=== PATIENT | female | born 1930 | race Caucasian/White ===

== ENCOUNTER 2017-01-02 17:29 | Emergency (ER) | payer OTHER ==
[~2017-01-02] VITALS: Ht 152.4 cm; Wt 47.7 kg
[2017-01-02 17:32] VITALS: BP 125/70; PULSE 162; RESP 22; TEMP 97.8; O2SAT 96
--- NOTE | 2017-01-02 17:36 | PD ---
HPI Chief Complaint: fall Time Seen by Provider: 17:36 Travel History International Travel<30 days: No Contact w/Intl Traveler<30days: No History of Present Illness HPI 86 YO F presents to the ED for evaluation after trip and fall onto a terrazzo floor. The patient denies loss of consciousness. She takes Xarelto. On presentation she complains of pain in the back of her head but she denies dizziness, vision changes, nausea, vomiting, numbness, tingling, weakness, limitations to range of motion of the extremities. She has been ambulatory since the accident. [facility]LY [facility] Social History Tobacco Use: No Allergies-Medications (Allergen,Severity, Reaction): Coded Allergies: No Known Allergies (Unverified , 01/02/17) Reported Meds & Prescriptions Reported Meds & Active Scripts Active Reported Womens One Daily (Multiple Vitamins W/ Minerals) 27 Mg-0.4 Mg Tab 1 Cap PO DAILY Amlodipine (Amlodipine Besylate) 2.5 Mg Tab 2.5 Mg PO DAILY Lisinopril 40 Mg Tab 40 Mg PO DAILY Lovastatin 40 Mg Tab 80 Mg PO DAILY Alendronate (Alendronate Sodium) 70 Mg Tab 70 Mg PO Q7D Eliquis (Apixaban) 2.5 Mg Tab 2.5 Mg PO BID Review of Systems Except as stated in HPI: all other systems reviewed are Neg Physical Exam Narrative GENERAL: Well-nourished, well-developed pleasant white female in NAD. SKIN: Focused skin assessment warm/dry. One centimeter laceration on the right aspect of the occiput. Bleeding profusely. HEAD: Normocephalic. EYES: No scleral icterus. No injection or drainage. NECK: Supple, trachea midline. No JVD or lymphadenopathy. No midline TTP. NO limitation to ROM. CARDIOVASCULAR: Regular rate and rhythm without murmurs, gallops, or rubs. RESPIRATORY: Breath sounds clear and equal bilaterally. No accessory muscle use. GASTROINTESTINAL: Abdomen soft, non-tender, nondistended. MUSCULOSKELETAL: No cyanosis, or edema. Patient moves the extremities spontaneously. NEUROLOGICAL: Awake and alert. Cranial nerves II through XII intact. Motor and sensory grossly within normal limits. Five out of 5 muscle strength in all muscle groups. Normal speech. BACK: Nontender without obvious deformity. No CVA tenderness. Data Data Last Documented VS Vital Signs Date Time Temp Pulse Resp B/P (MAP) Pulse Ox O2 Delivery O2 Flow Rate FiO2 01/02/17 20:37 01/02/17 19:32 89 16 97 01/02/17 17:32 97.8 01/02/17 17:30 Room Air Orders Orders Ct Brain W/O Iv Contrast(Rout) (01/02/17 17:44) Ct Cerv Spine W/O Contrast (01/02/17 17:44) Lidocaine 1% Inj (50 Ml) (Xylocaine 1% I (01/02/17 18:00) Complete Blood Count With Diff (01/02/17 18:38) Acetaminophen (Tylenol) (01/02/17 19:30) Electrocardiogram (01/02/17 18:46) Labs Laboratory Tests Test 01/02/17 19:10 White Blood Count 8.3 TH/MM3 Red Blood Count 3.37 MIL/MM3 Hemoglobin 9.2 GM/DL Hematocrit 29.3 % Mean Corpuscular Volume 86.9 FL Mean Corpuscular Hemoglobin 27.4 PG Mean Corpuscular Hemoglobin Concent 31.5 % Red Cell Distribution Width 17.2 % Platelet Count 358 TH/MM3 Mean Platelet Volume 7.9 FL Neutrophils (%) (Auto) 61.8 % Lymphocytes (%) (Auto) 22.9 % Monocytes (%) (Auto) 9.0 % Eosinophils (%) (Auto) 5.6 % Basophils (%) (Auto) 0.7 % Neutrophils # (Auto) 5.1 TH/MM3 Lymphocytes # (Auto) 1.9 TH/MM3 Monocytes # (Auto) 0.7 TH/MM3 Eosinophils # (Auto) 0.5 TH/MM3 Basophils # (Auto) 0.1 TH/MM3 CBC Comment DIFF FINAL Differential Comment [facility] Medical Decision Making Medical Screen Exam Complete: Yes Emergency Medical Condition: Yes Differential Diagnosis Scalp laceration versus closed head injury versus ICH versus musculoskeletal pain versus cervical spinal injury versus other Narrative Course 86 YO F presents to the ED for evaluation after trip and fall onto a terrazzo floor. The patient denies LOC. She takes Xarelto. On presentation she complains of pain in the back of her head but she denies dizziness, vision changes, nausea, vomiting, numbness, tingling, weakness, limitations to range of motion of the extremities. She has been ambulatory since the accident. Vitals reviewed. Physical exam reveals a 1 cm laceration on the right occiput, bleeding profusely but is otherwise unremarkable. Laceration repair was performed. Please see my procedure note for details. CTs of the brain and cervical spine are negative for acute process. Given the profuse bleeding CBC was ordered. Hemoglobin is 9.2. The patient has never been to [place] and we don't have a baseline to compare to. I will let her go home with precautions for anemia. I discussed wound care and follow-up for suture removal, reasons to return to the ED. The patient and her indicated understanding of the instructions and are agreeable to the care plan. She stable and discharged home. Procedures Procedure Narrative LACERATION LOCATION: right occiput LENGTH: 1cm NUMBER OF STITCHES/STEPHANI: 2 REPAIR: The area of the laceration was prepped with Betadine and sterilely draped. The laceration was infiltrated with 1% Lidocaine. The wound was copiously irrigated and explored without evidence of foreign body, tendon injury or neurovascular injury. The wound was closed using 3-0 Nylon. This was a single layer repair. The patient was advised to keep the wound clean and dry. Patient tolerated the procedure well. Diagnosis Primary Impression: Fall from standing Qualified Codes: W19.XXXA - Unspecified fall, initial encounter Additional Impressions: Occipital scalp laceration Qualified Codes: S01.01XA - Laceration without foreign body of scalp, initial encounter Closed head injury Qualified Codes: S09.90XA - Unspecified injury of head, initial encounter Referrals: Primary Care Physician Patient Instructions: Chronic Post Traumatic Headache (ED), General Instructions, Laceration (ED) Additional Instructions: Rest, hydrate. Do not submerge the wound for 24 hours. After that you may shower normally, no special treatment needed for the laceration. Wash gently. Suture removal in 10-14 days. Return to ED for worsening symptoms or any urgent or emergent medical condition. Disposition: 01 DISCHARGE HOME Condition: Stable Kat Sandoval Jan 02, 2017 17:36
[2017-01-02] MEDS ORDERED: LIDOCAINE HCL 1% 50 ML VIAL INFIL ONE (18:00)
--- NOTE | 2017-01-02 18:05 | RADRPT ---
EXAM DATE/TIME: 01/02/2017 17:47 [facility] COMPARISON: No previous studies available for comparison. INDICATIONS : Trauma, fell and hit back of head. RADIATION DOSE: 56.77 CTDIvol (mGy) MEDICAL HISTORY : Unobtainable. SURGICAL HISTORY : Unobtainable. ENCOUNTER: Initial ACUITY: 1 day PAIN SCALE: 10/10 LOCATION: cranial TECHNIQUE: Multiple contiguous axial images were obtained of the head. Using automated exposure control and adj ustment of the mA and/or kV according to patient size, radiation dose was kept as low as reasonably a chievable to obtain optimal diagnostic quality images. DICOM format image data is available electro nically for review and comparison. FINDINGS: CEREBRUM: The ventricles are normal for age. No evidence of midline shift, mass lesion, hemorrhage or acute in farction. No extra-axial fluid collections are seen. POSTERIOR FOSSA: The cerebellum and brainstem are intact. The 4th ventricle is midline. The cerebellopontine angle i s unremarkable. EXTRACRANIAL: The visualized portion of the orbits is intact. Note is made of hematoma within the posterior soft ti ssues along the occipital region. SKULL: The calvaria is intact. No evidence of skull fracture. CONCLUSION: 1. No acute intracranial abnormality. 2. Hematoma within the scalp posteriorly. Chaitanya Roman MD on January 02, 2017 at 18:03 Board Certified Radiologist. This report was verified electronically.
--- NOTE | 2017-01-02 18:15 | RADRPT ---
EXAM DATE/TIME: 01/02/2017 17:49 [facility] COMPARISON: No previous studies available for comparison. INDICATIONS : Trauma, fell and hit back of head. RADIATION DOSE: 34.59 CTDIvol (mGy) MEDICAL HISTORY : Unobtainable. SURGICAL HISTORY : Unobtainable. ENCOUNTER: Initial ACUITY: 1 day PAIN SCALE: 3/10 LOCATION: neck TECHNIQUE: Volumetric scanning of the cervical spine was performed. Multiplanar reconstructions in the sagittal, coronal and oblique axial planes were performed. Using automated exposure control and adjustment o f the mA and/or kV according to patient size, radiation dose was kept as low as reasonably achievable to obtain optimal diagnostic quality images. DICOM format image data is available electronically f or review and comparison. FINDINGS: No fracture seen of the cervical spine. There is approximately 4 mm of degenerative appearing anterol isthesis at C2/C3. No acute subluxation visualized. No prevertebral soft tissue swelling. Severe disc space narrowing with broad/diffuse disc osteophyte complexes and bilateral uncovertebral and facet osteoarthritis seen at C3/C4-C6/C7. There is moderate facet osteoarthritis at C2/C3. CONCLUSION: No fracture or acute appearing malalignment of the cervical spine. Multilevel degenerative changes as above and with several millimeters of degenerative appearing anterolisthesis at C2/C3. Faisal Mckeon MD on January 02, 2017 at 18:10 Board Certified Radiologist. This report was verified electronically.
[2017-01-02] MEDS ORDERED: APIX2.5T PO (19:25)
[2017-01-02] MEDS ORDERED: ALEN1TAB48 PO (19:28)
[2017-01-02] MEDS ORDERED: AMLO2.5T PO (19:29)
[2017-01-02] MEDS ORDERED: LISI40TA PO (19:29)
[2017-01-02] MEDS ORDERED: LOVA40TA PO (19:29)
[2017-01-02] MEDS ORDERED: WOMETAB5 PO (19:30)
[2017-01-02] MEDS ORDERED: ACETAMINOPHEN 325 MG TAB PO ONE (19:30)
[2017-01-02 19:32] VITALS: BP 128/80; PULSE 89; RESP 16; O2SAT 97
[2017-01-02 19:59] LABS: AUTOMATED NEUTROPHIL # 5.1 TH/MM3 (1.8-7.7); BASOPHIL # 0.1 TH/MM3 (0-0.2); BASOPHIL % 0.7 % (0.0-2.0); EOSINOPHIL # 0.5 TH/MM3 (0-0.4); EOSINOPHIL % 5.6 % (0.0-4.0); HEMATOCRIT 29.3 % (35.0-46.0); HEMO FLAGS DIFF FINAL; LYMPH % 22.9 % (9.0-44.0); LYMPHOCYTE # 1.9 TH/MM3 (1.0-4.8); MEAN CELL VOLUME 86.9 FL (80.0-100.0); MEAN CORPUSCULAR HEMOGLOBIN 27.4 PG (27.0-34.0); MEAN CORPUSCULAR HGB CONC 31.5 % (32.0-36.0); NEUT % 61.8 % (16.0-70.0); PLATELET COUNT 358 TH/MM3 (150-450); RED BLOOD COUNT 3.37 MIL/MM3 (4.00-5.30); RED CELL DISTRIBUTION WIDTH 17.2 % (11.6-17.2); WHITE BLOOD COUNT 8.3 TH/MM3 (4.0-11.0)
--- NOTE | 2017-01-02 20:51 | EKG ---
Date Performed: 01/02/2017 Time Performed: 18:46:00 PTAGE: 86 years EKG: Sinus rhythm RIGHT BUNDLE BRANCH BLOCK ABNORMAL ECG NO PREVIOUS TRACING DOCTOR: Get Ramos Interpretating Date/Time 01/02/2017 20:49:11
== END 2017-01-02 20:48 | disposition home or self-care (01) ==
LOC: NEPE 17:29
DX: S01.01XA Laceration without foreign body of scalp, initial encounter (principal); S09.90XA Unspecified injury of head, initial encounter; R94.31 Abnormal electrocardiogram [ECG] [EKG]; W01.198A Fall on same level from slipping, tripping and stumbling with subsequent striking against other object, initial encounter; Y93.01 Activity, walking, marching and hiking; Y92.009 Unspecified place in unspecified non-institutional (private) residence as the place of occurrence of the external cause; Z79.01 Long term (current) use of anticoagulants
CPT/HCPCS: 12001; 70450; 72125; 85025; 93005

== ENCOUNTER 2017-01-14 14:30 | Inpatient (IN) | payer OTHER, MEDICARE ==
[2017-01-14] VITALS (12 sets, daily range): BP systolic 109–162; BP diastolic 60–92; PULSE 99–121; RESP 14–24; TEMP 97.6–98.4; O2SAT 92–100
[~2017-01-14] VITALS: Ht 160 cm; Wt 48.7 kg
[~2017-01-14 14:30] MED LIST: ALEN1TAB48 PO; AMLO2.5T PO; APIX2.5T PO; LISI40TA PO; LOVA40TA PO; WOMETAB5 PO
--- NOTE | 2017-01-14 14:41 | PD ---
Physical Exam Time Seen by Provider: 14:39 Narrative 86 y/o female here with sob for 1.5 weeks. Hgb 6.7, her pcp sent her here. On eliquis. Denies melena, hematemesis, hematochezia. Vital signs reviewed. Seen at triage desk. Awaiting bed placement. Data Data Last Documented VS Vital Signs Date Time Temp Pulse Resp B/P (MAP) Pulse Ox O2 Delivery O2 Flow Rate FiO2 01/14/17 14:34 98.4 22 109/82 (91) Room Air [facility] Medical Record Reviewed: Yes Supervised Visit with DAMON: No Vamshi Gregorio Jan 14, 2017 14:41
--- NOTE | 2017-01-14 15:24 | RADRPT ---
EXAM DATE/TIME: 01/14/2017 15:07 [facility] COMPARISON: No previous studies available for comparison. INDICATIONS : Short of breath. MEDICAL HISTORY : Cardiovascular disease. SURGICAL HISTORY : CABG. ENCOUNTER: Initial ACUITY: 1 day PAIN SCORE: 0/10 LOCATION: Bilateral chest FINDINGS: The heart is enlarged. The patient is post median sternotomy. There are bilateral effusions and diffu se interstitial prominence suggesting congestive failure. There are changes consistent with COPD. The visualized bony structures are grossly intact. CONCLUSION: 1. Bilateral pleural effusion and diffuse interstitial prominence suggesting congestive failure. 2. COPD. Chaitanya Roman MD on January 14, 2017 at 15:21 Board Certified Radiologist. This report was verified electronically.
[2017-01-14 16:04] LABS: AUTOMATED NEUTROPHIL # 5.5 TH/MM3 (1.8-7.7); BASOPHIL # 0.1 TH/MM3 (0-0.2); BASOPHIL % 0.8 % (0.0-2.0); EOSINOPHIL # 0.4 TH/MM3 (0-0.4); EOSINOPHIL % 4.5 % (0.0-4.0); HEMO FLAGS DIFF FINAL; LYMPH % 18.4 % (9.0-44.0); LYMPHOCYTE # 1.6 TH/MM3 (1.0-4.8); MEAN CORPUSCULAR HEMOGLOBIN 25.9 PG (27.0-34.0); MEAN CORPUSCULAR HGB CONC 30.5 % (32.0-36.0); MONO % 11.2 % (0.0-8.0); NEUT % 65.1 % (16.0-70.0); PLATELET COUNT 444 TH/MM3 (150-450); RED CELL DISTRIBUTION WIDTH 17.9 % (11.6-17.2); WHITE BLOOD COUNT 8.4 TH/MM3 (4.0-11.0)
[2017-01-14 16:13] LABS: APTT (PATIENT) 28.5 SEC (24.3-30.1); INTERNATIONAL NORMALIZED RATIO 1.2 RATIO; PROTHROMBIN TIME - PATIENT 13.5 SEC (9.8-11.6)
[2017-01-14 16:25] LABS: ALT (GPT) 11 U/L (10-53); ANION GAP 9 MEQ/L (5-15); AST (GOT) 17 U/L (15-37); BICARBONATE 23.9 MEQ/L (21.0-32.0); BLOOD UREA NITROGEN 10 MG/DL (7-18); CHLORIDE 110 MEQ/L (98-107); GLOMERULAR FILTRATION RATE 63 ML/MIN (>89); MAGNESIUM 2.1 MG/DL (1.5-2.5); POTASSIUM 3.4 MEQ/L (3.5-5.1); SODIUM (NA) 143 MEQ/L (136-145)
[2017-01-14 16:29] LABS: ALKALINE PHOSPHATASE 109 U/L (45-117); TOTAL BILIRUBIN ADULT 0.6 MG/DL (0.2-1.0)
--- NOTE | 2017-01-14 16:30 | PD ---
HPI Chief Complaint: Abnormal Results Time Seen by Provider: 16:06 Travel History International Travel<30 days: No Contact w/Intl Traveler<30days: No Traveled to known affect area: No History of Present Illness HPI 86-year-old white female here with her presents to the emergency department for low hemoglobin. She was sent by her primary care physician for a hemoglobin of 6.7 and says that her primary concern is shortness of breath. Apparently she was here 2 weeks ago for a fall and was due to have her sutures from her scalp removed she has not had that done yet. She says she has some increased shortness of breath for about a week but denies chest pain, dizziness , headache, nausea, vomiting, diarrhea, hematochezia, or melena here and she is on Eliquis for "open heart surgery 25 years ago" and took a dose 2.5 mg this morning. PFSH Past Medical History Hx Anticoagulant Therapy: Yes (elloquis) Heart Rhythm Problems: Yes Cardiovascular Problems: Yes Coronary Artery Disease: Yes Diminished Hearing: Yes Hypertension: Yes Tetanus Vaccination: < 5 Years Influenza Vaccination: No Past Surgical History Cardiac Surgery: Yes (CABG X 2) Section: Yes (X 4) Cholecystectomy: Yes Hysterectomy: Yes Social History Alcohol Use: Yes (OCCASIONALLY) Tobacco Use: No Substance Use: No Allergies-Medications (Allergen,Severity, Reaction): Coded Allergies: Penicillins (Verified Allergy, Unknown, 01/14/17) Sulfa (Sulfonamide Antibiotics) (Verified Allergy, Unknown, 01/14/17) Reported Meds & Prescriptions Reported Meds & Active Scripts Active Reported Womens One Daily (Multiple Vitamins W/ Minerals) 27 Mg-0.4 Mg Tab 1 Cap PO DAILY Amlodipine (Amlodipine Besylate) 2.5 Mg Tab 2.5 Mg PO DAILY Lisinopril 40 Mg Tab 40 Mg PO DAILY Lovastatin 40 Mg Tab 80 Mg PO DAILY Alendronate (Alendronate Sodium) 70 Mg Tab 70 Mg PO Q7D Eliquis (Apixaban) 2.5 Mg Tab 2.5 Mg PO BID Review of Systems Except as stated in HPI: all other systems reviewed are Neg Physical Exam Narrative 86-year-old frail appearing female lying in bed comfortably with no obvious shortness of breath. SKIN: Focused skin assessment warm/dry. HEAD: Normocephalic. Area of scabbing with sutures in place posterior aspect. EYES: Pupils equal and round. No scleral icterus. No injection or drainage. ENT: No nasal bleeding or discharge. Mucous membranes pink and moist. NECK: Trachea midline. No JVD. CARDIOVASCULAR: Regular rate and rhythm. No murmur appreciated. RESPIRATORY: No accessory muscle use. Clear to auscultation. Breath sounds equal bilaterally. GASTROINTESTINAL: Abdomen soft, nondistended. Hepatic and splenic margins not palpable. Mild tenderness in epigastric region with deep palpation MUSCULOSKELETAL: No obvious deformities. No clubbing. No cyanosis. Mild +1 pitting edema, normal for the patient. NEUROLOGICAL: Awake and alert. No obvious cranial nerve deficits. Motor grossly within normal limits. Normal speech. PSYCHIATRIC: Appropriate mood and affect; insight and judgment normal. Data Data Last Documented VS Vital Signs Date Time Temp Pulse Resp B/P (MAP) Pulse Ox O2 Delivery O2 Flow Rate FiO2 01/14/17 15:30 100 16 162/65 (97) 95 Nasal Cannula 2.00 01/14/17 14:34 98.4 Orders Orders Complete Blood Count With Diff (01/14/17 14:42) Comprehensive Metabolic Panel (01/14/17 14:42) B-Type Natriuretic Peptide (01/14/17 14:42) Act Partial Throm Time (Ptt) (01/14/17 14:42) Prothrombin Time / Inr (Pt) (01/14/17 14:42) Magnesium (Mg) (01/14/17 14:42) Ckmb (Isoenzyme) Profile (01/14/17 14:42) Troponin I (01/14/17 14:42) Electrocardiogram (01/14/17 14:42) Type And Screen (01/14/17 14:42) Chest, Pa & Lat (01/14/17 14:42) Red Blood Cells (Rbc) (01/14/17 17:08) Blood Product Administration (01/14/17 17:08) Sodium Chlor 0.9% 250 Ml Inj (Ns 250 Ml (01/14/17 17:15) Comprehensive Metabolic Panel (01/15/17 06:00) Free Thyroxine (T4) (01/15/17 06:00) Hemoglobin (Hgb) A1c (01/15/17 06:00) Magnesium (Mg) (01/15/17 06:00) Phosphorus (Po4) (01/15/17 06:00) Thyroid Stimulating Hormone (01/15/17 06:00) Complete Blood Count With Diff (01/15/17 06:00) Admit To Inpatient (01/14/17 ) Code Status (01/14/17 17:52) Vital Signs (Adult) Q4H (01/14/17 17:52) Activity Oob Ad Aixa (01/14/17 17:52) Cartography/Mapping Technician / Telemetry ARJUN.Q8H (01/14/17 17:52) Intake + Output ARJUN.QSHIFT (01/14/17 17:52) Diet Liquid (01/14/17 Dinner) Sodium Chloride 0.9% Flush (Ns Flush) (01/14/17 18:00) Sodium Chloride 0.9% Flush (Ns Flush) (01/14/17 21:00) Pantoprazole Inj (Protonix Inj) (01/14/17 21:00) Hgb & Hct (01/14/17 17:52) Hgb & Hct (01/14/17 23:52) Hgb & Hct (01/15/17 05:52) Hgb & Hct (01/15/17 11:52) Resp Oxygen Jake C Titrat 1-4 L (01/14/17 ) Consult Gastroenterology (01/14/17 ) Vital Signs (Adult) Q4H (01/14/17 17:52) Activity Bed Rest With Brp (01/14/17 17:52) Cartography/Mapping Technician / Telemetry .CONTINUOUS (01/14/17 17:52) Intake + Output ARJUN.QSHIFT (01/14/17 17:52) Sodium Chloride 0.9% Flush (Ns Flush) (01/14/17 18:00) Sodium Chloride 0.9% Flush (Ns Flush) (01/14/17 21:00) Acetaminophen (Tylenol) (01/14/17 18:00) Ondansetron Inj (Zofran Inj) (01/14/17 18:00) Prochlorperazine Supp (Compazine Supp) (01/14/17 18:00) Urinalysis - C+S If Indicated (01/14/17 17:52) Electrocardiogram (01/14/17 17:52) Resp Oxygen Jake C Titrat 1-4 L (01/14/17 ) Pt Request For Service (01/14/17 17:52) Ot Request For Service (01/14/17 17:52) Case Management Consult (01/14/17 17:52) Scd Bilateral/Knee High ARJUN.BID (01/14/17 17:52) Brooks Bilateral/Knee High ARJUN.QSHIFT (01/14/17 18:00) Acetaminophen (Tylenol) (01/14/17 18:00) Oxycodone-Acetamin 5-325 Mg (Percocet (01/14/17 18:00) Oxycodone-Acetamin 10-325 Mg (Percocet 1 (01/14/17 18:00) Morphine Inj (Morphine Inj) (01/14/17 18:00) Morphine Inj (Morphine Inj) (01/14/17 18:00) Naloxone Inj (Narcan Inj) (01/14/17 18:00) Docusate Sodium-Senna (Katarzyna-Colace) (01/14/17 21:00) Magnesium Hydroxide Liq (Milk Of Magnesi (01/14/17 18:00) Sennosides (Senokot) (01/14/17 18:00) Bisacodyl Supp (Dulcolax Supp) (01/14/17 18:00) Lactulose Liq (Lactulose Liq) (01/14/17 18:00) Inpatient Certification (01/14/17 ) Amlodipine (Norvasc) (01/15/17 09:00) Lisinopril (Prinivil) (01/15/17 09:00) Multivitamins-Minerals Therap (Theragran (01/15/17 09:00) Blood Product Administration .UPON TRANSFUSION (01/14/17 17:57) Sodium Chlor 0.9% 250 Ml Inj (Ns 250 Ml (01/14/17 18:00) Acetaminophen (Tylenol) (01/14/17 18:00) Diphenhydramine (Benadryl) (01/14/17 18:00) Furosemide Inj (Lasix Inj) (01/14/17 18:30) Admit Order (Ed Use Only) (01/14/17 18:05) Pravastatin (Pravachol) (01/15/17 09:00) Labs Laboratory Tests Test 01/14/17 15:15 White Blood Count 8.4 TH/MM3 Red Blood Count 2.70 MIL/MM3 Hemoglobin 7.0 GM/DL Hematocrit 23.0 % Mean Corpuscular Volume 85.0 FL Mean Corpuscular Hemoglobin 25.9 PG Mean Corpuscular Hemoglobin Concent 30.5 % Red Cell Distribution Width 17.9 % Platelet Count 444 TH/MM3 Mean Platelet Volume 7.6 FL Neutrophils (%) (Auto) 65.1 % Lymphocytes (%) (Auto) 18.4 % Monocytes (%) (Auto) 11.2 % Eosinophils (%) (Auto) 4.5 % Basophils (%) (Auto) 0.8 % Neutrophils # (Auto) 5.5 TH/MM3 Lymphocytes # (Auto) 1.6 TH/MM3 Monocytes # (Auto) 0.9 TH/MM3 Eosinophils # (Auto) 0.4 TH/MM3 Basophils # (Auto) 0.1 TH/MM3 CBC Comment DIFF FINAL Differential Comment Prothrombin Time 13.5 SEC Prothromb Time International Ratio 1.2 RATIO Activated Partial Thromboplast Time 28.5 SEC Blood Urea Nitrogen 10 MG/DL Creatinine 0.86 MG/DL Random Glucose 108 MG/DL Total Protein 7.2 GM/DL Albumin 3.4 GM/DL Calcium Level 9.1 MG/DL Magnesium Level 2.1 MG/DL Alkaline Phosphatase 109 U/L Aspartate Amino Transf (AST/SGOT) 17 U/L Alanine Aminotransferase (ALT/SGPT) 11 U/L Total Bilirubin 0.6 MG/DL Sodium Level 143 MEQ/L Potassium Level 3.4 MEQ/L Chloride Level 110 MEQ/L Carbon Dioxide Level 23.9 MEQ/L Anion Gap 9 MEQ/L Estimat Glomerular Filtration Rate 63 ML/MIN Total Creatine Kinase 44 U/L Troponin I LESS THAN 0.02 NG/ML B-Type Natriuretic Peptide 427 PG/ML MDM Medical Decision Making Medical Screen Exam Complete: Yes Emergency Medical Condition: Yes Differential Diagnosis Anemia of chronic disease versus acute anemia Narrative Course 86-year-old white female here with her presents to the emergency department for low hemoglobin. She was sent by her primary care physician for a hemoglobin of 6.7 and says that her primary concern is shortness of breath. Apparently she was here 2 weeks ago for a fall and was due to have her sutures from her scalp removed she has not had that done yet. According to her last visit in the ER, her work up was negative for acute process but concerned about developing anemia. She says she has some increased shortness of breath for about a week but denies chest pain, dizziness, headache, nausea, vomiting, diarrhea, hematochezia, or melena. She is on Eliquis for "open heart surgery 25 years ago" and took a dose 2.5 mg this morning. Labs demonstrate Hgb 7.0, Cr 0.68 Rectal exam and history of brown stool and negative Hemoccult Type and screen ordered for this patient. Imaging shows plural effusions and possible congestion. I discussed this with her and her and they agree with admission. Admit to Observation. HemaPrompt Point of Care Internal Pos. & Neg. Controls: Passed Fecal Specimen Occult Blood: Negative Comment brown stool Diagnosis Primary Impression: Anemia Qualified Codes: D64.9 - Anemia, unspecified Condition: Stable Lesley Smith Jan 14, 2017 16:30
[2017-01-14 16:33] LABS: CREATINE KINASE 44 U/L (26-192)
--- NOTE | 2017-01-14 17:07 | PD ---
Physical Exam Date Seen by Provider: Jan 14, 2017 Narrative Patient was sent here by her doctor for treatment of anemia. Patient states that she suffered a fall several weeks ago a scalp laceration which bled a lot. Otherwise, she knows of no recent blood loss. Data Data Last Documented VS Vital Signs Date Time Temp Pulse Resp B/P (MAP) Pulse Ox O2 Delivery O2 Flow Rate FiO2 01/14/17 15:30 100 16 162/65 (97) 95 Nasal Cannula 2.00 01/14/17 14:34 98.4 Orders Orders Complete Blood Count With Diff (01/14/17 14:42) Comprehensive Metabolic Panel (01/14/17 14:42) B-Type Natriuretic Peptide (01/14/17 14:42) Act Partial Throm Time (Ptt) (01/14/17 14:42) Prothrombin Time / Inr (Pt) (01/14/17 14:42) Magnesium (Mg) (01/14/17 14:42) Ckmb (Isoenzyme) Profile (01/14/17 14:42) Troponin I (01/14/17 14:42) Electrocardiogram (01/14/17 14:42) Type And Screen (01/14/17 14:42) Chest, Pa & Lat (01/14/17 14:42) Labs Laboratory Tests Test 01/14/17 15:15 White Blood Count 8.4 TH/MM3 Red Blood Count 2.70 MIL/MM3 Hemoglobin 7.0 GM/DL Hematocrit 23.0 % Mean Corpuscular Volume 85.0 FL Mean Corpuscular Hemoglobin 25.9 PG Mean Corpuscular Hemoglobin Concent 30.5 % Red Cell Distribution Width 17.9 % Platelet Count 444 TH/MM3 Mean Platelet Volume 7.6 FL Neutrophils (%) (Auto) 65.1 % Lymphocytes (%) (Auto) 18.4 % Monocytes (%) (Auto) 11.2 % Eosinophils (%) (Auto) 4.5 % Basophils (%) (Auto) 0.8 % Neutrophils # (Auto) 5.5 TH/MM3 Lymphocytes # (Auto) 1.6 TH/MM3 Monocytes # (Auto) 0.9 TH/MM3 Eosinophils # (Auto) 0.4 TH/MM3 Basophils # (Auto) 0.1 TH/MM3 CBC Comment DIFF FINAL Differential Comment Prothrombin Time 13.5 SEC Prothromb Time International Ratio 1.2 RATIO Activated Partial Thromboplast Time 28.5 SEC Blood Urea Nitrogen 10 MG/DL Creatinine 0.86 MG/DL Random Glucose 108 MG/DL Total Protein 7.2 GM/DL Albumin 3.4 GM/DL Calcium Level 9.1 MG/DL Magnesium Level 2.1 MG/DL Alkaline Phosphatase 109 U/L Aspartate Amino Transf (AST/SGOT) 17 U/L Alanine Aminotransferase (ALT/SGPT) 11 U/L Total Bilirubin 0.6 MG/DL Sodium Level 143 MEQ/L Potassium Level 3.4 MEQ/L Chloride Level 110 MEQ/L Carbon Dioxide Level 23.9 MEQ/L Anion Gap 9 MEQ/L Estimat Glomerular Filtration Rate 63 ML/MIN Total Creatine Kinase 44 U/L Troponin I LESS THAN 0.02 NG/ML B-Type Natriuretic Peptide 427 PG/ML MDM Supervised Visit with DAMON: Yes Narrative Course I, Dr. Welch, have reviewed the advance practice practitioner's documentation and am in agreement, met with the patient face to face, made the diagnosis, and the medical decision making was done by me. *My assessment and Findings: This patient is awake and alert. CBC Diagram 01/14/17 15:15 We will go ahead and type and cross her for 2 units. Diagnosis Primary Impression: Anemia Qualified Codes: D64.9 - Anemia, unspecified Sharon Welch MD Jan 14, 2017 17:07
[2017-01-14] MEDS ORDERED: SODIUM CHLOR 0.9% 250 ML INJ 250 ML IV ONE ×2 (17:15→18:00)
[2017-01-14] MEDS ORDERED: SODIUM CHLORIDE 0.9% FLUSH 10 ML FLUSH IV FLUSH PRN ×2 (18:00)
[2017-01-14] MEDS ORDERED: PROCHLORPERAZINE 25 MG SUPP RECTAL PRN (18:00)
[2017-01-14] MEDS ORDERED: NALOXONE HCL 0.4 MG/ML AMP IV PUSH PRN (18:00)
[2017-01-14] MEDS ORDERED: LACTULOSE SYRUP 20 GM/30 ML CUP PO PRN (18:00)
[2017-01-14] MEDS ORDERED: oxyCODONE/ACETAMINOPHEN 5 MG/325 MG TAB PO PRN (18:00)
[2017-01-14] MEDS ORDERED: MORPHINE SULFATE 4 MG/ML INJ IV PUSH PRN ×2 (18:00)
[2017-01-14] MEDS ORDERED: ACETAMINOPHEN 325 MG TAB PO PRN ×3 (18:00)
[2017-01-14] MEDS ORDERED: oxyCODONE/ACETAMINOPHEN 10 MG/325 MG TAB PO PRN (18:00)
[2017-01-14] MEDS ORDERED: SENNOSIDES 8.6 MG TAB PO PRN (18:00)
[2017-01-14] MEDS ORDERED: ONDANSETRON HCL 4 MG/2 ML VIAL IVP PRN (18:00)
[2017-01-14] MEDS ORDERED: diphenhydrAMINE HCL 25 MG CAP PO PRN (18:00)
[2017-01-14] MEDS ORDERED: MAGNESIUM HYDROXIDE SUSP 30 ML CUP PO PRN (18:00)
[2017-01-14] MEDS ORDERED: BISACODYL 10 MG SUPP RECTAL PRN (18:00)
[2017-01-14] MEDS ORDERED: PILL SPLITTER OTHER PRN (18:30)
[2017-01-14] MEDS ORDERED: FUROSEMIDE 20 MG/2 ML VIAL IV PUSH ONE ×2 (18:30→22:15)
[2017-01-14] MEDS: DOCUSATE SODIUM 50 MG/SENNA 8.6 MG TAB PO SCH ×2 (21:00→22:28)
[2017-01-14] MEDS ORDERED: SODIUM CHLORIDE 0.9% FLUSH 10 ML FLUSH IV FLUSH SCH (21:00)
--- NOTE | 2017-01-14 22:04 | HHI.HP ---
HPI Service [facility] Primary Care Physician Stan Almazan MD Admission Diagnosis Anemia requiring transfusion Diagnoses: Chief Complaint: sob, low hemoglobin Travel History International Travel<30 Days: No Contact w/Intl Traveler <30 Da: No Traveled to Known Affected Are: No History of Present Illness Written by JEANETTE Baird acting as scribe for [Ray] on 01/14/17 at 21: 55. 86 y/o female with a history of HTN, CAD s/p cabg 25 years ago, and HLD was told to come to the ED after a low hemoglobin was found on lab work at PCP office. Patient denies any black or red colored stools, or hematuria . She does complain of dyspnea and leg swelling worse over the last 2 weeks, with associated chest tightness. She states she has not been worked up for CHF. She denies having a colonoscopy or EGD. Art Class Model: Dr. Spann PCP: Dr. Almazan Review of Systems Except as stated in HPI: all other systems reviewed are Neg Past Family Social History Past Medical History HTN HLD CAD Irregular heart beat Past Surgical History CABG 25 years ago C section x 4 Hysterectomy Appendectomy Cholecystectomy Reported Medications Reported Meds & Active Scripts Active Reported Womens One Daily (Multiple Vitamins W/ Minerals) 27 Mg-0.4 Mg Tab 1 Cap PO DAILY Amlodipine (Amlodipine Besylate) 2.5 Mg Tab 2.5 Mg PO DAILY Lisinopril 40 Mg Tab 40 Mg PO DAILY Lovastatin 40 Mg Tab 80 Mg PO DAILY Alendronate (Alendronate Sodium) 70 Mg Tab 70 Mg PO Q7D Eliquis (Apixaban) 2.5 Mg Tab 2.5 Mg PO BID Allergies: Coded Allergies: Penicillins (Verified Allergy, Unknown, 01/14/17) Sulfa (Sulfonamide Antibiotics) (Verified Allergy, Unknown, 01/14/17) Active Ordered Medications Current Medications Medications (Trade) Dose Ordered Sig/Erasmo Route Start Time Stop Time Status Last Admin (Protonix Inj) 40 mg BID IV PUSH 01/14/17 21:00 (NS Flush) 2 ml UNSCH PRN IV FLUSH 01/14/17 18:00 (NS Flush) 2 ml BID IV FLUSH 01/14/17 21:00 (Zofran Inj) 4 mg Q6H PRN IVP 01/14/17 18:00 (Narcan Inj) 0.4 mg UNSCH PRN IV PUSH 01/14/17 18:00 (Katarzyna-Colace) 1 tab BID PO 01/14/17 21:00 (Norvasc) 2.5 mg DAILY PO 01/15/17 09:00 (Pravachol) 80 mg DAILY PO 01/15/17 09:00 (Prinivil) 40 mg DAILY PO 01/15/17 09:00 Sodium Chloride 250 ml @ 15 mls/hr ONCE ONCE IV 01/14/17 18:00 01/15/17 10:39 01/14/17 18:00 (Tylenol) 650 mg Q4H PRN PO 01/14/17 18:00 01/15/17 17:59 (Benadryl) 25 mg Q4H PRN PO 01/14/17 18:00 01/15/17 17:59 (Pill Splitter) 1 ea UNSCH PRN OTHER 01/14/17 18:30 Family History Patient is unsure of her family history, she is the only child Social History Tobacco use: Denies, quit 30 years ago Alcohol use: Denies Illicit drug use: Denies She does not drive, and lives Physical Exam Vital Signs Vital Signs Date Time Temp Pulse Resp B/P (MAP) Pulse Ox O2 Delivery O2 Flow Rate FiO2 01/14/17 20:39 97.6 113 14 127/80 97 01/14/17 20:12 98 Nasal Cannula 2.00 01/14/17 20:07 97.7 114 14 119/60 99 01/14/17 19:43 97.6 116 18 128/92 92 01/14/17 19:15 01/14/17 18:45 96 2.00 01/14/17 18:40 101 24 129/75 (93) 98 Nasal Cannula 2.00 01/14/17 15:30 100 16 162/65 (97) 95 Nasal Cannula 2.00 01/14/17 14:38 110 95 01/14/17 14:34 98.4 22 109/82 (91) Room Air Physical Exam GENERAL: This is a well-nourished, well-developed patient, who is slightly short of breath. SKIN: No rashes, ecchymoses or lesions. Cool and dry. Occipital stitches in place HEAD: Atraumatic. Normocephalic. EYES: Pupils equal round and reactive. ENT: Nose without bleeding, purulent drainage or septal hematoma. Airway patent. NECK: Trachea midline. No JVD. CARDIOVASCULAR: Regular rate and rhythm without murmurs, gallops, or rubs. RESPIRATORY: Diminished Breath sounds equal bilaterally. No wheezes, rales, or rhonchi. GASTROINTESTINAL: Abdomen soft, non-tender, nondistended. MUSCULOSKELETAL: Bilateral lower extremity edema, L > R. No calf tenderness. NEUROLOGICAL: Awake and alert. Motor and sensory grossly within normal limits. Normal speech. Laboratory Laboratory Tests Test 01/14/17 15:15 White Blood Count 8.4 Red Blood Count 2.70 Hemoglobin 7.0 Hematocrit 23.0 Mean Corpuscular Volume 85.0 Mean Corpuscular Hemoglobin 25.9 Mean Corpuscular Hemoglobin Concent 30.5 Red Cell Distribution Width 17.9 Platelet Count 444 Mean Platelet Volume 7.6 Neutrophils (%) (Auto) 65.1 Lymphocytes (%) (Auto) 18.4 Monocytes (%) (Auto) 11.2 Eosinophils (%) (Auto) 4.5 Basophils (%) (Auto) 0.8 Neutrophils # (Auto) 5.5 Lymphocytes # (Auto) 1.6 Monocytes # (Auto) 0.9 Eosinophils # (Auto) 0.4 Basophils # (Auto) 0.1 CBC Comment DIFF FINAL Differential Comment Prothrombin Time 13.5 Prothromb Time International Ratio 1.2 Activated Partial Thromboplast Time 28.5 Blood Urea Nitrogen 10 Creatinine 0.86 Random Glucose 108 Total Protein 7.2 Albumin 3.4 Calcium Level 9.1 Magnesium Level 2.1 Alkaline Phosphatase 109 Aspartate Amino Transf (AST/SGOT) 17 Alanine Aminotransferase (ALT/SGPT) 11 Total Bilirubin 0.6 Sodium Level 143 Potassium Level 3.4 Chloride Level 110 Carbon Dioxide Level 23.9 Anion Gap 9 Estimat Glomerular Filtration Rate 63 Total Creatine Kinase 44 Troponin I LESS THAN 0.02 B-Type Natriuretic Peptide 427 Result Diagram: 01/14/17 1515 01/14/17 1515 Imaging Last Impressions Chest X-Ray 01/14/17 1442 Signed Impressions: Service Date/Time: Saturday, January 14, 2017 15:07 - CONCLUSION: 1. Bilateral pleural effusion and diffuse interstitial prominence suggesting congestive failure. 2. COPD. MD Varsha Curtis VTE Risk Assessment Varsha VTE Risk Assessment: Mod/High Risk (score >= 2) Caprini Risk Assessment Model Point Value = 1 Point Value = 2 Point Value = 3 Point Value = 5 Age 41-60 Minor surgery BMI > 25 kg/m2 Swollen legs Varicose veins or History of unexplained or recurrent spontaneous Oral contraceptives or hormone replacement Sepsis (< 1 month) Serious lung disease, including pneumonia (< 1 month) Abnormal pulmonary function Acute myocardial infarction Congestive heart failure (< 1 month) History of inflammatory bowel disease Medical patient at bed rest Age 61-74 Arthroscopic surgery Major open surgery (> 45 min) Laparoscopic surgery (> 45 min) Malignancy Confined to bed (> 72 hours) Immobilizing plaster cast Central venous access Age >= 75 History of VTE Family history of VTE Factor V Leiden Prothrombin [id number] Lupus anticoagulant Anticardiolipin antibodies Elevated serum homocysteine Heparin-induced thrombocytopenia Other congenital or acquired thrombophilia Stroke (< 1 month) Elective arthroplasty Hip, pelvis, or leg fracture Acute spinal cord injury (< 1 month) Prophylaxis Regimen Total Risk Factor Score Risk Level Prophylaxis Regimen 0-1 Low Early ambulation 2 Moderate Order ONE of the following: *Sequential Compression Device (SCD) *Heparin 5000 units SQ BID 3-4 Higher Order ONE of the following medications: *Heparin 5000 units SQ TID *Enoxaparin/Lovenox 40 mg SQ daily (WT < 150 kg, CrCl > 30 mL/min) *Enoxaparin/Lovenox 30 mg SQ daily (WT < 150 kg, CrCl > 10-29 mL/min) *Enoxaparin/Lovenox 30 mg SQ BID (WT < 150 kg, CrCl > 30 mL/min) AND/OR *Sequential Compression Device (SCD) 5 or more Highest Order ONE of the following medications: *Heparin 5000 units SQ TID (Preferred with Epidurals) *Enoxaparin/Lovenox 40 mg SQ daily (WT < 150 kg, CrCl > 30 mL/min) *Enoxaparin/Lovenox 30 mg SQ daily (WT < 150 kg, CrCl > 10-29 mL/min) *Enoxaparin/Lovenox 30 mg SQ BID (WT < 150 kg, CrCl > 30 mL/min) AND *Sequential Compression Device (SCD) Assessment and Plan Problem List: (1) Anemia ICD Code: D64.9 - Anemia, unspecified Status: Acute (2) HTN (hypertension) ICD Code: I10 - Essential (primary) hypertension (3) CHF (congestive heart failure) ICD Code: I50.9 - Heart failure, unspecified Status: Acute (4) Hypokalemia ICD Code: E87.6 - Hypokalemia Status: Acute Assessment and Plan 86 y/o female with a history of HTN, CAD, and HLD was told to come to the ED after a low hemoglobin was found on lab work at PCP office. Symptomatic anemia, acute, hgb 6.9 -1 units PRBC's transfused, hold second unit due to shortness of breath, Lasix x 1 given -Iron panel ordered -Serial H&H ordered -Protonix drip New onset CHF, BNP 427, patient with dyspnea and lower extremity edema Chest x ray reviewed and shows bilateral pleural effusion with defuse interstitial prominence. -Lasix x 1 given -Consult Cardiology, Dr. Spann -2D echo ordered -Bilateral Doppler US ordered r/o DVT Hypokalemia, potassium 3.4 -Supplementation ordered, trend labs, and replace as needed HTN, chronic, controlled: Resume home medications and monitor vitals. DVT prophylaxis: SCDs, hold chemical due to bleeding This note was transcribed by jose r [Anjelica Vogel]. I, Dr. Oriana Bell personally performed the history, physical exam, and medical decision making; and confirmed the accuracy of the information in the transcribed note. Authenticated by Dr. Oriana Bell on 01/14/17 at 21:55. Discussed Condition With Patient and patient's Problem Qualifiers (1) Anemia: Qualified Codes: D64.9 - Anemia, unspecified (2) HTN (hypertension): Qualified Codes: I10 - Essential (primary) hypertension Anjelica Vogel Jan 14, 2017 22:04 Oriana Bell MD Jan 16, 2017 04:26
[2017-01-14] MEDS ORDERED: POTASSIUM CHLORIDE 20 MEQ CONTROLLED RELEASE TAB PO ONE (22:15)
[2017-01-14] MEDS: PANTOPRAZOLE SODIUM 40 MG VIAL IV PUSH SCH (22:27)
[2017-01-14] MEDS: SODIUM CHLORIDE 0.9% FLUSH 10 ML FLUSH IV FLUSH SCH (22:28)
[2017-01-14 22:29] LABS: TRANSFERRIN IRON PROFILE 255 MG/DL (200-360)
[2017-01-14 22:32] LABS: FERRITIN 16 NG/ML (8-252)
--- NOTE | 2017-01-14 23:37 | RADRPT ---
EXAM DATE/TIME: 01/14/2017 22:49 [facility] COMPARISON: No previous studies available for comparison. INDICATIONS : Bilateral leg swelling. MEDICAL HISTORY : Hypertension. Hearing loss. Coronary artery disease. Anticoagulant therapy. Irregular heartbeat. SURGICAL HISTORY : Hysterectomy.Cholecystectomy. section.CABG x 2. ENCOUNTER: Initial ACUITY: 1 week PAIN SCORE: 6/10 LOCATION: Bilateral legs. TECHNIQUE: Venous ultrasound of the left and right leg was performed from the inguinal ligament to the proximal calf. Real-time, color Doppler and spectral tracing, compression and augmentation techniques were us ed. FINDINGS: RIGHT LEG: There is normal compressibility of the deep venous system from the inguinal region to the proximal ca lf. No echogenic clot is seen in the lumen of the common femoral, femoral, popliteal, and posterior tibial veins. There is a normal response of the venous system to proximal and distal augmentation an d respiration. LEFT LEG: There is normal compressibility of the deep venous system from the inguinal region to the proximal ca lf. No echogenic clot is seen in the lumen of the common femoral, femoral, popliteal, and posterior tibial veins. There is a normal response of the venous system to proximal and distal augmentation an d respiration. CONCLUSION: Negative for deep venous thrombosis. Subcutaneous edema present. Rogers Wilkerson MD on January 14, 2017 at 23:33 Board Certified Radiologist. This report was verified electronically.
[2017-01-15] VITALS (8 sets, daily range): BP systolic 101–149; BP diastolic 57–87; PULSE 86–108; RESP 16–18; TEMP 96–98; O2SAT 92–100
[2017-01-15 00:56] LABS: HEMATOCRIT 27.9 % (35.0-46.0); REVIEW FLAG FINAL
[2017-01-15 07:43] LABS: AUTOMATED NEUTROPHIL # 7.9 TH/MM3 (1.8-7.7); BASOPHIL # 0.1 TH/MM3 (0-0.2); BASOPHIL % 0.8 % (0.0-2.0); EOSINOPHIL # 0.2 TH/MM3 (0-0.4); EOSINOPHIL % 1.7 % (0.0-4.0); HEMO FLAGS DIFF FINAL; LYMPH % 10.6 % (9.0-44.0); LYMPHOCYTE # 1.1 TH/MM3 (1.0-4.8); MEAN CELL VOLUME 84.7 FL (80.0-100.0); MEAN CORPUSCULAR HEMOGLOBIN 27.4 PG (27.0-34.0); MEAN CORPUSCULAR HGB CONC 32.3 % (32.0-36.0); MONO % 7.4 % (0.0-8.0); NEUT % 79.5 % (16.0-70.0); PLATELET COUNT 381 TH/MM3 (150-450); RED BLOOD COUNT 3.18 MIL/MM3 (4.00-5.30); RED CELL DISTRIBUTION WIDTH 17.4 % (11.6-17.2)
[2017-01-15 07:48] LABS: ANION GAP 8 MEQ/L (5-15); AST (GOT) 17 U/L (15-37); BICARBONATE 26.1 MEQ/L (21.0-32.0); BLOOD UREA NITROGEN 10 MG/DL (7-18); CHLORIDE 108 MEQ/L (98-107); GLOMERULAR FILTRATION RATE 66 ML/MIN (>89); POTASSIUM 3.7 MEQ/L (3.5-5.1); SODIUM (NA) 142 MEQ/L (136-145)
[2017-01-15 07:56] LABS: ALKALINE PHOSPHATASE 102 U/L (45-117); ALT (GPT) 8 U/L (10-53); FREE T4 1.25 NG/DL (0.76-1.46); TOTAL BILIRUBIN ADULT 1.3 MG/DL (0.2-1.0)
--- NOTE | 2017-01-15 07:57 | EKG ---
Date Performed: 01/14/2017 Time Performed: 14:53:10 PTAGE: 86 years EKG: ATRIAL FIBRILLATION WITH RAPID VENTRICULAR RESPONSE LOW QRS VOLTAGE IN EXTREMITY LEADS SEPT AL MYOCARDIAL INFARCTION ABNORMAL ECG Since PREVIOUS TRACING , RBBB resolved PREVIOUS TRACIN01/02/2017 18.46 DOCTOR: Karina Spann Interpretating Date/Time 01/15/2017 07:55:56
[2017-01-15] MEDS: DOCUSATE SODIUM 50 MG/SENNA 8.6 MG TAB PO SCH ×2 (09:00→20:52)
[2017-01-15] MEDS: PRAVASTATIN SOD 80 MG TAB PO SCH (09:00)
[2017-01-15] MEDS ORDERED: MULTIVITAMINS/MINERALS THERAPEUTIC TAB PO SCH (09:00)
[2017-01-15] MEDS ORDERED: amLODIPine BESYLATE 5 MG TAB PO SCH (09:00)
[2017-01-15] MEDS ORDERED: LISINOPRIL 20 MG TAB PO SCH (09:00)
[2017-01-15] MEDS: SODIUM CHLORIDE 0.9% FLUSH 10 ML FLUSH IV FLUSH SCH ×2 (09:26→20:52)
[2017-01-15] MEDS: PANTOPRAZOLE SODIUM 40 MG VIAL IV PUSH SCH ×2 (09:26→20:52)
[2017-01-15] MEDS ORDERED: FUROSEMIDE 20 MG/2 ML VIAL IV PUSH SCH ×2 (11:45→21:00)
[2017-01-15] MEDS: METOPROLOL TARTRATE 25 MG TAB PO SCH ×2 (12:21→22:04)
--- NOTE | 2017-01-15 12:30 | MB ---
cc: CHANDA GRUBER MD DATE OF CONSULTATION 01/15/2017 REASON FOR CONSULTATION CHF HISTORY OF PRESENT ILLNESS Ms. Kay is an 86-year-old patient who does have a history two-vessel CABG in 1983, atrial fibrillation, hypertension and hyperlipidemia. She initially had presented to her PCP and was told to go to the emergency room for anemia. Indeed in the ER, she has been found to be anemic and given a unit of blood. Cardiology was subsequently consulted for further evaluation of CHF. The patient has had some shortness of breath and weakness. She otherwise denies any chest pain. PAST MEDICAL HISTORY Significant for: 1. Atrial fibrillation with a CHADS-VASc score of 4 (female, hypertension, over 65). 2. Coronary artery disease. 3. Dependent edema 4. Dyspnea on exertion 5. Hyperlipidemia 6. Hypertension 7. Mild mitral regurgitation 8. Moderate tricuspid regurgitation ALLERGIES PENICILLIN AND SULFA MEDICATIONS Outpatient medications include: 1. Amlodipine 2.5 mg a day 2. Eliquis 2.5 mg b.i.d. 3. Lisinopril 40 mg a day 4. Lovastatin 80 mg q.h.s. 5. [place] 6. Alendronate FAMILY HISTORY Noncontributory SOCIAL HISTORY The patient is a former smoker. REVIEW OF SYSTEMS Except as mentioned in the HPI, all 12 systems are negative. PHYSICAL EXAM VITAL SIGNS: 97.4, 97, 16, 122/64. GENERAL: She is a thin elderly female who is in no apparent distress. NECK: Her neck is free from JVD. LUNGS: The lungs are clear to auscultation. CARDIOVASCULAR: She has an irregularly irregular rhythm. No rubs or gallops are appreciated. ABDOMEN: The abdomen is soft. EXTREMITIES: The extremities have 1+ edema. IMAGING Chest x-ray from 01/14/2017 shows bilateral pleural effusion and COPD. PLAN Lab values significant for initial hemoglobin of 7.0. It is up to 8.7 today. Her creatinine is 0.82 and BNP is 427 with a troponin of less than 0.03. IMPRESSION CHF - The patient does not carry this diagnosis. Her BNP is a marginally elevated and as well, the chest x-ray is also consistent with CHF. I suspect that this would most likely be a high output failure from her anemia. An echocardiogram to verify her EF is currently pending. She is not a revascularization candidate with this profound anemia at this time. Anemia - The patient had profound symptomatic anemia. We are going to discontinue her Eliquis. I do agree with GI workup at some point. Hypertension - I am going to discontinue her amlodipine for beta blockade given her CHF. Helene Cruz/DJL /11:55 AM /12:16 PM
--- NOTE | 2017-01-15 14:13 | PD.CONS ---
HPI History of Present Illness This is a 86 year old female with HTN, CAD, s/p CABG who was sent by her PCP for low hemoglobin. She'd not been feeling well for the last 2 weeks, felt SOB , tired. The last couple months she has increased activity tolerance. Denies any bleeding. No dark tarry stool or blood in stool. NO hx GIB, ulcers. never had EGD or colonscopy. She takes eliquis, has been on blood thinner since CABG. Denies n/v, change in bowel habits, diarrhea, constipation. Admits loss of 17lbs in the last 3-4 months. She has decreased appetite in the last 3-4 months. (Bing Calderon) PFSH Past Medical History HTN HLD CAD Irregular heart beat Past Surgical History CABG 25 years ago C section x 4 Hysterectomy Appendectomy Cholecystectomy (Bing Calderon) Coded Allergies: Penicillins (Verified Allergy, Unknown, 01/14/17) Sulfa (Sulfonamide Antibiotics) (Verified Allergy, Unknown, 01/14/17) Family History Patient is unsure of her family history, she is the only child Social History Tobacco use: Denies, quit 30 years ago Alcohol use: Denies Illicit drug use: Denies She does not drive, and lives (Bing Calderon) Review of Systems Constitutional: COMPLAINS OF: Fatigue, Weight loss, DENIES: Fever Eyes: DENIES: Blurred vision Ears, nose, mouth, throat: DENIES: Hearing loss Respiratory: COMPLAINS OF: Shortness of breath Cardiovascular: DENIES: Chest pain Gastrointestinal: COMPLAINS OF: Anorexia, DENIES: Abdominal pain, Black stools , Bloody stools, Constipation, Diarrhea, Nausea, Vomiting, Hematemesis Genitourinary: DENIES: Hematuria Musculoskeletal: DENIES: Joint Swelling Integumentary: DENIES: Jaundice Neurologic: DENIES: Abnormal gait Psychiatric: DENIES: Confusion (Bing Calderon) GI Exam Vitals I&O Vital Signs Date Time Temp Pulse Resp B/P (MAP) Pulse Ox O2 Delivery O2 Flow Rate FiO2 01/15/17 08:34 97.4 97 16 122/64 (83) 98 01/15/17 08:04 100 Nasal Cannula 3.00 01/15/17 04:07 107 01/15/17 03:56 98.0 104 17 101/57 (72) 100 01/15/17 00:50 96 01/14/17 23:47 99 01/14/17 23:29 98.2 121 18 126/65 (85) 100 01/14/17 22:17 97.6 109 14 125/91 97 01/14/17 20:39 97.6 113 14 127/80 97 01/14/17 20:12 98 Nasal Cannula 2.00 01/14/17 20:07 97.7 114 14 119/60 99 01/14/17 19:43 97.6 116 18 128/92 92 01/14/17 19:15 01/14/17 18:45 96 2.00 01/14/17 18:40 101 24 129/75 (93) 98 Nasal Cannula 2.00 01/14/17 15:30 100 16 162/65 (97) 95 Nasal Cannula 2.00 01/14/17 14:38 110 95 01/14/17 14:34 98.4 22 109/82 (91) Room Air I/O 01/14/17 01/14/17 01/14/17 01/15/17 01/15/17 01/15/17 07:00 15:00 23:00 07:00 15:00 23:00 Intake Total 406 ml Balance 406 ml Intake Packed Cells 400 ml Blood Product IV Normal Saline Flush 6 ml Imaging Last Impressions Chest X-Ray 01/14/17 1442 Signed Impressions: Service Date/Time: Saturday, January 14, 2017 15:07 - CONCLUSION: 1. Bilateral pleural effusion and diffuse interstitial prominence suggesting congestive failure. 2. COPD. Chaitanya Roman MD Lower Extremity Ultrasound 01/14/17 0000 Signed Impressions: Service Date/Time: Saturday, January 14, 2017 22:49 - CONCLUSION: Negative for deep venous thrombosis. Subcutaneous edema present. Rogers Wilkerson MD Laboratory Test 01/14/17 15:15 01/15/17 00:30 01/15/17 06:15 White Blood Count 8.4 TH/MM3 10.0 TH/MM3 Red Blood Count 2.70 MIL/MM3 3.18 MIL/MM3 Hemoglobin 7.0 GM/DL 8.8 GM/DL 8.7 GM/DL Hematocrit 23.0 % 27.9 % 27.0 % Mean Corpuscular Volume 85.0 FL 84.7 FL Mean Corpuscular Hemoglobin 25.9 PG 27.4 PG Mean Corpuscular Hemoglobin Concent 30.5 % 32.3 % Red Cell Distribution Width 17.9 % 17.4 % Platelet Count 444 TH/MM3 381 TH/MM3 Mean Platelet Volume 7.6 FL 7.7 FL Neutrophils (%) (Auto) 65.1 % 79.5 % Lymphocytes (%) (Auto) 18.4 % 10.6 % Monocytes (%) (Auto) 11.2 % 7.4 % Eosinophils (%) (Auto) 4.5 % 1.7 % Basophils (%) (Auto) 0.8 % 0.8 % Neutrophils # (Auto) 5.5 TH/MM3 7.9 TH/MM3 Lymphocytes # (Auto) 1.6 TH/MM3 1.1 TH/MM3 Monocytes # (Auto) 0.9 TH/MM3 0.7 TH/MM3 Eosinophils # (Auto) 0.4 TH/MM3 0.2 TH/MM3 Basophils # (Auto) 0.1 TH/MM3 0.1 TH/MM3 CBC Comment DIFF FINAL DIFF FINAL Differential Comment Prothrombin Time 13.5 SEC Prothromb Time International Ratio 1.2 RATIO Activated Partial Thromboplast Time 28.5 SEC Blood Urea Nitrogen 10 MG/DL 10 MG/DL Creatinine 0.86 MG/DL 0.82 MG/DL Random Glucose 108 MG/DL 89 MG/DL Total Protein 7.2 GM/DL 7.1 GM/DL Albumin 3.4 GM/DL 3.4 GM/DL Calcium Level 9.1 MG/DL 8.9 MG/DL Magnesium Level 2.1 MG/DL 2.0 MG/DL Alkaline Phosphatase 109 U/L 102 U/L Aspartate Amino Transf (AST/SGOT) 17 U/L 17 U/L Alanine Aminotransferase (ALT/SGPT) 11 U/L 8 U/L Total Bilirubin 0.6 MG/DL 1.3 MG/DL Sodium Level 143 MEQ/L 142 MEQ/L Potassium Level 3.4 MEQ/L 3.7 MEQ/L Chloride Level 110 MEQ/L 108 MEQ/L Carbon Dioxide Level 23.9 MEQ/L 26.1 MEQ/L Anion Gap 9 MEQ/L 8 MEQ/L Estimat Glomerular Filtration Rate 63 ML/MIN 66 ML/MIN Iron Level 14 MCG/DL Total Iron Binding Capacity 357 MCG/DL Percent Iron Saturation 3.9 % Ferritin 16 NG/ML Total Creatine Kinase 44 U/L Troponin I LESS THAN 0.02 NG/ML B-Type Natriuretic Peptide 427 PG/ML Phosphorus Level 3.0 MG/DL Free Thyroxine 1.25 NG/DL Thyroid Stimulating Hormone 3rd Gen 2.490 uIU/ML Physical Examination HEENT: PERRL; normocephalic; atraumatic; no jaundice. CHEST: CTA CARDIAC: RRR ABDOMEN: Soft, nondistended, nontender; no hepatosplenomegaly; bowel sounds are present in all four quadrants. EXTREMITIES: No clubbing, cyanosis, + mild BLE edema. SKIN: Normal; no rash; no jaundice. PRODUCER ASSISTANT: No focal deficits; alert and oriented times three. (Bing Calderon) Assessment and Plan Plan ASSESSMENT - anemia - hgb 7.0 on admission. s/p 1 x PRBC. no obvious bleed, hemoccult neg. Never had EGD or colonoscopy had eliquis yesterday. pt ok for GI w/u per cardiology PLAN - EGD/colonoscopy - obtain consent - clears - NPO after midnight - Mg citrate prep - monitor HH - transfuse as needed - supportive care - further recs to follow This pt seen by myself and Dr Crowe and this note is written on his behalf (Bing Calderon) Physician Comments Patient seen and examined Agree with above Continue with current supportive care Monitor labs Transfuse if needed Plan for an EGD and a colonoscopy tomorrow (Ethan Crowe MD) Bing Calderon Jan 15, 2017 14:13 Ethan Crowe MD Jan 15, 2017 15:38
[2017-01-15 15:53] LABS: HEMOGLOBIN A1a 1.2 %; HEMOGLOBIN A1b 1.6 %; HEMOGLOBIN Ao 85.8 %; HEMOGLOBIN LA1C 1.9 %; HEMOGLOBIN P3 3.7 %
[2017-01-15] MEDS ORDERED: MAGNESIUM CITRATE SOLN 300 ML BTL PO ONE ×2 (16:00→18:00)
[2017-01-15 16:15] LABS: HEMATOCRIT 28.9 % (35.0-46.0); REVIEW FLAG FINAL
--- NOTE | 2017-01-15 16:44 | ECHRPT ---
Indication: Heart failure, unspecified CONCLUSIONS The left ventricular systolic function is moderately reduced with an estimated ejection fraction in the range of 40-45%. Normal left ventricular size. Wall thickness is normal. [id number] mitral valve regurgitation. There is moderate to severe tricuspid valve regurgitation. The estimated pulmonary arterial pressure is 47.7 mmHg. A small left sided pleural effusion is noted. BP: / HR: 125 Rhythm: Sinus MEASUREMENTS (Male / Female) Normal Values Technical Quality:Good 2D ECHO LV Diastolic Diameter PLAX 3.7 cm 4.2 - 5.9 / 3.9 - 5.3 cm LV Systolic Diameter PLAX 3.1 cm IVS Diastolic Thickness 0.7 cm 0.6 - 1.0 / 0.6 - 0.9 cm LVPW Diastolic Thickness 0.7 cm 0.6 - 1.0 / 0.6 - 0.9 cm LV Relative Wall Thickness 0.4 LVOT Diameter 1.6 cm M-MODE Aortic Root Diameter MM 2.5 cm LA Systolic Diameter MM 3.3 cm LA Ao Ratio MM 1.3 AV Cusp Separation MM 1.5 cm DOPPLER AV Peak Velocity 129.0 cm/s AV Peak Gradient 6.7 mmHg LVOT Peak Velocity 85.9 cm/s LVOT Peak Gradient 3.0 mmHg AV Area Cont Eq pk 1.3 cm MR Peak Velocity 455.5 cm/s MR Peak Gradient 83.0 mmHg TR Peak Velocity 307.0 cm/s TR Peak Gradient 37.7 mmHg Right Atrial Pressure 10.0 mmHg Pulmonary Artery Systolic Pressu 47.7 mmHg Right Ventricular Systolic Press 47.7 mmHg PV Peak Velocity 76.0 cm/s PV Peak Gradient 2.3 mmHg FINDINGS LEFT VENTRICLE The left ventricular systolic function is moderately reduced with an estimated ejection fraction in the range of 40-45%. Normal left ventricular size. Wall thickness is normal. RIGHT VENTRICLE Normal right ventricular size and systolic function. LEFT ATRIUM The left atrial size is normal. RIGHT ATRIUM The right atrial size is normal. ATRIAL SEPTUM Normal atrial septal thickness without atrial level shunting by limited color doppler interrogation. AORTA The aortic root and proximal ascending aorta are normal in size and mildly calcified on limited imag ing. MITRAL VALVE [id number] mitral valve regurgitation. AORTIC VALVE Trileaflet aortic valve. No aortic valve stenosis or regurgitation. TRICUSPID VALVE There is moderate to severe tricuspid valve regurgitation. The estimated pulmonary arterial pressure is 47.7 mmHg. PULMONARY VALVE No pulmonary valve regurgitation or stenosis. VESSELS The inferior vena cava is normal in size. PERICARDIUM A small left sided pleural effusion is noted. Curry Pike MD (Electronically Signed) Final Date:15 January 2017 16:44
--- NOTE | 2017-01-15 18:21 | HHI.PR ---
Subjective Remarks Patient is till slightly tachycardic denies dizziness, cp, sob Objective Vitals Vital Signs Date Time Temp Pulse Resp B/P (MAP) Pulse Ox O2 Delivery O2 Flow Rate FiO2 01/15/17 17:05 96.0 107 18 149/87 (107) 92 01/15/17 14:55 97.8 108 18 114/62 (79) 94 01/15/17 08:34 97.4 97 16 122/64 (83) 98 01/15/17 08:04 100 Nasal Cannula 3.00 01/15/17 04:07 107 01/15/17 03:56 98.0 104 17 101/57 (72) 100 01/15/17 00:50 96 01/14/17 23:47 99 01/14/17 23:29 98.2 121 18 126/65 (85) 100 01/14/17 22:17 97.6 109 14 125/91 97 01/14/17 20:39 97.6 113 14 127/80 97 01/14/17 20:12 98 Nasal Cannula 2.00 01/14/17 20:07 97.7 114 14 119/60 99 01/14/17 19:43 97.6 116 18 128/92 92 01/14/17 19:15 01/14/17 18:45 96 2.00 01/14/17 18:40 101 24 129/75 (93) 98 Nasal Cannula 2.00 I/O 01/14/17 01/14/17 01/14/17 01/15/17 01/15/17 01/15/17 07:00 15:00 23:00 07:00 15:00 23:00 Intake Total 406 ml Balance 406 ml Packed Cells 400 ml Blood Product IV Normal Saline Flush 6 ml Result Diagram: 01/15/17 1534 01/15/17 0615 Imaging Last Impressions Chest X-Ray 01/14/17 1442 Signed Impressions: Service Date/Time: Saturday, January 14, 2017 15:07 - CONCLUSION: 1. Bilateral pleural effusion and diffuse interstitial prominence suggesting congestive failure. 2. COPD. Chaitanya Roman MD Lower Extremity Ultrasound 01/14/17 0000 Signed Impressions: Service Date/Time: Saturday, January 14, 2017 22:49 - CONCLUSION: Negative for deep venous thrombosis. Subcutaneous edema present. Rogers Wilkerson MD Medications and IVs Current Medications Medications (Trade) Dose Ordered Sig/Erasmo Route Start Time Stop Time Status Last Admin (Protonix Inj) 40 mg BID IV PUSH 01/14/17 21:00 01/15/17 09:26 (NS Flush) 2 ml UNSCH PRN IV FLUSH 01/14/17 18:00 (NS Flush) 2 ml BID IV FLUSH 01/14/17 21:00 01/15/17 09:26 (Zofran Inj) 4 mg Q6H PRN IVP 01/14/17 18:00 (Narcan Inj) 0.4 mg UNSCH PRN IV PUSH 01/14/17 18:00 (Katarzyna-Colace) 1 tab BID PO 01/14/17 21:00 (Pravachol) 80 mg DAILY PO 01/15/17 09:00 (Pill Splitter) 1 ea UNSCH PRN OTHER 01/14/17 18:30 (Lasix Inj) 20 mg DAILY IV PUSH 01/15/17 11:45 01/15/17 12:21 (Prinivil) 20 mg DAILY PO 01/16/17 09:00 (Lopressor) 12.5 mg Q12HR PO 01/15/17 12:00 01/15/17 12:21 (Citroma Liq) 300 ml ONCE ONCE PO 01/15/17 18:00 01/15/17 18:01 01/15/17 17:49 A/P Problem List: (1) Symptomatic anemia ICD Code: D64.9 - Anemia, unspecified Plan: This is an 86-year-old female with history of two-vessel CABG, atrial fibrillation, hypertension and hyperlipidemia who presents referred from her PCP office for anemia and bilateral lower extremity edema. The patient also has complaint of shortness of breath. Patient found to have a hemoglobin of 6.9 and is status post transfusion of 1 unit of packed red blood cells with appropriate hemoglobin response. Continue to monitor CBC and transfuse as needed for hemoglobin less than 7 Iron studies consistent with iron deficiency anemia. GI consulted, patient for colonoscopy in a.m. (2) Acute systolic heart failure ICD Code: I50.21 - Acute systolic (congestive) heart failure Plan: Chest x-ray obtained on admission and reviewed by me shows bilateral pleural effusions and diffuse interstitial prominence suggestive of congestive heart failure. Also COPD. Echocardiogram ordered and showed a moderately reduced left ventricular systolic function with an EF in the range of 40-45%. Mild to moderate mitral valve regurgitation. Small left-sided pleural effusion. (3) HTN (hypertension) ICD Code: I10 - Essential (primary) hypertension Plan: Blood pressure seems to be stable. Continue lisinopril 40 mg by mouth daily, amlodipine 2.5 mg by mouth daily. (4) Hypokalemia ICD Code: E87.6 - Hypokalemia Status: Acute Plan: Mild, status post replacement. Levels now normal. (5) Bilateral lower extremity edema ICD Code: R60.0 - Localized edema Plan: Due to congestive heart failure. Venous Doppler of the lower extremities ruled out DVT. Continue IV Lasix which I will increase to twice a day. (6) Hyperlipidemia ICD Code: E78.5 - Hyperlipidemia, unspecified Plan: Continue statin. (7) CAD (coronary artery disease) ICD Code: I25.10 - Atherosclerotic heart disease of [place] coronary artery without angina pectoris Plan: Continue CAROL ANN inhibitor, beta audelia. Patient does not have chest pain. Troponin negative 1. Assessment and Plan DVT prophylaxis: Continue SCDs, Eliquis discontinued secondary to symptomatic anemia. Discharge Planning Continue to monitor in the medical floor. For EGD/colonoscopy in a.m. Problem Qualifiers (1) HTN (hypertension): Qualified Codes: I10 - Essential (primary) hypertension (2) Hyperlipidemia: Qualified Codes: E78.5 - Hyperlipidemia, unspecified (3) CAD (coronary artery disease): Qualified Codes: I25.10 - Atherosclerotic heart disease of [place] coronary artery without angina pectoris Cecilio Iverson MD Jan 15, 2017 18:20
[2017-01-16] VITALS (11 sets, daily range): BP systolic 88–111; BP diastolic 51–76; PULSE 61–92; RESP 16–18; TEMP 95.9–97.3; O2SAT 93–97
[2017-01-16] MEDS ORDERED: SODIUM CHLORID 0.9% 500 ML IV PRN (02:45)
[2017-01-16] MEDS ORDERED: POVIDONE IODINE 5% (ANTISEPSIS KIT) 4 APPLICATIONS EACH NARE PRN (02:45)
[2017-01-16] MEDS ORDERED: METOPROLOL TARTRATE 25 MG TAB PO PRN (02:45)
[2017-01-16] MEDS ORDERED: CHLORHEXIDINE GLUCONATE 2 % 1 PACK (2 CLOTHS) TOPICAL PRN (02:45)
[2017-01-16] MEDS ORDERED: LACTATED RINGER'S 1000 ML IV PRN (02:45)
[2017-01-16] MEDS ORDERED: INSULIN HUMAN REGULAR 1,000 UNITS/10 ML VIAL SQ PRN (02:45)
[2017-01-16 08:52] LABS: AUTOMATED NEUTROPHIL # 7.9 TH/MM3 (1.8-7.7); BASOPHIL # 0.1 TH/MM3 (0-0.2); BASOPHIL % 0.9 % (0.0-2.0); EOSINOPHIL # 0.3 TH/MM3 (0-0.4); EOSINOPHIL % 2.9 % (0.0-4.0); HEMATOCRIT 28.2 % (35.0-46.0); HEMO FLAGS DIFF FINAL; LYMPH % 10.4 % (9.0-44.0); MEAN CELL VOLUME 83.6 FL (80.0-100.0); MEAN CORPUSCULAR HEMOGLOBIN 27.6 PG (27.0-34.0); MEAN CORPUSCULAR HGB CONC 33.1 % (32.0-36.0); MONO % 7.6 % (0.0-8.0); NEUT % 78.2 % (16.0-70.0); PLATELET COUNT 438 TH/MM3 (150-450); RED BLOOD COUNT 3.37 MIL/MM3 (4.00-5.30); RED CELL DISTRIBUTION WIDTH 17.6 % (11.6-17.2); WHITE BLOOD COUNT 10.1 TH/MM3 (4.0-11.0)
--- NOTE | 2017-01-16 08:57 | PD.CARD.PN ---
Subjective Subjective Remarks PT without cv complaints Objective Medications Current Medications Medications (Trade) Dose Ordered Sig/Erasmo Route Start Time Stop Time Status Last Admin (Protonix Inj) 40 mg BID IV PUSH 01/14/17 21:00 01/15/17 20:52 (NS Flush) 2 ml UNSCH PRN IV FLUSH 01/14/17 18:00 (NS Flush) 2 ml BID IV FLUSH 01/14/17 21:00 01/15/17 20:52 (Zofran Inj) 4 mg Q6H PRN IVP 01/14/17 18:00 (Narcan Inj) 0.4 mg UNSCH PRN IV PUSH 01/14/17 18:00 (Katarzyna-Colace) 1 tab BID PO 01/14/17 21:00 (Pravachol) 80 mg DAILY PO 01/15/17 09:00 (Pill Splitter) 1 ea UNSCH PRN OTHER 01/14/17 18:30 (Prinivil) 20 mg DAILY PO 01/16/17 09:00 (Lopressor) 12.5 mg Q12HR PO 01/15/17 12:00 01/15/17 22:04 (Lasix Inj) 20 mg BID IV PUSH 01/15/17 21:00 01/15/17 20:52 Lactated Ringer's 1,000 ml @ 30 mls/hr Q24H PRN IV 01/16/17 02:45 01/19/17 02:44 Sodium Chloride 500 ml @ 30 mls/hr [id number] PRN IV 01/16/17 02:45 01/19/17 02:44 (Lopressor) 25 mg MACHINE MOLDER SQUEEZE PRN PO 01/16/17 02:45 01/19/17 02:44 (Betadine 5% Antisepsis Kit) 1 applic MACHINE MOLDER SQUEEZE PRN EACH NARE 01/16/17 02:45 01/19/17 02:44 (Chlorhexidine 2% Cloth) 3 pack MACHINE MOLDER SQUEEZE PRN TOPICAL 01/16/17 02:45 01/19/17 02:44 (NovoLIN R INJ) See Protocol Table ... MACHINE MOLDER SQUEEZE PRN SQ 01/16/17 02:45 01/19/17 02:44 Vital Signs / I&O Vital Signs Date Time Temp Pulse Resp B/P (MAP) Pulse Ox O2 Delivery O2 Flow Rate FiO2 01/16/17 07:51 95.9 92 16 99/59 (72) 93 01/16/17 04:00 97.1 61 16 88/51 (63) 96 01/16/17 03:37 85 01/16/17 00:00 97.1 86 16 102/60 (74) 95 01/15/17 20:00 96.2 86 16 111/60 (77) 95 01/15/17 17:05 96.0 107 18 149/87 (107) 92 01/15/17 14:55 97.8 108 18 114/62 (79) 94 I/O 01/15/17 01/15/17 01/15/17 01/16/17 01/16/17 01/16/17 07:00 15:00 23:00 07:00 15:00 23:00 Intake Total 600 ml 0 ml Balance 600 ml 0 ml Intake Oral 600 ml 0 ml # Voids 4 4 # Bowel Movements 3 3 Physical Exam GENERAL: Well developed, well nourished. No acute distress. HEENT: Jugular venous pressure is normal. CHEST: Lungs clear to auscultation bilaterally. Unlabored respiratory effort. CARDIAC: irregular rate and rhythm without S3, S4, or murmur. ABDOMEN: Soft, nontender, no hepatosplenomegaly. Bowel sounds present. EXTREMITIES: No clubbing, cyanosis, or edema. Laboratory Laboratory Tests Test 01/15/17 15:34 01/16/17 08:31 Hemoglobin 9.2 GM/DL 9.3 GM/DL Hematocrit 28.9 % 28.2 % White Blood Count 10.1 TH/MM3 Red Blood Count 3.37 MIL/MM3 Mean Corpuscular Volume 83.6 FL Mean Corpuscular Hemoglobin 27.6 PG Mean Corpuscular Hemoglobin Concent 33.1 % Red Cell Distribution Width 17.6 % Platelet Count 438 TH/MM3 Mean Platelet Volume 7.4 FL Neutrophils (%) (Auto) 78.2 % Lymphocytes (%) (Auto) 10.4 % Monocytes (%) (Auto) 7.6 % Eosinophils (%) (Auto) 2.9 % Basophils (%) (Auto) 0.9 % Neutrophils # (Auto) 7.9 TH/MM3 Lymphocytes # (Auto) 1.0 TH/MM3 Monocytes # (Auto) 0.8 TH/MM3 Eosinophils # (Auto) 0.3 TH/MM3 Basophils # (Auto) 0.1 TH/MM3 CBC Comment DIFF FINAL Differential Comment Imaging Last 72 hours Impressions Chest X-Ray 01/14/17 1442 Signed Impressions: Service Date/Time: Saturday, January 14, 2017 15:07 - CONCLUSION: 1. Bilateral pleural effusion and diffuse interstitial prominence suggesting congestive failure. 2. COPD. Chaitanya Roman MD Lower Extremity Ultrasound 01/14/17 0000 Signed Impressions: Service Date/Time: Saturday, January 14, 2017 22:49 - CONCLUSION: Negative for deep venous thrombosis. Subcutaneous edema present. Rogers Wilkerson MD Assessment and Plan Assessment and Plan CHF- EF 45%, likely acute systolic and diastolic combined - on BB, CAROL ANN -change to PO lasix HTN- BP low agree with decrease in lisinopril Anemia- anticipated EGD and colonoscopy today -not revascularization candidate -reasonably stable for procedures AF - rate controlled -no anticoagulation with anemia Karina Spann MD Jan 16, 2017 08:57
[2017-01-16] MEDS ORDERED: LISINOPRIL 20 MG TAB PO SCH (09:00)
[2017-01-16 09:13] LABS: ANION GAP 12 MEQ/L (5-15); AST (GOT) 21 U/L (15-37); BICARBONATE 26.9 MEQ/L (21.0-32.0); BLOOD UREA NITROGEN 12 MG/DL (7-18); CHLORIDE 104 MEQ/L (98-107); GLOMERULAR FILTRATION RATE 59 ML/MIN (>89); MAGNESIUM 2.2 MG/DL (1.5-2.5); SODIUM (NA) 143 MEQ/L (136-145)
[2017-01-16 09:14] LABS: ALT (GPT) 12 U/L (10-53)
[2017-01-16 09:16] LABS: ALKALINE PHOSPHATASE 111 U/L (45-117); TOTAL BILIRUBIN ADULT 1.3 MG/DL (0.2-1.0)
[2017-01-16] MEDS: DOCUSATE SODIUM 50 MG/SENNA 8.6 MG TAB PO SCH ×2 (09:33→21:36)
[2017-01-16] MEDS: SODIUM CHLORIDE 0.9% FLUSH 10 ML FLUSH IV FLUSH SCH ×2 (09:33→21:36)
[2017-01-16] MEDS: PRAVASTATIN SOD 80 MG TAB PO SCH (09:34)
[2017-01-16] MEDS: PANTOPRAZOLE SODIUM 40 MG VIAL IV PUSH SCH ×2 (09:34→21:36)
[2017-01-16] MEDS: METOPROLOL TARTRATE 25 MG TAB PO SCH (09:34)
[2017-01-16] MEDS: FUROSEMIDE 20 MG TAB PO SCH ×2 (10:13→18:45)
[2017-01-16] MEDS: POTASSIUM CHLORIDE 10 MEQ CONTROLLED RELEASE TAB PO SCH ×2 (10:16→21:36)
[2017-01-16] MEDS ORDERED: PROPOFOL 200 MG/20 ML AMP IV ONE (12:00)
--- NOTE | 2017-01-16 15:07 | PD.PROCEDR ---
GI Procedure PROCEDURE PERFORMED Upper endoscopy with biopsy Colonoscopy with snare polypectomy INDICATION FOR PROCEDURE Anemia, possible GI bleed PROCEDURE: The procedure, risks and benefits were discussed with Ms. Kay and informed consent was obtained. Anesthesia sedated her with Diprivan. She was placed in the left lateral decubitus position. EGD: The Pentax videoscope was introduced through the oropharynx and advanced to the second portion of the duodenum under direct visualization. Retroflexion was performed in the stomach biopsy from gastric pyloric channel ulcer. FINDINGS: Ulcer in the pyloric channel tending to the antrum biopsy was done Normal EGD otherwise Colonoscopy: The Pentax videoscope was introduced through the rectum and advanced to terminal ileum. Retroflexion was performed in the rectum. Colonic prep was snare polypectomy from a polyp in the ascending colon FINDINGS: Normal terminal ileum 1 polyp removed from the ascending colon Severe diverticular disease throughout the colon Internal hemorrhoids ESTIMATED BLOOD LOSS: Negative SPECIMENS REMOVED: Pyloric channel from an ulcer Colon polyp COMPLICATIONS: None IMPRESSION: Colon polyp Severe diverticulosis Ulcer in the pyloric channel and into the antrum PLAN: No NSAIDs Continue PPI Monitor H&H with packed RBC as needed Cardiac diet as tolerated Colonoscopy in 3 years No NSAIDs Brittney Cruz MD Jan 16, 2017 15:07
--- NOTE | 2017-01-16 15:09 | HHI.GIFU ---
Subjective Remarks Patient lying in bed comfortable, no active bleed, tolerated prep Objective Vitals I&O Vital Signs Date Time Temp Pulse Resp B/P (MAP) Pulse Ox O2 Delivery O2 Flow Rate FiO2 01/16/17 11:38 95.9 87 16 94/58 (70) 94 01/16/17 11:15 93 Nasal Cannula 3.00 01/16/17 07:51 95.9 92 16 99/59 (72) 93 01/16/17 04:00 97.1 61 16 88/51 (63) 96 01/16/17 03:37 85 01/16/17 00:00 97.1 86 16 102/60 (74) 95 01/15/17 20:00 96.2 86 16 111/60 (77) 95 01/15/17 17:05 96.0 107 18 149/87 (107) 92 I/O 01/15/17 01/15/17 01/15/17 01/16/17 01/16/17 01/16/17 07:00 15:00 23:00 07:00 15:00 23:00 Intake Total 600 ml 0 ml Balance 600 ml 0 ml Intake Oral 600 ml 0 ml # Voids 4 4 # Bowel Movements 3 3 Laboratory Laboratory Tests Test 01/15/17 15:34 01/16/17 08:31 Hemoglobin 9.2 9.3 Hematocrit 28.9 28.2 White Blood Count 10.1 Red Blood Count 3.37 Mean Corpuscular Volume 83.6 Mean Corpuscular Hemoglobin 27.6 Mean Corpuscular Hemoglobin Concent 33.1 Red Cell Distribution Width 17.6 Platelet Count 438 Mean Platelet Volume 7.4 Neutrophils (%) (Auto) 78.2 Lymphocytes (%) (Auto) 10.4 Monocytes (%) (Auto) 7.6 Eosinophils (%) (Auto) 2.9 Basophils (%) (Auto) 0.9 Neutrophils # (Auto) 7.9 Lymphocytes # (Auto) 1.0 Monocytes # (Auto) 0.8 Eosinophils # (Auto) 0.3 Basophils # (Auto) 0.1 CBC Comment DIFF FINAL Differential Comment Blood Urea Nitrogen 12 Creatinine 0.91 Random Glucose 61 Total Protein 7.0 Albumin 3.3 Calcium Level 8.9 Phosphorus Level 2.8 Magnesium Level 2.2 Alkaline Phosphatase 111 Aspartate Amino Transf (AST/SGOT) 21 Alanine Aminotransferase (ALT/SGPT) 12 Total Bilirubin 1.3 Sodium Level 143 Potassium Level 3.0 Chloride Level 104 Carbon Dioxide Level 26.9 Anion Gap 12 Estimat Glomerular Filtration Rate 59 Physical Exam HEENT: Pupils round and reactive to light; normocephalic; atraumatic; no jaundice. Throat is clear. NECK: Neck is supple, no JVD, no lymphadenopathy. CHEST: Chest is clear to auscultation and percussion. CARDIAC: Regular rate and rhythm with no murmur gallop or rubs. ABDOMEN: Soft, nondistended, nontender; no hepatosplenomegaly; bowel sounds are present in all four quadrants. EXTREMITIES: No clubbing, cyanosis, or edema. SKIN: Normal; no rash; no jaundice. [employer]: No focal deficits; alert and oriented times three. Assessment and Plan Plan ASSESSMENT - anemia - hgb 7.0 on admission. s/p 1 x PRBC. no obvious bleed, hemoccult neg. Never had EGD or colonoscopy had eliquis yesterday. pt ok for GI w/u per cardiology 01/16/2017 patient doing well today, no active bleeding, no abdominal pain, hemoglobin stable IMPRESSION: Colon polyp Severe diverticulosis Ulcer in the pyloric channel and into the antrum PLAN: No NSAIDs Continue PPI Monitor H&H with packed RBC as needed Cardiac diet as tolerated Colonoscopy in 3 years No NSAIDs Brittney Cruz MD Jan 16, 2017 15:08
--- NOTE | 2017-01-16 19:56 | HHI.PR ---
Subjective Remarks Patient denies chest pain or shortness of breath Denies abdominal pain, nausea or vomiting. Blood pressure noted to be low Objective Vitals Vital Signs Date Time Temp Pulse Resp B/P (MAP) Pulse Ox O2 Delivery O2 Flow Rate FiO2 01/16/17 19:30 97.3 86 18 88/56 (67) 97 01/16/17 16:00 96.2 80 16 111/76 (88) 93 01/16/17 15:08 97.0 96 18 91/79 (83) 95 01/16/17 11:38 95.9 87 16 94/58 (70) 94 01/16/17 11:15 93 Nasal Cannula 3.00 01/16/17 08:00 87 01/16/17 07:51 95.9 92 16 99/59 (72) 93 01/16/17 04:00 97.1 61 16 88/51 (63) 96 01/16/17 03:37 85 01/16/17 00:00 97.1 86 16 102/60 (74) 95 01/15/17 20:00 96.2 86 16 111/60 (77) 95 I/O 01/15/17 01/15/17 01/15/17 01/16/17 01/16/17 01/16/17 07:00 15:00 23:00 07:00 15:00 23:00 Intake Total 600 ml 0 ml 300 ml Balance 600 ml 0 ml 300 ml Intake Oral 600 ml 0 ml 0 ml Other 300 ml # Voids 4 4 3 # Bowel Movements 3 3 3 Result Diagram: 01/16/17 0831 01/16/17 0831 Imaging Last Impressions Chest X-Ray 01/14/17 1442 Signed Impressions: Service Date/Time: Saturday, January 14, 2017 15:07 - CONCLUSION: 1. Bilateral pleural effusion and diffuse interstitial prominence suggesting congestive failure. 2. COPD. Chaitanya Roman MD Lower Extremity Ultrasound 01/14/17 0000 Signed Impressions: Service Date/Time: Saturday, January 14, 2017 22:49 - CONCLUSION: Negative for deep venous thrombosis. Subcutaneous edema present. Rogers Wilkerson MD Objective Remarks AAOx3, thin, nad Clear lungs BL abdomen soft, non tender, non distended no edema in lower extremities. Medications and IVs Current Medications Medications (Trade) Dose Ordered Sig/Erasmo Route Start Time Stop Time Status Last Admin (Protonix Inj) 40 mg BID IV PUSH 01/14/17 21:00 01/16/17 09:34 (NS Flush) 2 ml UNSCH PRN IV FLUSH 01/14/17 18:00 (NS Flush) 2 ml BID IV FLUSH 01/14/17 21:00 01/16/17 09:33 (Zofran Inj) 4 mg Q6H PRN IVP 01/14/17 18:00 (Narcan Inj) 0.4 mg UNSCH PRN IV PUSH 01/14/17 18:00 (Katarzyna-Colace) 1 tab BID PO 01/14/17 21:00 (Pravachol) 80 mg DAILY PO 01/15/17 09:00 01/16/17 09:34 (Pill Splitter) 1 ea UNSCH PRN OTHER 01/14/17 18:30 (Lopressor) 12.5 mg Q12HR PO 01/15/17 12:00 01/15/17 22:04 Lactated Ringer's 1,000 ml @ 30 mls/hr Q24H PRN IV 01/16/17 02:45 01/19/17 02:44 Sodium Chloride 500 ml @ 30 mls/hr [id number] PRN IV 01/16/17 02:45 01/19/17 02:44 (Lopressor) 25 mg CLAY DRY PRESS OPERATOR PRN PO 01/16/17 02:45 01/19/17 02:44 (Betadine 5% Antisepsis Kit) 1 applic CLAY DRY PRESS OPERATOR PRN EACH NARE 01/16/17 02:45 01/19/17 02:44 (Chlorhexidine 2% Cloth) 3 pack CLAY DRY PRESS OPERATOR PRN TOPICAL 01/16/17 02:45 01/19/17 02:44 (NovoLIN R INJ) See Protocol Table ... CLAY DRY PRESS OPERATOR PRN SQ 01/16/17 02:45 01/19/17 02:44 (Lasix) 20 mg BID@09,18 PO 01/16/17 09:00 01/16/17 18:45 (KCl) 10 meq Q12HR PO 01/16/17 10:00 01/16/17 10:16 (Prinivil) 10 mg DAILY PO 01/17/17 09:00 A/P Problem List: (1) Symptomatic anemia ICD Code: D64.9 - Anemia, unspecified Plan: This is an 86-year-old female with history of two-vessel CABG, atrial fibrillation, hypertension and hyperlipidemia who presents referred from her PCP office for anemia and bilateral lower extremity edema. The patient also has complaint of shortness of breath. Patient found to have a hemoglobin of 6.9 and is status post transfusion of 1 unit of packed red blood cells with appropriate hemoglobin response. Continue to monitor CBC and transfuse as needed for hemoglobin less than 7 Iron studies consistent with iron deficiency anemia. 01/16 GI consulted, the patient is status post EGD/colonoscopy with polypectomy and biopsy. There is report of pyloric channel ulcer, diverticulosis and colon polyp. Follow-up GI recommendations. Hemoglobin stable. (2) Acute systolic heart failure ICD Code: I50.21 - Acute systolic (congestive) heart failure Plan: Chest x-ray obtained on admission and reviewed by me shows bilateral pleural effusions and diffuse interstitial prominence suggestive of congestive heart failure. Also COPD. Echocardiogram ordered and showed a moderately reduced left ventricular systolic function with an EF in the range of 40-45%. Mild to moderate mitral valve regurgitation. Small left-sided pleural effusion. (3) HTN (hypertension) ICD Code: I10 - Essential (primary) hypertension Plan: Blood pressure seems to be stable. Continue lisinopril 40 mg by mouth daily, amlodipine 2.5 mg by mouth daily. 01/16 patient today's hypotensive with systolic blood pressure in the high 80s. I will hold antihypertensive medications and give 250 mL of sodium chloride bolus IV. (4) Hypokalemia ICD Code: E87.6 - Hypokalemia Status: Acute Plan: Potassium level III.0. Replace orally and continue to monitor BMP. (5) Bilateral lower extremity edema ICD Code: R60.0 - Localized edema Plan: Due to congestive heart failure. Venous Doppler of the lower extremities ruled out DVT. Patient placed on Lasix. Edema has resolved and patient is hypotensive. I will hold diuretics for now. (6) Hyperlipidemia ICD Code: E78.5 - Hyperlipidemia, unspecified Plan: Continue statin. (7) CAD (coronary artery disease) ICD Code: I25.10 - Atherosclerotic heart disease of [place] coronary artery without angina pectoris Plan: Continue CAROL ANN inhibitor, beta audelia. Patient does not have chest pain. Troponin negative 1. Assessment and Plan DVT prophylaxis: Continue SCDs, Eliquis discontinued secondary to symptomatic anemia. Discharge Planning Continue to monitor in the medical floor. For EGD/colonoscopy in a.m. Problem Qualifiers (1) HTN (hypertension): Qualified Codes: I10 - Essential (primary) hypertension (2) Hyperlipidemia: Qualified Codes: E78.5 - Hyperlipidemia, unspecified (3) CAD (coronary artery disease): Qualified Codes: I25.10 - Atherosclerotic heart disease of [place] coronary artery without angina pectoris Cecilio Iverson MD Jan 16, 2017 19:56
[2017-01-16] MEDS ORDERED: SODIUM CHLOR 0.9% 250 ML INJ 250 ML IV ONE (21:00)
[2017-01-17] VITALS (9 sets, daily range): BP systolic 89–100; BP diastolic 52–69; PULSE 79–116; RESP 16–18; TEMP 96.9–98.1; O2SAT 95–96
[2017-01-17 00:08] LABS: BACTERIA, URINE RARE /hpf; BLOOD, URINE NEG (NEG); COMMENT (UR) CULTURE INDICATED; CULTURE IF INDICATED CULTURE INDICATED; GLUCOSE,URINE NEG (NEG); GRANULAR CAST, URINE 1 /lpf; HYALINE CAST, URINE 3 /lpf (RARE); KETONE, URINE NEG (NEG); NITRITE,URINE NEG (NEG); PH, URINE 5.5 (5.0-8.5); URINE COLOR LIGHT-YELLOW (YELLW/STRAW)
[2017-01-17] MEDS: PRAVASTATIN SOD 80 MG TAB PO SCH (08:06)
[2017-01-17] MEDS: FUROSEMIDE 20 MG TAB PO SCH (08:07)
[2017-01-17] MEDS: POTASSIUM CHLORIDE 10 MEQ CONTROLLED RELEASE TAB PO SCH ×2 (08:07→20:23)
[2017-01-17] MEDS: DOCUSATE SODIUM 50 MG/SENNA 8.6 MG TAB PO SCH ×2 (08:07→20:23)
[2017-01-17] MEDS: PANTOPRAZOLE SODIUM 40 MG VIAL IV PUSH SCH ×2 (09:00→20:23)
[2017-01-17] MEDS ORDERED: LISINOPRIL 20 MG TAB PO SCH (09:00)
[2017-01-17] MEDS: SODIUM CHLORIDE 0.9% FLUSH 10 ML FLUSH IV FLUSH SCH ×2 (09:00→20:25)
--- NOTE | 2017-01-17 12:00 | PD.CARD.PN ---
Subjective Subjective Remarks Pt w/o sx, wants to go home. Objective Medications Administered Medications Medications (Trade) Dose Ordered Sig/Erasmo Route PRN Reason Start Time Stop Time Status Last Admin Dose Admin Pantoprazole Sodium (Protonix Inj) 40 mg BID IV PUSH 01/14/17 21:00 01/16/17 21:36 Sodium Chloride (NS Flush) 2 ml BID IV FLUSH 01/14/17 21:00 01/16/17 21:36 Senna/Docusate Sodium (Katarzyna-Colace) 1 tab BID PO 01/14/17 21:00 01/17/17 08:07 Pravastatin Sodium (Pravachol) 80 mg DAILY PO 01/15/17 09:00 01/17/17 08:06 Metoprolol Tartrate (Lopressor) 12.5 mg Q12HR PO 01/15/17 12:00 Future Hold 01/15/17 22:04 Furosemide (Lasix) 20 mg BID@09,18 PO 01/16/17 09:00 01/17/17 08:07 Potassium Chloride (KCl) 10 meq Q12HR PO 01/16/17 10:00 01/17/17 08:07 Vital Signs / I&O Vital Signs Date Time Temp Pulse Resp B/P (MAP) Pulse Ox O2 Delivery O2 Flow Rate FiO2 01/17/17 11:27 Nasal Cannula 3.00 01/17/17 07:55 97.5 91 17 95/52 (66) 96 01/17/17 07:30 91 01/17/17 04:00 97.7 79 17 92/56 (68) 95 01/17/17 01:10 Room Air 01/17/17 00:00 98.1 99 16 100/69 (79) 96 01/16/17 21:52 97 Nasal Cannula 3.00 01/16/17 20:00 92 01/16/17 19:30 97.3 86 18 88/56 (67) 97 01/16/17 16:00 96.2 80 16 111/76 (88) 93 01/16/17 15:08 97.0 96 18 91/79 (83) 95 I/O 01/16/17 01/16/17 01/16/17 01/17/17 01/17/17 01/17/17 07:00 15:00 23:00 07:00 15:00 23:00 Intake Total 0 ml 300 ml 900 ml 480 ml Balance 0 ml 300 ml 900 ml 480 ml Intake Oral 0 ml 0 ml 650 ml 480 ml IV Total 250 ml Other 300 ml # Voids 4 3 4 4 # Bowel Movements 3 3 1 Physical Exam GENERAL: This is a well-nourished, well-developed patient, in no apparent distress. CARDIOVASCULAR: Regular rate and rhythm without murmurs, gallops, or rubs. RESPIRATORY: Clear to auscultation. Breath sounds equal bilaterally. No wheezes , rales, or rhonchi. GASTROINTESTINAL: Abdomen soft, non-tender, nondistended. Normal active bowel sounds MUSCULOSKELETAL: Extremities without clubbing, cyanosis, or edema. NEURO: Alert & Oriented x4 to person, place, time, situation. Moves all ext x4 Laboratory Laboratory Tests Test 01/16/17 22:35 Urine Color LIGHT-YELLOW Urine Turbidity CLEAR Urine pH 5.5 Urine Specific [place] 1.008 Urine Protein NEG mg/dL Urine Glucose (UA) NEG mg/dL Urine Ketones NEG mg/dL Urine Occult Blood NEG Urine Nitrite NEG Urine Bilirubin NEG Urine Urobilinogen LESS THAN 2.0 MG/DL Urine Leukocyte Esterase LARGE Urine RBC 1 /hpf Urine WBC 38 /hpf Urine Bacteria RARE /hpf Urine Hyaline Casts 3 /lpf Urine Granular Casts 1 /lpf Microscopic Urinalysis Comment CULTURE INDICATED Imaging Last Impressions Chest X-Ray 01/14/17 1442 Signed Impressions: Service Date/Time: Saturday, January 14, 2017 15:07 - CONCLUSION: 1. Bilateral pleural effusion and diffuse interstitial prominence suggesting congestive failure. 2. COPD. Chaitanya Roman MD Lower Extremity Ultrasound 01/14/17 0000 Signed Impressions: Service Date/Time: Saturday, January 14, 2017 22:49 - CONCLUSION: Negative for deep venous thrombosis. Subcutaneous edema present. Rogers Wilkerson MD Assessment and Plan Problem List: (1) Atrial fibrillation ICD Codes: I48.91 - Unspecified atrial fibrillation Plan: Reasonable rates, very mild/brief tachycardia, med adjustment limited by BPs, if persistently became a problem could consider digoxin; anticoagulation held due to anemia. (2) Symptomatic anemia ICD Codes: D64.9 - Anemia, unspecified Assessment and Plan CHF- EF 45%, likely acute systolic and diastolic combined - on BB, CAROL ANN on PO lasix HTN- BP low agree with decrease in lisinopril Anemia- anticipated EGD and colonoscopy today -not revascularization candidate -reasonably stable for procedures AF - rate controlled -no anticoagulation with anemia If asymptomatic and heart rate, bp stable, would be ok to d/c home from a cardiac standpoint. Chad Colorado MD Jan 17, 2017 12:00
[2017-01-17] MEDS ORDERED: SODIUM CHLORID 0.9% 500 ML INJ 500 ML IV ONE (13:45)
[2017-01-17] MEDS ORDERED: SODIUM CHLOR 0.9% 250 ML INJ 250 ML IV ONE (13:45)
--- NOTE | 2017-01-17 13:52 | HHI.PR ---
Subjective Remarks Patient denies cp/sob denies dizziness bp noted to be low with an sbp in the high 80's Objective Vitals Vital Signs Date Time Temp Pulse Resp B/P (MAP) Pulse Ox O2 Delivery O2 Flow Rate FiO2 01/17/17 12:00 96.9 83 17 89/66 (74) 95 01/17/17 11:27 Nasal Cannula 3.00 01/17/17 07:55 97.5 91 17 95/52 (66) 96 01/17/17 07:30 91 01/17/17 04:00 97.7 79 17 92/56 (68) 95 01/17/17 01:10 Room Air 01/17/17 00:00 98.1 99 16 100/69 (79) 96 01/16/17 21:52 97 Nasal Cannula 3.00 01/16/17 20:00 92 01/16/17 19:30 97.3 86 18 88/56 (67) 97 01/16/17 16:00 96.2 80 16 111/76 (88) 93 01/16/17 15:08 97.0 96 18 91/79 (83) 95 I/O 01/16/17 01/16/17 01/16/17 01/17/17 01/17/17 01/17/17 07:00 15:00 23:00 07:00 15:00 23:00 Intake Total 0 ml 300 ml 900 ml 480 ml Balance 0 ml 300 ml 900 ml 480 ml Intake Oral 0 ml 0 ml 650 ml 480 ml IV Total 250 ml Other 300 ml # Voids 4 3 4 4 # Bowel Movements 3 3 1 Result Diagram: 01/16/17 0831 01/16/17 0831 Imaging Last Impressions Chest X-Ray 01/14/17 1442 Signed Impressions: Service Date/Time: Saturday, January 14, 2017 15:07 - CONCLUSION: 1. Bilateral pleural effusion and diffuse interstitial prominence suggesting congestive failure. 2. COPD. Chaitanya Roman MD Lower Extremity Ultrasound 01/14/17 0000 Signed Impressions: Service Date/Time: Saturday, January 14, 2017 22:49 - CONCLUSION: Negative for deep venous thrombosis. Subcutaneous edema present. Rogers Wilkerson MD Objective Remarks AAOx3, thin, nad Clear lungs BL abdomen soft, non tender, non distended no edema in lower extremities. Procedures None Medications and IVs Current Medications Medications (Trade) Dose Ordered Sig/Erasmo Route Start Time Stop Time Status Last Admin (Protonix Inj) 40 mg BID IV PUSH 01/14/17 21:00 01/16/17 21:36 (NS Flush) 2 ml UNSCH PRN IV FLUSH 01/14/17 18:00 (NS Flush) 2 ml BID IV FLUSH 01/14/17 21:00 01/16/17 21:36 (Zofran Inj) 4 mg Q6H PRN IVP 01/14/17 18:00 (Narcan Inj) 0.4 mg UNSCH PRN IV PUSH 01/14/17 18:00 (Katarzyna-Colace) 1 tab BID PO 01/14/17 21:00 01/17/17 08:07 (Pravachol) 80 mg DAILY PO 01/15/17 09:00 01/17/17 08:06 (Pill Splitter) 1 ea UNSCH PRN OTHER 01/14/17 18:30 (Lopressor) 12.5 mg Q12HR PO 01/15/17 12:00 Future Hold 01/15/17 22:04 Lactated Ringer's 1,000 ml @ 30 mls/hr Q24H PRN IV 01/16/17 02:45 01/19/17 02:44 Sodium Chloride 500 ml @ 30 mls/hr [id number] PRN IV 01/16/17 02:45 01/19/17 02:44 (Lopressor) 25 mg [place] PRN PO 01/16/17 02:45 01/19/17 02:44 (Betadine 5% Antisepsis Kit) 1 applic [place] PRN EACH NARE 01/16/17 02:45 01/19/17 02:44 (Chlorhexidine 2% Cloth) 3 pack [place] PRN TOPICAL 01/16/17 02:45 01/19/17 02:44 (NovoLIN R INJ) See Protocol Table ... [place] PRN SQ 01/16/17 02:45 01/19/17 02:44 (Lasix) 20 mg BID@09,18 PO 01/16/17 09:00 Future Hold 01/17/17 08:07 (KCl) 10 meq Q12HR PO 01/16/17 10:00 01/17/17 08:07 Ciprofloxacin/ Dextrose 200 ml @ 200 mls/hr Q12H IV 01/17/17 14:00 Sodium Chloride 500 ml @ 500 mls/hr BOLUS ONCE IV 01/17/17 13:45 01/17/17 14:44 Urinary Catheter: No Vascular Central Line Catheter: No A/P Problem List: (1) Symptomatic anemia ICD Code: D64.9 - Anemia, unspecified (2) Acute systolic heart failure ICD Code: I50.21 - Acute systolic (congestive) heart failure (3) HTN (hypertension) ICD Code: I10 - Essential (primary) hypertension (4) Hypokalemia ICD Code: E87.6 - Hypokalemia Status: Acute (5) Bilateral lower extremity edema ICD Code: R60.0 - Localized edema (6) Hyperlipidemia ICD Code: E78.5 - Hyperlipidemia, unspecified (7) CAD (coronary artery disease) ICD Code: I25.10 - Atherosclerotic heart disease of [place] coronary artery without angina pectoris Assessment and Plan (1) Symptomatic anemia This is an 86-year-old female with history of two-vessel CABG, atrial fibrillation, hypertension and hyperlipidemia who presents referred from her PCP office for anemia and bilateral lower extremity edema. The patient also has complaint of shortness of breath. Patient found to have a hemoglobin of 6.9 and is status post transfusion of 1 unit of packed red blood cells with appropriate hemoglobin response. Continue to monitor CBC and transfuse as needed for hemoglobin less than 7 Iron studies consistent with iron deficiency anemia. GI consulted, the patient is status post EGD/colonoscopy with polypectomy and biopsy. Findings include a colon polyp, severe diverticulosis, ulcer in the pyloric channel and into the antrum. 01/17 gastroenterology recommends no NSAIDs, continue PPI, cardiac diet as tolerated and a follow-up colonoscopy in 3 years. (2) Acute systolic heart failure Chest x-ray obtained on admission and reviewed by me shows bilateral pleural effusions and diffuse interstitial prominence suggestive of congestive heart failure. Also COPD. Echocardiogram ordered and showed a moderately reduced left ventricular systolic function with an EF in the range of 40-45%. Mild to moderate mitral valve regurgitation. Small left-sided pleural effusion. 01/17 hold Lasix today due to hypotension. (3) HTN (hypertension) Blood pressure initially stable. The patient was continued on her home lisinopril 40 mg by mouth daily and amlodipine 2.5 mg by mouth daily. However since 01/16 the patient became hypotensive with a systolic blood pressure in the 80s. Antihypertensive medications held and a small bolus of 250 mL's of IV normal saline were given. 01/17 BP still seems to be low. I will give a second bolus of 250 ML's of IV normal saline. (4) Hypokalemia Plan: Potassium low at 3.0 on 01/16. Replaced orally. Today's labs pending. (5) Bilateral lower extremity edema Plan: Due to congestive heart failure. Venous Doppler of the lower extremities ruled out DVT. Patient placed on Lasix. Edema has resolved and patient is hypotensive. Continue to hold diuretics (6) Hyperlipidemia Plan: Continue statin. (7) CAD (coronary artery disease) Plan: Continue CAROL ANN inhibitor, beta audelia. Patient does not have chest pain. Troponin negative 1. CAROL ANN inhibitor and beta audelia on hold secondary to hypotension. Continue to monitor vital signs. Assessment and Plan DVT prophylaxis: Continue SCDs, Eliquis discontinued secondary to symptomatic anemia. Discharge Planning Continue to monitor in the medical floor. Possible discharge later today if BP become stable and the patient is able to tolerate CAROL ANN inhibitor and beta audelia. Problem Qualifiers (1) HTN (hypertension): Qualified Codes: I10 - Essential (primary) hypertension (2) Hyperlipidemia: Qualified Codes: E78.5 - Hyperlipidemia, unspecified (3) CAD (coronary artery disease): Qualified Codes: I25.10 - Atherosclerotic heart disease of [place] coronary artery without angina pectoris Cecilio Iverson MD Jan 17, 2017 13:52
--- NOTE | 2017-01-17 15:44 | HHI.GIFU ---
Subjective Remarks Lying in bed. No complaints. States she gets to go home today. (Olimpia Cooper) Objective Vitals I&O Vital Signs Date Time Temp Pulse Resp B/P (MAP) Pulse Ox O2 Delivery O2 Flow Rate FiO2 01/17/17 12:00 96.9 83 17 89/66 (74) 95 01/17/17 11:27 Nasal Cannula 3.00 01/17/17 07:55 97.5 91 17 95/52 (66) 96 01/17/17 07:30 91 01/17/17 04:00 97.7 79 17 92/56 (68) 95 01/17/17 01:10 Room Air 01/17/17 00:00 98.1 99 16 100/69 (79) 96 01/16/17 21:52 97 Nasal Cannula 3.00 01/16/17 20:00 92 01/16/17 19:30 97.3 86 18 88/56 (67) 97 01/16/17 16:00 96.2 80 16 111/76 (88) 93 I/O 01/16/17 01/16/17 01/16/17 01/17/17 01/17/17 01/17/17 07:00 15:00 23:00 07:00 15:00 23:00 Intake Total 0 ml 300 ml 900 ml 480 ml 600 ml Balance 0 ml 300 ml 900 ml 480 ml 600 ml Intake Oral 0 ml 0 ml 650 ml 480 ml 600 ml IV Total 250 ml Other 300 ml # Voids 4 3 4 4 3 # Bowel Movements 3 3 1 1 Laboratory Laboratory Tests Test 01/16/17 22:35 Urine Color LIGHT-YELLOW Urine Turbidity CLEAR Urine pH 5.5 Urine Specific [place] 1.008 Urine Protein NEG Urine Glucose (UA) NEG Urine Ketones NEG Urine Occult Blood NEG Urine Nitrite NEG Urine Bilirubin NEG Urine Urobilinogen LESS THAN 2.0 Urine Leukocyte Esterase LARGE Urine RBC 1 Urine WBC 38 Urine Bacteria RARE Urine Hyaline Casts 3 Urine Granular Casts 1 Microscopic Urinalysis Comment CULTURE INDICATED Date/Time Source Procedure Growth Status 01/16/17 22:35 Urine Clean Catch Urine Culture - Preliminary Gram Negative Marquis Resulted Imaging Last Impressions Chest X-Ray 01/14/17 1442 Signed Impressions: Service Date/Time: Saturday, January 14, 2017 15:07 - CONCLUSION: 1. Bilateral pleural effusion and diffuse interstitial prominence suggesting congestive failure. 2. COPD. Chaitanya Roman MD Lower Extremity Ultrasound 01/14/17 0000 Signed Impressions: Service Date/Time: Saturday, January 14, 2017 22:49 - CONCLUSION: Negative for deep venous thrombosis. Subcutaneous edema present. Rogers Wilkerson MD Physical Exam HEENT: Normocephalic; atraumatic; no jaundice. NECK: Neck is supple CHEST: CTA CARDIAC: RRR with no murmur gallop or rubs. ABDOMEN: Soft, nondistended, nontender; no hepatosplenomegaly; bowel sounds are present. EXTREMITIES: No clubbing, cyanosis, or edema. SKIN: Normal; no rash; no jaundice. ENGRAVER: No focal deficits; alert and oriented x 3 (Olimpia Cooper) Assessment and Plan Plan ASSESSMENT - Anemia, Hemoglobin 7.0 on admission. Patient is s/p 1 x PRBC (01/14). No obvious bleeding. Hemoccult neg. Never had EGD or colonoscopy Okay for GI workup per Cardiology. 01/16/2017 patient doing well today, no active bleeding, no abdominal pain, hemoglobin stable 01/17/17--No complaints. States she is going home today. EGD/Colonoscopy 01/16/17- -Colon polyp, Severe diverticulosis, Ulcer in the pyloric channel and into the antrum [place] abdominal pain. No nausea or vomiting. Tolerating diet. No active bleeding noted. HH stable. PLAN: -Okay to discharge from a GI standpoint. - No NSAIDs - Continue PPI - Repeat colonoscopy in 3 years Patient seen and examined by Dr. Cruz and myself and this note is written on his behalf. (Olimpia Cooper) Plan Agree with above note, hemoglobin stable, no active bleeding, await biopsy result, and follow-up as an outpatient, we will sign off (Brittney Cruz MD) Olimpia Cooper Jan 17, 2017 15:44 Brittney Cruz MD Jan 17, 2017 20:54
[2017-01-17 15:55] LABS: AUTOMATED NEUTROPHIL # 7.3 TH/MM3 (1.8-7.7); BASOPHIL # 0.1 TH/MM3 (0-0.2); BASOPHIL % 0.6 % (0.0-2.0); EOSINOPHIL # 0.3 TH/MM3 (0-0.4); EOSINOPHIL % 2.9 % (0.0-4.0); HEMATOCRIT 29.1 % (35.0-46.0); HEMO FLAGS DIFF FINAL; LYMPH % 13.5 % (9.0-44.0); LYMPHOCYTE # 1.4 TH/MM3 (1.0-4.8); MEAN CELL VOLUME 84.4 FL (80.0-100.0); MEAN CORPUSCULAR HEMOGLOBIN 27.1 PG (27.0-34.0); MEAN CORPUSCULAR HGB CONC 32.1 % (32.0-36.0); MONO % 9.9 % (0.0-8.0); NEUT % 73.1 % (16.0-70.0); PLATELET COUNT 423 TH/MM3 (150-450); RED BLOOD COUNT 3.45 MIL/MM3 (4.00-5.30); RED CELL DISTRIBUTION WIDTH 17.9 % (11.6-17.2); WHITE BLOOD COUNT 10.1 TH/MM3 (4.0-11.0)
[2017-01-17 16:27] LABS: ALKALINE PHOSPHATASE 104 U/L (45-117); ALT (GPT) 14 U/L (10-53); ANION GAP 7 MEQ/L (5-15); AST (GOT) 21 U/L (15-37); BICARBONATE 31.2 MEQ/L (21.0-32.0); BLOOD UREA NITROGEN 13 MG/DL (7-18); CHLORIDE 102 MEQ/L (98-107); GLOMERULAR FILTRATION RATE 53 ML/MIN (>89); SODIUM (NA) 140 MEQ/L (136-145)
[2017-01-17 16:33] LABS: POTASSIUM 2.6 MEQ/L (3.5-5.1)
[2017-01-17] MEDS: CIPROFLOXACIN 400 MG PREMIX 200 ML IV SCH (16:55)
[2017-01-17] MEDS ORDERED: POTASSIUM CHLORIDE 20 MEQ CONTROLLED RELEASE TAB PO ONE (20:15)
[2017-01-18] VITALS (7 sets, daily range): BP systolic 84–102; BP diastolic 49–68; PULSE 68–102; RESP 17–18; TEMP 96.4–97.9; O2SAT 95–99
[2017-01-18] MEDS: CIPROFLOXACIN 400 MG PREMIX 200 ML IV SCH ×2 (02:26→14:26)
[2017-01-18] MEDS: POTASSIUM CHLORIDE 10 MEQ CONTROLLED RELEASE TAB PO SCH ×2 (08:02→21:54)
[2017-01-18] MEDS: PRAVASTATIN SOD 80 MG TAB PO SCH (08:02)
[2017-01-18] MEDS: DOCUSATE SODIUM 50 MG/SENNA 8.6 MG TAB PO SCH ×2 (08:02→21:53)
[2017-01-18] MEDS: PANTOPRAZOLE SODIUM 40 MG VIAL IV PUSH SCH ×2 (08:03→21:54)
[2017-01-18] MEDS: SODIUM CHLORIDE 0.9% FLUSH 10 ML FLUSH IV FLUSH SCH ×2 (09:00→21:54)
[2017-01-18] MEDS ORDERED: SODIUM CHLOR 0.9% 250 ML INJ 250 ML IV ONE ×2 (09:45→15:00)
[2017-01-18 10:56] LABS: AUTOMATED NEUTROPHIL # 6.2 TH/MM3 (1.8-7.7); BASOPHIL # 0.2 TH/MM3 (0-0.2); BASOPHIL % 2.1 % (0.0-2.0); EOSINOPHIL # 0.3 TH/MM3 (0-0.4); EOSINOPHIL % 3.9 % (0.0-4.0); HEMATOCRIT 26.9 % (35.0-46.0); LYMPH % 9.8 % (9.0-44.0); LYMPHOCYTE # 0.8 TH/MM3 (1.0-4.8); MEAN CELL VOLUME 84.2 FL (80.0-100.0); MEAN CORPUSCULAR HGB CONC 33.3 % (32.0-36.0); MONO % 9.9 % (0.0-8.0); NEUT % 74.3 % (16.0-70.0); PLATELET COUNT 391 TH/MM3 (150-450); RED BLOOD COUNT 3.19 MIL/MM3 (4.00-5.30); RED CELL DISTRIBUTION WIDTH 17.9 % (11.6-17.2); WHITE BLOOD COUNT 8.4 TH/MM3 (4.0-11.0)
[2017-01-18 11:01] LABS: HEMO FLAGS AUTO DIFF
[2017-01-18 11:23] LABS: ALT (GPT) 14 U/L (10-53); ANION GAP 8 MEQ/L (5-15); AST (GOT) 21 U/L (15-37); BLOOD UREA NITROGEN 10 MG/DL (7-18); CHLORIDE 109 MEQ/L (98-107); POTASSIUM 4.2 MEQ/L (3.5-5.1); SODIUM (NA) 144 MEQ/L (136-145)
[2017-01-18 11:25] LABS: ALKALINE PHOSPHATASE 98 U/L (45-117); GLOMERULAR FILTRATION RATE 62 ML/MIN (>89); TOTAL BILIRUBIN ADULT 0.8 MG/DL (0.2-1.0)
[2017-01-18 11:52] LABS: SCAN/DIFF AUTO DIFF CONFIRMED
--- NOTE | 2017-01-18 13:51 | HHI.PR ---
Subjective Remarks bp still low but improving patient denies cp/sob denies fevers/chills Objective Vitals Vital Signs Date Time Temp Pulse Resp B/P (MAP) Pulse Ox O2 Delivery O2 Flow Rate FiO2 01/18/17 12:00 96.4 95 18 102/49 (66) 99 01/18/17 08:00 96.9 68 18 86/55 (65) 96 01/18/17 04:24 97.9 102 18 98/68 (78) 95 01/18/17 00:05 97.4 83 18 92/56 (68) 95 01/17/17 22:22 98 01/17/17 20:25 97.3 116 18 94/58 (70) 95 01/17/17 20:00 96 01/17/17 20:00 95 Room Air 01/17/17 16:00 97.4 86 17 92/54 (67) 95 I/O 01/17/17 01/17/17 01/17/17 01/18/17 01/18/17 01/18/17 07:00 15:00 23:00 07:00 15:00 23:00 Intake Total 480 ml 600 ml 240 ml 320 ml Balance 480 ml 600 ml 240 ml 320 ml Intake Oral 480 ml 600 ml 240 ml 120 ml IV Total 200 ml # Voids 4 3 1 1 # Bowel Movements 1 1 0 Result Diagram: 01/18/17 1033 01/18/17 1033 Imaging Last Impressions Chest X-Ray 01/14/17 1442 Signed Impressions: Service Date/Time: Saturday, January 14, 2017 15:07 - CONCLUSION: 1. Bilateral pleural effusion and diffuse interstitial prominence suggesting congestive failure. 2. COPD. Chaitanya Roman MD Lower Extremity Ultrasound 01/14/17 0000 Signed Impressions: Service Date/Time: Saturday, January 14, 2017 22:49 - CONCLUSION: Negative for deep venous thrombosis. Subcutaneous edema present. Rogers Wilkerson MD Objective Remarks AAOx3, thin, nad Clear lungs BL abdomen soft, non tender, non distended no edema in lower extremities. Procedures None Medications and IVs Current Medications Medications (Trade) Dose Ordered Sig/Erasmo Route Start Time Stop Time Status Last Admin (Protonix Inj) 40 mg BID IV PUSH 01/14/17 21:00 01/18/17 08:03 (NS Flush) 2 ml UNSCH PRN IV FLUSH 01/14/17 18:00 (NS Flush) 2 ml BID IV FLUSH 01/14/17 21:00 01/18/17 09:00 (Zofran Inj) 4 mg Q6H PRN IVP 01/14/17 18:00 (Narcan Inj) 0.4 mg UNSCH PRN IV PUSH 01/14/17 18:00 (Katarzyna-Colace) 1 tab BID PO 01/14/17 21:00 01/18/17 08:02 (Pravachol) 80 mg DAILY PO 01/15/17 09:00 01/18/17 08:02 (Pill Splitter) 1 ea UNSCH PRN OTHER 01/14/17 18:30 (Lopressor) 12.5 mg Q12HR PO 01/15/17 12:00 Future Hold 01/15/17 22:04 Lactated Ringer's 1,000 ml @ 30 mls/hr Q24H PRN IV 01/16/17 02:45 01/19/17 02:44 Sodium Chloride 500 ml @ 30 mls/hr [id number] PRN IV 01/16/17 02:45 01/19/17 02:44 (Lopressor) 25 mg [employer]ELOPER PRN PO 01/16/17 02:45 01/19/17 02:44 (Betadine 5% Antisepsis Kit) 1 applic LEAD [employer] DEVELOPER PRN EACH NARE 01/16/17 02:45 01/19/17 02:44 (Chlorhexidine 2% Cloth) 3 pack [employer]AD [employer] DEVELOPER PRN TOPICAL 01/16/17 02:45 01/19/17 02:44 (NovoLIN R INJ) See Protocol Table ... LEAD ATG DEVELOPER PRN SQ 01/16/17 02:45 01/19/17 02:44 (Lasix) 20 mg BID@09,18 PO 01/16/17 09:00 Future Hold 01/17/17 08:07 (KCl) 10 meq Q12HR PO 01/16/17 10:00 01/18/17 08:02 Ciprofloxacin/ Dextrose 200 ml @ 200 mls/hr Q12H IV 01/17/17 14:00 01/18/17 14:26 Sodium Chloride 250 ml @ 250 mls/hr BOLUS ONCE IV 01/18/17 15:00 01/18/17 15:59 UNV Urinary Catheter: No Vascular Central Line Catheter: No A/P Problem List: (1) Symptomatic anemia ICD Code: D64.9 - Anemia, unspecified (2) Acute systolic heart failure ICD Code: I50.21 - Acute systolic (congestive) heart failure (3) HTN (hypertension) ICD Code: I10 - Essential (primary) hypertension (4) Hypokalemia ICD Code: E87.6 - Hypokalemia Status: Acute (5) Bilateral lower extremity edema ICD Code: R60.0 - Localized edema (6) Hyperlipidemia ICD Code: E78.5 - Hyperlipidemia, unspecified (7) CAD (coronary artery disease) ICD Code: I25.10 - Atherosclerotic heart disease of [place] coronary artery without angina pectoris (8) Atrial fibrillation ICD Code: I48.91 - Unspecified atrial fibrillation Plan: rate controlled. Cardiology following. No anticoagulation with anemia. (9) Hypotension ICD Code: I95.9 - Hypotension, unspecified Plan: Antihypertensive medications including CAROL ANN and beta blockers needed to be held. Diuretic discontinued Blood pressure still low this morning. Ordered 250 ml's of normal saline - bp slightly improved. Will give a second bolus of normal saline (250 cc). (10) UTI (urinary tract infection) ICD Code: N39.0 - Urinary tract infection, site not specified Plan: Started on ciprofloxacin IV - continue Urine culture is growing pseudomonas and gram negative maricel. susceptibilities for gram negative maricel pending. Assessment and Plan (1) Symptomatic anemia This is an 86-year-old female with history of two-vessel CABG, atrial fibrillation, hypertension and hyperlipidemia who presents referred from her PCP office for anemia and bilateral lower extremity edema. The patient also has complaint of shortness of breath. Patient found to have a hemoglobin of 6.9 and is status post transfusion of 1 unit of packed red blood cells with appropriate hemoglobin response. Continue to monitor CBC and transfuse as needed for hemoglobin less than 7 Iron studies consistent with iron deficiency anemia. GI consulted, the patient is status post EGD/colonoscopy with polypectomy and biopsy. Findings include a colon polyp, severe diverticulosis, ulcer in the pyloric channel and into the antrum. 01/17 gastroenterology recommends no NSAIDs, continue PPI, cardiac diet as tolerated and a follow-up colonoscopy in 3 years. (2) Acute systolic heart failure Chest x-ray obtained on admission and reviewed by me shows bilateral pleural effusions and diffuse interstitial prominence suggestive of congestive heart failure. Also COPD. Echocardiogram ordered and showed a moderately reduced left ventricular systolic function with an EF in the range of 40-45%. Mild to moderate mitral valve regurgitation. Small left-sided pleural effusion. 01/17 hold Lasix today due to hypotension. (3) HTN (hypertension) Blood pressure initially stable. The patient was continued on her home lisinopril 40 mg by mouth daily and amlodipine 2.5 mg by mouth daily. However since 01/16 the patient became hypotensive with a systolic blood pressure in the 80s. Antihypertensive medications held and a small bolus of 250 mL's of IV normal saline were given. 01/17 BP still seems to be low. I will give a second bolus of 250 ML's of IV normal saline (4) Hypokalemia Plan: Potassium low at 3.0 on 01/16. Replaced orally. Today's labs pending. (5) Bilateral lower extremity edema Plan: Due to congestive heart failure. Venous Doppler of the lower extremities ruled out DVT. Patient placed on Lasix. Edema has resolved and patient is hypotensive. Continue to hold diuretics (6) Hyperlipidemia Plan: Continue statin. (7) CAD (coronary artery disease) Plan: Continue CAROL ANN inhibitor, beta audelia. Patient does not have chest pain. Troponin negative 1. CAROL ANN inhibitor and beta audelia on hold secondary to hypotension. Continue to monitor vital signs. Assessment and Plan DVT prophylaxis: Continue SCDs, Eliquis discontinued secondary to symptomatic anemia. Discharge Planning Continue to monitor in the medical floor. Possible discharge later today if BP become stable and the patient is able to tolerate CAROL ANN inhibitor and beta audelia. Problem Qualifiers (1) HTN (hypertension): Qualified Codes: I10 - Essential (primary) hypertension (2) Hyperlipidemia: Qualified Codes: E78.5 - Hyperlipidemia, unspecified (3) CAD (coronary artery disease): Qualified Codes: I25.10 - Atherosclerotic heart disease of [place] coronary artery without angina pectoris (4) Atrial fibrillation: Qualified Codes: I48.2 - Chronic atrial fibrillation (5) UTI (urinary tract infection): Qualified Codes: N30.00 - Acute cystitis without hematuria Cecilio Iverson MD Jan 18, 2017 13:51
[2017-01-19] VITALS (9 sets, daily range): BP systolic 87–119; BP diastolic 54–74; PULSE 83–112; RESP 17–18; TEMP 95.7–97.6; O2SAT 95–99
[2017-01-19] MEDS: CIPROFLOXACIN 400 MG PREMIX 200 ML IV SCH ×2 (02:05→14:00)
[2017-01-19] MEDS ORDERED: SODIUM CHLORID 0.9% 500 ML INJ 500 ML IV ONE (08:30)
[2017-01-19] MEDS: POTASSIUM CHLORIDE 10 MEQ CONTROLLED RELEASE TAB PO SCH ×2 (10:23→21:08)
[2017-01-19] MEDS: PRAVASTATIN SOD 80 MG TAB PO SCH (10:23)
[2017-01-19] MEDS: DOCUSATE SODIUM 50 MG/SENNA 8.6 MG TAB PO SCH ×2 (10:23→21:07)
[2017-01-19] MEDS: PANTOPRAZOLE SODIUM 40 MG VIAL IV PUSH SCH ×2 (10:24→21:08)
[2017-01-19] MEDS: SODIUM CHLORIDE 0.9% FLUSH 10 ML FLUSH IV FLUSH SCH ×2 (10:29→21:08)
--- NOTE | 2017-01-19 10:56 | HHI.PR ---
Subjective Remarks patient denies cp/sob denies fevers/chills no cough denies diarrhea Bp low overnight Objective Vitals Vital Signs Date Time Temp Pulse Resp B/P (MAP) Pulse Ox O2 Delivery O2 Flow Rate FiO2 01/19/17 09:31 98 101/65 (77) 95 01/19/17 08:40 95 Nasal Cannula 3.00 01/19/17 08:00 96.3 99 17 107/70 (82) 98 01/19/17 04:49 97.2 92 17 87/54 (65) 97 01/19/17 00:37 97.6 98 17 94/56 (69) 96 01/18/17 20:27 96.9 93 17 88/63 (71) 97 01/18/17 18:26 95 Nasal Cannula 3.00 01/18/17 16:00 96.6 93 18 84/60 (68) 95 01/18/17 12:00 96.4 95 18 102/49 (66) 99 I/O 01/18/17 01/18/17 01/18/17 01/19/17 01/19/17 01/19/17 07:00 15:00 23:00 07:00 15:00 23:00 Intake Total 320 ml 600 ml 690 ml 440 ml Balance 320 ml 600 ml 690 ml 440 ml Intake Oral 120 ml 600 ml 240 ml 240 ml IV Total 200 ml 450 ml 200 ml # Voids 1 3 2 1 # Bowel Movements 0 1 1 Result Diagram: 01/18/17 1033 01/18/17 1033 Imaging Last Impressions Chest X-Ray 01/14/17 1442 Signed Impressions: Service Date/Time: Saturday, January 14, 2017 15:07 - CONCLUSION: 1. Bilateral pleural effusion and diffuse interstitial prominence suggesting congestive failure. 2. COPD. Chaitanya Roman MD Lower Extremity Ultrasound 01/14/17 0000 Signed Impressions: Service Date/Time: Saturday, January 14, 2017 22:49 - CONCLUSION: Negative for deep venous thrombosis. Subcutaneous edema present. Rogers Wilkerson MD Objective Remarks AAOx3, thin, nad Clear lungs BL abdomen soft, non tender, non distended no edema in lower extremities. Procedures None Medications and IVs Current Medications Medications (Trade) Dose Ordered Sig/Erasmo Route Start Time Stop Time Status Last Admin (Protonix Inj) 40 mg BID IV PUSH 01/14/17 21:00 01/19/17 10:24 (NS Flush) 2 ml UNSCH PRN IV FLUSH 01/14/17 18:00 (NS Flush) 2 ml BID IV FLUSH 01/14/17 21:00 01/19/17 10:29 (Zofran Inj) 4 mg Q6H PRN IVP 01/14/17 18:00 (Narcan Inj) 0.4 mg UNSCH PRN IV PUSH 01/14/17 18:00 (Katarzyna-Colace) 1 tab BID PO 01/14/17 21:00 01/19/17 10:23 (Pravachol) 80 mg DAILY PO 01/15/17 09:00 01/19/17 10:23 (Pill Splitter) 1 ea UNSCH PRN OTHER 01/14/17 18:30 (Lopressor) 12.5 mg Q12HR PO 01/15/17 12:00 Future Hold 01/15/17 22:04 (Lasix) 20 mg BID@09,18 PO 01/16/17 09:00 Future Hold 01/17/17 08:07 (KCl) 10 meq Q12HR PO 01/16/17 10:00 01/19/17 10:23 Ciprofloxacin/ Dextrose 200 ml @ 200 mls/hr Q12H IV 01/17/17 14:00 01/19/17 02:05 Urinary Catheter: No Vascular Central Line Catheter: No A/P Problem List: (1) Symptomatic anemia ICD Code: D64.9 - Anemia, unspecified (2) Acute systolic heart failure ICD Code: I50.21 - Acute systolic (congestive) heart failure (3) HTN (hypertension) ICD Code: I10 - Essential (primary) hypertension (4) Hypokalemia ICD Code: E87.6 - Hypokalemia Status: Acute (5) Bilateral lower extremity edema ICD Code: R60.0 - Localized edema (6) Hyperlipidemia ICD Code: E78.5 - Hyperlipidemia, unspecified (7) CAD (coronary artery disease) ICD Code: I25.10 - Atherosclerotic heart disease of [place] coronary artery without angina pectoris (8) Atrial fibrillation ICD Code: I48.91 - Unspecified atrial fibrillation (9) Hypotension ICD Code: I95.9 - Hypotension, unspecified (10) UTI (urinary tract infection) ICD Code: N39.0 - Urinary tract infection, site not specified Assessment and Plan (1) Symptomatic anemia This is an 86-year-old female with history of two-vessel CABG, atrial fibrillation, hypertension and hyperlipidemia who presents referred from her PCP office for anemia and bilateral lower extremity edema. The patient also has complaint of shortness of breath. Patient found to have a hemoglobin of 6.9 and is status post transfusion of 1 unit of packed red blood cells with appropriate hemoglobin response. Continue to monitor CBC and transfuse as needed for hemoglobin less than 7 Iron studies consistent with iron deficiency anemia. GI consulted, the patient is status post EGD/colonoscopy with polypectomy and biopsy. Findings include a colon polyp, severe diverticulosis, ulcer in the pyloric channel and into the antrum. 01/17 gastroenterology recommends no NSAIDs, continue PPI, cardiac diet as tolerated and a follow-up colonoscopy in 3 years. (2) Acute systolic heart failure Chest x-ray obtained on admission and reviewed by me shows bilateral pleural effusions and diffuse interstitial prominence suggestive of congestive heart failure. Also COPD. Echocardiogram ordered and showed a moderately reduced left ventricular systolic function with an EF in the range of 40-45%. Mild to moderate mitral valve regurgitation. Small left-sided pleural effusion. 01/17 hold Lasix today due to hypotension. 01/19 Continue to hold lasix. (3) HTN (hypertension) Blood pressure initially stable. The patient was continued on her home lisinopril 40 mg by mouth daily and amlodipine 2.5 mg by mouth daily. However since 01/16 the patient became hypotensive with a systolic blood pressure in the 80s. Antihypertensive medications held and a small bolus of 250 mL's of IV normal saline were given. 01/17 BP still seems to be low. I will give a second bolus of 250 ML's of IV normal saline (4) Hypokalemia Plan: Potassium low at 3.0 on 01/16. Replaced orally. Today's labs pending. (5) Bilateral lower extremity edema Plan: Due to congestive heart failure. Venous Doppler of the lower extremities ruled out DVT. Patient placed on Lasix. Edema has resolved and patient is hypotensive. Continue to hold diuretics (6) Hyperlipidemia Plan: Continue statin. (7) CAD (coronary artery disease) Plan: Continue CAROL ANN inhibitor, beta audelia. Patient does not have chest pain. Troponin negative 1. CAROL ANN inhibitor and beta audelia on hold secondary to hypotension. Continue to monitor vital signs. (8) Atrial fibrillation Plan: rate controlled. Cardiology following. No anticoagulation with anemia. (9) Hypotension Plan: Antihypertensive medications including CAROL ANN and beta blockers needed to be held. Diuretic discontinued Blood pressure still low this morning. Ordered 250 ml's of normal saline - bp slightly improved. Will give a second bolus of normal saline (250 cc). 10/2 BP low overnight as low as 87/54 - Will repeat IV NS bolus of 500 ml. (10) UTI (urinary tract infection) Plan: Started on ciprofloxacin IV - continue Urine culture is growing pseudomonas and gram negative maricel. susceptibilities for gram negative maricel pending. Assessment and Plan DVT prophylaxis: Continue SCDs, Eliquis discontinued secondary to symptomatic anemia. Discharge Planning Continue to monitor in the medical floor. Dc pending BP improvement. Discussed with RN and patient. Problem Qualifiers (1) HTN (hypertension): Qualified Codes: I10 - Essential (primary) hypertension (2) Hyperlipidemia: Qualified Codes: E78.5 - Hyperlipidemia, unspecified (3) CAD (coronary artery disease): Qualified Codes: I25.10 - Atherosclerotic heart disease of [place] coronary artery without angina pectoris (4) Atrial fibrillation: Qualified Codes: I48.2 - Chronic atrial fibrillation (5) UTI (urinary tract infection): Qualified Codes: N30.00 - Acute cystitis without hematuria Cecilio Iverson MD Jan 19, 2017 10:56
[2017-01-19 13:54] LABS: HEMATOCRIT 28.4 % (35.0-46.0); MEAN CELL VOLUME 84.5 FL (80.0-100.0); MEAN CORPUSCULAR HGB CONC 31.9 % (32.0-36.0); PLATELET COUNT 387 TH/MM3 (150-450); RED BLOOD COUNT 3.35 MIL/MM3 (4.00-5.30); RED CELL DISTRIBUTION WIDTH 18.1 % (11.6-17.2); REVIEW FLAG FINAL
[2017-01-19 14:15] LABS: BICARBONATE 25.2 MEQ/L (21.0-32.0); MAGNESIUM 1.7 MG/DL (1.5-2.5); POTASSIUM 3.6 MEQ/L (3.5-5.1)
[2017-01-19] MEDS ORDERED: LISINOPRIL 5 MG TAB PO SCH (16:45)
[2017-01-20 00:20] VITALS: BP 98/48; PULSE 98; RESP 18; TEMP 97.4; O2SAT 95
[2017-01-20] MEDS: CIPROFLOXACIN 400 MG PREMIX 200 ML IV SCH (02:23)
[2017-01-20 04:30] VITALS: BP 92/52; PULSE 79; RESP 18; TEMP 96.9; O2SAT 96
[2017-01-20 08:00] VITALS: BP 117/66; PULSE 99; RESP 18; TEMP 97.3; O2SAT 97
[2017-01-20] MEDS ORDERED: CIPR250T2 PO (08:43)
--- NOTE | 2017-01-20 08:44 | HHI.DCPOC ---
Discharge Care Plan Diagnosis: (1) HTN (hypertension) (2) CHF (congestive heart failure) (3) Hypokalemia (4) CAD (coronary artery disease) (5) Hyperlipidemia (6) Acute systolic heart failure (7) Symptomatic anemia (8) Atrial fibrillation (9) UTI (urinary tract infection) (10) Hypotension Goals to Promote Your Health * To prevent worsening of your condition and complications * To maintain your health at the optimal level Directions to Meet Your Goals Take your medications as prescribed Follow your dietary instruction Follow activity as directed Keep your appointments as scheduled Take your immunizations and boosters as scheduled If your symptoms worsen call your PCP, if no PCP go to Urgent Care Center or Emergency Room Smoking is Dangerous to Your Health. Avoid second hand smoke Call the 24-hour hour crisis hotline for domestic abuse at Cecilio Iverson MD Jan 20, 2017 08:44
[2017-01-20] MEDS: POTASSIUM CHLORIDE 10 MEQ CONTROLLED RELEASE TAB PO SCH (09:22)
[2017-01-20] MEDS: PRAVASTATIN SOD 80 MG TAB PO SCH (09:22)
[2017-01-20] MEDS: DOCUSATE SODIUM 50 MG/SENNA 8.6 MG TAB PO SCH (09:22)
[2017-01-20] MEDS: PANTOPRAZOLE SODIUM 40 MG VIAL IV PUSH SCH (09:24)
[2017-01-20] MEDS: SODIUM CHLORIDE 0.9% FLUSH 10 ML FLUSH IV FLUSH SCH (09:25)
--- NOTE | 2017-01-20 10:10 | HHI.FF ---
Face to Face Verification Diagnosis: (1) Symptomatic anemia (2) Bilateral lower extremity edema (3) Acute systolic heart failure (4) Hypotension (5) Hyperlipidemia (6) CAD (coronary artery disease) (7) Atrial fibrillation (8) UTI (urinary tract infection) (9) Hypokalemia (10) CHF (congestive heart failure) (11) HTN (hypertension) Physical Therapy Order: Improve ambulation, Strength and gait training Home Health Nursing Order: CHF education Medication education-adverse effect Nursing assessment with vital signs I have seen patient Rona Kay on 01/20/17. My clinical findings support the need for the requested home health care services because: High risk of falls Infection w/ risk of complications I certify that my clinical findings support that this patient is homebound because: Unsteady gait/balance Unsafe to leave home unassisted Unable to use public transportation Cecilio Iverson MD Jan 20, 2017 10:10
[2017-01-20] MEDS ORDERED: LACTTAB8 PO (10:13)
[2017-01-20 10:14] LABS: BASOPHIL # 0.1 TH/MM3 (0-0.2); BASOPHIL % 0.8 % (0.0-2.0); EOSINOPHIL # 0.5 TH/MM3 (0-0.4); EOSINOPHIL % 7.2 % (0.0-4.0); HEMO FLAGS DIFF FINAL; LYMPH % 15.1 % (9.0-44.0); LYMPHOCYTE # 1.1 TH/MM3 (1.0-4.8); MEAN CELL VOLUME 85.6 FL (80.0-100.0); MEAN CORPUSCULAR HEMOGLOBIN 27.5 PG (27.0-34.0); MEAN CORPUSCULAR HGB CONC 32.1 % (32.0-36.0); MONO % 9.8 % (0.0-8.0); NEUT % 67.1 % (16.0-70.0); PLATELET COUNT 322 TH/MM3 (150-450); RED BLOOD COUNT 2.92 MIL/MM3 (4.00-5.30); RED CELL DISTRIBUTION WIDTH 18.3 % (11.6-17.2); WHITE BLOOD COUNT 7.5 TH/MM3 (4.0-11.0)
[2017-01-20 10:22] LABS: ALT (GPT) 12 U/L (10-53); ANION GAP 10 MEQ/L (5-15); AST (GOT) 21 U/L (15-37); BICARBONATE 22.4 MEQ/L (21.0-32.0); BLOOD UREA NITROGEN 9 MG/DL (7-18); CHLORIDE 111 MEQ/L (98-107); GLOMERULAR FILTRATION RATE 63 ML/MIN (>89); POTASSIUM 3.5 MEQ/L (3.5-5.1); SODIUM (NA) 143 MEQ/L (136-145)
[2017-01-20 10:25] LABS: ALKALINE PHOSPHATASE 96 U/L (45-117); TOTAL BILIRUBIN ADULT 0.5 MG/DL (0.2-1.0)
--- NOTE | 2017-01-20 11:25 | HHI.DS ---
Discharge Summary Admission Date Jan 15, 2017 at 17:52 Discharge Date: Jan 20, 2017 Admitting Diagnosis Anemia requiring transfusion (1) Symptomatic anemia ICD Code: D64.9 - Anemia, unspecified Diagnosis: Principal (2) Acute systolic heart failure ICD Code: I50.21 - Acute systolic (congestive) heart failure Diagnosis: Principal (3) HTN (hypertension) ICD Code: I10 - Essential (primary) hypertension Diagnosis: Secondary (4) Hypokalemia ICD Code: E87.6 - Hypokalemia Diagnosis: Principal Status: Acute (5) Bilateral lower extremity edema ICD Code: R60.0 - Localized edema Diagnosis: Principal (6) Hyperlipidemia ICD Code: E78.5 - Hyperlipidemia, unspecified Diagnosis: Principal (7) CAD (coronary artery disease) ICD Code: I25.10 - Atherosclerotic heart disease of [place] coronary artery without angina pectoris Diagnosis: Principal (8) Atrial fibrillation ICD Code: I48.91 - Unspecified atrial fibrillation Diagnosis: Principal (9) Hypotension ICD Code: I95.9 - Hypotension, unspecified (10) UTI (urinary tract infection) ICD Code: N39.0 - Urinary tract infection, site not specified Diagnosis: Principal Procedures None Brief History - From Admission Written by JEANETTE Baird acting as scribe for [Ray] on 01/14/17 at 21: 55. 86 y/o female with a history of HTN, CAD s/p cabg 25 years ago, and HLD was told to come to the ED after a low hemoglobin was found on lab work at PCP office. Patient denies any black or red colored stools, or hematuria . She does complain of dyspnea and leg swelling worse over the last 2 weeks, with associated chest tightness. She states she has not been worked up for CHF. She denies having a colonoscopy or EGD. Credit Officer: Dr. Spann PCP: Dr. Almazan CBC/BMP: 01/20/17 0913 01/20/17 0913 Significant Findings Laboratory Tests Test 01/17/17 15:30 01/18/17 10:33 01/19/17 13:35 01/20/17 09:13 Red Blood Count 3.45 MIL/MM3 (4.00-5.30) 3.19 MIL/MM3 (4.00-5.30) 3.35 MIL/MM3 (4.00-5.30) 2.92 MIL/MM3 (4.00-5.30) Hemoglobin 9.3 GM/DL (11.6-15.3) 9.0 GM/DL (11.6-15.3) 9.0 GM/DL (11.6-15.3) 8.0 GM/DL (11.6-15.3) Hematocrit 29.1 % (35.0-46.0) 26.9 % (35.0-46.0) 28.4 % (35.0-46.0) 25.0 % (35.0-46.0) Red Cell Distribution Width 17.9 % (11.6-17.2) 17.9 % (11.6-17.2) 18.1 % (11.6-17.2) 18.3 % (11.6-17.2) Neutrophils (%) (Auto) 73.1 % (16.0-70.0) 74.3 % (16.0-70.0) Monocytes (%) (Auto) 9.9 % (0.0-8.0) 9.9 % (0.0-8.0) 9.8 % (0.0-8.0) Monocytes # (Auto) 1.0 TH/MM3 (0-0.9) Albumin 3.0 GM/DL (3.4-5.0) 2.8 GM/DL (3.4-5.0) 2.7 GM/DL (3.4-5.0) Calcium Level 8.0 MG/DL (8.5-10.1) 7.9 MG/DL (8.5-10.1) 7.8 MG/DL (8.5-10.1) 7.8 MG/DL (8.5-10.1) Potassium Level 2.6 MEQ/L (3.5-5.1) Estimat Glomerular Filtration Rate 53 ML/MIN (>89) 62 ML/MIN (>89) 65 ML/MIN (>89) 63 ML/MIN (>89) Basophils (%) (Auto) 2.1 % (0.0-2.0) Lymphocytes # (Auto) 0.8 TH/MM3 (1.0-4.8) Chloride Level 109 MEQ/L (98-107) 110 MEQ/L (98-107) 111 MEQ/L (98-107) Mean Corpuscular Hemoglobin Concent 31.9 % (32.0-36.0) Random Glucose 110 MG/DL (74-106) Phosphorus Level 1.7 MG/DL (2.5-4.9) Eosinophils (%) (Auto) 7.2 % (0.0-4.0) Eosinophils # (Auto) 0.5 TH/MM3 (0-0.4) Total Protein 6.3 GM/DL (6.4-8.2) Imaging Last Impressions Chest X-Ray 01/14/17 1442 Signed Impressions: Service Date/Time: Saturday, January 14, 2017 15:07 - CONCLUSION: 1. Bilateral pleural effusion and diffuse interstitial prominence suggesting congestive failure. 2. COPD. Chaitanya Roman MD Lower Extremity Ultrasound 01/14/17 0000 Signed Impressions: Service Date/Time: Saturday, January 14, 2017 22:49 - CONCLUSION: Negative for deep venous thrombosis. Subcutaneous edema present. Rogers Wilkerson MD PE at Discharge AAOx3, thin, nad Clear lungs BL abdomen soft, non tender, non distended no edema in lower extremities. Pt Condition on Discharge: Stable Discharge Disposition: Disch w/ Home Health Serv Discharge Time: > 30 minutes Discharge Instructions DIET: Follow Instructions for: Heart Healthy Diet Activities you can perform: Regular-No Restrictions, See Additionl Instruction Other Activity Instructions: out of bed with assistance please follow Physical therapy instructions Follow up Referrals: PCP Follow-up - 2-3 Days If blood pressure allows please start CAROL ANN and Beta audelia [facility] with [facility] New Medications: Ciprofloxacin (Ciprofloxacin) 250 Mg Tab 250 MG PO BID for Infection, #10 TAB 0 Refills Lactobacillus Acidophilus (Lactobacillus Acidophilus) 1 Billion Cell Tab 1 TAB PO TIDAC for Nutritional Supplement, #30 TAB 0 Refills Continued Medications: Alendronate (Alendronate) 70 Mg Tab 70 MG PO Q7D for Osteporosis Treatment, #4 TAB 0 Refills Lovastatin (Lovastatin) 40 Mg Tab 80 MG PO DAILY for Cholesterol Management, #60 TAB 0 Refills Multiple Vitamins W/ Minerals (Womens One Daily) 27 Mg-0.4 Mg Tab 1 CAP PO DAILY Discontinued Medications: Amlodipine (Amlodipine) 2.5 Mg Tab 2.5 MG PO DAILY for Blood Pressure Management, #30 TAB 0 Refills Apixaban (Eliquis) 2.5 Mg Tab 2.5 MG PO BID for Blood Clot Prevention, TAB 0 Refills Lisinopril (Lisinopril) 40 Mg Tab 40 MG PO DAILY for Blood Pressure Management, #30 TAB 0 Refills Cecilio Iverson MD Jan 20, 2017 11:25
[2017-01-20 12:00] VITALS: BP 111/68; PULSE 98; RESP 18; TEMP 98.5; O2SAT 99
[2017-01-20 12:44] VITALS: O2SAT 97
== END 2017-01-20 13:14 | disposition home health service (06) | DRG 811 ==
LOC: NEPC 14:30 → NEDA 18:07 → NEPFCDU 19:07 → NEDA 19:07 → NEPFCDU 01-15 01:00 → N06B 01-15 16:58 → OBSVTOIN 01-15 17:52
PROVIDERS: ADMIT Hospitalist; ATTEND Hospitalist
PROC: 30253N1 (ICD-10-PCS; 2017-01-16)
PROC: 0DB68ZX Excision of Stomach, Via Natural or Artificial Opening Endoscopic, Diagnostic (ICD-10-PCS; principal; 2017-01-16 14:28)
PROC: 0DBK8ZZ Excision of Ascending Colon, Via Natural or Artificial Opening Endoscopic (ICD-10-PCS; 2017-01-16 14:28)
DX: D64.9 Anemia, unspecified (principal); I50.41 Acute combined systolic (congestive) and diastolic (congestive) heart failure; I95.9 Hypotension, unspecified; I11.0 Hypertensive heart disease with heart failure; I48.91 Unspecified atrial fibrillation; N39.0 Urinary tract infection, site not specified; K25.9 Gastric ulcer, unspecified as acute or chronic, without hemorrhage or perforation; J44.9 Chronic obstructive pulmonary disease, unspecified; E87.6 Hypokalemia; E78.5 Hyperlipidemia, unspecified; R60.0 Localized edema; I25.10 Atherosclerotic heart disease of native coronary artery without angina pectoris; Z95.1 Presence of aortocoronary bypass graft; I49.9 Cardiac arrhythmia, unspecified; Z90.710 Acquired absence of both cervix and uterus; D12.2 Benign neoplasm of ascending colon; K57.90 Diverticulosis of intestine, part unspecified, without perforation or abscess without bleeding; K64.8 Other hemorrhoids; I34.0 Nonrheumatic mitral (valve) insufficiency; Z79.899 Other long term (current) drug therapy; Z87.891 Personal history of nicotine dependence; Z79.01 Long term (current) use of anticoagulants; H91.90 Unspecified hearing loss, unspecified ear
CPT/HCPCS: 36430; 71020; 80048; 80053; 81001; 82550; 82728; 83036; 83540; 83550; 83735; 83880; 84100; 84132; 84439; 84443; 84484; 85014; 85018; 85025; 85027; 85610; 85730; 86850; 86900; 86901; 86920; 87077; 87086; 87186; 88305; 88312; 93005; 93306; 93970; 99285; C9113; G0378; G8987-GO; G8987-GP; G8988-GO; G8988-GP; J0744; J1940; J7040; J7050; P9016

== ENCOUNTER 2018-06-03 16:19 | Inpatient (IN) ==
[2018-06-03] MEDS ORDERED: Aztreonam Inj 2 GM in Sodium Chloride 0.9% Inj 100 ML IV.SIG STA (16:40)
--- NOTE | 2018-06-03 16:45 | ED ---
HPI General Chief complaint: Neuro Symptoms/Deficit Stated complaint: ams Time Seen by Provider: 06/03/18 16:33 Source: family () Limitations: altered mental status History of Present Illness HPI narrative: Left early in the morning approximately 0600 hrs. is acting normal, return from work approximately 1500 hrs. found on the floor with a change of mental status Onset (ago): hour(s) Related Data Home Medications Medication Instructions Recorded Confirmed albuterol sulfate [Ventolin HFA] 1 puff INHALATION Q4-6H PRN 06/03/18 06/03/18 alendronate 70 mg PO QWEEK 06/03/18 06/03/18 amlodipine 2.5 mg PO DAILY 06/03/18 06/03/18 apixaban [Eliquis] 2.5 mg PO BID 06/03/18 06/03/18 atorvastatin 40 mg PO DAILY 06/03/18 06/03/18 atorvastatin 40 mg PO DAILY 06/03/18 06/03/18 donepezil 10 mg PO HS 06/03/18 06/03/18 ferrous sulfate 325 mg PO DAILY 06/03/18 06/03/18 mirtazapine 15 mg PO HS 06/03/18 06/03/18 potassium chloride 10 meq PO DAILY 06/03/18 06/03/18 Allergies Allergy/AdvReac Type Severity Reaction Status Date / Time Penicillins Allergy Unknown Verified 01/14/17 15:37 Sulfa (Sulfonamide Allergy Unknown Verified 01/14/17 15:37 Antibiotics) Review of Systems ROS Unobtainable ROS Unobtainable: unobtainable due to mental status PMFSH Medical History Medical History Bypass graft stenosis (Acute) Cholecystectomy planned (Acute) Hypertension (Acute) Leg fracture, left (Acute) Skin cancer (Acute) Surgical History Surgical History Hx of appendectomy (Acute) Social History Social History Substance History: No History of Abuse Smoking Status: Former smoker Tobacco Type: Cigarettes How Often Do You Have a Drink Containing Alcohol: 2 to 4 times a month Exam Narrative Exam Narrative: Looks ill Left-sided gaze does not cross midline No step-off midline CTL Trachea midline Non-drooling NO JVD LABORED RESPIRATIONS shallow REGULAR RHYTHM SOFt , no pulsatile mass PELVIS STABLE FROM EXTREMITIES passive NO LOWER EXTREMITY EDEMA FACIAL SYMMETRY a[place]ake, nonverbal Cool to touch (per bedside normally cold) Procedures Central Line Placement Right SC: Time Out Performed: Yes Patient Placed on Monitor/Pulse Ox: Yes Prep: mask, gown and gloves Central Line Prep: Povidone-Iodine 1% Local anesthesia used: lidocaine 1% Ultrasound Used for Placement: No Central Line Lumen Inserted: triple Post Procedure: sutured in place Post Procedure X-Ray: tip of catheter in good position and other (small right ptx , reviewed bedside cxr) Patient Tolerated Procedure: well Complications: none Course Reevaluation(s) Reevaluation #1: No IV access peripherally central line, subclavian right Elective intubation poor inspiratory effort and shallow Discussed with bedside agrees, explained risks 1805 d/w radiologist, small pneumothorax right Updated diagnostic test bedside Only history patient has is hypertension 1850 d/w margarette umana md , to admit/assume care updated diagnostic tests Follow-up chest x-ray in a.m., Pending cardiology Time: 17:46 Initial Documented Vital Signs Temperature 95.5 F L 06/03/18 16:23 Respiratory Rate 30 H 06/03/18 16:23 Blood Pressure 91/67 L 06/03/18 16:23 Pulse Oximetry 80 L 06/03/18 16:23 Last Documented Vital Signs Temperature 95.5 F L 06/03/18 16:23 Pulse Rate 115 H 06/03/18 18:00 Respiratory Rate 18 06/03/18 18:00 Blood Pressure 120/73 06/03/18 18:00 Pulse Oximetry 100 06/03/18 18:32 Critical Care Time Critical Care Time: Yes Total Critical Care Time: 50 Attestation: Aggregate critical care time was 50 minutes. Time to perform other separately billable procedures was not included in the critical care time. My time did not include minutes spent treating any other patients simultaneously or on activities that did not directly contribute to the patient's treatment. The services I provided to this patient were to treat and/or prevent clinically significant deterioration that could result in: [Pain disability ] I provided critical care services requiring my management, as noted below: Chart data review, documentation time, medication orders and management, vital sign assessments/reviewing monitor data, ordering and reviewing lab tests, ordering and interpreting/reviewing x-rays and diagnostic studies, care of the patient and discussion of the patient with the admitting physicians. Medical Decision Making MDM Narrative Medical Screen Exam Complete: Yes Emergency Medical Condition: Yes Lab Data Result diagrams: 06/03/18 17:20 06/03/18 17:20 Lab Results 06/03/18 06/03/18 06/03/18 Range/Units 16:40 17:20 17:20 WBC 8.4 (4.0-11.0) th/mm3 RBC 4.15 (4.00-5.30) mil/mm3 Hgb 12.4 (11.6-15.3) gm/dL Hct 37.2 (35.0-46.0) % MCV 89.5 (80.0-100.0) fL MCH 29.8 (27.0-34.0) pg MCHC 33.3 (32.0-36.0) % RDW 16.1 (11.6-17.2) % Plt Count 414 (150-450) th/mm3 MPV 7.9 (7.0-11.0) fL Neut % (Auto) 86.4 H (16.0-70.0) % Lymph % (Auto) 7.5 L (9.0-44.0) % [place] % (Auto) 5.3 (0.0-8.0) % Eos % (Auto) 0.1 (0.0-4.0) % Baso % (Auto) 0.7 (0.0-2.0) % Neut # (Auto) 7.3 (1.8-7.7) th/mm3 Lymph # (Auto) 0.6 L (1.0-4.8) th/mm3 [place] # (Auto) 0.4 (0.0-0.9) th/mm3 Eos # (Auto) 0.0 (0.0-0.4) th/mm3 Baso # (Auto) 0.1 (0.0-0.2) th/mm3 WBC Differential . Differential Comment Auto diff final PT 14.1 H (9.8-11.6) sec INR 1.4 Ratio APTT 21.7 L (23.4-31.7) sec Sodium (136-145) meq/L Potassium (3.5-5.1) meq/L Chloride (98-107) meq/L Carbon Dioxide (21.0-32.0) meq/L Anion Gap (5-15) meq/L BUN (7-18) mg/dL Creatinine (0.50-1.00) mg/dL Estimated GFR (>89) mL/min POC Glucose 77 (68-110) mg/dl Random Glucose (74-106) mg/dL Lactic Acid (0.4-2.0) mmol/L Calcium (8.5-10.1) mg/dL Magnesium (1.5-2.5) mg/dL Total Bilirubin (0.2-1.0) mg/dL AST (15-37) U/L ALT (10-53) U/L Alkaline Phosphatase (45-117) U/L Troponin I (0.02-0.05) ng/mL Total Protein (6.4-8.2) g/dL Albumin (3.4-5.0) g/dL 06/03/18 06/03/18 Range/Units 17:20 17:20 WBC (4.0-11.0) th/mm3 RBC (4.00-5.30) mil/mm3 Hgb (11.6-15.3) gm/dL Hct (35.0-46.0) % MCV (80.0-100.0) fL MCH (27.0-34.0) pg MCHC (32.0-36.0) % RDW (11.6-17.2) % Plt Count (150-450) th/mm3 MPV (7.0-11.0) fL Neut % (Auto) (16.0-70.0) % Lymph % (Auto) (9.0-44.0) % [place] % (Auto) (0.0-8.0) % Eos % (Auto) (0.0-4.0) % Baso % (Auto) (0.0-2.0) % Neut # (Auto) (1.8-7.7) th/mm3 Lymph # (Auto) (1.0-4.8) th/mm3 [place] # (Auto) (0.0-0.9) th/mm3 Eos # (Auto) (0.0-0.4) th/mm3 Baso # (Auto) (0.0-0.2) th/mm3 WBC Differential Differential Comment PT (9.8-11.6) sec INR Ratio APTT (23.4-31.7) sec Sodium 138 (136-145) meq/L Potassium 2.6 L* (3.5-5.1) meq/L Chloride 97 L (98-107) meq/L Carbon Dioxide 30.5 (21.0-32.0) meq/L Anion Gap 11 (5-15) meq/L BUN 7 (7-18) mg/dL Creatinine 0.73 (0.50-1.00) mg/dL Estimated GFR 76 L (>89) mL/min POC Glucose (68-110) mg/dl Random Glucose 90 (74-106) mg/dL Lactic Acid 2.0 (0.4-2.0) mmol/L Calcium 8.2 L (8.5-10.1) mg/dL Magnesium 1.7 (1.5-2.5) mg/dL Total Bilirubin 1.9 H (0.2-1.0) mg/dL AST 25 (15-37) U/L ALT 8 L (10-53) U/L Alkaline Phosphatase 113 (45-117) U/L Troponin I 0.21 H (0.02-0.05) ng/mL Total Protein 6.7 (6.4-8.2) g/dL Albumin 2.4 L (3.4-5.0) g/dL Imaging Data Radiologist's impression: Chest X-Ray 06/03/18 16:34 CONCLUSION: 1. Right subclavian central line in the cavoatrial junction with new small 1.5 cm right apical pneumothorax. 2. ETT and NGT in good position. Findings were personally discussed with Dr. Baltazar at the time of this dictation. Head CT 06/03/18 16:34 CONCLUSION: 1. No acute intracranial abnormality. . Cervical Spine CT 06/03/18 16:41 CONCLUSION: 1. No acute fracture. 2. Stable 3 mm anterolisthesis of C2 on C3 and 2 mm anterolisthesis of C7 on T1 , as would be secondary to degenerative facet arthrosis. 3. Small right apical pneumothorax. Physician is aware from prior chest radiograph. 4. Multilevel degenerative spondylosis of the cervical spine. ECG Data Attestation: I personally reviewed and interpreted this ECG as follows: (Atrial fibrillation RVR, no STEMI) Discharge Plan Discharge Disposition Patient Disposition: ED Admit(ED Internal Use Only) Discharge Condition Condition: Serious Discharge Order Discharge Orders: ED Use Only Admit Order (Routine); Ordered 06/03/18 Ordered By: Rogers Baltazar Discharge Details Diagnosis: Change in mental status, Dehydration, Sepsis, Atrial fibrillation, new onset, Respiratory failure requiring intubation, Non-ST elevated myocardial infarction (non-STEMI) Physicians Team ED Provider: Rogers Baltazar Primary Care Provider: UNKNOWN, Rxs /Orders / Referrals /Forms Prescriptions: No Action atorvastatin 40 mg Tablet 40 mg PO DAILY RF: 0 atorvastatin 40 mg Tablet 40 mg PO DAILY RF: 0 potassium chloride 10 mEq Capsule, Extended Release 10 meq PO DAILY RF: 0 donepezil 10 mg Tablet 10 mg PO HS RF: 0 alendronate 70 mg Tablet 70 mg PO QWEEK RF: 0 amlodipine 2.5 mg Tablet 2.5 mg PO DAILY RF: 0 ferrous sulfate 325 mg (65 mg iron) Tablet 325 mg PO DAILY RF: 0 mirtazapine 15 mg Tablet 15 mg PO HS RF: 0 albuterol sulfate [Ventolin HFA] 90 mcg/actuation Hfa Aerosol Inhaler 1 puff INHALATION Q4-6H PRN (Reason: Wheezing) RF: 0 apixaban [Eliquis] 2.5 mg Tablet 2.5 mg PO BID RF: 0 Discharge Interventions Interventions: Vital Signs Last Done: 06/03/18 18:00 Status ED Status: Pending Admission
[2018-06-03] MEDS ORDERED: Propofol 1000 mg/100 ml Inj 1,000 MG/100 ML BOTTLE ONE (17:11)
[2018-06-03] MEDS ORDERED: Etomidate Inj 40 MG/20 ML Vial IV.PUSH ONE (17:11)
[2018-06-03] MEDS ORDERED: Succinylcholine Inj 200 MG/10 ML Vial ONE (17:11)
[2018-06-03 17:42] LABS: Baso # (Auto) 0.1 th/mm3 (0.0-0.2); Baso % (Auto) 0.7 % (0.0-2.0); Eos % (Auto) 0.1 % (0.0-4.0); Hematocrit 37.2 % (35.0-46.0); Hemoglobin 12.4 gm/dL (11.6-15.3); Lymph # (Auto) 0.6 th/mm3 (1.0-4.8); Lymph % (Auto) 7.5 % (9.0-44.0); Mean Corpuscular HGB Conc 33.3 % (32.0-36.0); Mean Corpuscular Hemoglobin 29.8 pg (27.0-34.0); Mean Corpuscular Volume 89.5 fL (80.0-100.0); Mean Platelet Volume 7.9 fL (7.0-11.0); Mono # (Auto) 0.4 th/mm3 (0.0-0.9); Mono % (Auto) 5.3 % (0.0-8.0); Neut # (Auto) 7.3 th/mm3 (1.8-7.7); Neut % (Auto) 86.4 % (16.0-70.0); Platelet Count 414 th/mm3 (150-450); Red Blood Count 4.15 mil/mm3 (4.00-5.30); Red Cell Distribution Width 16.1 % (11.6-17.2); White Blood Count 8.4 th/mm3 (4.0-11.0)
[2018-06-03 17:51] LABS: Activated Partial Thrombo Time 21.7 sec (23.4-31.7); INR 1.4 Ratio; Prothrombin Time 14.1 sec (9.8-11.6)
--- NOTE | 2018-06-03 18:08 | XR ---
EXAM DATE: 06/03/2018 5:58 PM EST AGE/SEX: 87 years / Female INDICATIONS: Evaluate central line placement, et tube placement, and orogastric tube placement. CLINICAL DATA: This is the patient's initial encounter. Patient reports that signs and symptoms have been present for 1 day and indicates a pain score of Nonresponsive. MEDICAL/SURGICAL HISTORY: . Hypertension. Hearing loss. Coronary artery disease. Anticoagulant therapy. . Hysterectomy.Cholecystectomy. section.CABG x 2. COMPARISON: [facility], XR CHEST PA AND LAT, 06/01/2018. . FINDINGS: ETT is 2 cm above the destiny. NGT in the stomach. Right subclavian central line with tip in the cavoa trial junction. There is a small right apical pneumothorax measuring approximately 1.5 cm. Cardiomedi astinal contours are stable. Remainder of the exam is unchanged. CONCLUSION: 1. Right subclavian central line in the cavoatrial junction with new small 1.5 cm right apical pneum othorax. 2. ETT and NGT in good position. Findings were personally discussed with Dr. Baltazar at the time of this dictation. Electronically signed by: Laurent Peters MD Board Certified Radiologist 06/03/2018 6:07 PM EST
[2018-06-03] MEDS ORDERED: Propofol 1000 mg/100 ml Inj 1,000 MG/100 ML BOTTLE IV.CONT PRN (18:23)
[2018-06-03] MEDS ORDERED: Succinylcholine Inj 100 MG/5 ML Syringe IV.PUSH ONE (18:23)
[2018-06-03] MEDS ORDERED: Etomidate Inj 20 MG/10 ML Ampul IV.PUSH ONE (18:23)
[2018-06-03 18:25] LABS: Alanine Aminotransferase 8 U/L (10-53); Albumin 2.4 g/dL (3.4-5.0); Alkaline Phosphatase 113 U/L (45-117); Anion Gap 11 meq/L (5-15); Aspartate Aminotransferase 25 U/L (15-37); Blood Urea Nitrogen 7 mg/dL (7-18); Calcium 8.2 mg/dL (8.5-10.1); Carbon Dioxide 30.5 meq/L (21.0-32.0); Chloride 97 meq/L (98-107); Glomerular Filtration Rate 76 mL/min (>89); Glucose,Random 90 mg/dL (74-106); Magnesium 1.7 mg/dL (1.5-2.5); Sodium 138 meq/L (136-145); Total Protein 6.7 g/dL (6.4-8.2); Troponin I 0.21 ng/mL (0.02-0.05)
--- NOTE | 2018-06-03 18:29 | CT ---
EXAM DATE: 06/03/2018 6:25 PM EST AGE/SEX: 87 years / Female INDICATIONS: Patient found on floor. Altered mental status. CLINICAL DATA: This is the patient's initial encounter. Patient reports that signs and symptoms have been present for 1 day and indicates a pain score of Nonresponsive. MEDICAL/SURGICAL HISTORY: Non-responsive. Non-responsive. RADIATION DOSE: 27.58 CTDI (mGy) COMPARISON: [facility] – [place], [place] BRAIN W/O CONTRAST, 01/02/2017. . TECHNIQUE: CT of the head without contrast. Using automated exposure control and adjustment of the mA and/or kV according to patient size, radiation dose was kept as low as reasonably achievable to ob tain optimal diagnostic quality images. DICOM format image data is available electronically for revi ew and comparison. FINDINGS: Cerebrum: Moderate diffuse cerebral atrophy. The ventricles are normal for degree of atrophy. Modera te periventricular white matter hypodensities. No evidence of midline shift, mass lesion, hemorrhage or acute infarction. No extraaxial fluid collections are seen. Posterior Fossa: The cerebellum and brainstem are intact. The 4th ventricle is midline. The cerebe llopontine angle is unremarkable. Extracranial: The visualized portion of the orbits is intact. Skull: The calvaria is intact. No evidence of skull fracture. CONCLUSION: 1. No acute intracranial abnormality. . Electronically signed by: Laurent Peters MD Board Certified Radiologist 06/03/2018 6:27 PM EST
[2018-06-03 18:37] LABS: Potassium 2.6 meq/L (3.5-5.1)
[2018-06-03] MEDS ORDERED: Heparin 10,000 UNITS/10 ML Vial (for IV use) IV.PUSH STA (18:44)
[2018-06-03] MEDS ORDERED: Aspirin 300 MG Supp RECTAL ONE (18:44)
[2018-06-03] MEDS ORDERED: Sod Chloride 0.9% Inj 1,000 ML IV.SIG SCH (18:45)
--- NOTE | 2018-06-03 18:49 | CT ---
EXAM DATE: 06/03/2018 6:35 PM EST AGE/SEX: 87 years / Female INDICATIONS: Patient found on floor. Altered mental status. CLINICAL DATA: This is the patient's initial encounter. Patient reports that signs and symptoms have been present for 1 day and indicates a pain score of Nonresponsive. MEDICAL/SURGICAL HISTORY: Non-responsive. Non-responsive. RADIATION DOSE: 7.41 CTDI (mGy) COMPARISON: [facility] – [place], [place] CERVICAL SPINE W/O CONTRAST, 01/02/2017. . TECHNIQUE: Contiguous axial images were obtained using helical multirow detector technique. The vol umetric data was post-processed with multiplanar reconstruction in oblique axial, sagittal, and coron al planes. Using automated exposure control and adjustment of the mA and/or kV according to patient s ize, radiation dose was kept as low as reasonably achievable to obtain optimal diagnostic quality javad ges. DICOM format image data is available electronically for review and comparison. FINDINGS: OSSEOUS STRUCTURES: Vertebral body heights are maintained. Osseous structures are intact without evid ence for acute bony fracture. Dens is intact. ALIGNMENT: Stable 3 mm anterolisthesis of C2 on C3. Stable 2 mm anterolisthesis of C7 on T1. There is a normal C1-2 relationship. Facets are normally aligned. SOFT TISSUES: There is no significant prevertebral soft tissue hematoma. No significant cervical jose nopathy or gross mass. The thyroid appears unremarkable. Small right apical pneumothorax. ADDITIONAL FINDINGS: Advanced multilevel degenerative spondylosis of the cervical spine most notably at C3-4 and C5-6 with severe disc space narrowing and posterior disc osteophytes. Bony central canal is patent. Bilateral bony neural foraminal narrowing at C3-4, C4-5 and C5-6. Multilevel degenerative facet arthrosis. CONCLUSION: 1. No acute fracture. 2. Stable 3 mm anterolisthesis of C2 on C3 and 2 mm anterolisthesis of C7 on T1, as would be seconda ry to degenerative facet arthrosis. 3. Small right apical pneumothorax. Physician is aware from prior chest radiograph. 4. Multilevel degenerative spondylosis of the cervical spine. Electronically signed by: Laurent Peters MD Board Certified Radiologist 06/03/2018 6:48 PM EST
[2018-06-03 19:01] LABS: Bilirubin,Urine Negative (Negative); Clarity,Urine Clear (Clear); Color,Urine Yellow (Yellw/Straw); Glucose,Urine (UA) Negative (Negative); Leukocyte Esterase,Urine Negative (Negative); Nitrite,Urine Negative (Negative); Specific Gravity,Urine 1.008 (1.002-1.035); Squamous Epithelial Cell,Urine <1 /hpf (0-5); Urobilinogen,Urine 4 or Greater mg/dL (Less than 2)
[2018-06-03] MEDS ORDERED: Norepinephrine Inj 4 MG/4 ML Ampul ONE (19:25)
[2018-06-03] MEDS: Norepinephrine Inj 4 MG in Sodium Chlor 0.9% Inj 246 ML IV.SIG PRN (19:30)
--- NOTE | 2018-06-03 20:11 | XR ---
EXAM DATE: 06/03/2018 8:05 PM EST AGE/SEX: 87 years / Female INDICATIONS: Post chest tube placement. CLINICAL DATA: This is the patient's subsequent encounter. Patient reports that signs and symptoms h ave been present for 1 day and indicates a pain score of Nonresponsive. MEDICAL/SURGICAL HISTORY: . Hypertension. Hearing loss. Coronary artery disease. CABG. Cholec ystectomy. Hysterectomy. COMPARISON: C, CHEST 1V SINGLE AP, 06/03/2018. . FINDINGS: Interval placement of right chest drainage catheter with the distal coil in the apex. The right apica l pneumothorax is decreased in size to 3 mm (previously measured 1.5 cm). The lungs are clear. Right subclavian catheter tip at the cavoatrial junction. ET tube tip well above the destiny. Gastric tip an d side-port project within the stomach. Both hemidiaphragms well delineated. CONCLUSION: Reduction of right apical pneumothorax status post placement of chest catheter. Small (3 mm) residual apical pneumothorax. Electronically signed by: Clifford Camacho MD Board Certified Radiologist 06/03/2018 8:09 PM EST
[2018-06-03 20:26] LABS: ABG Base Excess 0.8 mmol/L (-2-2); ABG PCO2 29 mmHg (38-42); ABG PO2 497 mmHg (61-120)
[2018-06-03] MEDS ORDERED: Mag Sulf 1 gm/100 ml Premix 100 ML IV.SIG ONE (20:32)
[2018-06-03] MEDS ORDERED: Acetaminophen 325 MG Tablet PO PRN (20:34)
[2018-06-03] MEDS ORDERED: Bisacodyl 10 MG Supp RECTAL PRN (20:34)
[2018-06-03] MEDS ORDERED: Magnesium Sulfate Inj 4 GM in Sodium Chlor 0.9% Inj 92 ML IV.SIG PRN (20:43)
[2018-06-03] MEDS ORDERED: Magnesium Sulfate Inj 2 GM in Sodium Chlor 0.9% Inj 96 ML IV.SIG PRN (20:43)
[2018-06-03] MEDS ORDERED: Potassium Phosphate Inj 30 MMOL in Sodium Chlor 0.9% Inj 250 ML IV.SIG PRN (20:43)
[2018-06-03] MEDS ORDERED: Potassium Chloride Liq 20 MEQ/15 ML UDC PO PRN ×2 (20:43)
[2018-06-03] MEDS ORDERED: Potassium Chlor 20 mEq Premix 20 MEQ/100 ML PIGGYBACK IV.SIG PRN (20:43)
[2018-06-03] MEDS ORDERED: Magnesium Oxide 400 MG Tablet PO PRN (20:43)
[2018-06-03] MEDS ORDERED: Potassium Chlor 40 mEq Premix 40 MEQ/100 ML PIGGYBACK IV.SIG PRN (20:43)
[2018-06-03] MEDS ORDERED: Sodium Phosphate Inj 30 MMOL in Sodium Chlor 0.9% Inj 250 ML IV.SIG PRN (20:43)
[2018-06-03] MEDS ORDERED: Potassium Phosphate 500 MG Soluble Tablet PO PRN (20:43)
[2018-06-03] MEDS ORDERED: fentaNYL 10 mcg/mL Premix Drip 2,500 MCG/250 ML BAG IV.SIG PRN (20:46)
--- NOTE | 2018-06-03 20:46 | P.HPCC ---
History of Present Illness Service: Critical care medicine Primary Care Physician: UNKNOWN Chief Complaint: Altered mental status History of Present Illness: 87-year-old right-handed female with past medical history of coronary artery disease, prior myocardial infarction, 2 vessel CABG, atrial fibrillation on chronic anticoagulation with Eliquis, prior tobacco abuse. Her states that he went to work around 0600 on 06/03 and when he returned at 15: 30 he found her on the floor supine in the bathroom with altered mental status. She was able to state her name but could not recall the name of her . Apparently when she arrived she was tachycardic with BP 91/67 and therefore R subclavian CVL was placed in the ED. She was then intubated, reportedly due to shallow respirations. She did have iatrogenic R pneumothorax, initially 1.5 cm apical. However she later became hypotensive with elevated peak pressures and I placed pigtail chest tube due to concern for development of tension physiology. She does have L gaze preference and will followup commands on the right. Withdraws on the right side but appears hemiparetic. CT brain negative. Not candidate for TPA due to unknown time of onset. He states she was in her usual state of health prior to this aside from the fact that she has had poor appetite and weight loss over the last couple of months. At her baseline she does have some difficulty with memory and she ambulates very slowly. She does not drive and has not been cooking for the last year. She does manage her finances. - Diagnosis (1) Change in mental status (2) Atrial fibrillation, new onset (3) Respiratory failure requiring intubation (4) Pneumothorax on right (5) Chest tube in place Inpatient Certification: I certify that the inpatient services were ordered in accordance with Medicare regulations governing the order. This includes certification that hospital inpatient services are reasonable and necessary and in the case of services not specified as inpatient-only under 42 CFR 419.22(n), that they are appropriately provided as inpatient services in accordance to with the 2-midnight benchmark under 43 CFR 412.3(e) Estimated Total Length of Stay (Days): 7 Plans for Post Hospital Care: Not yet determined Review of Systems All other systems reviewed negative except as stated in HPI [facility] - History History Provided By: Patient, Family Member - Medical History Medical History: Medical History (Last Updated 06/04/18 @ 11:39 by Jossy Barnes MD) Bypass graft stenosis CAD (coronary artery disease) Hypertension Leg fracture, left Myocardial infarction Skin cancer Tobacco abuse - Surgical History Surgical History: Surgical History (Last Updated 06/04/18 @ 11:40 by Jossy Barnes MD) Hx of CABG Hx of appendectomy Hx of cholecystectomy - Family History Family History: Family History (Last Updated 06/04/18 @ 11:40 by Jossy Barnes MD) Other No significant family history - Social History I have reviewed the patient's Social History: Yes - Tobacco History Smoking Status: Former smoker Tobacco Type: Cigarettes Smoking End Date: 30 years ago - Alcohol History How Often Do You Have a Drink Containing Alcohol: Never - Substance Use History Substance History: No History of Abuse - Immunization History Tetanus Immunization: <5 Years Medications and Allergies Active Medications: Active Medications Acetaminophen (Tylenol) 650 mg PO Q6H PRN PRN Reason: pain 1-3 or temp >100.4 Hydrocodone Bitart/Acetaminophen (Shafter 5/325) 1 tab PO Q4H PRN PRN Reason: pain 3-7 Al Hydroxide/Mg Hydroxide (Milk Of Lalito Rico) 30 ml PO Q12H PRN PRN Reason: Mild Constipation Albuterol (Albuterol Neb (Erasmo)) 2.5 mg NEB Q2HR NEB PRN PRN Reason: SHORTNESS OF BREATH/WHEEZING Bisacodyl (Dulcolax Supp) 10 mg RECTAL DAILY PRN PRN Reason: SEVERE CONSITIPATION Chlorhexidine Gluconate (Chlorhexidine 2% Cloth) 3 pack TOPICAL DAILY@0400 ERASMO Stop: 06/09/18 03:59 Chlorhexidine Gluconate (Chlorhexidine 2% Cloth) 3 pack TOPICAL DAILY@0400 PRN PRN Reason: Extra cloth needed Stop: 06/09/18 03:59 Chlorhexidine Gluconate (Peridex 0.12% Oral Kit) 15 ml OROPHARYNG BID@0800, 2000 ERASMO Famotidine (Pepcid Pf Inj) 20 mg IV.PUSH Q12HR ERASMO Propofol (Diprivan 1000 Mg/100 Ml Inj) 1,000 mg in 100 mls @ 1.293 mls/hr IV.CONT TITRATE PRN; Protocol PRN Reason: Per Protocol Last Admin: 06/03/18 18:00 Dose: 5 mcg/kg/min, 1.29 mls/hr Potassium Chloride (Kcl 20 Meq Premix Inj) 20 meq in 100 mls @ 50 mls/hr IV.SIG Q2H ERASMO Stop: 06/03/18 22:44 Magnesium Sulfate/Dextrose (Magnesium Sulfate 1 Gm/D5w 100 Ml Premix) 100 mls @ 100 mls/hr IV.SIG ONCE ONE Stop: 06/03/18 21:31 Sodium Chloride (Ns Inj) 1,000 mls @ 70 mls/hr IV.CONT .[id number] ERASMO Magnesium Sulfate 4 gm/ Sodium (Chloride) 100 mls @ 50 mls/hr IV.SIG UNSCH PRN PRN Reason: For Magnesium 0.9 - 1.1 mg/dL Magnesium Sulfate 2 gm/ Sodium (Chloride) 100 mls @ 50 mls/hr IV.SIG UNSCH PRN PRN Reason: For Magnesium 1.2 - 1.6 mg/dL Potassium Chloride (Kcl 40 Meq Premix Inj) 40 meq in 100 mls @ 25 mls/hr IV.SIG Q2H PRN PRN Reason: For Potassium 2.8 - 3.2 mEq/L Potassium Chloride (Kcl 20 Meq Premix Inj) 20 meq in 100 mls @ 50 mls/hr IV.SIG Q2H PRN PRN Reason: For Potassium 3.3 - 3.5 mEq/L Potassium Chloride (Kcl 40 Meq Premix Inj) 40 meq in 100 mls @ 25 mls/hr IV.SIG UNSCH PRN PRN Reason: For Potassium 3.3 - 3.5 mEq/L Potassium Chloride (Kcl 20 Meq Premix Inj) 20 meq in 100 mls @ 50 mls/hr IV.SIG Q2H PRN PRN Reason: For Potassium 2.8 - 3.2 mEq/L Potassium Phosphate 30 mmol/ (Sodium Chloride) 260 mls @ 42 mls/hr IV.SIG UNSCH PRN PRN Reason: SEE LABEL COMMENTS Sodium Phosphate 30 mmol/ (Sodium Chloride) 260 mls @ 42 mls/hr IV.SIG UNSCH PRN PRN Reason: For Phosphorus < 2.5 mg/dL Lactulose (Lactulose Liq) 30 ml PO DAILY PRN PRN Reason: SEVERE CONSITIPATION Magnesium Oxide (Mag-Ox) 800 mg PO UNSCH PRN PRN Reason: For Magnesium 1.2 - 1.6 mg/dL Miscellaneous Medication () 1 each OROPHARYNG 0000,0400,1200,1600 ERASMO Morphine Sulfate (Morphine Inj) 2 mg IV.PUSH Q2H PRN PRN Reason: pain 8-10 Ondansetron HCl (Zofran Inj) 4 mg IV.PUSH Q6H PRN PRN Reason: NAUSEA OR VOMITING Potassium Chloride (Kcl Liq) 40 meq PO UNSCH PRN PRN Reason: Potassium level 3.3-3.5 mEq/L Potassium Chloride (Kcl Liq) 40 meq PO UNSCH PRN PRN Reason: POTASSIUM LESS THAN 3.5 Potassium Phosphate (K-Phos Original) 2,000 mg PO Q4H PRN PRN Reason: Phosphorus Less Than 2.5 mg/dL Potassium Phosphate (K-Phos Original) 2,000 mg PO UNSCH PRN PRN Reason: SEE LABEL COMMENTS Senna/Docusate Sodium (Katarzyna-Colace) 1 tab PO BID [facility] [place] [place] Sennosides (Senokot) 17.2 mg PO Q12H PRN PRN Reason: Moderate Constipation Sodium Chloride (Ns Flush) 2 ml IV.FLUSH BID [facility] [place] Sodium Chloride (Ns Flush) 2 ml IV.FLUSH PRN PRN PRN Reason: FLUSH AFTER USING IV ACCESS Allergies Allergy/AdvReac Type Severity Reaction Status Date / Time Penicillins Allergy Unknown Verified 01/14/17 15:37 Sulfa (Sulfonamide Allergy Unknown Verified 01/14/17 15:37 Antibiotics) Home Medications Medication Instructions Recorded Confirmed Type albuterol sulfate [Ventolin HFA] 1 puff INHALATION Q4-6H PRN 06/03/18 06/03/18 History alendronate 70 mg PO QWEEK 06/03/18 06/03/18 History amlodipine 2.5 mg PO DAILY 06/03/18 06/03/18 History apixaban [Eliquis] 2.5 mg PO BID 06/03/18 06/03/18 History atorvastatin 40 mg PO DAILY 06/03/18 06/03/18 History atorvastatin 40 mg PO DAILY 06/03/18 06/03/18 History donepezil 10 mg PO HS 06/03/18 06/03/18 History ferrous sulfate 325 mg PO DAILY 06/03/18 06/03/18 History mirtazapine 15 mg PO HS 06/03/18 06/03/18 History potassium chloride 10 meq PO DAILY 06/03/18 06/03/18 History Results - Labs CBC & Chem 7: 06/04/18 05:50 06/04/18 05:50 Labs: Short CBC 06/03/18 Range/Units 17:20 WBC 8.4 (4.0-11.0) th/mm3 Hgb 12.4 (11.6-15.3) gm/dL Hct 37.2 (35.0-46.0) % Plt Count 414 (150-450) th/mm3 BMP 06/03/18 17:20 Sodium 138 Potassium 2.6 L* Chloride 97 L Carbon Dioxide 30.5 BUN 7 Creatinine 0.73 Calcium 8.2 L Cardiac Enzymes 06/03/18 Range/Units 17:20 Troponin I 0.21 H (0.02-0.05) ng/mL Liver Function 06/03/18 Range/Units 17:20 Total Bilirubin 1.9 H (0.2-1.0) mg/dL AST 25 (15-37) U/L ALT 8 L (10-53) U/L Alkaline Phosphatase 113 (45-117) U/L Albumin 2.4 L (3.4-5.0) g/dL Urine 06/03/18 Range/Units 18:41 Urine Color Yellow (Yellw/Straw) Urine Clarity Clear (Clear) Urine pH 7.0 (5.0-8.5) Ur Specific Burnett 1.008 (1.002-1.035) Urine Protein Negative (Neg-Trace) mg/dL Urine Glucose (UA) Negative (Negative) mg/dL - Imaging Impressions Chest X-Ray 06/03/18 00:00 CONCLUSION: Reduction of right apical pneumothorax status post placement of chest catheter. Small (3 mm) residual apical pneumothorax. Chest X-Ray 06/03/18 16:34 CONCLUSION: 1. Right subclavian central line in the cavoatrial junction with new small 1.5 cm right apical pneumothorax. 2. ETT and NGT in good position. Findings were personally discussed with Dr. Baltazar at the time of this dictation. Head CT 06/03/18 16:34 CONCLUSION: 1. No acute intracranial abnormality. . Cervical Spine CT 06/03/18 16:41 CONCLUSION: 1. No acute fracture. 2. Stable 3 mm anterolisthesis of C2 on C3 and 2 mm anterolisthesis of C7 on T1 , as would be secondary to degenerative facet arthrosis. 3. Small right apical pneumothorax. Physician is aware from prior chest radiograph. 4. Multilevel degenerative spondylosis of the cervical spine. Exam Vital signs: Vital Signs 06/03/18 16:23 06/03/18 16:27 06/03/18 17:27 Temperature 95.5 F L Pulse Rate 62 102 H Respiratory Rate 30 H 20 20 Blood Pressure 91/67 L 124/70 133/70 Pulse Oximetry 80 L 90 L 99 06/03/18 17:39 06/03/18 17:45 06/03/18 18:00 Temperature Pulse Rate 100 H 115 H Respiratory Rate 14 18 18 Blood Pressure 125/80 120/73 Pulse Oximetry 100 100 99 06/03/18 18:32 06/03/18 18:53 06/03/18 19:25 Temperature Pulse Rate 112 H 108 H Respiratory Rate 16 14 Blood Pressure 104/61 77/53 L Pulse Oximetry 100 100 06/03/18 19:40 06/03/18 20:00 Temperature Pulse Rate 104 H Respiratory Rate 15 14 Blood Pressure 160/88 H Pulse Oximetry 96 Intake & Output 06/03/18 06/03/18 06/04/18 06:59 18:59 06:59 Intake Total 1150 / 1150 Balance 1150 / 1150 Weight 43.091 kg Intake: IV 1150 / 1150 Levaquin 750 mg Premix Inj 150 150 / 150 ML @ 100 mls/hr IV.SIG STAT STA Rx#:[id number] NS Inj 1,000 ML @ 1000 mls/hr 1000 / 1000 IV.SIG BOLUS ERASMO Rx#:[id number] Narrative: GENERAL: Elderly undernourished female who is orotracheally intubated. She is currently not on any sedative. SKIN: Warm and dry. Keratinized epithelium right hand. HEAD: Atraumatic. Normocephalic. EYES: Pupils equal and round. ENT: No nasal bleeding or discharge. Mucous membranes pink and moist. NECK: Trachea midline. No JVD. CARDIOVASCULAR: irregularly irregular . No murmurs rubs or gallops. RESPIRATORY: No accessory muscle use. Clear to auscultation. Breath sounds equal bilaterally. GASTROINTESTINAL: Abdomen soft, non-tender, nondistended. Bowel sounds present. MUSCULOSKELETAL: Extremities without clubbing, cyanosis, or edema. N\ NEUROLOGICAL: Eyes open to voice. L sided gaze preference. Pupils reactive. Unable to appreciate any facial droop. Follows commands with squeezing left hand and moving left lower extremity. Withdraws weakly with right upper and right lower 2/5 strength. Caprini VTE Risk Assessment Caprini VTE Risk Assessment: Moderate/High Risk (score >= 2) Caprini Risk Assessment Model: Point Value = 1 Point Value = 2 Point Value = 3 Point Value = 5 Age 41-60 Minor surgery BMI > 25 kg/m2 Swollen legs Varicose veins or History of unexplained or recurrent spontaneous Oral contraceptives or hormone replacement Sepsis (< 1 month) Serious lung disease, including pneumonia (< 1 month) Abnormal pulmonary function Acute myocardial infarction Congestive heart failure (< 1 month) History of inflammatory bowel disease Medical patient at bed rest Age 61-74 Arthroscopic surgery Major open surgery (> 45 min) Laparoscopic surgery (> 45 min) Malignancy Confined to bed (> 72 hours) Immobilizing plaster cast Central venous access Age >= 75 History of VTE Family history of VTE Factor V Leiden Prothrombin [id number] Lupus anticoagulant Anticardiolipin antibodies Elevated serum homocysteine Heparin-induced thrombocytopenia Other congenital or acquired thrombophilia Stroke (< 1 month) Elective arthroplasty Hip, pelvis, or leg fracture Acute spinal cord injury (< 1 month) Prophylaxis Regimen: Total Risk Factor Score Risk Level Prophylaxis Regimen 0-1 Low Early ambulation 2 Moderate Order ONE of the following: *Sequential Compression Device (SCD) *Heparin 5000 units SQ BID 3-4 Higher Order ONE of the following medications: *Heparin 5000 units SQ TID *Enoxaparin/Lovenox 40 mg SQ daily (WT < 150 kg, CrCl > 30 mL/min) *Enoxaparin/Lovenox 30 mg SQ daily (WT < 150 kg, CrCl > 10-29 mL/min) *Enoxaparin/Lovenox 30 mg SQ BID (WT < 150 kg, CrCl > 30 mL/min) AND/OR *Sequential Compression Device (SCD) 5 or more Highest Order ONE of the following medications: *Heparin 5000 units SQ TID (Preferred with Epidurals) *Enoxaparin/Lovenox 40 mg SQ daily (WT < 150 kg, CrCl > 30 mL/min) *Enoxaparin/Lovenox 30 mg SQ daily (WT < 150 kg, CrCl > 10-29 mL/min) *Enoxaparin/Lovenox 30 mg SQ BID (WT < 150 kg, CrCl > 30 mL/min) AND *Sequential Compression Device (SCD) Assessment and Plan - Problem List (1) Change in mental status Code(s): R41.82 - Altered mental status, unspecified Status: Acute (2) Atrial fibrillation, new onset Code(s): I48.91 - Unspecified atrial fibrillation Status: Chronic (3) Respiratory failure requiring intubation Code(s): J96.90 - Respiratory failure, unspecified, unspecified whether with hypoxia or hypercapnia Status: Acute (4) Pneumothorax on right Code(s): J93.9 - Pneumothorax, unspecified Status: Acute (5) Chest tube in place Code(s): Z96.89 - Presence of other specified functional implants Status: Acute - Assessment and Plan Plan: NEURO: Altered mental status 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 She is not a candidate for TPA due to unknown time of onset. Will obtain MRI. Carotid u/s Echo Lipid study aspirin 300 mg MD Propofol for sedation. Daily sedation vacation. Target RASS -2. Continue donepezil 10 mg p.o. nightly RESP: Acute respiratory failure Iatrogenic right pneumothorax history of tobacco abuse Ventilator bundle. Will remain intubated with plan to initiate spontaneous breathing trials after MRI is complete. R apical pigtail chest tube 06/03 #1, -20 cm suction. F/u CXR. CV: Atrial fibrillation Has been on chronic anticoagulation with Eliquis. Will hold Eliquis for now, likely resume if MRI shows no evidence of hemorrhage. Troponin elevation ?demand ischemia secondary to A. fib RVR Hold Norvasc 2.5 mg daily Continue statin 40 mg p.o. daily Levophed to maintain MAP >65 due to sedation related hypotension. NS 70 mL/h GI: Jevity 1.5 goal rate 35 mL's per hour per nutrition recommendations FEN/RENAL: Hypokalemia 40 mEq IV in the emergency department. Follow-up potassium and replace electrolytes as indicated per ICU electrolyte replacement protocol. Check magnesium. ID: Received aztreonam and Levaquin in the emergency department. Urinalysis negative for evidence of infection. CXR negative. No clear source of infection however hypotensive with hypothermia and left shift so will cover with aztreonam /vanc pending blood cultures. HEME: Monitor CBC ENDO: Euglycemic PROPH: SCDs for DVT prophylaxis. Initiate DVT prophylaxis if MRI unrevealing for hemorrhage. famotidine for stress ulcer prophylaxis ACCESS: R subclavian CVL placed by EM physician 06/03 #1. Full code Patient has been updated at bedside regarding plan of care. Patient is critically ill and was hypotensive requiring emergent chest tube placement and ongoing resuscitation Critical care 60 minutes exclusive of separately billable procedures (1) Change in mental status Qualifiers: Altered mental status type: unspecified Qualified Code(s): R41.82 - Altered mental status, unspecified
--- NOTE | 2018-06-03 20:46 | P.PCN ---
Date of procedure: 06/04/18 Procedure: Procedure: Right pigtail chest tube placement Indication: Tension pneumothorax Details of procedure: Procedure was performed emergently as patient was in extremis. I did discuss the procedure with her and discussed risk and benefits and he verbally consented. The patient was supine. The anterior chest wall was cleaned with ChloraPrep twice. Regional sterile drapes were applied. 1% lidocaine was used for local anesthesia and injected into the subcutaneous and deep muscle tissues. Introducer needle was advanced above the rib at the second intercostal space until air bubbles were aspirated. The guidewire was advanced. A small skin incision was made. A 10 [place] pigtail catheter was advanced over the wire and the inner cannula and wire were removed. The pigtail catheter was connected to the Pleur-evac with -20 cm suction. There is a 1+ air leak initially which subsequently resolved. Complications: None. Stat chest x-ray demonstrates improved appearance of right pneumothorax. Clinically patient had immediate improvement in blood pressure
[2018-06-03] MEDS: Potassium Chlor 20 mEq Premix 20 MEQ/100 ML PIGGYBACK IV.SIG SCH (21:57)
[2018-06-03] MEDS ORDERED: RASS Change Order OTHER ONE (22:00)
[2018-06-03] MEDS ORDERED: fentaNYL Citrate Inj 100 MCG/2 ML Ampul IV.PUSH ONE (22:00)
[2018-06-04] MEDS: Potassium Chlor 20 mEq Premix 20 MEQ/100 ML PIGGYBACK IV.SIG SCH (00:37)
[2018-06-04] MEDS: Famotidine PF Inj 20 MG/2 ML Vial IV.PUSH SCH ×3 (00:45→20:05)
[2018-06-04] MEDS: Senna/Docusate Sodium 8.6/50 MG Tablet PO SCH ×3 (00:45→20:03)
[2018-06-04] MEDS: Sod Chloride 0.9% Inj 1,000 ML IV.CONT SCH ×2 (00:47→13:50)
[2018-06-04] MEDS: Oral Hygiene Kit OROPHARYNG SCH ×4 (00:48→16:22)
[2018-06-04 00:56] LABS: Troponin I 0.25 ng/mL (0.02-0.05)
[2018-06-04 01:08] LABS: CKMB Percent 2.1 % (0.0-4.0); Creatine Kinase MB 7.5 ng/mL (0.5-3.6)
[2018-06-04] MEDS: Potassium Chlor 40 mEq Premix 40 MEQ/100 ML PIGGYBACK IV.SIG PRN ×2 (01:26→05:43)
[2018-06-04] MEDS ORDERED: Metoprolol Inj 5 MG/5 ML Vial ONE (02:08)
[2018-06-04] MEDS ORDERED: Chlorhexidine Gluconate 2% 1 Pack (2 Cloths) TOPICAL PRN (04:00)
[2018-06-04] MEDS: Chlorhexidine Gluconate 2% 1 Pack (2 Cloths) TOPICAL SCH (04:44)
[2018-06-04 06:17] LABS: Baso % (Auto) 0.3 % (0.0-2.0); Eos # (Auto) 0.1 th/mm3 (0.0-0.4); Eos % (Auto) 0.6 % (0.0-4.0); Hematocrit 35.3 % (35.0-46.0); Hemoglobin 11.6 gm/dL (11.6-15.3); Lymph % (Auto) 8.2 % (9.0-44.0); Mean Corpuscular HGB Conc 32.8 % (32.0-36.0); Mean Corpuscular Hemoglobin 29.2 pg (27.0-34.0); Mean Platelet Volume 7.4 fL (7.0-11.0); Mono # (Auto) 0.7 th/mm3 (0.0-0.9); Mono % (Auto) 5.3 % (0.0-8.0); Neut # (Auto) 10.5 th/mm3 (1.8-7.7); Neut % (Auto) 85.6 % (16.0-70.0); Platelet Count 468 th/mm3 (150-450); Red Blood Count 3.97 mil/mm3 (4.00-5.30); Red Cell Distribution Width 15.9 % (11.6-17.2); White Blood Count 12.3 th/mm3 (4.0-11.0)
[2018-06-04 06:56] LABS: Calcium 7.7 mg/dL (8.5-10.1); Carbon Dioxide 28.4 meq/L (21.0-32.0); Chol/HDL Ratio 4.58 Ratio; Potassium 3.4 meq/L (3.5-5.1); Troponin I 0.17 ng/mL (0.02-0.05)
--- NOTE | 2018-06-04 09:29 | US ---
EXAM DATE: 06/04/2018 9:20 AM EST AGE/SEX: 87 years / Female INDICATIONS: Cerebrovascular accident. CLINICAL DATA: This is the patient's initial encounter. Patient reports that signs and symptoms have been present for 1 day and indicates a pain score of Nonresponsive. MEDICAL/SURGICAL HISTORY: . HTN. Skin cancer. Appendectomy. Cholecystectomy. Bypass graft. COMPARISON: No prior exams available for comparison. VELOCITY PARAMETERS: ICA/CCA Ratio: Right 2.6 , Left na ICA: Right 119 cm/sec, Left na cm/sec CCA: Right 46 cm/sec, Left 32 cm/sec ECA: Right 45 cm/sec, Left 44 cm/sec Vertebral: Right 41 cm/sec antegrade, Left 66 cm/sec antegrade FINDINGS: Right Carotid: Moderate arteriosclerotic plaque is visualized.The waveforms are within normal limits . Left Carotid: There is atherosclerotic plaquing at the carotid bifurcation. It appears that the left internal carotid artery is occluded. There does appear to be flow in the external carotid artery. Other: None. CONCLUSION: 1. There appears to be occlusion of the left internal carotid artery. If clinically indicated, a CTA of the carotids could be performed for further evaluation. 2. Moderate atherosclerotic plaquing at the right carotid bifurcation. No focal high-grade or hemody namically significant stenosis. Electronically signed by: Julio Rubio MD Board Certified Radiologist 06/04/2018 9:27 AM EST
--- NOTE | 2018-06-04 10:25 | P.DIET ---
Nutritional Evaluation Type of nutrition evaluation: initial Nutrition consult regarding: Tube Feeding Objective - Diagnosis Sepsis - Objective % IBW: 98 (IBW = 97#) Body Weight Used for Calculations: Actual (43.2 kg) Energy Needs - Lower Range (kCal/kg): 25 Energy Needs - Upper Range (kCal/kg): 30 Lower Limit kCal/kg (kCals): 1,210 Upper Limit kCal/kg (kCals): 1,382 Lower Limit Protein Factor (Grams per Kg): 1.0 Upper Limit Protein Factor (Grams per Kg): 1.5 Lower Protein Needs (Protein): 43 Upper Protein Needs (Protein): 65 Dietitian Reviewed in Medical Record: Curent medications, Intake & Output, Labs , Medical history, Tube feeding Diet Order: NPO Assessment Assessment: Pt is at high nutrition risk 2' to her need for TFing. Agree with current TF order for Jevity 1.5 @ 35 mls/hr. This will provide 1260 kcals, 54 gms protein and 638 mls of free water. Recommendations: Jevity 1.5 @ 35 mls/hr goal Dietitian to Monitor: Lab values, Intake & Output, Tube feeding tolerance, Weight change, Medical course
[2018-06-04] MEDS: Chlorhexidine 0.12% Oral Kit 15 ML UDC OROPHARYNG SCH ×2 (10:47→20:04)
[2018-06-04] MEDS ORDERED: Vancomycin Consult Pharmacy OTHER PRN (12:07)
[2018-06-04] MEDS: Norepinephrine Inj 4 MG in Sodium Chlor 0.9% Inj 246 ML IV.SIG PRN (12:15)
--- NOTE | 2018-06-04 13:00 | P.HPCC ---
History of Present Illness Service: critical care Primary Care Physician: UNKNOWN Chief Complaint: Altered mental status History of Present Illness: Ms. Kay is an 87-year-old female with a past medical history of CAD, HTN, left leg fracture, prior myocardial infarction, atrial fibrillation on chronic anticoagulation with Eliquis, who presented to the ED around 1630 with altered mental status. Her states upon returning from work around 1530 he found her with altered mental ststus on the floor supine in the bathroom. He states she has had months of anorexia and weight loss, otherwise she was in her usual state of health prior to this incident. She normally has mild memory difficulty and ambulates slowly. She does not drive or cook for at least one year. Per EMR she was able to state her name but could not recall the name of her . Due to tachycardic and BP 91/67 mmHg a Right subclavian central venous line was placed in the ED, from which she suffered an iatrogenic right-sided apical pneumothorax that was 1.5 cm. In the ED she was also intubated because of shallow respirations. Later during admission in the [facility] she became hypotensive with elevated peak pressures and a pigtail chest tube was placed due to concern for development of tension pneumothorax. Inpatient Certification: I certify that the inpatient services were ordered in accordance with Medicare regulations governing the order. This includes certification that hospital inpatient services are reasonable and necessary and in the case of services not specified as inpatient-only under 42 CFR 419.22(n), that they are appropriately provided as inpatient services in accordance to with the 2-midnight benchmark under 43 CFR 412.3(e) Estimated Total Length of Stay (Days): 7 Plans for Post Hospital Care: Not yet determined Review of Systems All other systems reviewed negative except as stated in HPI, unobtainable due to endotracheal tube, unobtainable due to mental status PMFSH - History History Provided By: Patient, Family Member - Medical History Medical History: Medical History (Last Updated 06/04/18 @ 11:39 by Jossy Barnes MD) Bypass graft stenosis CAD (coronary artery disease) Hypertension Leg fracture, left Myocardial infarction Skin cancer Tobacco abuse - Surgical History Surgical History: Surgical History (Last Updated 06/04/18 @ 11:40 by Jossy Barnes MD) Hx of CABG Hx of appendectomy Hx of cholecystectomy - Family History Family History: Family History (Last Updated 06/04/18 @ 11:40 by Jossy Barnes MD) Other No significant family history - Tobacco History Smoking Status: Former smoker Tobacco Type: Cigarettes Smoking End Date: 30 years ago - Alcohol History How Often Do You Have a Drink Containing Alcohol: Never - Substance Use History Substance History: No History of Abuse - Immunization History Tetanus Immunization: <5 Years Medications and Allergies Active Medications: Active Medications Acetaminophen (Tylenol) 650 mg PO Q6H PRN PRN Reason: pain 1-2 or temp >100.4 Hydrocodone Bitart/Acetaminophen ([place] 5/325) 1 tab PO Q4H PRN PRN Reason: PAIN SCALE 3-7 Al Hydroxide/Mg Hydroxide (Milk Of [place] Liq) 30 ml PO Q12H PRN PRN Reason: Mild Constipation Albuterol (Albuterol Neb (Prn)) 2.5 mg NEB Q2HR NEB PRN PRN Reason: SHORTNESS OF BREATH/WHEEZING Atorvastatin Calcium (Lipitor) 40 mg PO DAILY [facility] Bisacodyl (Dulcolax Supp) 10 mg RECTAL DAILY PRN PRN Reason: SEVERE CONSITIPATION Chlorhexidine Gluconate (Chlorhexidine 2% Cloth) 3 pack TOPICAL DAILY@0400 [facility] Stop: 06/09/18 03:59 Last Admin: 06/04/18 04:44 Dose: 3 pack Chlorhexidine Gluconate (Chlorhexidine 2% Cloth) 3 pack TOPICAL DAILY@0400 PRN PRN Reason: Extra cloth needed Stop: 06/09/18 03:59 Chlorhexidine Gluconate (Peridex 0.12% Oral Kit) 15 ml OROPHARYNG BID@0800, 2000 [facility] Last Admin: 06/04/18 10:47 Dose: 15 ml Famotidine (Pepcid Pf Inj) 20 mg IV.PUSH Q12HR [facility] Last Admin: 06/04/18 10:46 Dose: 20 mg Ferrous Sulfate (Ferosul) 325 mg PO DAILY [facility] Propofol (Diprivan 1000 Mg/100 Ml Inj) 1,000 mg in 100 mls @ 1.293 mls/hr IV.CONT TITRATE PRN; Protocol PRN Reason: Per Protocol Last Admin: 06/03/18 18:00 Dose: 5 mcg/kg/min, 1.29 mls/hr Sodium Chloride (Ns Inj) 1,000 mls @ 70 mls/hr IV.CONT .[id number] [facility] Last Admin: 06/04/18 00:47 Dose: 70 mls/hr Magnesium Sulfate 4 gm/ Sodium (Chloride) 100 mls @ 50 mls/hr IV.SIG UNSCH PRN PRN Reason: For Magnesium 0.9 - 1.1 mg/dL Magnesium Sulfate 2 gm/ Sodium (Chloride) 100 mls @ 50 mls/hr IV.SIG UNSCH PRN PRN Reason: For Magnesium 1.2 - 1.6 mg/dL Potassium Chloride (Kcl 40 Meq Premix Inj) 40 meq in 100 mls @ 25 mls/hr IV.SIG Q2H PRN PRN Reason: For Potassium 2.8 - 3.2 mEq/L Last Admin: 06/04/18 05:43 Dose: 25 mls/hr Potassium Chloride (Kcl 20 Meq Premix Inj) 20 meq in 100 mls @ 50 mls/hr IV.SIG Q2H PRN PRN Reason: For Potassium 3.3 - 3.5 mEq/L Potassium Chloride (Kcl 40 Meq Premix Inj) 40 meq in 100 mls @ 25 mls/hr IV.SIG UNSCH PRN PRN Reason: For Potassium 3.3 - 3.5 mEq/L Potassium Chloride (Kcl 20 Meq Premix Inj) 20 meq in 100 mls @ 50 mls/hr IV.SIG Q2H PRN PRN Reason: For Potassium 2.8 - 3.2 mEq/L Potassium Phosphate 30 mmol/ (Sodium Chloride) 260 mls @ 42 mls/hr IV.SIG UNSCH PRN PRN Reason: SEE LABEL COMMENTS Sodium Phosphate 30 mmol/ (Sodium Chloride) 260 mls @ 42 mls/hr IV.SIG UNSCH PRN PRN Reason: For Phosphorus < 2.5 mg/dL Fentanyl (Fentanyl 10 Mcg/Ml Premix Drip) 2,500 mcg in 250 mls @ 5 mls/hr IV.SIG TITRATE PRN; Protocol PRN Reason: Per Protocol Norepinephrine Bitartrate 4 mg (/ Sodium Chloride) 250 mls @ 7.5 mls/hr IV.SIG TITRATE PRN; Protocol PRN Reason: Per Protocol Last Admin: 06/03/18 19:30 Dose: 4 mcg/min, 15 mls/hr Aztreonam 2 gm/ Sodium (Chloride) 100 mls @ 200 mls/hr IV.SIG Q8H [facility] Lactulose (Lactulose Liq) 30 ml PO DAILY PRN PRN Reason: SEVERE CONSITIPATION Magnesium Oxide (Mag-Ox) 800 mg PO UNSCH PRN PRN Reason: For Magnesium 1.2 - 1.6 mg/dL Miscellaneous Medication () 1 each OROPHARYNG 0000,0400,1200,1600 [facility] Last Admin: 06/04/18 04:44 Dose: 1 each Morphine Sulfate (Morphine Inj) 2 mg IV.PUSH Q2H PRN PRN Reason: pain 8-10 Non-Formulary Medication (Donepezil [Donepezil]) 10 mg PO HS [facility] Ondansetron HCl (Zofran Inj) 4 mg IV.PUSH Q6H PRN PRN Reason: NAUSEA OR VOMITING Pharmacy Profile Note (Vancomycin Consult Pharmacy) 1 each OTHER UNSCH PRN PRN Reason: Pharmacy to dose Potassium Chloride (Kcl Liq) 40 meq PO UNSCH PRN PRN Reason: Potassium level 3.3-3.5 mEq/L Potassium Chloride (Kcl Liq) 40 meq PO UNSCH PRN PRN Reason: POTASSIUM LESS THAN 3.5 Potassium Phosphate (K-Phos Original) 2,000 mg PO Q4H PRN PRN Reason: Phosphorus Less Than 2.5 mg/dL Potassium Phosphate (K-Phos Original) 2,000 mg PO UNSCH PRN PRN Reason: SEE LABEL COMMENTS Senna/Docusate Sodium (Katarzyna-Colace) 1 tab PO BID [facility] Last Admin: 06/04/18 10:45 Dose: Not Given Sennosides (Senokot) 17.2 mg PO Q12H PRN PRN Reason: Moderate Constipation Sodium Chloride (Ns Flush) 2 ml IV.FLUSH BID [facility] Last Admin: 06/04/18 10:46 Dose: 2 ml Sodium Chloride (Ns Flush) 2 ml IV.FLUSH PRN PRN PRN Reason: FLUSH AFTER USING IV ACCESS Terbutaline Sulfate (Brethine Inj) 1 mg SQ UNSCH PRN PRN Reason: For Extravasation Allergies Allergy/AdvReac Type Severity Reaction Status Date / Time Penicillins Allergy Unknown Verified 01/14/17 15:37 Sulfa (Sulfonamide Allergy Unknown Verified 01/14/17 15:37 Antibiotics) Home Medications Medication Instructions Recorded Confirmed Type albuterol sulfate [Ventolin HFA] 1 puff INHALATION Q4-6H PRN 06/03/18 06/03/18 History alendronate 70 mg PO QWEEK 06/03/18 06/03/18 History amlodipine 2.5 mg PO DAILY 06/03/18 06/03/18 History apixaban [Eliquis] 2.5 mg PO BID 06/03/18 06/03/18 History atorvastatin 40 mg PO DAILY 06/03/18 06/03/18 History atorvastatin 40 mg PO DAILY 06/03/18 06/03/18 History donepezil 10 mg PO HS 06/03/18 06/03/18 History ferrous sulfate 325 mg PO DAILY 06/03/18 06/03/18 History mirtazapine 15 mg PO HS 06/03/18 06/03/18 History potassium chloride 10 meq PO DAILY 06/03/18 06/03/18 History Results - Labs CBC & Chem 7: 06/04/18 05:50 06/04/18 05:50 Labs: Short CBC 06/03/18 06/04/18 Range/Units 17:20 05:50 WBC 8.4 12.3 H (4.0-11.0) th/mm3 Hgb 12.4 11.6 (11.6-15.3) gm/dL Hct 37.2 35.3 (35.0-46.0) % Plt Count 414 468 H (150-450) th/mm3 BMP 06/03/18 06/04/18 17:20 05:50 Sodium 138 142 Potassium 2.6 L* 3.4 L D Chloride 97 L 105 D Carbon Dioxide 30.5 28.4 BUN 7 6 L Creatinine 0.73 0.82 Calcium 8.2 L 7.7 L Cardiac Enzymes 06/03/18 06/03/18 06/04/18 Range/Units 17:20 23:50 05:50 Total Creatine Kinase 352 H (26-192) U/L CK-MB (CK-2) 7.5 H (0.5-3.6) ng/mL Troponin I 0.21 H 0.25 H 0.17 H (0.02-0.05) ng/mL Liver Function 06/03/18 Range/Units 17:20 Total Bilirubin 1.9 H (0.2-1.0) mg/dL AST 25 (15-37) U/L ALT 8 L (10-53) U/L Alkaline Phosphatase 113 (45-117) U/L Albumin 2.4 L (3.4-5.0) g/dL Urine 06/03/18 Range/Units 18:41 Urine Color Yellow (Yellw/Straw) Urine Clarity Clear (Clear) Urine pH 7.0 (5.0-8.5) Ur Specific [place] 1.008 (1.002-1.035) Urine Protein Negative (Neg-Trace) mg/dL Urine Glucose (UA) Negative (Negative) mg/dL - Imaging Impressions Chest X-Ray 06/03/18 00:00 CONCLUSION: Reduction of right apical pneumothorax status post placement of chest catheter. Small (3 mm) residual apical pneumothorax. Chest X-Ray 06/03/18 16:34 CONCLUSION: 1. Right subclavian central line in the cavoatrial junction with new small 1.5 cm right apical pneumothorax. 2. ETT and NGT in good position. Head CT 06/03/18 16:34 CONCLUSION: 1. No acute intracranial abnormality. Cervical Spine CT 06/03/18 16:41 CONCLUSION: 1. No acute fracture. 2. Stable 3 mm anterolisthesis of C2 on C3 and 2 mm anterolisthesis of C7 on T1 , as would be secondary to degenerative facet arthrosis. 3. Small right apical pneumothorax. Physician is aware from prior chest radiograph. 4. Multilevel degenerative spondylosis of the cervical spine. Carotid Doppler Study 06/04/18 00:00 CONCLUSION: 1. There appears to be occlusion of the left internal carotid artery. If clinically indicated, a CTA of the carotids could be performed for further evaluation. 2. Moderate atherosclerotic plaquing at the right carotid bifurcation. No focal high-grade or hemodynamically significant stenosis. - ABG ABG results: 06/03/18 20:11 ABG pH 7.52 H* ABG pCO2 29 L ABG pO2 497 H ABG HCO3 23 ABG O2 Content 16.9 ABG Base Excess 0.8 ABG Methemoglobin 0.7 - ECG Interpretation: Irregularly irregular rate and rhythm with episodes of prolonged QRS and t-wave inversion in leads V1 through V3 and leads II and II consistent with atrial fibrillation with PVCs and signs of myocardial ischemia. Exam Vital signs: Vital Signs 06/03/18 16:23 06/03/18 16:27 06/03/18 17:27 Temperature 95.5 F L Pulse Rate 62 102 H Respiratory Rate 30 H 20 20 Blood Pressure 91/67 L 124/70 133/70 Pulse Oximetry 80 L 90 L 99 06/03/18 17:39 06/03/18 17:45 06/03/18 18:00 Temperature Pulse Rate 100 H 115 H Respiratory Rate 14 18 18 Blood Pressure 125/80 120/73 Pulse Oximetry 100 100 99 06/03/18 18:32 06/03/18 18:53 06/03/18 19:25 Temperature Pulse Rate 112 H 108 H Respiratory Rate 16 14 Blood Pressure 104/61 77/53 L Pulse Oximetry 100 100 06/03/18 19:40 06/03/18 20:00 06/03/18 21:00 Temperature Pulse Rate 104 H 102 H Respiratory Rate 15 14 14 Blood Pressure 160/88 H 143/80 H Pulse Oximetry 96 100 06/03/18 21:55 06/03/18 22:00 06/03/18 22:17 Temperature 96.3 F L Pulse Rate 94 H Respiratory Rate 14 12 Blood Pressure 141/71 H Pulse Oximetry 100 100 100 06/03/18 22:18 06/03/18 22:32 06/03/18 22:47 Temperature 96.3 F L Pulse Rate 83 72 70 Respiratory Rate 21 12 12 Blood Pressure 120/83 109/60 Pulse Oximetry 100 100 100 06/03/18 23:00 06/03/18 23:02 06/03/18 23:17 Temperature 96.1 F L 96.1 F L 96.1 F L Pulse Rate 65 68 69 Respiratory Rate 12 12 12 Blood Pressure 108/60 110/59 L Pulse Oximetry 100 100 100 06/03/18 23:32 06/03/18 23:47 06/04/18 00:00 Temperature 96.1 F L 96.3 F L 95.7 F L Pulse Rate 74 72 90 Respiratory Rate 13 12 12 Blood Pressure 109/60 107/57 L Pulse Oximetry 100 100 100 06/04/18 00:02 06/04/18 00:17 06/04/18 00:32 Temperature 95.9 F L 96.3 F L 96.4 F L Pulse Rate 73 68 75 Respiratory Rate 14 12 12 Blood Pressure 119/68 108/62 116/63 Pulse Oximetry 100 100 100 06/04/18 00:47 06/04/18 01:00 06/04/18 01:02 Temperature 96.6 F L 97.0 F L 97.0 F L Pulse Rate 76 77 77 Respiratory Rate 12 12 12 Blood Pressure 118/64 115/60 Pulse Oximetry 100 100 100 06/04/18 01:17 06/04/18 01:32 06/04/18 01:51 Temperature 97.2 F L 97.5 F L 97.9 F Pulse Rate 78 86 94 H Respiratory Rate 12 13 13 Blood Pressure 112/62 117/66 Pulse Oximetry 100 100 100 06/04/18 02:00 06/04/18 02:02 06/04/18 02:17 Temperature 98.1 F 98.1 F 98.2 F Pulse Rate 104 H 79 90 Respiratory Rate 17 28 H 32 H Blood Pressure 119/77 117/59 L 111/55 L Pulse Oximetry 100 100 100 06/04/18 02:32 06/04/18 02:47 06/04/18 03:00 Temperature 98.4 F 98.4 F 98.4 F Pulse Rate 90 80 82 Respiratory Rate 23 22 21 Blood Pressure 119/55 L 104/55 L Pulse Oximetry 100 100 100 06/04/18 03:04 06/04/18 03:17 06/04/18 03:21 Temperature 98.4 F 98.4 F Pulse Rate 81 82 Respiratory Rate 12 12 12 Blood Pressure 102/54 L 109/89 Pulse Oximetry 100 100 100 06/04/18 03:32 06/04/18 03:47 06/04/18 04:00 Temperature 98.2 F 98.2 F 98.1 F Pulse Rate 85 83 85 Respiratory Rate 22 22 21 Blood Pressure 116/62 103/62 Pulse Oximetry 100 100 100 06/04/18 04:02 06/04/18 04:17 06/04/18 04:32 Temperature 98.1 F 97.9 F 97.9 F Pulse Rate 85 86 85 Respiratory Rate 21 24 21 Blood Pressure 111/55 L 101/59 L 109/57 L Pulse Oximetry 100 100 100 06/04/18 04:47 06/04/18 05:00 06/04/18 05:02 Temperature 97.7 F 97.7 F 97.5 F L Pulse Rate 93 H 90 88 Respiratory Rate 23 40 H 31 H Blood Pressure 107/60 102/63 Pulse Oximetry 100 100 100 06/04/18 05:17 06/04/18 05:35 06/04/18 05:50 Temperature 97.5 F L 97.5 F L 97.5 F L Pulse Rate 87 117 H 97 H Respiratory Rate 35 H 16 23 Blood Pressure 102/54 L 121/67 Pulse Oximetry 100 100 100 06/04/18 05:51 06/04/18 06:00 06/04/18 06:15 Temperature 97.5 F L 97.3 F L 97.5 F L Pulse Rate 98 H 99 H 97 H Respiratory Rate 22 17 21 Blood Pressure 96/61 L 91/62 L 92/61 L Pulse Oximetry 100 100 100 06/04/18 06:30 06/04/18 06:45 06/04/18 07:48 Temperature 97.5 F L 97.7 F Pulse Rate 97 H 94 H Respiratory Rate 20 20 12 Blood Pressure 96/61 L 93/55 L Pulse Oximetry 100 100 94 L 06/04/18 11:53 Temperature Pulse Rate Respiratory Rate 12 Blood Pressure Pulse Oximetry 100 Intake & Output 06/03/18 06/04/18 06/04/18 18:59 06:59 18:59 Intake Total 1550 / 1550 Output Total 500 / 500 105 / 105 Balance 1050 / 1050 -105 / -105 Weight 43.091 kg 43.2 kg Intake: IV 1550 / 1550 Levaquin 750 mg Premix Inj 150 150 / 150 ML @ 100 mls/hr IV.SIG STAT STA Rx#:[id number] Magnesium Sulfate 1 gm/D5W 100 100 / 100 ml Premix 100 ML @ 100 mls/hr IV.SIG ONCE ONE Rx#:[id number] KCl 20 mEq Premix Inj 20 meq In 100 / 100 100 ml @ 50 mls/hr IV.SIG Q2H VINAYAK Rx#:[id number] KCl 40 mEq Premix Inj 40 meq In 100 / 100 100 ml @ 25 mls/hr IV.SIG Q2H PRN Rx#:[id number] NS Inj 1,000 ML @ 1000 mls/hr 1000 / 1000 IV.SIG BOLUS VINAYAK Rx#:[id number] Output: Urine Amount (Catheter) 500 / 500 Indwelling Urethral Catheter 500 / 500 Gastric Drainage 100 / 100 Oral Orogastric Tube 100 / 100 Chest Tube Drainage 5 / 5 #1 Right Anterior 5 / 5 Narrative: GEN: ill-appearing elderly female in no acute distress, on mechanical ventilator , blinking her eyes spontaneously. EYE: spontaneous movement, left-sided deviation, pupils reactive to light, no asymmetry. ENT: mild right-sided JVD, neck supple and midline, no bruit. CV: irregularly irregular rate and rhythm, S1 and S2, no S3 or S4, no murmurs rubs or gallops. radial pulses palpated. RESP: Mild right-sided anterior mid-thoracic inspiratory rhonchi at the MCL, otherwise clear on inspiration and expiration bilaterally on the anterior chest at the apex and mid-thoracic level at the MCL, no wheezing. ABD: No distension, no masses, bowel sounds heard in all four quadrants. NEURO: nonverbal, eyes deviated to the left, follows command to squeeze hand on left but not on the right Caprini VTE Risk Assessment Caprini VTE Risk Assessment: Moderate/High Risk (score >= 2) Caprini Risk Assessment Model: Point Value = 1 Point Value = 2 Point Value = 3 Point Value = 5 Age 41-60 Minor surgery BMI > 25 kg/m2 Swollen legs Varicose veins or History of unexplained or recurrent spontaneous Oral contraceptives or hormone replacement Sepsis (< 1 month) Serious lung disease, including pneumonia (< 1 month) Abnormal pulmonary function Acute myocardial infarction Congestive heart failure (< 1 month) History of inflammatory bowel disease Medical patient at bed rest Age 61-74 Arthroscopic surgery Major open surgery (> 45 min) Laparoscopic surgery (> 45 min) Malignancy Confined to bed (> 72 hours) Immobilizing plaster cast Central venous access Age >= 75 History of VTE Family history of VTE Factor V Leiden Prothrombin [id number] Lupus anticoagulant Anticardiolipin antibodies Elevated serum homocysteine Heparin-induced thrombocytopenia Other congenital or acquired thrombophilia Stroke (< 1 month) Elective arthroplasty Hip, pelvis, or leg fracture Acute spinal cord injury (< 1 month) Prophylaxis Regimen: Total Risk Factor Score Risk Level Prophylaxis Regimen 0-1 Low Early ambulation 2 Moderate Order ONE of the following: *Sequential Compression Device (SCD) *Heparin 5000 units SQ BID 3-4 Higher Order ONE of the following medications: *Heparin 5000 units SQ TID *Enoxaparin/Lovenox 40 mg SQ daily (WT < 150 kg, CrCl > 30 mL/min) *Enoxaparin/Lovenox 30 mg SQ daily (WT < 150 kg, CrCl > 10-29 mL/min) *Enoxaparin/Lovenox 30 mg SQ BID (WT < 150 kg, CrCl > 30 mL/min) AND/OR *Sequential Compression Device (SCD) 5 or more Highest Order ONE of the following medications: *Heparin 5000 units SQ TID (Preferred with Epidurals) *Enoxaparin/Lovenox 40 mg SQ daily (WT < 150 kg, CrCl > 30 mL/min) *Enoxaparin/Lovenox 30 mg SQ daily (WT < 150 kg, CrCl > 10-29 mL/min) *Enoxaparin/Lovenox 30 mg SQ BID (WT < 150 kg, CrCl > 30 mL/min) AND *Sequential Compression Device (SCD) Assessment and Plan - Assessment and Plan Plan: In assessment this is an 87-year-old female with a history of CA NEURO: Altered mental status Secondary to Stroke (LT MCA vs. Hypoperfusion) vs. Sepsis Dementia Alzheimer Type vs. Vascular CT brain is negative. She is not a candidate for TPA. Consider obtaining repeat non con CT and CTA of head/neck. Consider obtaining MRI. Check lipids. Consider sedation. Continue donepezil 10 mg p.o. RESP: Acute respiratory failure Iatrogenic right pneumothorax history of tobacco abuse Ventilator bundle. Will remain intubated with plan to initiate spontaneous breathing trials after MRI is complete. R apical pigtail chest tube 06/03 #1, -20 cm suction. F/u CXR. CV: Atrial fibrillation Chronic stable vs. Paroxysmal Myocardial Ischemia Demand ischemia vs. A fib PVC's Trend troponin and CK. Hold Eliquis until clearly no evidence of hemorrhage. Continue statin 40 mg p.o. daily NS 70 mL/h GI: Jevity 1.5 at 35 mL per hour through OGT per nutrition recommendation. Consider PPI prophylaxis due to risks of hypoperfusion. FEN/RENAL: Hypokalemia Hypocalcemia 40 mEq IV KCl received in the emergency department. Follow-up with ICU electrolyte protocol. Check magnesium. Monitor chemistries. Trend Cr. ID: Hypotension Hypothermia Leukocytosis with Left Shift Blood cultures taken. Received aztreonam and Levaquin in the emergency department. Urinalysis negative for evidence of bacterial infection. CXR negative. Consider continuing ABX coverage. HEME: Monitor CBC. ENDO: Euglycemic. Monitor sugars. PROPH: SCDs for DVT prophylaxis. Initiate DVT prophylaxis if MRI unrevealing for hemorrhage. famotidine for stress ulcer prophylaxis ACCESS: R subclavian CV line placed on 06/03. Code Status: full code
--- NOTE | 2018-06-04 13:26 | P.PNCC ---
Subjective Subjective Remarks/Hospital Course: Hospital Course: 87-year-old right-handed female with past medical history of coronary artery disease, prior myocardial infarction, 2 vessel CABG, atrial fibrillation on chronic anticoagulation with Eliquis, prior tobacco abuse. Her states that he went to work around 0600 on 06/03 and when he returned at 15: 30 he found her on the floor supine in the bathroom with altered mental status. She was able to state her name but could not recall the name of her . Apparently when she arrived she was tachycardic with BP 91/67 and therefore R subclavian CVL was placed in the ED. She was then intubated, reportedly due to shallow respirations. She did have iatrogenic R pneumothorax, initially 1.5 cm apical. However she later became hypotensive with elevated peak pressures and I placed pigtail chest tube due to concern for development of tension physiology. She does have L gaze preference and will followup commands on the right. Withdraws on the right side but appears hemiparetic. CT brain negative. Not candidate for TPA due to unknown time of onset. He states she was in her usual state of health prior to this aside from the fact that she has had poor appetite and weight loss over the last couple of months. At her baseline she does have some difficulty with memory and she ambulates very slowly. She does not drive and has not been cooking for the last year. She does manage her finances. Subjective: 06/04: clinically worse exam- not following commands, gaze deviation. MRI pending. on norepinephrine at 8 mcg/min. Objective Vital Signs / I&O: Vital Signs 06/03/18 16:23 06/03/18 16:27 06/03/18 17:27 Temperature 35.3 C L Pulse Rate 62 102 H Respiratory Rate 30 H 20 20 Blood Pressure 91/67 L 124/70 133/70 Pulse Oximetry 80 L 90 L 99 06/03/18 17:39 06/03/18 17:45 06/03/18 18:00 Temperature Pulse Rate 100 H 115 H Respiratory Rate 14 18 18 Blood Pressure 125/80 120/73 Pulse Oximetry 100 100 99 06/03/18 18:32 06/03/18 18:53 06/03/18 19:25 Temperature Pulse Rate 112 H 108 H Respiratory Rate 16 14 Blood Pressure 104/61 77/53 L Pulse Oximetry 100 100 06/03/18 19:40 06/03/18 20:00 06/03/18 21:00 Temperature Pulse Rate 104 H 102 H Respiratory Rate 15 14 14 Blood Pressure 160/88 H 143/80 H Pulse Oximetry 96 100 06/03/18 21:55 06/03/18 22:00 06/03/18 22:17 Temperature 35.7 C L Pulse Rate 94 H Respiratory Rate 14 12 Blood Pressure 141/71 H Pulse Oximetry 100 100 100 06/03/18 22:18 06/03/18 22:32 06/03/18 22:47 Temperature 35.7 C L Pulse Rate 83 72 70 Respiratory Rate 21 12 12 Blood Pressure 120/83 109/60 Pulse Oximetry 100 100 100 06/03/18 23:00 06/03/18 23:02 06/03/18 23:17 Temperature 35.6 C L 35.6 C L 35.6 C L Pulse Rate 65 68 69 Respiratory Rate 12 12 12 Blood Pressure 108/60 110/59 L Pulse Oximetry 100 100 100 06/03/18 23:32 06/03/18 23:47 06/04/18 00:00 Temperature 35.6 C L 35.7 C L 35.4 C L Pulse Rate 74 72 90 Respiratory Rate 13 12 12 Blood Pressure 109/60 107/57 L Pulse Oximetry 100 100 100 06/04/18 00:02 06/04/18 00:17 06/04/18 00:32 Temperature 35.5 C L 35.7 C L 35.8 C L Pulse Rate 73 68 75 Respiratory Rate 14 12 12 Blood Pressure 119/68 108/62 116/63 Pulse Oximetry 100 100 100 06/04/18 00:47 06/04/18 01:00 06/04/18 01:02 Temperature 35.9 C L 36.1 C L 36.1 C L Pulse Rate 76 77 77 Respiratory Rate 12 12 12 Blood Pressure 118/64 115/60 Pulse Oximetry 100 100 100 06/04/18 01:17 06/04/18 01:32 06/04/18 01:51 Temperature 36.2 C L 36.4 C L 36.6 C Pulse Rate 78 86 94 H Respiratory Rate 12 13 13 Blood Pressure 112/62 117/66 Pulse Oximetry 100 100 100 06/04/18 02:00 06/04/18 02:02 06/04/18 02:17 Temperature 36.7 C 36.7 C 36.8 C Pulse Rate 104 H 79 90 Respiratory Rate 17 28 H 32 H Blood Pressure 119/77 117/59 L 111/55 L Pulse Oximetry 100 100 100 06/04/18 02:32 06/04/18 02:47 06/04/18 03:00 Temperature 36.9 C 36.9 C 36.9 C Pulse Rate 90 80 82 Respiratory Rate 23 22 21 Blood Pressure 119/55 L 104/55 L Pulse Oximetry 100 100 100 06/04/18 03:04 06/04/18 03:17 06/04/18 03:21 Temperature 36.9 C 36.9 C Pulse Rate 81 82 Respiratory Rate 12 12 12 Blood Pressure 102/54 L 109/89 Pulse Oximetry 100 100 100 06/04/18 03:32 06/04/18 03:47 06/04/18 04:00 Temperature 36.8 C 36.8 C 36.7 C Pulse Rate 85 83 85 Respiratory Rate 22 22 21 Blood Pressure 116/62 103/62 Pulse Oximetry 100 100 100 06/04/18 04:02 06/04/18 04:17 06/04/18 04:32 Temperature 36.7 C 36.6 C 36.6 C Pulse Rate 85 86 85 Respiratory Rate 21 24 21 Blood Pressure 111/55 L 101/59 L 109/57 L Pulse Oximetry 100 100 100 06/04/18 04:47 06/04/18 05:00 06/04/18 05:02 Temperature 36.5 C 36.5 C 36.4 C L Pulse Rate 93 H 90 88 Respiratory Rate 23 40 H 31 H Blood Pressure 107/60 102/63 Pulse Oximetry 100 100 100 06/04/18 05:17 06/04/18 05:35 06/04/18 05:50 Temperature 36.4 C L 36.4 C L 36.4 C L Pulse Rate 87 117 H 97 H Respiratory Rate 35 H 16 23 Blood Pressure 102/54 L 121/67 Pulse Oximetry 100 100 100 06/04/18 05:51 06/04/18 06:00 06/04/18 06:15 Temperature 36.4 C L 36.3 C L 36.4 C L Pulse Rate 98 H 99 H 97 H Respiratory Rate 22 17 21 Blood Pressure 96/61 L 91/62 L 92/61 L Pulse Oximetry 100 100 100 06/04/18 06:30 06/04/18 06:45 06/04/18 07:48 Temperature 36.4 C L 36.5 C Pulse Rate 97 H 94 H Respiratory Rate 20 20 12 Blood Pressure 96/61 L 93/55 L Pulse Oximetry 100 100 94 L 06/04/18 11:53 Temperature Pulse Rate Respiratory Rate 12 Blood Pressure Pulse Oximetry 100 Intake & Output 06/03/18 06/04/18 06/04/18 18:59 06:59 18:59 Intake Total 1550 / 1550 Output Total 500 / 500 105 / 105 Balance 1050 / 1050 -105 / -105 Weight 43.091 kg 43.2 kg Intake: IV 1550 / 1550 Levaquin 750 mg Premix Inj 150 150 / 150 ML @ 100 mls/hr IV.SIG STAT STA Rx#:[id number] Magnesium Sulfate 1 gm/D5W 100 100 / 100 ml Premix 100 ML @ 100 mls/hr IV.SIG ONCE ONE Rx#:[id number] KCl 20 mEq Premix Inj 20 meq In 100 / 100 100 ml @ 50 mls/hr IV.SIG Q2H VINAYAK Rx#:[id number] KCl 40 mEq Premix Inj 40 meq In 100 / 100 100 ml @ 25 mls/hr IV.SIG Q2H PRN Rx#:[id number] NS Inj 1,000 ML @ 1000 mls/hr 1000 / 1000 IV.SIG BOLUS VINAYAK Rx#:[id number] Output: Urine Amount (Catheter) 500 / 500 Indwelling Urethral Catheter 500 / 500 Gastric Drainage 100 / 100 Oral Orogastric Tube 100 / 100 Chest Tube Drainage 5 / 5 #1 Right Anterior 5 / 5 Result Diagrams: 06/04/18 05:50 06/04/18 05:50 Objective Remarks: GENERAL: Elderly undernourished female who is orotracheally intubated. She is currently not on any sedatives SKIN: Warm and dry. Keratinized epithelium right hand. HEAD: Atraumatic. Normocephalic. EYES: Pupils equal and round. ENT: No nasal bleeding or discharge. Mucous membranes pink and moist. NECK: Trachea midline. No JVD. CARDIOVASCULAR: irregularly irregular . No murmurs rubs or gallops. RESPIRATORY: No accessory muscle use. Clear to auscultation. Breath sounds equal bilaterally. GASTROINTESTINAL: Abdomen soft, non-tender, nondistended. Bowel sounds present. MUSCULOSKELETAL: Extremities without clubbing, cyanosis, or edema. N\ NEUROLOGICAL: Eyes open to voice. L sided gaze preference. Pupils reactive. Unable to appreciate any facial droop. Follows commands with squeezing left hand and moving left lower extremity. Withdraws weakly with right upper and right lower 2/5 strength. Assessment and Plan - Problem List (1) Change in mental status Code(s): R41.82 - Altered mental status, unspecified Status: Acute (2) Atrial fibrillation, new onset Code(s): I48.91 - Unspecified atrial fibrillation Status: Chronic (3) Respiratory failure requiring intubation Code(s): J96.90 - Respiratory failure, unspecified, unspecified whether with hypoxia or hypercapnia Status: Acute (4) Pneumothorax on right Code(s): J93.9 - Pneumothorax, unspecified Status: Acute (5) Chest tube in place Code(s): Z96.89 - Presence of other specified functional implants Status: Acute - Assessment and Plan Plan: NEURO: Altered mental status Secondary to Stroke (LT MCA vs. Hypoperfusion) vs. Sepsis Dementia Alzheimer Type vs. Vascular CT brain is negative. She is not a candidate for TPA. Consider obtaining repeat non con CT and CTA of head/neck. MRI: left thalamic CVA Check lipids. Consider sedation. Continue donepezil 10 mg p.o. RESP: Acute respiratory failure Iatrogenic right pneumothorax history of tobacco abuse Ventilator bundle. Will remain intubated with plan to initiate spontaneous breathing trials after MRI is complete. R apical pigtail chest tube 06/03 #1, -20 cm suction. F/u CXR. CV: Atrial fibrillation with rapid ventricular response Chronic stable vs. Paroxysmal Myocardial Ischemia Demand ischemia vs. A fib PVC's Trend troponin and CK. Hold Eliquis until clearly no evidence of hemorrhage. Continue statin 40 mg p.o. daily NS increase to 100 mL/h change to phenylephrine for map goal > 65 mmhg. GI: Jevity 1.5 at 35 mL per hour through OGT per nutrition recommendation. Consider PPI prophylaxis due to risks of hypoperfusion. FEN/RENAL: Hypokalemia Hypocalcemia 40 mEq IV KCl received in the emergency department. Follow-up with ICU electrolyte protocol. Check magnesium. Monitor chemistries. Trend Cr. ID: Hypotension Hypothermia Leukocytosis with Left Shift Blood cultures taken. Received aztreonam and Levaquin in the emergency department. Urinalysis negative for evidence of bacterial infection. CXR negative. HEME: Monitor CBC. ENDO: Euglycemic. Monitor sugars. PROPH: SCDs for DVT prophylaxis. Initiate DVT prophylaxis if MRI unrevealing for hemorrhage. famotidine for stress ulcer prophylaxis ACCESS: R subclavian CV line placed on 06/03. OVERALL IMPRESSION: new CVA. remains hypotensive in shock, likely septic from aspiration pneumonia. on life support with vasopressors. critically ill. Critical care time: 35 minutes, exclusive of separately billable procedures. (1) Change in mental status Qualifiers: Altered mental status type: unspecified Qualified Code(s): R41.82 - Altered mental status, unspecified
[2018-06-04] MEDS: Aztreonam Inj 2 GM in Sodium Chloride 0.9% Inj 100 ML IV.SIG SCH ×2 (13:50→20:03)
[2018-06-04] MEDS ORDERED: Magnesium Sulfate Inj 2 GM in Sodium Chlor 0.9% Inj 96 ML IV.SIG ONE (14:00)
[2018-06-04] MEDS ORDERED: Vancomycin Inj 500 MG in Sodium Chlor 0.9% Inj 100 ML IV.SIG SCH (14:00)
--- NOTE | 2018-06-04 14:55 | ECG ---
Date Performed: 06/03/2018 Time Performed: 18:34:41 PTAGE: 87 years EKG: ATRIAL FIBRILLATION WITH RAPID VENTRICULAR RESPONSE LOW QRS VOLTAGE IN EXTREMITY LEADS ANTE ROSEPTAL MYOCARDIAL INFARCTION ABNORMAL ECG Compared to PREVIOUS TRACING , there has been an increase in the anteroseptal ST segment changes and an overall increase in LVH. Clinical correlation will be necessary as the serial changes are nonspeci fic. PREVIOUS TRACIN01/14/2017 14.53 DOCTOR: Xin Hartmann Interpretating Date/Time 06/04/2018 14:49:21
--- NOTE | 2018-06-04 15:35 | MR ---
EXAM DATE: 06/04/2018 3:28 PM EST AGE/SEX: 87 years / Female INDICATIONS: CVA. CLINICAL DATA: This is the patient's initial encounter. Patient reports that signs and symptoms have been present for 1 day and indicates a pain score of 0/10. MEDICAL/SURGICAL HISTORY: Hypertension. CABG. Hysterectomy. Appendectomy. Cholecystectomy. COMPARISON: [facility] [place], CT HEAD W/O CONTRAST, 06/03/2018. . TECHNIQUE: Multiplanar, multisequence examination of the brain was performed without contrast. FINDINGS: Cerebrum: The ventricles, sulci, and basal cisterns are prominent, characteristic of moderate severi ty central cortical atrophy.. No evidence of midline shift, mass lesion, hemorrhage or acute infarct ion. No extraaxial fluid collections are seen. The pituitary gland and suprasellar cistern are norm al in configuration. White Matter: There is confluent T2 prolongation in the periventricular and superior tentorial white matter characteristic of diffuse ischemic change. Posterior Fossa: The cerebellum and brainstem are intact. The 4th ventricle is midline. The cerebel lopontine angle is unremarkable. The cerebellar tonsils are normal in position. Diffusion Imaging: There is restricted diffusion in the left lateral portion of the thalamus charact eristic of acute infarction. No other areas of restricted diffusion seen. Extracranial: The visualized portions of the orbits and paranasal sinuses are unremarkable. CONCLUSION: 1. Acute nonhemorrhagic infarction in the lateral left thalamus. 2. Moderate severity central and cortical ischemic atrophy. Electronically signed by: Clifford Camacho MD Board Certified Radiologist 06/04/2018 3:34 PM EST
--- NOTE | 2018-06-04 15:38 | ECG ---
Date Performed: 06/04/2018 Time Performed: 12:10:02 PTAGE: 87 years EKG: Atrial fibrillation with rapid ventricular response with PVC(s). Possible anteroseptal infa rct - age undetermined Nonspecific ST and T wave abnormalities Generalized low QRS voltages Abnormal ECG Compared to prior electrocardiogram, Possible PVCs are present. PREVIOUS TRACING : 06/03/2018 18.34 DOCTOR: Get Ramos Interpretating Date/Time 06/04/2018 15:36:19
--- NOTE | 2018-06-04 17:13 | ECHRPT ---
Indication: cva/tia CONCLUSIONS Normal left ventricular size. Wall thickness is normal. The left ventricular systolic function is moderately reduced with an estimated ejection fraction in the range of 40-45%. There is hypokinesis with distinct regional wall motion abnormalities. The left atrial size is mildly dilated. Mitral annular calcification is present. There is moderate to severe tricuspid valve regurgitation. There is estimated mild pulmonary hypertension present ( 41 mmHg). There is a trivial pericardial effusion present. BP: / HR: Rhythm: MEASUREMENTS (Male / Female) Normal Values Technical Quality: 2D ECHO LVOT Diameter 1.7 cm Aortic Root Diameter 2.8 cm M-MODE AV Cusp Separation MM 1.5 cm DOPPLER AV Peak Velocity 139.0 cm/s AV Peak Gradient 7.7 mmHg AV Mean Gradient 3.3 mmHg AV Velocity Time Integral 14.6 cm LVOT Peak Velocity 75.2 cm/s LVOT Peak Gradient 2.3 mmHg LVOT Velocity Time Integral 6.1 cm AV Area Cont Eq vti 0.9 cm AV Area Cont Eq pk 1.2 cm TR Peak Velocity 276.0 cm/s TR Peak Gradient 30.5 mmHg Right Atrial Pressure 10.0 mmHg Pulmonary Artery Systolic Pressu 40.5 mmHg Right Ventricular Systolic Press 40.5 mmHg PV Peak Velocity 62.1 cm/s PV Peak Gradient 1.5 mmHg FINDINGS LEFT VENTRICLE Normal left ventricular size. Wall thickness is normal. The left ventricular systolic function is moderately reduced with an estimated ejection fraction in the range of 40-45%. There is hypokinesis with distinct regional wall motion abnormalities. RIGHT VENTRICLE Normal right ventricular size and systolic function. LEFT ATRIUM The left atrial size is mildly dilated. RIGHT ATRIUM The right atrial size is normal. ATRIAL SEPTUM Normal atrial septal thickness without atrial level shunting by limited color doppler interrogation. AORTA The aortic root and proximal ascending aorta are normal in size on limited imaging. MITRAL VALVE Mitral annular calcification is present. AORTIC VALVE Trileaflet aortic valve. No aortic valve stenosis or regurgitation. TRICUSPID VALVE There is mild tricuspid valve regurgitation. There is estimated mild pulmonary hypertension present ( 41 mmHg). PULMONARY VALVE No pulmonary valve regurgitation or stenosis. VESSELS The inferior vena cava is normal in size. PERICARDIUM There is a trivial pericardial effusion present. Dilan Martinez MD, FACC, [facility] [place] (Electronically Signed) Final Date:04 June 2018 17:11
[2018-06-04] MEDS: Phenylephrine Inj 40 MG in Sodium Chlor 0.9% Inj 496 ML IV.CONT PRN (19:57)
[2018-06-05] MEDS: Sod Chloride 0.9% Inj 1,000 ML IV.CONT SCH ×3 (02:07→22:52)
[2018-06-05] MEDS: Oral Hygiene Kit OROPHARYNG SCH ×4 (02:07→16:10)
[2018-06-05] MEDS: Aztreonam Inj 2 GM in Sodium Chloride 0.9% Inj 100 ML IV.SIG SCH ×3 (04:20→20:32)
[2018-06-05] MEDS: Chlorhexidine Gluconate 2% 1 Pack (2 Cloths) TOPICAL SCH (04:26)
--- NOTE | 2018-06-05 04:50 | XR ---
EXAM DATE: 06/05/2018 4:14 AM EST AGE/SEX: 87 years / Female INDICATIONS: Shortness of breath, possible respiratory disease. CLINICAL DATA: This is the patient's subsequent encounter. Patient reports that signs and symptoms h ave been present for 3 days and indicates a pain score of Nonresponsive. MEDICAL/SURGICAL HISTORY: Hypertension. HTN. Skin cancer. CABG. Appendectomy. Cholecystectomy. Bypass graft. COMPARISON: [facility], CHEST 1V SINGLE AP, 06/03/2018. . FINDINGS: Endotracheal tube, nasogastric tube, right subclavian central line and right thoracostomy tube are st able. Coarse interstitial prominence and small bilateral pleural effusions are unchanged. Cardiac con tours are unchanged. CONCLUSION: No significant change Electronically signed by: Faisal George MD Board Certified Radiologist 06/05/2018 4:49 AM EST
[2018-06-05 04:52] LABS: Hematocrit 31.4 % (35.0-46.0); Hemoglobin 10.9 gm/dL (11.6-15.3); Mean Corpuscular HGB Conc 34.6 % (32.0-36.0); Mean Corpuscular Volume 89.5 fL (80.0-100.0); Mean Platelet Volume 7.4 fL (7.0-11.0); Platelet Count 393 th/mm3 (150-450); Red Cell Distribution Width 16.2 % (11.6-17.2); White Blood Count 13.5 th/mm3 (4.0-11.0)
[2018-06-05 06:06] LABS: Calcium 7.3 mg/dL (8.5-10.1); Carbon Dioxide 23.4 meq/L (21.0-32.0); Potassium 4.6 meq/L (3.5-5.1)
[2018-06-05 06:34] LABS: Albumin 1.9 g/dL (3.4-5.0)
[2018-06-05 07:54] LABS: Magnesium 2.6 mg/dL (1.5-2.5); Phosphorus 5.1 mg/dL (2.5-4.9)
[2018-06-05] MEDS ORDERED: Albumin Human 5% Inj 500 ML IV.SIG STA (08:07)
--- NOTE | 2018-06-05 08:13 | P.PNCC ---
Subjective Subjective Remarks/Hospital Course: Hospital Course: 87-year-old right-handed female with past medical history of coronary artery disease, prior myocardial infarction, 2 vessel CABG, atrial fibrillation on chronic anticoagulation with Eliquis, prior tobacco abuse. Her states that he went to work around 0600 on 06/03 and when he returned at 15: 30 he found her on the floor supine in the bathroom with altered mental status. She was able to state her name but could not recall the name of her . Apparently when she arrived she was tachycardic with BP 91/67 and therefore R subclavian CVL was placed in the ED. She was then intubated, reportedly due to shallow respirations. She did have iatrogenic R pneumothorax, initially 1.5 cm apical. However she later became hypotensive with elevated peak pressures and I placed pigtail chest tube due to concern for development of tension physiology. She does have L gaze preference and will followup commands on the right. Withdraws on the right side but appears hemiparetic. CT brain negative. Not candidate for TPA due to unknown time of onset. He states she was in her usual state of health prior to this aside from the fact that she has had poor appetite and weight loss over the last couple of months. At her baseline she does have some difficulty with memory and she ambulates very slowly. She does not drive and has not been cooking for the last year. She does manage her finances. Subjective: 06/04: clinically worse exam- not following commands, gaze deviation. MRI pending. on norepinephrine at 8 mcg/min. 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 ? weakly following commands on the left. very somnolent and off sedation. Cr slightly worse, appears dehydrated, poor uop despite fluid resuscitation. Objective Vital Signs / I&O: Vital Signs 06/04/18 10:00 06/04/18 11:53 06/04/18 12:00 Temperature Pulse Rate 132 H 115 H Respiratory Rate 12 Blood Pressure Pulse Oximetry 100 06/04/18 13:15 06/04/18 13:20 06/04/18 13:30 Temperature Pulse Rate 112 H 113 H 114 H Respiratory Rate 12 13 12 Blood Pressure 126/71 Pulse Oximetry 100 100 100 06/04/18 13:35 06/04/18 13:45 06/04/18 13:50 Temperature 37.7 C H Pulse Rate 112 H 115 H 112 H Respiratory Rate 12 12 12 Blood Pressure 113/64 116/66 Pulse Oximetry 100 100 100 06/04/18 14:00 06/04/18 14:05 06/04/18 14:15 Temperature Pulse Rate 126 H 115 H 111 H Respiratory Rate 13 12 12 Blood Pressure 95/60 L Pulse Oximetry 100 100 100 06/04/18 14:20 06/04/18 14:30 06/04/18 14:35 Temperature 37.6 C H Pulse Rate 106 H 117 H 121 H Respiratory Rate 12 13 12 Blood Pressure 104/74 131/66 Pulse Oximetry 100 100 100 06/04/18 14:45 06/04/18 14:50 06/04/18 15:29 Temperature Pulse Rate 113 H 126 H 131 H Respiratory Rate 15 Blood Pressure 116/58 L Pulse Oximetry 100 100 06/04/18 15:30 06/04/18 15:45 06/04/18 15:50 Temperature Pulse Rate 132 H 142 H Respiratory Rate 12 13 12 Blood Pressure Pulse Oximetry 96 06/04/18 16:00 06/04/18 16:11 06/04/18 16:15 Temperature 37.4 C Pulse Rate 135 H 118 H 119 H Respiratory Rate 15 12 12 Blood Pressure 78/50 L 117/71 Pulse Oximetry 06/04/18 16:27 06/04/18 16:30 06/04/18 16:45 Temperature Pulse Rate 126 H 123 H 128 H Respiratory Rate 13 13 12 Blood Pressure 117/72 Pulse Oximetry 06/04/18 16:50 06/04/18 16:57 06/04/18 17:00 Temperature Pulse Rate 132 H 132 H 134 H Respiratory Rate 13 15 14 Blood Pressure 121/69 108/55 L Pulse Oximetry 06/04/18 17:12 06/04/18 17:15 06/04/18 17:27 Temperature Pulse Rate 129 H 127 H 128 H Respiratory Rate 13 13 12 Blood Pressure 107/60 112/67 Pulse Oximetry 06/04/18 17:30 06/04/18 17:42 06/04/18 17:45 Temperature Pulse Rate 129 H 131 H 129 H Respiratory Rate 12 13 13 Blood Pressure 92/56 L Pulse Oximetry 06/04/18 17:57 06/04/18 18:00 06/04/18 19:00 Temperature Pulse Rate 136 H 127 H 126 H Respiratory Rate 12 13 10 L Blood Pressure 106/55 L Pulse Oximetry 06/04/18 19:12 06/04/18 19:27 06/04/18 19:42 Temperature Pulse Rate 124 H 129 H 119 H Respiratory Rate 10 L 10 L 10 L Blood Pressure 101/56 L 160/54 H 122/59 L Pulse Oximetry 06/04/18 20:00 06/04/18 20:02 06/04/18 20:08 Temperature Pulse Rate 123 H 123 H Respiratory Rate 13 12 13 Blood Pressure 111/76 Pulse Oximetry 94 L 96 06/04/18 20:12 06/04/18 20:27 06/04/18 20:42 Temperature Pulse Rate 123 H 109 H 106 H Respiratory Rate 13 12 12 Blood Pressure 106/63 110/70 128/59 L Pulse Oximetry 06/04/18 20:57 06/04/18 21:00 06/04/18 21:12 Temperature Pulse Rate 113 H 107 H 113 H Respiratory Rate 13 13 15 Blood Pressure 126/64 117/65 Pulse Oximetry 06/04/18 21:27 06/04/18 21:42 06/04/18 21:57 Temperature Pulse Rate 114 H 118 H 114 H Respiratory Rate 15 15 17 Blood Pressure 115/55 L 109/57 L 137/59 L Pulse Oximetry 06/04/18 22:00 06/04/18 22:12 06/04/18 22:27 Temperature Pulse Rate 120 H 114 H 112 H Respiratory Rate 14 15 12 Blood Pressure 119/57 L 101/67 Pulse Oximetry 06/04/18 22:42 06/04/18 22:57 06/04/18 23:00 Temperature Pulse Rate 109 H 106 H 106 H Respiratory Rate 13 14 13 Blood Pressure 117/65 128/58 L Pulse Oximetry 06/04/18 23:08 06/04/18 23:12 06/04/18 23:27 Temperature Pulse Rate 104 H 111 H Respiratory Rate 12 14 12 Blood Pressure 117/67 118/63 Pulse Oximetry 100 100 100 06/05/18 00:00 06/05/18 00:04 06/05/18 01:00 Temperature 37.4 C Pulse Rate 106 H 108 H 105 H Respiratory Rate 11 L 13 8 L Blood Pressure 119/74 Pulse Oximetry 100 100 100 06/05/18 02:00 06/05/18 02:13 06/05/18 03:00 Temperature Pulse Rate 103 H 105 H 108 H Respiratory Rate 6 L 10 L 5 L Blood Pressure 109/77 Pulse Oximetry 100 100 100 06/05/18 03:48 06/05/18 04:00 06/05/18 04:16 Temperature 36.9 C Pulse Rate 111 H 103 H Respiratory Rate 13 13 13 Blood Pressure 125/80 Pulse Oximetry 100 99 100 06/05/18 05:00 06/05/18 06:00 06/05/18 06:29 Temperature Pulse Rate 108 H 111 H 107 H Respiratory Rate 12 13 13 Blood Pressure 107/65 Pulse Oximetry 99 99 99 06/05/18 07:00 06/05/18 07:43 Temperature Pulse Rate 106 H Respiratory Rate 13 19 Blood Pressure Pulse Oximetry 99 98 Intake & Output 06/04/18 06/05/18 06/05/18 18:59 06:59 18:59 Intake Total 1670 / 1670 1460 / 1460 Output Total 230 / 230 175 / 175 Balance 1440 / 1440 1285 / 1285 Weight 41.8 kg Intake: IV 1670 / 1670 1460 / 1460 Diprivan 1000 mg/100 ml Inj 1, 20 / 20 000 mg In 100 ml @ 5 MCG/KG/MIN 1.293 mls/hr IV.CONT TITRATE PRN Rx#:[id number] NS Inj 1,000 ML @ 100 mls/hr IV 1000 / 1000 1000 / 1000 .CONT .Q10H VINAYAK Rx#:[id number] Azactam Inj 2 GM In NS Inj 100 100 / 100 200 / 200 ML @ 200 mls/hr IV.SIG Q8H [facility]INAYAK Rx#:[id number] Magnesium Sulfate Inj 2 GM In 100 / 100 NS Inj 96 ML @ 50 mls/hr IV.SIG ONCE ONE Rx#:[id number] Levophed Inj 4 MG In NS Inj 246 250 / 250 ML @ 2 MCG/MIN 7.5 mls/hr IV. SIG TITRATE PRN Rx#:[id number] KCl 40 mEq Premix Inj 40 meq In 100 / 100 100 ml @ 25 mls/hr IV.SIG Q2H PRN Rx#:[id number] Potassium Phosphate Inj 30 MMOL 260 / 260 In NS Inj 250 ML @ 42 mls/hr IV.SIG UNSCH PRN Rx#:[id number] Vancomycin Inj 500 MG In NS Inj 100 / 100 100 ML @ 200 mls/hr IV.SIG Q24H [facility] Rx#:[id number] Output: Urine Amount (Catheter) 125 / 125 100 / 100 Indwelling Urethral Catheter 125 / 125 100 / 100 Gastric Drainage 100 / 100 75 / 75 Oral Orogastric Tube 100 / 100 75 / 75 Chest Tube Drainage 5 / 5 0 / 0 #1 Right Anterior 5 / 5 0 / 0 Other: # Bowel Movements 0 0 Result Diagrams: 06/05/18 04:30 06/05/18 04:30 Objective Remarks: GENERAL: Elderly undernourished female who is orotracheally intubated. She is currently not on any sedatives SKIN: Warm and dry. Keratinized epithelium right hand. HEAD: Atraumatic. Normocephalic. EYES: Pupils equal and round. ENT: No nasal bleeding or discharge. Mucous membranes pink and moist. NECK: Trachea midline. No JVD. CARDIOVASCULAR: irregularly irregular . afib. RESPIRATORY: No accessory muscle use. Clear to auscultation. Breath sounds equal bilaterally. right chest tube to suction, no air leak. CXR without ptx. GASTROINTESTINAL: Abdomen soft, non-tender, nondistended. MUSCULOSKELETAL: Extremities without clubbing, cyanosis, or edema. NEUROLOGICAL: Eyes open to voice. L sided gaze preference. Pupils reactive. Unable to appreciate any facial droop. ? weakly following commands by squeezing left hand. wiggles left toes to command. no movement on the right. Assessment and Plan - Problem List (1) Change in mental status Code(s): R41.82 - Altered mental status, unspecified Status: Acute (2) Atrial fibrillation, new onset Code(s): I48.91 - Unspecified atrial fibrillation Status: Chronic (3) Respiratory failure requiring intubation Code(s): J96.90 - Respiratory failure, unspecified, unspecified whether with hypoxia or hypercapnia Status: Acute (4) Pneumothorax on right Code(s): J93.9 - Pneumothorax, unspecified Status: Acute (5) Chest tube in place Code(s): Z96.89 - Presence of other specified functional implants Status: Acute - Assessment and Plan Plan: Assessment: 87yF with left thalamic CVA and respiratory failure. NEURO: Acute encephalopathy Secondary to Stroke (LT thalamic) vs. Sepsis Dementia Alzheimer Type vs. Vascular CT brain is negative. She is not a candidate for TPA. Consider obtaining repeat non con CT and CTA of head/neck. MRI: left thalamic CVA Check lipids. Consider sedation. Continue donepezil 10 mg p.o. RESP: Acute hypoxic and hypercarbic respiratory failure Iatrogenic right pneumothorax history of tobacco abuse Ventilator bundle. nebs start SBTs today wean fio2 for goal spo2 > 90% R apical pigtail chest tube 06/03 #2, water seal today. CXR in AM. CV: Atrial fibrillation with rapid ventricular response, now rate controlled. Myocardial Ischemia Demand ischemia vs. A fib PVC's Trend troponin and CK. Hold Eliquis until clearly no evidence of hemorrhage. Continue statin 40 mg p.o. daily keep NS @ 100cc/hr. add 500cc 5% albumin. follow urine closely. change to phenylephrine for map goal > 65 mmhg. GI: Jevity 1.5 at 35 mL per hour through OGT per nutrition recommendation. Consider PPI prophylaxis due to risks of hypoperfusion. FEN/RENAL: Hypokalemia Hypocalcemia 40 mEq IV KCl received in the emergency department. Follow-up with ICU electrolyte protocol. Check magnesium. Monitor chemistries. Trend Cr. ID: Hypotension Hypothermia Leukocytosis with Left Shift Blood cultures taken. Received aztreonam and Levaquin in the emergency department. Urinalysis negative for evidence of bacterial infection. CXR negative. HEME: Monitor CBC. ENDO: Euglycemic. Monitor sugars. PROPH: SCDs for DVT prophylaxis. Initiate DVT prophylaxis if MRI unrevealing for hemorrhage. famotidine for stress ulcer prophylaxis ACCESS: R subclavian CV line placed on 06/03. OVERALL IMPRESSION: new CVA. remains hypotensive in shock, likely septic from aspiration pneumonia. on life support with vasopressors. critically ill. Critical care time: 37 minutes, exclusive of separately billable procedures. (1) Change in mental status Qualifiers: Altered mental status type: unspecified Qualified Code(s): R41.82 - Altered mental status, unspecified
[2018-06-05] MEDS: Famotidine PF Inj 20 MG/2 ML Vial IV.PUSH SCH ×2 (08:24→20:31)
[2018-06-05] MEDS: Senna/Docusate Sodium 8.6/50 MG Tablet PO SCH ×2 (08:24→20:32)
[2018-06-05] MEDS: Ferrous Sulfate 325 MG Tablet PO SCH (08:24)
[2018-06-05] MEDS: Phenylephrine Inj 40 MG in Sodium Chlor 0.9% Inj 496 ML IV.CONT PRN (08:25)
[2018-06-05] MEDS: Chlorhexidine 0.12% Oral Kit 15 ML UDC OROPHARYNG SCH ×2 (08:28→20:31)
[2018-06-05] MEDS: Modafinil 200 MG Tablet PO SCH (09:33)
--- NOTE | 2018-06-05 10:43 | P.CONNEU ---
History of Present Illness Service: Neurology Primary Care Provider: UNKNOWN Chief Complaint: Altered mental status, stroke History of Present Illness: 87-year-old female admitted on 06/03/2018 for altered mental status unknown time of onset. History atrial fibrillation. History of mild memory loss. Spouse at bedside states he is not certain the patient was compliantly taking her medication. She is on pressors and has been intubated for airway protection. MRI brain scan showed a thalamic stroke. Patient unable to give any meaningful history at present. Review of Systems unobtainable due to endotracheal tube, unobtainable due to mental status PMF - History History Provided By: Patient, Family Member - Medical History Medical History: Medical History (Last Updated 06/04/18 @ 11:39 by Jossy Barnes MD) Bypass graft stenosis CAD (coronary artery disease) Hypertension Leg fracture, left Myocardial infarction Skin cancer Tobacco abuse - Surgical History Surgical History: Surgical History (Last Updated 06/04/18 @ 11:40 by Jossy Barnes MD) Hx of CABG Hx of appendectomy Hx of cholecystectomy - Family History Family History: Family History (Last Updated 06/04/18 @ 11:40 by Jossy Barnes MD) Other No significant family history - Tobacco History Smoking Status: Former smoker Tobacco Type: Cigarettes Smoking End Date: 30 years ago - Alcohol History How Often Do You Have a Drink Containing Alcohol: Never - Substance Use History Substance History: No History of Abuse - Immunization History Tetanus Immunization: <5 Years Medications and Allergies Active Medications: Active Medications Acetaminophen (Tylenol) 650 mg PO Q6H PRN PRN Reason: pain 1-2 or temp >100.4 Hydrocodone Bitart/Acetaminophen ([place] 5/325) 1 tab PO Q4H PRN PRN Reason: PAIN SCALE 3-7 Al Hydroxide/Mg Hydroxide (Milk Of [place] Liq) 30 ml PO Q12H PRN PRN Reason: Mild Constipation Albuterol (Albuterol Neb (Prn)) 2.5 mg NEB Q2HR NEB PRN PRN Reason: SHORTNESS OF BREATH/WHEEZING Atorvastatin Calcium (Lipitor) 40 mg PO DAILY [facility] Last Admin: 06/05/18 08:25 Dose: 40 mg Bisacodyl (Dulcolax Supp) 10 mg RECTAL DAILY PRN PRN Reason: SEVERE CONSITIPATION Chlorhexidine Gluconate (Chlorhexidine 2% Cloth) 3 pack TOPICAL DAILY@0400 [facility] Stop: 06/09/18 03:59 Last Admin: 06/05/18 04:26 Dose: 3 pack Chlorhexidine Gluconate (Chlorhexidine 2% Cloth) 3 pack TOPICAL DAILY@0400 PRN PRN Reason: Extra cloth needed Stop: 06/09/18 03:59 Chlorhexidine Gluconate (Peridex 0.12% Oral Kit) 15 ml OROPHARYNG BID@0800, 2000 [facility] Last Admin: 06/05/18 08:28 Dose: 15 ml Donepezil HCl (Aricept) 10 mg PO HS [facility] Last Admin: 06/04/18 20:03 Dose: 10 mg Famotidine (Pepcid Pf Inj) 20 mg IV.PUSH Q12HR [facility] Last Admin: 06/05/18 08:24 Dose: 20 mg Ferrous Sulfate (Ferosul) 325 mg PO DAILY [facility] Last Admin: 06/05/18 08:24 Dose: 325 mg Propofol (Diprivan 1000 Mg/100 Ml Inj) 1,000 mg in 100 mls @ 1.293 mls/hr IV.CONT TITRATE PRN; Protocol PRN Reason: Per Protocol Last Titration: 06/04/18 17:00 Dose: Infused Sodium Chloride (Ns Inj) 1,000 mls @ 100 mls/hr IV.CONT .Q10H [facility] Last Admin: 06/05/18 02:07 Dose: 100 mls/hr Magnesium Sulfate 4 gm/ Sodium (Chloride) 100 mls @ 50 mls/hr IV.SIG UNSCH PRN PRN Reason: For Magnesium 0.9 - 1.1 mg/dL Magnesium Sulfate 2 gm/ Sodium (Chloride) 100 mls @ 50 mls/hr IV.SIG UNSCH PRN PRN Reason: For Magnesium 1.2 - 1.6 mg/dL Potassium Chloride (Kcl 40 Meq Premix Inj) 40 meq in 100 mls @ 25 mls/hr IV.SIG Q2H PRN PRN Reason: For Potassium 2.8 - 3.2 mEq/L Last Infusion: 06/04/18 10:00 Dose: Infused Potassium Chloride (Kcl 20 Meq Premix Inj) 20 meq in 100 mls @ 50 mls/hr IV.SIG Q2H PRN PRN Reason: For Potassium 3.3 - 3.5 mEq/L Potassium Chloride (Kcl 40 Meq Premix Inj) 40 meq in 100 mls @ 25 mls/hr IV.SIG UNSCH PRN PRN Reason: For Potassium 3.3 - 3.5 mEq/L Potassium Chloride (Kcl 20 Meq Premix Inj) 20 meq in 100 mls @ 50 mls/hr IV.SIG Q2H PRN PRN Reason: For Potassium 2.8 - 3.2 mEq/L Potassium Phosphate 30 mmol/ (Sodium Chloride) 260 mls @ 42 mls/hr IV.SIG UNSCH PRN PRN Reason: SEE LABEL COMMENTS Last Infusion: 06/04/18 22:34 Dose: Infused Sodium Phosphate 30 mmol/ (Sodium Chloride) 260 mls @ 42 mls/hr IV.SIG UNSCH PRN PRN Reason: For Phosphorus < 2.5 mg/dL Fentanyl (Fentanyl 10 Mcg/Ml Premix Drip) 2,500 mcg in 250 mls @ 5 mls/hr IV.SIG TITRATE PRN; Protocol PRN Reason: Per Protocol Norepinephrine Bitartrate 4 mg (/ Sodium Chloride) 250 mls @ 7.5 mls/hr IV.SIG TITRATE PRN; Protocol PRN Reason: Per Protocol Last Titration: 06/05/18 08:45 Dose: Infused Aztreonam 2 gm/ Sodium (Chloride) 100 mls @ 200 mls/hr IV.SIG Q8H [facility] Last Infusion: 06/05/18 04:50 Dose: Infused Vancomycin HCl 500 mg/ Sodium (Chloride) 100 mls @ 200 mls/hr IV.SIG Q24H [facility] Last Infusion: 06/04/18 17:23 Dose: Infused Phenylephrine HCl 40 mg/ (Sodium Chloride) 500 mls @ 30 mls/hr IV.CONT TITRATE PRN; Protocol PRN Reason: Per Protocol Last Titration: 06/05/18 10:27 Dose: 0 mcg/min, 0 mls/hr Lactulose (Lactulose Liq) 30 ml PO DAILY PRN PRN Reason: SEVERE CONSITIPATION Magnesium Oxide (Mag-Ox) 800 mg PO UNSCH PRN PRN Reason: For Magnesium 1.2 - 1.6 mg/dL Miscellaneous (Pill Splitter) 1 each OTHER UNSCH [facility] Miscellaneous Information ([facility] Ordered Lab Info) 0 each OTHER ONCE ONE Stop: 06/07/18 13:46 Miscellaneous Medication () 1 each OROPHARYNG 0000,0400,1200,1600 [facility] Last Admin: 06/05/18 04:26 Dose: 1 each Modafinil (Provigil) 100 mg PO DAILY [facility] Last Admin: 06/05/18 09:33 Dose: 100 mg Morphine Sulfate (Morphine Inj) 2 mg IV.PUSH Q2H PRN PRN Reason: pain 8-10 Ondansetron HCl (Zofran Inj) 4 mg IV.PUSH Q6H PRN PRN Reason: NAUSEA OR VOMITING Pharmacy Profile Note (Vancomycin Consult Pharmacy) 1 each OTHER UNSCH PRN PRN Reason: Pharmacy to dose Potassium Chloride (Kcl Liq) 40 meq PO UNSCH PRN PRN Reason: Potassium level 3.3-3.5 mEq/L Potassium Chloride (Kcl Liq) 40 meq PO UNSCH PRN PRN Reason: POTASSIUM LESS THAN 3.5 Potassium Phosphate (K-Phos Original) 2,000 mg PO Q4H PRN PRN Reason: Phosphorus Less Than 2.5 mg/dL Potassium Phosphate (K-Phos Original) 2,000 mg PO UNSCH PRN PRN Reason: SEE LABEL COMMENTS Senna/Docusate Sodium (Katarzyna-Colace) 1 tab PO BID [facility] Last Admin: 06/05/18 08:24 Dose: 1 tab Sennosides (Senokot) 17.2 mg PO Q12H PRN PRN Reason: Moderate Constipation Sodium Chloride (Ns Flush) 2 ml IV.FLUSH BID [facility] Last Admin: 06/05/18 08:23 Dose: 2 ml Sodium Chloride (Ns Flush) 2 ml IV.FLUSH PRN PRN PRN Reason: FLUSH AFTER USING IV ACCESS Terbutaline Sulfate (Brethine Inj) 1 mg SQ UNSCH PRN PRN Reason: For Extravasation Allergies Allergy/AdvReac Type Severity Reaction Status Date / Time Penicillins Allergy Unknown Verified 01/14/17 15:37 Sulfa (Sulfonamide Allergy Unknown Verified 01/14/17 15:37 Antibiotics) Home Medications Medication Instructions Recorded Confirmed Type albuterol sulfate [Ventolin HFA] 1 puff INHALATION Q4-6H PRN 06/03/18 06/03/18 History alendronate 70 mg PO QWEEK 06/03/18 06/03/18 History amlodipine 2.5 mg PO DAILY 06/03/18 06/03/18 History apixaban [Eliquis] 2.5 mg PO BID 06/03/18 06/03/18 History atorvastatin 40 mg PO DAILY 06/03/18 06/03/18 History atorvastatin 40 mg PO DAILY 06/03/18 06/03/18 History donepezil 10 mg PO HS 06/03/18 06/03/18 History ferrous sulfate 325 mg PO DAILY 06/03/18 06/03/18 History mirtazapine 15 mg PO HS 06/03/18 06/03/18 History potassium chloride 10 meq PO DAILY 06/03/18 06/03/18 History Exam Vital signs: Vital Signs 06/04/18 11:53 06/04/18 12:00 06/04/18 13:15 Temperature Pulse Rate 115 H 112 H Respiratory Rate 12 12 Blood Pressure Pulse Oximetry 100 100 06/04/18 13:20 06/04/18 13:30 06/04/18 13:35 Temperature Pulse Rate 113 H 114 H 112 H Respiratory Rate 13 12 12 Blood Pressure 126/71 113/64 Pulse Oximetry 100 100 100 06/04/18 13:45 06/04/18 13:50 06/04/18 14:00 Temperature 99.9 F H Pulse Rate 115 H 112 H 126 H Respiratory Rate 12 12 13 Blood Pressure 116/66 Pulse Oximetry 100 100 100 06/04/18 14:05 06/04/18 14:15 06/04/18 14:20 Temperature Pulse Rate 115 H 111 H 106 H Respiratory Rate 12 12 12 Blood Pressure 95/60 L 104/74 Pulse Oximetry 100 100 100 06/04/18 14:30 06/04/18 14:35 06/04/18 14:45 Temperature 99.7 F H Pulse Rate 117 H 121 H 113 H Respiratory Rate 13 12 15 Blood Pressure 131/66 Pulse Oximetry 100 100 100 06/04/18 14:50 06/04/18 15:29 06/04/18 15:30 Temperature Pulse Rate 126 H 131 H 132 H Respiratory Rate 12 Blood Pressure 116/58 L Pulse Oximetry 100 06/04/18 15:45 06/04/18 15:50 06/04/18 16:00 Temperature 99.3 F Pulse Rate 142 H 135 H Respiratory Rate 13 12 15 Blood Pressure 78/50 L Pulse Oximetry 96 06/04/18 16:11 06/04/18 16:15 06/04/18 16:27 Temperature Pulse Rate 118 H 119 H 126 H Respiratory Rate 12 12 13 Blood Pressure 117/71 117/72 Pulse Oximetry 06/04/18 16:30 06/04/18 16:45 06/04/18 16:50 Temperature Pulse Rate 123 H 128 H 132 H Respiratory Rate 13 12 13 Blood Pressure 121/69 Pulse Oximetry 06/04/18 16:57 06/04/18 17:00 06/04/18 17:12 Temperature Pulse Rate 132 H 134 H 129 H Respiratory Rate 15 14 13 Blood Pressure 108/55 L 107/60 Pulse Oximetry 06/04/18 17:15 06/04/18 17:27 06/04/18 17:30 Temperature Pulse Rate 127 H 128 H 129 H Respiratory Rate 13 12 12 Blood Pressure 112/67 Pulse Oximetry 06/04/18 17:42 06/04/18 17:45 06/04/18 17:57 Temperature Pulse Rate 131 H 129 H 136 H Respiratory Rate 13 13 12 Blood Pressure 92/56 L 106/55 L Pulse Oximetry 06/04/18 18:00 06/04/18 19:00 06/04/18 19:12 Temperature Pulse Rate 127 H 126 H 124 H Respiratory Rate 13 10 L 10 L Blood Pressure 101/56 L Pulse Oximetry 06/04/18 19:27 06/04/18 19:42 06/04/18 20:00 Temperature Pulse Rate 129 H 119 H 123 H Respiratory Rate 10 L 10 L 13 Blood Pressure 160/54 H 122/59 L Pulse Oximetry 94 L 06/04/18 20:02 06/04/18 20:08 06/04/18 20:12 Temperature Pulse Rate 123 H 123 H Respiratory Rate 12 13 13 Blood Pressure 111/76 106/63 Pulse Oximetry 96 06/04/18 20:27 06/04/18 20:42 06/04/18 20:57 Temperature Pulse Rate 109 H 106 H 113 H Respiratory Rate 12 12 13 Blood Pressure 110/70 128/59 L 126/64 Pulse Oximetry 06/04/18 21:00 06/04/18 21:12 06/04/18 21:27 Temperature Pulse Rate 107 H 113 H 114 H Respiratory Rate 13 15 15 Blood Pressure 117/65 115/55 L Pulse Oximetry 06/04/18 21:42 06/04/18 21:57 06/04/18 22:00 Temperature Pulse Rate 118 H 114 H 120 H Respiratory Rate 15 17 14 Blood Pressure 109/57 L 137/59 L Pulse Oximetry 06/04/18 22:12 06/04/18 22:27 06/04/18 22:42 Temperature Pulse Rate 114 H 112 H 109 H Respiratory Rate 15 12 13 Blood Pressure 119/57 L 101/67 117/65 Pulse Oximetry 06/04/18 22:57 06/04/18 23:00 06/04/18 23:08 Temperature Pulse Rate 106 H 106 H Respiratory Rate 14 13 12 Blood Pressure 128/58 L Pulse Oximetry 100 06/04/18 23:12 06/04/18 23:27 06/05/18 00:00 Temperature 99.3 F Pulse Rate 104 H 111 H 106 H Respiratory Rate 14 12 11 L Blood Pressure 117/67 118/63 Pulse Oximetry 100 100 100 06/05/18 00:04 06/05/18 01:00 06/05/18 02:00 Temperature Pulse Rate 108 H 105 H 103 H Respiratory Rate 13 8 L 6 L Blood Pressure 119/74 Pulse Oximetry 100 100 100 06/05/18 02:13 06/05/18 03:00 06/05/18 03:48 Temperature Pulse Rate 105 H 108 H Respiratory Rate 10 L 5 L 13 Blood Pressure 109/77 Pulse Oximetry 100 100 100 06/05/18 04:00 06/05/18 04:16 06/05/18 05:00 Temperature 98.5 F Pulse Rate 111 H 103 H 108 H Respiratory Rate 13 13 12 Blood Pressure 125/80 Pulse Oximetry 99 100 99 06/05/18 06:00 06/05/18 06:29 06/05/18 07:00 Temperature Pulse Rate 111 H 107 H 106 H Respiratory Rate 13 13 13 Blood Pressure 107/65 Pulse Oximetry 99 99 99 06/05/18 07:43 Temperature Pulse Rate Respiratory Rate 19 Blood Pressure Pulse Oximetry 98 Intake & Output 06/04/18 06/05/18 06/05/18 18:59 06:59 18:59 Intake Total 1670 / 1670 1460 / 1460 700 / 700 Output Total 230 / 230 175 / 175 Balance 1440 / 1440 1285 / 1285 700 / 700 Weight 41.8 kg Intake: IV 1670 / 1670 1460 / 1460 700 / 700 Neosynephrine Inj 40 MG In NS 500 / 500 Inj 496 ML @ 40 MCG/MIN 30 mls/ hr IV.CONT TITRATE PRN Rx#: [id number] Diprivan 1000 mg/100 ml Inj 1, 20 / 20 000 mg In 100 ml @ 5 MCG/KG/MIN 1.293 mls/hr IV.CONT TITRATE PRN Rx#:[id number] NS Inj 1,000 ML @ 100 mls/hr IV 1000 / 1000 1000 / 1000 .CONT .Q10H [facility] Rx#:[id number] Azactam Inj 2 GM In NS Inj 100 100 / 100 200 / 200 ML @ 200 mls/hr IV.SIG Q8H [facility] Rx#:[id number] Magnesium Sulfate Inj 2 GM In 100 / 100 NS Inj 96 ML @ 50 mls/hr IV.SIG ONCE ONE Rx#:[id number] Levophed Inj 4 MG In NS Inj 246 250 / 250 200 / 200 ML @ 2 MCG/MIN 7.5 mls/hr IV. SIG TITRATE PRN Rx#:[id number] KCl 40 mEq Premix Inj 40 meq In 100 / 100 100 ml @ 25 mls/hr IV.SIG Q2H PRN Rx#:[id number] Potassium Phosphate Inj 30 MMOL 260 / 260 In NS Inj 250 ML @ 42 mls/hr IV.SIG UNSCH PRN Rx#:[id number] Vancomycin Inj 500 MG In NS Inj 100 / 100 100 ML @ 200 mls/hr IV.SIG Q24H [facility] Rx#:[id number] Output: Urine Amount (Catheter) 125 / 125 100 / 100 Indwelling Urethral Catheter 125 / 125 100 / 100 Gastric Drainage 100 / 100 75 / 75 Oral Orogastric Tube 100 / 100 75 / 75 Chest Tube Drainage 5 / 5 0 / 0 #1 Right Anterior 5 / 5 0 / 0 Other: # Bowel Movements 0 0 Narrative: GENERAL: in NAD, SKIN: Warm and dry. HEAD: Atraumatic. Normocephalic. EYES: Pupils equal and round. ENT: No nasal bleeding or discharge. NECK: Trachea midline. CARDIOVASCULAR: Irregularly irregular RESPIRATORY: Intubated GASTROINTESTINAL: Abdomen soft, non-tender, nondistended. MUSCULOSKELETAL: Extremities without clubbing, cyanosis, or edema. NEUROLOGICAL: Awake, alert, left gaze preference, OU approximately 1-2 mm sluggishly reactive, intubated, localized to the left upper lower extremity right hemiplegia right extensor plantar PSYCHIATRIC: Calm - Constitutional no acute distress - Routine HEENT Exam Head: Present: normocephalic Results - Labs CBC & Chem 7: 06/05/18 04:30 06/05/18 04:30 Labs: Laboratory Results - last 24 hr 06/05/18 06/05/18 06/05/18 04:30 04:30 04:30 WBC 13.5 H RBC 3.50 L Hgb 10.9 L Hct 31.4 L MCV 89.5 MCH 31.0 MCHC 34.6 RDW 16.2 Plt Count 393 MPV 7.4 Sodium 147 H Potassium 4.6 D Chloride 113 H D Carbon Dioxide 23.4 Anion Gap 11 BUN 10 Creatinine 1.10 H Estimated GFR 47 L Random Glucose 89 Calcium 7.3 L* Calcium Adj for Albumin 9.0 Phosphorus 5.1 H D Magnesium 2.6 H D Albumin 1.9 L - Imaging Impressions Head MRI 06/04/18 00:00 CONCLUSION: 1. Acute nonhemorrhagic infarction in the lateral left thalamus. 2. Moderate severity central and cortical ischemic atrophy. Chest X-Ray 06/05/18 00:00 CONCLUSION: No significant change Review/Management - Diagnosis (1) Acute ischemic stroke Code(s): I63.9 - Cerebral infarction, unspecified Status: Acute Current Visit: Yes (2) Atrial fibrillation, new onset Code(s): I48.91 - Unspecified atrial fibrillation Status: Chronic Current Visit: Yes (3) Respiratory failure requiring intubation Code(s): J96.90 - Respiratory failure, unspecified, unspecified whether with hypoxia or hypercapnia Status: Acute Current Visit: Yes (4) Left carotid artery occlusion Code(s): I65.22 - Occlusion and stenosis of left carotid artery Status: Acute Current Visit: Yes - Review/Management Plan: Left subcortical ischemic infarct MRI brain images reviewed. Carotid ultrasound suggesting possible left carotid occlusion. Infarct likely related to the occlusion which may be acute or chronic with underlying history of A. 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 fib, stroke Follow exam
[2018-06-05] MEDS: Aspirin 325 MG Tablet PO SCH (13:21)
[2018-06-05] MEDS: Vancomycin Inj 750 MG in Sodium Chlor 0.9% Inj 250 ML IV.SIG SCH (13:21)
--- NOTE | 2018-06-05 15:28 | MR ---
EXAM DATE: 06/05/2018 3:13 PM EST AGE/SEX: 87 years / Female INDICATIONS: CVA. CLINICAL DATA: This is the patient's initial encounter. Patient reports that signs and symptoms have been present for 1 day and indicates a pain score of 0/10. MEDICAL/SURGICAL HISTORY: Hypertension. CABG. Hysterectomy. Cholecystectomy. COMPARISON: [facility] [place], MR HEAD W/O CONTRAST, 06/04/2018. . TECHNIQUE: Multiplanar, multisequence examination of the brain was performed without contrast. FINDINGS: Cerebrum: Infarct in the left basal ganglia again seen and also a few areas in the left parietal lob e. The ventricles are normal for age. No evidence of midline shift, mass lesion or hemorrhage . No extraaxial fluid collections are seen. The pituitary gland and suprasellar cistern are normal in con figuration. White Matter: T2 bright signal abnormalities are seen in the white matter. Posterior Fossa: The cerebellum and brainstem are intact. The 4th ventricle is midline. The cerebel lopontine angle is unremarkable. The cerebellar tonsils are normal in position. Diffusion Imaging: There are focal areas areas of restricted diffusion seen in the left basal gangli a and in the left parietal lobe. Extracranial: The visualized portions of the orbits and paranasal sinuses are unremarkable. CONCLUSION: 1. Infarcts in the left basal ganglia and left parietal lobe, not significantly changed. 2. Chronic ischemic small vessel vasculopathy. Electronically signed by: Italo Johnston MD Board Certified Radiologist 06/05/2018 3:27 PM EST
--- NOTE | 2018-06-05 15:36 | MR ---
EXAM DATE: 06/05/2018 3:13 PM EST AGE/SEX: 87 years / Female INDICATIONS: CVA. CLINICAL DATA: This is the patient's initial encounter. Patient reports that signs and symptoms have been present for 1 day and indicates a pain score of 0/10. MEDICAL/SURGICAL HISTORY: Hypertension. CABG. Hysterectomy. Appendectomy. COMPARISON: [facility] [place], MR HEAD W/O CONTRAST, 06/05/2018. . TECHNIQUE: 3D [id number] MRA was performed. Source images, multiplanar STS MIP, and 3D volum e MIP reconstructions were reviewed. FINDINGS: Motion artifact. There is excellent visualization of the major intracranial arteries out to the second-order branch ve ssels. There is no evidence for aneurysm, vessel truncation or stenosis, and no evidence for vascula r malformation. There is nonfilling of the distal left internal carotid artery. Posterior cerebral ar teries appear patent. Right middle cerebral artery and anterior cerebral artery also appears patent. Left middle and anterior cerebral artery appears patent however evaluation for critical stenosis is l imited due to motion artifact. Intraluminal irregularities seen throughout the intracerebral vasculat ure. CONCLUSION: 1. Motion artifact limiting evaluation. 2. Diffuse atherosclerotic changes throughout the visualized intracranial vasculature. 3. Suspect occluded left internal carotid artery. Correlation with CTA of the neck/CTA of the brain may be warranted. Electronically signed by: Italo Johnston MD Board Certified Radiologist 06/05/2018 3:35 PM EST
[2018-06-06] MEDS: Morphine Sulfate Inj 2 MG/ML Vial IV.PUSH PRN (00:42)
[2018-06-06] MEDS: Oral Hygiene Kit OROPHARYNG SCH ×4 (00:42→17:53)
[2018-06-06] MEDS: Chlorhexidine Gluconate 2% 1 Pack (2 Cloths) TOPICAL SCH (04:44)
[2018-06-06] MEDS: Aztreonam Inj 2 GM in Sodium Chloride 0.9% Inj 100 ML IV.SIG SCH ×3 (05:44→20:58)
[2018-06-06] MEDS: Chlorhexidine 0.12% Oral Kit 15 ML UDC OROPHARYNG SCH ×2 (09:03→19:45)
[2018-06-06] MEDS: Modafinil 200 MG Tablet PO SCH (09:03)
[2018-06-06] MEDS: Senna/Docusate Sodium 8.6/50 MG Tablet PO SCH ×2 (09:04→20:58)
[2018-06-06] MEDS: Aspirin 325 MG Tablet PO SCH (09:04)
[2018-06-06] MEDS: Famotidine PF Inj 20 MG/2 ML Vial IV.PUSH SCH ×2 (09:04→20:58)
[2018-06-06] MEDS: Ferrous Sulfate 325 MG Tablet PO SCH (09:05)
--- NOTE | 2018-06-06 10:11 | P.PNCC ---
Subjective Subjective Remarks/Hospital Course: Hospital Course: 87-year-old right-handed female with past medical history of coronary artery disease, prior myocardial infarction, 2 vessel CABG, atrial fibrillation on chronic anticoagulation with Eliquis, prior tobacco abuse. Her states that he went to work around 0600 on 06/03 and when he returned at 15: 30 he found her on the floor supine in the bathroom with altered mental status. She was able to state her name but could not recall the name of her . Apparently when she arrived she was tachycardic with BP 91/67 and therefore R subclavian CVL was placed in the ED. She was then intubated, reportedly due to shallow respirations. She did have iatrogenic R pneumothorax, initially 1.5 cm apical. However she later became hypotensive with elevated peak pressures and I placed pigtail chest tube due to concern for development of tension physiology. She does have L gaze preference and will followup commands on the right. Withdraws on the right side but appears hemiparetic. CT brain negative. Not candidate for TPA due to unknown time of onset. He states she was in her usual state of health prior to this aside from the fact that she has had poor appetite and weight loss over the last couple of months. At her baseline she does have some difficulty with memory and she ambulates very slowly. She does not drive and has not been cooking for the last year. She does manage her finances. Subjective: 06/04: clinically worse exam- not following commands, gaze deviation. MRI pending. on norepinephrine at 8 mcg/min. 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 ? weakly following commands on the left. very somnolent and off sedation. Cr slightly worse, appears dehydrated, poor uop despite fluid resuscitation. 06/06: no changes to neurologic status. slightly more awake. chest tube to water seal. Objective Vital Signs / I&O: Vital Signs 06/05/18 10:15 06/05/18 10:30 06/05/18 10:45 Temperature Pulse Rate 114 H 113 H 110 H Respiratory Rate 22 29 H 28 H Blood Pressure 127/75 123/64 118/59 L Pulse Oximetry 98 98 98 06/05/18 11:00 06/05/18 11:15 06/05/18 11:30 Temperature Pulse Rate 107 H 111 H 108 H Respiratory Rate 25 H 27 H 26 H Blood Pressure 113/72 111/59 L 117/60 Pulse Oximetry 98 98 98 06/05/18 11:45 06/05/18 11:50 06/05/18 12:00 Temperature 37.4 C Pulse Rate 108 H 107 H Respiratory Rate 20 20 20 Blood Pressure 113/66 117/65 Pulse Oximetry 98 98 98 06/05/18 12:15 06/05/18 12:30 06/05/18 12:45 Temperature Pulse Rate 110 H 115 H 108 H Respiratory Rate 24 19 25 H Blood Pressure 118/83 124/74 115/73 Pulse Oximetry 98 98 98 06/05/18 13:00 06/05/18 13:15 06/05/18 13:30 Temperature Pulse Rate 106 H 104 H 113 H Respiratory Rate 22 18 22 Blood Pressure 116/59 L 124/57 L 130/62 Pulse Oximetry 98 98 98 06/05/18 13:45 06/05/18 14:00 06/05/18 14:15 Temperature Pulse Rate 116 H 111 H 122 H Respiratory Rate 23 21 21 Blood Pressure 138/65 138/70 148/72 H Pulse Oximetry 98 98 97 06/05/18 14:30 06/05/18 15:12 06/05/18 15:13 Temperature Pulse Rate 124 H Respiratory Rate 17 Blood Pressure 143/64 H 133/66 Pulse Oximetry 98 98 97 06/05/18 15:32 06/05/18 15:40 06/05/18 16:00 Temperature 36.6 C Pulse Rate 112 H 122 H Respiratory Rate 16 17 Blood Pressure 124/72 Pulse Oximetry 92 L 96 96 06/05/18 16:02 06/05/18 16:32 06/05/18 17:00 Temperature Pulse Rate 115 H 119 H 109 H Respiratory Rate 15 16 14 Blood Pressure 117/73 116/69 Pulse Oximetry 95 92 L 93 L 06/05/18 17:02 06/05/18 17:32 06/05/18 18:00 Temperature Pulse Rate 114 H 109 H 119 H Respiratory Rate 16 13 18 Blood Pressure 119/79 121/64 Pulse Oximetry 94 L 98 95 06/05/18 18:02 06/05/18 18:32 06/05/18 19:00 Temperature Pulse Rate 116 H 109 H 110 H Respiratory Rate 18 15 15 Blood Pressure 118/67 111/70 Pulse Oximetry 95 93 L 98 06/05/18 19:02 06/05/18 19:32 06/05/18 19:49 Temperature Pulse Rate 110 H 108 H Respiratory Rate 16 14 14 Blood Pressure 117/64 117/65 Pulse Oximetry 98 98 100 06/05/18 20:00 06/05/18 20:02 06/05/18 20:32 Temperature 36.5 C Pulse Rate 114 H 123 H 114 H Respiratory Rate 13 16 16 Blood Pressure 118/75 112/68 Pulse Oximetry 100 98 99 06/05/18 21:00 06/05/18 21:02 06/05/18 21:32 Temperature Pulse Rate 109 H 108 H 108 H Respiratory Rate 13 14 12 Blood Pressure 130/74 112/64 Pulse Oximetry 100 100 97 06/05/18 22:00 06/05/18 22:02 06/05/18 22:32 Temperature Pulse Rate 120 H 116 H 108 H Respiratory Rate 15 13 13 Blood Pressure 119/69 119/78 Pulse Oximetry 98 100 98 06/05/18 23:00 06/05/18 23:02 06/05/18 23:15 Temperature Pulse Rate 117 H 118 H Respiratory Rate 14 14 12 Blood Pressure 118/81 Pulse Oximetry 99 99 99 06/05/18 23:32 06/06/18 00:00 06/06/18 00:02 Temperature 36.7 C Pulse Rate 110 H 112 H 114 H Respiratory Rate 14 15 12 Blood Pressure 115/68 115/73 Pulse Oximetry 98 98 98 06/06/18 00:32 06/06/18 01:00 06/06/18 01:02 Temperature Pulse Rate 109 H 99 H 98 H Respiratory Rate 19 12 12 Blood Pressure 122/92 H 100/60 Pulse Oximetry 98 98 98 06/06/18 01:32 06/06/18 02:00 06/06/18 02:02 Temperature 36.4 C L Pulse Rate 99 H 102 H 101 H Respiratory Rate 15 12 12 Blood Pressure 109/67 105/55 L Pulse Oximetry 98 98 98 06/06/18 02:32 06/06/18 03:00 06/06/18 03:02 Temperature 36.6 C Pulse Rate 96 H 100 H 100 H Respiratory Rate 12 15 13 Blood Pressure 102/64 102/60 Pulse Oximetry 97 97 97 06/06/18 03:32 06/06/18 03:58 06/06/18 04:00 Temperature Pulse Rate 90 96 H Respiratory Rate 12 12 12 Blood Pressure 106/71 Pulse Oximetry 98 97 97 06/06/18 04:02 06/06/18 04:32 06/06/18 05:00 Temperature 36.7 C Pulse Rate 102 H 91 H 86 Respiratory Rate 12 12 13 Blood Pressure 110/68 110/60 Pulse Oximetry 97 97 97 06/06/18 05:02 06/06/18 05:32 06/06/18 06:00 Temperature Pulse Rate 86 87 81 Respiratory Rate 12 12 12 Blood Pressure 114/62 113/60 Pulse Oximetry 97 97 98 06/06/18 06:02 06/06/18 06:32 06/06/18 07:00 Temperature 36.5 C Pulse Rate 87 84 79 Respiratory Rate 12 12 12 Blood Pressure 113/61 109/57 L Pulse Oximetry 97 97 97 06/06/18 07:02 06/06/18 07:32 06/06/18 07:58 Temperature Pulse Rate 79 78 Respiratory Rate 12 12 8 L Blood Pressure 100/64 103/59 L Pulse Oximetry 98 98 97 06/06/18 08:00 06/06/18 08:02 06/06/18 08:32 Temperature 36.4 C L Pulse Rate 81 82 85 Respiratory Rate 9 L 11 L 13 Blood Pressure 106/57 L 108/57 L Pulse Oximetry 98 97 97 06/06/18 09:00 06/06/18 09:02 Temperature Pulse Rate 77 102 H Respiratory Rate 12 23 Blood Pressure 114/73 Pulse Oximetry 97 97 Intake & Output 06/05/18 06/06/18 06/06/18 18:59 06:59 18:59 Intake Total 2557.5 / 2557.5 1395 / 1395 Output Total 335 / 335 250 / 250 Balance 2222.5 / 2222.5 1145 / 1145 Weight 46.7 kg Intake: IV 2557.5 / 2557.5 1150 / 1150 Neosynephrine Inj 40 MG In NS 500 / 500 Inj 496 ML @ 40 MCG/MIN 30 mls/ hr IV.CONT TITRATE PRN Rx#: [id number] NS Inj 1,000 ML @ 100 mls/hr IV 1000 / 1000 850 / 850 .CONT .Q10H VINAYAK Rx#:[id number] Alburx 5% Inj 500 ML @ 250 mls/ 500 / 500 hr IV.SIG STAT STA Rx#:[id number] Azactam Inj 2 GM In NS Inj 100 100 / 100 200 / 200 ML @ 200 mls/hr IV.SIG Q8H VINAYAK Rx#:[id number] Levophed Inj 4 MG In NS Inj 246 200 / 200 ML @ 2 MCG/MIN 7.5 mls/hr IV. SIG TITRATE PRN Rx#:[id number] Vancomycin Inj 750 MG In NS Inj 257.5 / 257.5 250 ML @ 250 mls/hr IV.SIG Q24H VINAYAK Rx#:[id number] Tube Feeding 125 / 125 Tube Irrigant 120 / 120 Output: Urine Amount (Catheter) 325 / 325 250 / 250 Indwelling Urethral Catheter 325 / 325 250 / 250 Chest Tube Drainage 0 / 0 #1 Right Anterior 0 / 0 Result Diagrams: 06/05/18 04:30 06/05/18 04:30 Objective Remarks: GENERAL: Elderly undernourished female who is orotracheally intubated. She is currently not on any sedatives SKIN: Warm and dry. Keratinized epithelium right hand. HEAD: Atraumatic. Normocephalic. EYES: Pupils equal and round. ENT: No nasal bleeding or discharge. Mucous membranes pink and moist. NECK: Trachea midline. No JVD. CARDIOVASCULAR: irregularly irregular . afib. RESPIRATORY: No accessory muscle use. Clear to auscultation. Breath sounds equal bilaterally. right chest tube to water seal, no air leak. GASTROINTESTINAL: Abdomen soft, non-tender, nondistended. MUSCULOSKELETAL: Extremities without clubbing, cyanosis, or edema. NEUROLOGICAL: Eyes open to voice. L sided gaze preference. Pupils reactive. Unable to appreciate any facial droop. weakly following commands by squeezing left hand. wiggles left toes to command. no movement on the right. Assessment and Plan - Problem List (1) Change in mental status Code(s): R41.82 - Altered mental status, unspecified Status: Acute (2) Atrial fibrillation, new onset Code(s): I48.91 - Unspecified atrial fibrillation Status: Chronic (3) Respiratory failure requiring intubation Code(s): J96.90 - Respiratory failure, unspecified, unspecified whether with hypoxia or hypercapnia Status: Acute (4) Pneumothorax on right Code(s): J93.9 - Pneumothorax, unspecified Status: Acute (5) Chest tube in place Code(s): Z96.89 - Presence of other specified functional implants Status: Acute - Assessment and Plan Plan: Assessment: 87yF with left thalamic CVA and respiratory failure. NEURO: Acute encephalopathy Secondary to Stroke (LT thalamic) vs. Sepsis Dementia Alzheimer Type vs. Vascular CT brain is negative. She is not a candidate for TPA. Consider obtaining repeat non con CT and CTA of head/neck. MRI: left thalamic CVA Check lipids. start provigil. Continue donepezil 10 mg p.o. RESP: Acute hypoxic and hypercarbic respiratory failure Iatrogenic right pneumothorax history of tobacco abuse Ventilator bundle. nebs continue daily SBTs. high risk for reintubation, but will need trial of extubation prior to consideration for tracheostomy. wean fio2 for goal spo2 > 90% R apical pigtail chest tube 06/03 #3, will d/c today. AM CXR CV: Atrial fibrillation with rapid ventricular response, now rate controlled. Myocardial Ischemia Demand ischemia vs. A fib PVC's Trend troponin and CK. Hold Eliquis until clearly no evidence of hemorrhage. Continue statin 40 mg p.o. daily uop improving. GI: Jevity 1.5 at 35 mL per hour through OGT per nutrition recommendation. Consider PPI prophylaxis due to risks of hypoperfusion. FEN/RENAL: Hypokalemia Hypocalcemia 40 mEq IV KCl received in the emergency department. Follow-up with ICU electrolyte protocol. Check magnesium. Monitor chemistries. Trend Cr. ID: Hypotension Hypothermia Leukocytosis with Left Shift Blood cultures taken. Received aztreonam and Levaquin in the emergency department. Urinalysis negative for evidence of bacterial infection. CXR negative. HEME: Monitor CBC. ENDO: Euglycemic. Monitor sugars. PROPH: SCDs for DVT prophylaxis. Initiate DVT prophylaxis if MRI unrevealing for hemorrhage. famotidine for stress ulcer prophylaxis ACCESS: R subclavian CV line placed on 06/03. OVERALL IMPRESSION: minimal improvements. overall quite guarded prognosis. will need to involve palliative care, as we are struggling to separate from mechanical ventilation. (1) Change in mental status Qualifiers: Altered mental status type: unspecified Qualified Code(s): R41.82 - Altered mental status, unspecified
--- NOTE | 2018-06-06 10:13 | MG ---
cc: Jarrell Potter MD EEG RECORD NUMBER: [id number] Increased electrical artifact. Background, initial theta delta frequencies 10-40 microvolts. Too much artifact on single-lead EKG. INTERPRETATION: Significant artifact noted with probable underlying moderate encephalopathy. Clinical correlation. MD YARY Herrera/rubi , 08:08 AM , 08:12 AM
--- NOTE | 2018-06-06 10:43 | XR ---
EXAM DATE: 06/06/2018 10:27 AM EST AGE/SEX: 87 years / Female INDICATIONS: Shortness of breath. CLINICAL DATA: This is the patient's subsequent encounter. Patient reports that signs and symptoms h ave been present for 4 - 6 days and indicates a pain score of Nonresponsive. MEDICAL/SURGICAL HISTORY: Hypertension. Skin cancer. Appendectomy. Cholecystectomy. [place] [facility] [place]. . FINDINGS: A single AP view of the chest demonstrates right-sided chest tube. No pneumothorax. Status post CABG. Endotracheal tube, nasogastric tube and right subclavian central line are stable position. Interstit ial densities. Bibasilar atelectasis. The cardiomediastinal contours are unremarkable. Osseous struc tures are intact. CONCLUSION: Stable chest with chronic interstitial densities and bibasilar atelectasis. Electronically signed by: Italo Johnston MD Board Certified Radiologist 06/06/2018 10:42 AM EST
[2018-06-06] MEDS: Sod Chloride 0.9% Inj 1,000 ML IV.CONT SCH ×2 (10:45→19:43)
--- NOTE | 2018-06-06 11:01 | P.PNNEU ---
Subjective Subjective Comments: No acute events Active Medications: Active Medications Acetaminophen (Tylenol) 650 mg PO Q6H PRN PRN Reason: pain 1-2 or temp >100.4 Hydrocodone Bitart/Acetaminophen (T[place]carora 5/325) 1 tab PO Q4H PRN PRN Reason: PAIN SCALE 3-7 Al Hydroxide/Mg Hydroxide (Milk Of Magnesia Liq) 30 ml PO Q12H PRN PRN Reason: Mild Constipation Albuterol (Albuterol Neb (Prn)) 2.5 mg NEB Q2HR NEB PRN PRN Reason: SHORTNESS OF BREATH/WHEEZING Aspirin (Aspirin) 325 mg PO DAILY [facility] Last Admin: 06/06/18 09:04 Dose: 325 mg Atorvastatin Calcium (Lipitor) 40 mg PO DAILY [facility] Last Admin: 06/06/18 09:04 Dose: 40 mg Bisacodyl (Dulcolax Supp) 10 mg RECTAL DAILY PRN PRN Reason: SEVERE CONSITIPATION Chlorhexidine Gluconate (Chlorhexidine 2% Cloth) 3 pack TOPICAL DAILY@0400 [facility] Stop: 06/09/18 03:59 Last Admin: 06/06/18 04:44 Dose: 3 pack Chlorhexidine Gluconate (Chlorhexidine 2% Cloth) 3 pack TOPICAL DAILY@0400 PRN PRN Reason: Extra cloth needed Stop: 06/09/18 03:59 Chlorhexidine Gluconate (Peridex 0.12% Oral Kit) 15 ml OROPHARYNG BID@0800, 2000 [facility] Last Admin: 06/06/18 09:03 Dose: 15 ml Donepezil HCl (Aricept) 10 mg PO HS [facility] Last Admin: 06/05/18 20:32 Dose: 10 mg Famotidine (Pepcid Pf Inj) 20 mg IV.PUSH Q12HR [facility] Last Admin: 06/06/18 09:04 Dose: 20 mg Ferrous Sulfate (Ferosul) 325 mg PO DAILY [facility] Last Admin: 06/06/18 09:05 Dose: Not Given Propofol (Diprivan 1000 Mg/100 Ml Inj) 1,000 mg in 100 mls @ 1.293 mls/hr IV.CONT TITRATE PRN; Protocol PRN Reason: Per Protocol Last Titration: 06/04/18 17:00 Dose: Infused Sodium Chloride (Ns Inj) 1,000 mls @ 100 mls/hr IV.CONT .Q10H [facility] Last Admin: 06/06/18 10:45 Dose: 100 mls/hr Magnesium Sulfate 4 gm/ Sodium (Chloride) 100 mls @ 50 mls/hr IV.SIG UNSCH PRN PRN Reason: For Magnesium 0.9 - 1.1 mg/dL Magnesium Sulfate 2 gm/ Sodium (Chloride) 100 mls @ 50 mls/hr IV.SIG UNSCH PRN PRN Reason: For Magnesium 1.2 - 1.6 mg/dL Potassium Chloride (Kcl 40 Meq Premix Inj) 40 meq in 100 mls @ 25 mls/hr IV.SIG Q2H PRN PRN Reason: For Potassium 2.8 - 3.2 mEq/L Last Infusion: 06/04/18 10:00 Dose: Infused Potassium Chloride (Kcl 20 Meq Premix Inj) 20 meq in 100 mls @ 50 mls/hr IV.SIG Q2H PRN PRN Reason: For Potassium 3.3 - 3.5 mEq/L Potassium Chloride (Kcl 40 Meq Premix Inj) 40 meq in 100 mls @ 25 mls/hr IV.SIG UNSCH PRN PRN Reason: For Potassium 3.3 - 3.5 mEq/L Potassium Chloride (Kcl 20 Meq Premix Inj) 20 meq in 100 mls @ 50 mls/hr IV.SIG Q2H PRN PRN Reason: For Potassium 2.8 - 3.2 mEq/L Potassium Phosphate 30 mmol/ (Sodium Chloride) 260 mls @ 42 mls/hr IV.SIG UNSCH PRN PRN Reason: SEE LABEL COMMENTS Last Infusion: 06/04/18 22:34 Dose: Infused Sodium Phosphate 30 mmol/ (Sodium Chloride) 260 mls @ 42 mls/hr IV.SIG UNSCH PRN PRN Reason: For Phosphorus < 2.5 mg/dL Fentanyl (Fentanyl 10 Mcg/Ml Premix Drip) 2,500 mcg in 250 mls @ 5 mls/hr IV.SIG TITRATE PRN; Protocol PRN Reason: Per Protocol Norepinephrine Bitartrate 4 mg (/ Sodium Chloride) 250 mls @ 7.5 mls/hr IV.SIG TITRATE PRN; Protocol PRN Reason: Per Protocol Last Titration: 06/05/18 08:45 Dose: Infused Aztreonam 2 gm/ Sodium (Chloride) 100 mls @ 200 mls/hr IV.SIG Q8H [facility] Last Infusion: 06/06/18 06:15 Dose: Infused Phenylephrine HCl 40 mg/ (Sodium Chloride) 500 mls @ 30 mls/hr IV.CONT TITRATE PRN; Protocol PRN Reason: Per Protocol Last Titration: 06/05/18 10:27 Dose: 0 mcg/min, 0 mls/hr Vancomycin HCl 750 mg/ Sodium (Chloride) 257.5 mls @ 250 mls/hr IV.SIG Q24H [facility] Last Infusion: 06/05/18 14:30 Dose: Infused Lactulose (Lactulose Liq) 30 ml PO DAILY PRN PRN Reason: SEVERE CONSITIPATION Magnesium Oxide (Mag-Ox) 800 mg PO UNSCH PRN PRN Reason: For Magnesium 1.2 - 1.6 mg/dL Miscellaneous (Pill Splitter) 1 each OTHER [facility] Miscellaneous Information ([facility] Ordered Lab Info) 0 each OTHER ONCE ONE Stop: 06/07/18 13:46 Miscellaneous Medication () 1 each OROPHARYNG 0000,0400,1200,1600 [facility] Last Admin: 06/06/18 04:45 Dose: 1 each Modafinil (Provigil) 100 mg PO DAILY [facility] Last Admin: 06/06/18 09:03 Dose: 100 mg Morphine Sulfate (Morphine Inj) 2 mg IV.PUSH Q2H PRN PRN Reason: pain 8-10 Last Admin: 06/06/18 00:42 Dose: 2 mg Ondansetron HCl (Zofran Inj) 4 mg IV.PUSH Q6H PRN PRN Reason: NAUSEA OR VOMITING Pharmacy Profile Note (Vancomycin Consult Pharmacy) 1 each OTHER UNSCH PRN PRN Reason: Pharmacy to dose Potassium Chloride (Kcl Liq) 40 meq PO UNSCH PRN PRN Reason: Potassium level 3.3-3.5 mEq/L Potassium Chloride (Kcl Liq) 40 meq PO UNSCH PRN PRN Reason: POTASSIUM LESS THAN 3.5 Potassium Phosphate (K-Phos Original) 2,000 mg PO Q4H PRN PRN Reason: Phosphorus Less Than 2.5 mg/dL Potassium Phosphate (K-Phos Original) 2,000 mg PO UNSCH PRN PRN Reason: SEE LABEL COMMENTS Senna/Docusate Sodium (Katarzyna-Colace) 1 tab PO BID [facility] Last Admin: 06/06/18 09:04 Dose: 1 tab Sennosides (Senokot) 17.2 mg PO Q12H PRN PRN Reason: Moderate Constipation Sodium Chloride (Ns Flush) 2 ml IV.FLUSH BID [facility] Last Admin: 06/06/18 09:05 Dose: 2 ml Sodium Chloride (Ns Flush) 2 ml IV.FLUSH PRN PRN PRN Reason: FLUSH AFTER USING IV ACCESS Terbutaline Sulfate (Brethine Inj) 1 mg SQ UNSCH PRN PRN Reason: For Extravasation Allergies/Adverse Reactions: Allergies Allergy/AdvReac Type Severity Reaction Status Date / Time Penicillins Allergy Unknown Verified 01/14/17 15:37 Sulfa (Sulfonamide Allergy Unknown Verified 01/14/17 15:37 Antibiotics) Review of Systems unobtainable due to mental condition Physical Exam Vital signs: Vital Signs 06/05/18 11:15 06/05/18 11:30 06/05/18 11:45 Temperature Pulse Rate 111 H 108 H 108 H Respiratory Rate 27 H 26 H 20 Blood Pressure 111/59 L 117/60 113/66 Pulse Oximetry 98 98 98 06/05/18 11:50 06/05/18 12:00 06/05/18 12:15 Temperature 99.4 F Pulse Rate 107 H 110 H Respiratory Rate 20 20 24 Blood Pressure 117/65 118/83 Pulse Oximetry 98 98 98 06/05/18 12:30 06/05/18 12:45 06/05/18 13:00 Temperature Pulse Rate 115 H 108 H 106 H Respiratory Rate 19 25 H 22 Blood Pressure 124/74 115/73 116/59 L Pulse Oximetry 98 98 98 06/05/18 13:15 06/05/18 13:30 06/05/18 13:45 Temperature Pulse Rate 104 H 113 H 116 H Respiratory Rate 18 22 23 Blood Pressure 124/57 L 130/62 138/65 Pulse Oximetry 98 98 98 06/05/18 14:00 06/05/18 14:15 06/05/18 14:30 Temperature Pulse Rate 111 H 122 H 124 H Respiratory Rate 21 21 17 Blood Pressure 138/70 148/72 H 143/64 H Pulse Oximetry 98 97 98 06/05/18 15:12 06/05/18 15:13 06/05/18 15:32 Temperature Pulse Rate 112 H Respiratory Rate 16 Blood Pressure 133/66 124/72 Pulse Oximetry 98 97 92 L 06/05/18 15:40 06/05/18 16:00 06/05/18 16:02 Temperature 97.9 F Pulse Rate 122 H 115 H Respiratory Rate 17 15 Blood Pressure 117/73 Pulse Oximetry 96 96 95 06/05/18 16:32 06/05/18 17:00 06/05/18 17:02 Temperature Pulse Rate 119 H 109 H 114 H Respiratory Rate 16 14 16 Blood Pressure 116/69 119/79 Pulse Oximetry 92 L 93 L 94 L 06/05/18 17:32 06/05/18 18:00 06/05/18 18:02 Temperature Pulse Rate 109 H 119 H 116 H Respiratory Rate 13 18 18 Blood Pressure 121/64 118/67 Pulse Oximetry 98 95 95 06/05/18 18:32 06/05/18 19:00 06/05/18 19:02 Temperature Pulse Rate 109 H 110 H 110 H Respiratory Rate 15 15 16 Blood Pressure 111/70 117/64 Pulse Oximetry 93 L 98 98 06/05/18 19:32 06/05/18 19:49 06/05/18 20:00 Temperature 97.7 F Pulse Rate 108 H 114 H Respiratory Rate 14 14 13 Blood Pressure 117/65 Pulse Oximetry 98 100 100 06/05/18 20:02 06/05/18 20:32 06/05/18 21:00 Temperature Pulse Rate 123 H 114 H 109 H Respiratory Rate 16 16 13 Blood Pressure 118/75 112/68 Pulse Oximetry 98 99 100 06/05/18 21:02 06/05/18 21:32 06/05/18 22:00 Temperature Pulse Rate 108 H 108 H 120 H Respiratory Rate 14 12 15 Blood Pressure 130/74 112/64 Pulse Oximetry 100 97 98 06/05/18 22:02 06/05/18 22:32 06/05/18 23:00 Temperature Pulse Rate 116 H 108 H 117 H Respiratory Rate 13 13 14 Blood Pressure 119/69 119/78 Pulse Oximetry 100 98 99 06/05/18 23:02 06/05/18 23:15 06/05/18 23:32 Temperature Pulse Rate 118 H 110 H Respiratory Rate 14 12 14 Blood Pressure 118/81 115/68 Pulse Oximetry 99 99 98 06/06/18 00:00 06/06/18 00:02 06/06/18 00:32 Temperature 98.0 F Pulse Rate 112 H 114 H 109 H Respiratory Rate 15 12 19 Blood Pressure 115/73 122/92 H Pulse Oximetry 98 98 98 06/06/18 01:00 06/06/18 01:02 06/06/18 01:32 Temperature Pulse Rate 99 H 98 H 99 H Respiratory Rate 12 12 15 Blood Pressure 100/60 109/67 Pulse Oximetry 98 98 98 06/06/18 02:00 06/06/18 02:02 06/06/18 02:32 Temperature 97.5 F L 97.9 F Pulse Rate 102 H 101 H 96 H Respiratory Rate 12 12 12 Blood Pressure 105/55 L 102/64 Pulse Oximetry 98 98 97 06/06/18 03:00 06/06/18 03:02 06/06/18 03:32 Temperature Pulse Rate 100 H 100 H 90 Respiratory Rate 15 13 12 Blood Pressure 102/60 106/71 Pulse Oximetry 97 97 98 06/06/18 03:58 06/06/18 04:00 06/06/18 04:02 Temperature 98.0 F Pulse Rate 96 H 102 H Respiratory Rate 12 12 12 Blood Pressure 110/68 Pulse Oximetry 97 97 97 06/06/18 04:32 06/06/18 05:00 06/06/18 05:02 Temperature Pulse Rate 91 H 86 86 Respiratory Rate 12 13 12 Blood Pressure 110/60 114/62 Pulse Oximetry 97 97 97 06/06/18 05:32 06/06/18 06:00 06/06/18 06:02 Temperature 97.7 F Pulse Rate 87 81 87 Respiratory Rate 12 12 12 Blood Pressure 113/60 113/61 Pulse Oximetry 97 98 97 06/06/18 06:32 06/06/18 07:00 06/06/18 07:02 Temperature Pulse Rate 84 79 79 Respiratory Rate 12 12 12 Blood Pressure 109/57 L 100/64 Pulse Oximetry 97 97 98 06/06/18 07:32 06/06/18 07:58 06/06/18 08:00 Temperature 97.5 F L Pulse Rate 78 81 Respiratory Rate 12 8 L 9 L Blood Pressure 103/59 L Pulse Oximetry 98 97 98 06/06/18 08:02 06/06/18 08:32 06/06/18 09:00 Temperature Pulse Rate 82 85 77 Respiratory Rate 11 L 13 12 Blood Pressure 106/57 L 108/57 L Pulse Oximetry 97 97 97 06/06/18 09:02 Temperature Pulse Rate 102 H Respiratory Rate 23 Blood Pressure 114/73 Pulse Oximetry 97 Intake & Output 06/05/18 06/06/18 06/06/18 18:59 06:59 18:59 Intake Total 2557.5 / 2557.5 1395 / 1395 1000 / 1000 Output Total 335 / 335 250 / 250 Balance 2222.5 / 2222.5 1145 / 1145 1000 / 1000 Weight 46.7 kg Intake: IV 2557.5 / 2557.5 1150 / 1150 1000 / 1000 Neosynephrine Inj 40 MG In NS 500 / 500 Inj 496 ML @ 40 MCG/MIN 30 mls/ hr IV.CONT TITRATE PRN Rx#: [id number] NS Inj 1,000 ML @ 100 mls/hr IV 1000 / 1000 850 / 850 1000 / 1000 .CONT .Q10H [facility] Rx#:[id number] Alburx 5% Inj 500 ML @ 250 mls/ 500 / 500 hr IV.SIG STAT STA Rx#:[id number] Azactam Inj 2 GM In NS Inj 100 100 / 100 200 / 200 ML @ 200 mls/hr IV.SIG Q8H [facility] Rx#:[id number] Levophed Inj 4 MG In NS Inj 246 200 / 200 ML @ 2 MCG/MIN 7.5 mls/hr IV. SIG TITRATE PRN Rx#:[id number] Vancomycin Inj 750 MG In NS Inj 257.5 / 257.5 250 ML @ 250 mls/hr IV.SIG Q24H [facility] Rx#:[id number] Tube Feeding 125 / 125 Tube Irrigant 120 / 120 Output: Urine Amount (Catheter) 325 / 325 250 / 250 Indwelling Urethral Catheter 325 / 325 250 / 250 Chest Tube Drainage 10 / 10 0 / 0 #1 Right Anterior 10 / 10 0 / 0 Narrative: GENERAL: in NAD, SKIN: Warm and dry. HEAD: Atraumatic. Normocephalic. EYES: Pupils equal and round. ENT: No nasal bleeding or discharge. NECK: Trachea midline. CARDIOVASCULAR: Irregularly irregular RESPIRATORY: Intubated GASTROINTESTINAL: Abdomen soft, non-tender, nondistended. MUSCULOSKELETAL: Extremities without clubbing, cyanosis, or edema. NEUROLOGICAL: Mildly somnolent, global aphasia, intubated no gaze preference, OU approximately 1-2 mm sluggishly reactive, intubated, localized to the left upper lower extremity right hemiplegia right extensor plantar PSYCHIATRIC: Calm - Constitutional no acute distress - Routine HEENT Exam Head: Present: normocephalic - Urinary Catheter Management Indwelling Urethral Catheter Cath placed during this visit: yes Reason for continuing: Terminally ill/Comfort care Insertion date: 06/03/18 Insertion time: 18:30 Objective Microbiology 06/03/18 17:20 Aerobic Blood Culture - Preliminary Blood - Peripheral No growth in 2 days Anaerobic Blood Culture - Preliminary No growth in 2 days 06/03/18 17:25 Aerobic Blood Culture - Preliminary Blood - Peripheral No growth in 2 days Anaerobic Blood Culture - Preliminary No growth in 2 days Review/Management - Diagnosis (1) Acute ischemic stroke Code(s): I63.9 - Cerebral infarction, unspecified Status: Acute Current Visit: Yes (2) Atrial fibrillation, new onset Code(s): I48.91 - Unspecified atrial fibrillation Status: Chronic Current Visit: Yes (3) Respiratory failure requiring intubation Code(s): J96.90 - Respiratory failure, unspecified, unspecified whether with hypoxia or hypercapnia Status: Acute Current Visit: Yes (4) Left carotid artery occlusion Code(s): I65.22 - Occlusion and stenosis of left carotid artery Status: Acute Current Visit: Yes - Review/Management Plan: Left subcortical ischemic infarct MRI brain images reviewed. Carotid ultrasound suggesting possible left carotid occlusion. Infarct likely related to the occlusion which may be acute or chronic with underlying history of A. fib and questionable compliance on anticoagulation MRI brain demonstrate left ICA occlusion LDL 88 Echo showing EF proxy 45% with ventricular hypokinesis Recommendation Neuro stable Respiratory failure main issue at present. 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 fib, stroke Follow exam
[2018-06-06] MEDS: Vancomycin Inj 750 MG in Sodium Chlor 0.9% Inj 250 ML IV.SIG SCH (13:03)
[2018-06-07] MEDS: Oral Hygiene Kit OROPHARYNG SCH ×4 (00:50→18:47)
[2018-06-07] MEDS: Chlorhexidine Gluconate 2% 1 Pack (2 Cloths) TOPICAL SCH (04:51)
--- NOTE | 2018-06-07 05:13 | XR ---
EXAM DATE: 06/07/2018 3:52 AM EST AGE/SEX: 87 years / Female INDICATIONS: Painful respirations. CLINICAL DATA: This is the patient's subsequent encounter. Patient reports that signs and symptoms h ave been present for 4 - 6 days and indicates a pain score of Nonresponsive. MEDICAL/SURGICAL HISTORY: Hypertension. Myocardial infarction. Carcinoma, skin cancer. Coron tara artery disease. Smoker. Appendectomy. CABG. Cholecystectomy. [place] [facility] [place]06/[place]. . FINDINGS: A single AP view of the chest demonstrates the lungs to be symmetrically aerated with stable bilatera l interstitial prominence. Interval removal of the right-sided cope loop thoracostomy tube with devel opment of a small, 1.5 cm right apical pneumothorax. Heart size is normal. Findings of prior CABG wit h intact median sternotomy wires. Endotracheal tube is appropriately positioned above the destiny. Jake ogastric tube is identified with the tip in the gastric lumen. Fracture deformity of the proximal lef t humerus. Dextroscoliosis of the dorsal spine. CONCLUSION: 1. Stable bilateral interstitial prominence. 2. Interval removal of the right cope loop thoracostomy tube with development of a small, 1.5 cm rig ht apical pneumothorax. 3. Endotracheal and nasogastric tubes remain appropriately positioned. 4. Findings of prior CABG. The most inferior median sternotomy wire is fractured. 5. Chronic fracture deformity of the proximal left humerus. Electronically signed by: Orlando Kohli MD Board Certified Radiologist 06/07/2018 5:12 AM EST
[2018-06-07] MEDS: Aztreonam Inj 2 GM in Sodium Chloride 0.9% Inj 100 ML IV.SIG SCH ×3 (05:50→20:26)
[2018-06-07] MEDS: Sod Chloride 0.9% Inj 1,000 ML IV.CONT SCH ×2 (05:53→14:06)
[2018-06-07] MEDS: Aspirin 325 MG Tablet PO SCH (08:12)
[2018-06-07] MEDS: Chlorhexidine 0.12% Oral Kit 15 ML UDC OROPHARYNG SCH ×2 (08:12→20:26)
[2018-06-07] MEDS: Ferrous Sulfate 325 MG Tablet PO SCH (08:13)
[2018-06-07] MEDS: Modafinil 200 MG Tablet PO SCH (08:13)
[2018-06-07] MEDS: Famotidine PF Inj 20 MG/2 ML Vial IV.PUSH SCH ×2 (08:13→20:27)
[2018-06-07] MEDS: Senna/Docusate Sodium 8.6/50 MG Tablet PO SCH ×2 (08:13→20:26)
--- NOTE | 2018-06-07 09:26 | P.PNNEU ---
Subjective Subjective Comments: no acute events Active Medications: Active Medications Acetaminophen (Tylenol) 650 mg PO Q6H PRN PRN Reason: pain 1-2 or temp >100.4 Hydrocodone Bitart/Acetaminophen ([place] 5/325) 1 tab PO Q4H PRN PRN Reason: PAIN SCALE 3-7 Al Hydroxide/Mg Hydroxide (Milk Of Magnesia Liq) 30 ml PO Q12H PRN PRN Reason: Mild Constipation Albuterol (Albuterol Neb (Prn)) 2.5 mg NEB Q2HR NEB PRN PRN Reason: SHORTNESS OF BREATH/WHEEZING Aspirin (Aspirin) 325 mg PO DAILY [facility] Last Admin: 06/07/18 08:12 Dose: 325 mg Atorvastatin Calcium (Lipitor) 40 mg PO DAILY [facility] Last Admin: 06/07/18 08:13 Dose: 40 mg Bisacodyl (Dulcolax Supp) 10 mg RECTAL DAILY PRN PRN Reason: SEVERE CONSITIPATION Chlorhexidine Gluconate (Chlorhexidine 2% Cloth) 3 pack TOPICAL DAILY@0400 [facility] Stop: 06/09/18 03:59 Last Admin: 06/07/18 04:51 Dose: 3 pack Chlorhexidine Gluconate (Chlorhexidine 2% Cloth) 3 pack TOPICAL DAILY@0400 PRN PRN Reason: Extra cloth needed Stop: 06/09/18 03:59 Chlorhexidine Gluconate (Peridex 0.12% Oral Kit) 15 ml OROPHARYNG BID@0800, 2000 [facility] Last Admin: 06/07/18 08:12 Dose: 15 ml Donepezil HCl (Aricept) 10 mg PO HS [facility] Last Admin: 06/06/18 20:58 Dose: 10 mg Famotidine (Pepcid Pf Inj) 20 mg IV.PUSH Q12HR [facility] Last Admin: 06/07/18 08:13 Dose: 20 mg Ferrous Sulfate (Ferosul) 325 mg PO DAILY [facility] Last Admin: 06/07/18 08:13 Dose: 325 mg Propofol (Diprivan 1000 Mg/100 Ml Inj) 1,000 mg in 100 mls @ 1.293 mls/hr IV.CONT TITRATE PRN; Protocol PRN Reason: Per Protocol Last Titration: 06/04/18 17:00 Dose: Infused Sodium Chloride (Ns Inj) 1,000 mls @ 100 mls/hr IV.CONT .Q10H [facility] Last Admin: 06/07/18 05:53 Dose: 100 mls/hr Magnesium Sulfate 4 gm/ Sodium (Chloride) 100 mls @ 50 mls/hr IV.SIG UNSCH PRN PRN Reason: For Magnesium 0.9 - 1.1 mg/dL Magnesium Sulfate 2 gm/ Sodium (Chloride) 100 mls @ 50 mls/hr IV.SIG UNSCH PRN PRN Reason: For Magnesium 1.2 - 1.6 mg/dL Potassium Chloride (Kcl 40 Meq Premix Inj) 40 meq in 100 mls @ 25 mls/hr IV.SIG Q2H PRN PRN Reason: For Potassium 2.8 - 3.2 mEq/L Last Infusion: 06/04/18 10:00 Dose: Infused Potassium Chloride (Kcl 20 Meq Premix Inj) 20 meq in 100 mls @ 50 mls/hr IV.SIG Q2H PRN PRN Reason: For Potassium 3.3 - 3.5 mEq/L Potassium Chloride (Kcl 40 Meq Premix Inj) 40 meq in 100 mls @ 25 mls/hr IV.SIG UNSCH PRN PRN Reason: For Potassium 3.3 - 3.5 mEq/L Potassium Chloride (Kcl 20 Meq Premix Inj) 20 meq in 100 mls @ 50 mls/hr IV.SIG Q2H PRN PRN Reason: For Potassium 2.8 - 3.2 mEq/L Potassium Phosphate 30 mmol/ (Sodium Chloride) 260 mls @ 42 mls/hr IV.SIG UNSCH PRN PRN Reason: SEE LABEL COMMENTS Last Infusion: 06/04/18 22:34 Dose: Infused Sodium Phosphate 30 mmol/ (Sodium Chloride) 260 mls @ 42 mls/hr IV.SIG UNSCH PRN PRN Reason: For Phosphorus < 2.5 mg/dL Fentanyl (Fentanyl 10 Mcg/Ml Premix Drip) 2,500 mcg in 250 mls @ 5 mls/hr IV.SIG TITRATE PRN; Protocol PRN Reason: Per Protocol Norepinephrine Bitartrate 4 mg (/ Sodium Chloride) 250 mls @ 7.5 mls/hr IV.SIG TITRATE PRN; Protocol PRN Reason: Per Protocol Last Titration: 06/05/18 08:45 Dose: Infused Aztreonam 2 gm/ Sodium (Chloride) 100 mls @ 200 mls/hr IV.SIG Q8H [facility] Last Infusion: 06/07/18 06:28 Dose: Infused Phenylephrine HCl 40 mg/ (Sodium Chloride) 500 mls @ 30 mls/hr IV.CONT TITRATE PRN; Protocol PRN Reason: Per Protocol Last Titration: 06/06/18 21:53 Dose: Infused Vancomycin HCl 750 mg/ Sodium (Chloride) 257.5 mls @ 250 mls/hr IV.SIG Q24H [facility] Last Infusion: 06/06/18 19:00 Dose: Infused Lactulose (Lactulose Liq) 30 ml PO DAILY PRN PRN Reason: SEVERE CONSITIPATION Magnesium Oxide (Mag-Ox) 800 mg PO UNSCH PRN PRN Reason: For Magnesium 1.2 - 1.6 mg/dL Miscellaneous (Pill Splitter) 1 each OTHER UNSCH [facility] Miscellaneous Information ([facility] Ordered Lab Info) 0 each OTHER ONCE ONE Stop: 06/07/18 13:46 Miscellaneous Medication () 1 each OROPHARYNG 0000,0400,1200,1600 [facility] Last Admin: 06/07/18 04:54 Dose: 1 each Modafinil (Provigil) 100 mg PO DAILY [facility] Last Admin: 06/07/18 08:13 Dose: 100 mg Morphine Sulfate (Morphine Inj) 2 mg IV.PUSH Q2H PRN PRN Reason: pain 8-10 Last Admin: 06/06/18 00:42 Dose: 2 mg Ondansetron HCl (Zofran Inj) 4 mg IV.PUSH Q6H PRN PRN Reason: NAUSEA OR VOMITING Pharmacy Profile Note (Vancomycin Consult Pharmacy) 1 each OTHER UNSCH PRN PRN Reason: Pharmacy to dose Potassium Chloride (Kcl Liq) 40 meq PO UNSCH PRN PRN Reason: Potassium level 3.3-3.5 mEq/L Potassium Chloride (Kcl Liq) 40 meq PO UNSCH PRN PRN Reason: POTASSIUM LESS THAN 3.5 Potassium Phosphate (K-Phos Original) 2,000 mg PO Q4H PRN PRN Reason: Phosphorus Less Than 2.5 mg/dL Potassium Phosphate (K-Phos Original) 2,000 mg PO UNSCH PRN PRN Reason: SEE LABEL COMMENTS Senna/Docusate Sodium (Katarzyna-Colace) 1 tab PO BID [facility] Last Admin: 06/07/18 08:13 Dose: 1 tab Sennosides (Senokot) 17.2 mg PO Q12H PRN PRN Reason: Moderate Constipation Sodium Chloride (Ns Flush) 2 ml IV.FLUSH BID [facility] Last Admin: 06/07/18 08:21 Dose: 2 ml Sodium Chloride (Ns Flush) 2 ml IV.FLUSH PRN PRN PRN Reason: FLUSH AFTER USING IV ACCESS Terbutaline Sulfate (Brethine Inj) 1 mg SQ UNSCH PRN PRN Reason: For Extravasation Allergies/Adverse Reactions: Allergies Allergy/AdvReac Type Severity Reaction Status Date / Time Penicillins Allergy Unknown Verified 01/14/17 15:37 Sulfa (Sulfonamide Allergy Unknown Verified 01/14/17 15:37 Antibiotics) Review of Systems unobtainable due to endotracheal tube, unobtainable due to mental status Physical Exam Vital signs: Vital Signs 06/06/18 09:32 06/06/18 10:00 06/06/18 10:02 Temperature Pulse Rate 77 76 79 Respiratory Rate 12 11 L 11 L Blood Pressure 114/59 L 112/64 Pulse Oximetry 96 96 96 06/06/18 10:32 06/06/18 11:00 06/06/18 11:02 Temperature Pulse Rate 73 71 74 Respiratory Rate 11 L 11 L 11 L Blood Pressure 103/59 L 101/58 L Pulse Oximetry 96 96 96 06/06/18 11:32 06/06/18 12:00 06/06/18 12:02 Temperature 97.4 F L Pulse Rate 72 99 H 75 Respiratory Rate 11 L 14 13 Blood Pressure 105/69 103/60 Pulse Oximetry 96 97 96 06/06/18 12:32 06/06/18 12:50 06/06/18 13:00 Temperature Pulse Rate 72 75 Respiratory Rate 11 L 12 11 L Blood Pressure 106/60 Pulse Oximetry 96 97 96 06/06/18 13:02 06/06/18 13:32 06/06/18 14:00 Temperature Pulse Rate 81 82 77 Respiratory Rate 12 13 12 Blood Pressure 102/54 L 101/59 L Pulse Oximetry 96 97 97 06/06/18 14:02 06/06/18 14:32 06/06/18 15:00 Temperature Pulse Rate 75 75 94 H Respiratory Rate 13 12 14 Blood Pressure 92/57 L 91/50 L Pulse Oximetry 97 97 97 06/06/18 15:02 06/06/18 15:32 06/06/18 16:00 Temperature 98.1 F Pulse Rate 101 H 81 86 Respiratory Rate 14 13 14 Blood Pressure 98/54 L 100/59 L Pulse Oximetry 97 96 96 06/06/18 16:02 06/06/18 16:32 06/06/18 17:00 Temperature Pulse Rate 86 107 H 85 Respiratory Rate 14 28 H 15 Blood Pressure 101/64 108/69 Pulse Oximetry 96 97 96 06/06/18 17:02 06/06/18 17:31 06/06/18 17:32 Temperature Pulse Rate 84 80 Respiratory Rate 16 13 12 Blood Pressure 110/59 L 111/62 Pulse Oximetry 97 96 96 06/06/18 18:00 06/06/18 18:02 06/06/18 18:32 Temperature Pulse Rate 105 H 93 H 80 Respiratory Rate 13 12 12 Blood Pressure 110/58 L 102/65 Pulse Oximetry 96 96 96 06/06/18 19:00 06/06/18 19:02 06/06/18 19:32 Temperature Pulse Rate 107 H 101 H 85 Respiratory Rate 8 L 12 12 Blood Pressure 105/61 102/68 Pulse Oximetry 97 97 97 06/06/18 19:58 06/06/18 20:00 06/06/18 20:02 Temperature 98.4 F Pulse Rate 109 H 100 H Respiratory Rate 18 Blood Pressure 115/74 Pulse Oximetry 96 97 95 06/06/18 20:32 06/06/18 21:00 06/06/18 21:02 Temperature Pulse Rate 93 H 100 H 112 H Respiratory Rate 12 22 22 Blood Pressure 109/60 112/66 Pulse Oximetry 96 95 97 06/06/18 21:32 06/06/18 22:00 06/06/18 22:02 Temperature Pulse Rate 109 H 98 H 105 H Respiratory Rate 15 13 15 Blood Pressure 118/67 113/68 Pulse Oximetry 99 99 99 06/06/18 22:32 06/06/18 23:00 06/06/18 23:02 Temperature 97.9 F Pulse Rate 105 H 92 H 89 Respiratory Rate 23 12 12 Blood Pressure 120/67 110/59 L Pulse Oximetry 97 99 99 06/06/18 23:32 06/07/18 00:00 06/07/18 00:02 Temperature Pulse Rate 90 85 83 Respiratory Rate 12 12 12 Blood Pressure 99/60 L 106/62 Pulse Oximetry 99 99 99 06/07/18 00:15 06/07/18 00:32 06/07/18 01:00 Temperature Pulse Rate 78 93 H Respiratory Rate 13 12 17 Blood Pressure 101/65 Pulse Oximetry 99 99 99 06/07/18 01:02 06/07/18 01:32 06/07/18 02:00 Temperature Pulse Rate 94 H 87 81 Respiratory Rate 17 14 13 Blood Pressure 110/64 112/61 Pulse Oximetry 99 99 98 06/07/18 02:02 06/07/18 02:32 06/07/18 03:00 Temperature Pulse Rate 88 73 80 Respiratory Rate 14 12 13 Blood Pressure 107/67 107/56 L Pulse Oximetry 99 98 99 06/07/18 03:02 06/07/18 03:32 06/07/18 04:00 Temperature 98.5 F Pulse Rate 79 89 90 Respiratory Rate 13 13 16 Blood Pressure 111/63 120/58 L Pulse Oximetry 98 98 98 06/07/18 04:07 06/07/18 04:10 06/07/18 04:19 Temperature Pulse Rate 87 76 Respiratory Rate 15 12 12 Blood Pressure 119/60 114/56 L Pulse Oximetry 97 98 98 06/07/18 04:39 06/07/18 05:00 06/07/18 05:09 Temperature Pulse Rate 70 82 76 Respiratory Rate 12 12 12 Blood Pressure 115/57 L 118/68 Pulse Oximetry 98 98 98 06/07/18 05:39 06/07/18 06:00 06/07/18 06:09 Temperature Pulse Rate 75 89 76 Respiratory Rate 12 12 12 Blood Pressure 109/65 114/64 Pulse Oximetry 98 98 98 06/07/18 07:00 06/07/18 07:09 06/07/18 07:39 Temperature 98.7 F Pulse Rate 90 83 97 H Respiratory Rate 12 12 18 Blood Pressure 115/72 118/70 Pulse Oximetry 98 98 97 06/07/18 08:00 Temperature Pulse Rate Respiratory Rate 23 Blood Pressure Pulse Oximetry 97 Intake & Output 06/06/18 06/07/18 06/07/18 18:59 06:59 18:59 Intake Total 1376 / 1376 3217.5 / 3217.5 Output Total 175 / 175 100 / 100 Balance 1201 / 1201 3117.5 / 3117.5 Weight 49.2 kg Intake: IV 1100 / 1100 2657.5 / 2657.5 Neosynephrine Inj 40 MG In NS 200 / 200 Inj 496 ML @ 40 MCG/MIN 30 mls/ hr IV.CONT TITRATE PRN Rx#: [id number] NS Inj 1,000 ML @ 100 mls/hr IV 1000 / 1000 1999 / 1999 .CONT .Q10H [facility] Rx#:[id number] Azactam Inj 2 GM In NS Inj 100 100 / 100 200 / 200 ML @ 200 mls/hr IV.SIG Q8H [facility] Rx#:[id number] Vancomycin Inj 750 MG In NS Inj 257.5 / 257.5 250 ML @ 250 mls/hr IV.SIG Q24H [facility] Rx#:[id number] Tube Feeding 276 / 276 380 / 380 Tube Irrigant 180 / 180 Output: Urine 100 / 100 Urine Amount (Catheter) 175 / 175 Indwelling Urethral Catheter 175 / 175 Chest Tube Drainage 0 / 0 #1 Right Anterior 0 / 0 Other: # Bowel Movements 0 Narrative: GENERAL: in NAD, SKIN: Warm and dry. HEAD: Atraumatic. Normocephalic. EYES: Pupils equal and round. ENT: No nasal bleeding or discharge. NECK: Trachea midline. CARDIOVASCULAR: Irregularly irregular RESPIRATORY: Intubated GASTROINTESTINAL: Abdomen soft, non-tender, nondistended. MUSCULOSKELETAL: Extremities without clubbing, cyanosis, or edema. NEUROLOGICAL: intubated, Mildly somnolent, awakens to tactile. global aphasia, rt facial weakness, no gaze preference, OU tiny, sluggish, localizes to the left upper lower extremity right hemiplegia right extensor plantar PSYCHIATRIC: Calm - Constitutional no acute distress - Routine HEENT Exam Head: Present: normocephalic - Urinary Catheter Management Indwelling Urethral Catheter Cath placed during this visit: yes Reason for continuing: Terminally ill/Comfort care Insertion date: 06/03/18 Insertion time: 18:30 Objective Microbiology 06/03/18 17:20 Aerobic Blood Culture - Preliminary Blood - Peripheral No growth in 3 days Anaerobic Blood Culture - Preliminary No growth in 3 days 06/03/18 17:25 Aerobic Blood Culture - Preliminary Blood - Peripheral No growth in 3 days Anaerobic Blood Culture - Preliminary No growth in 3 days Review/Management - Diagnosis (1) Acute ischemic stroke Code(s): I63.9 - Cerebral infarction, unspecified Status: Acute Current Visit: Yes (2) Atrial fibrillation, new onset Code(s): I48.91 - Unspecified atrial fibrillation Status: Chronic Current Visit: Yes (3) Respiratory failure requiring intubation Code(s): J96.90 - Respiratory failure, unspecified, unspecified whether with hypoxia or hypercapnia Status: Acute Current Visit: Yes (4) Left carotid artery occlusion Code(s): I65.22 - Occlusion and stenosis of left carotid artery Status: Acute Current Visit: Yes - Review/Management Plan: Left subcortical ischemic infarct MRI brain images reviewed. Carotid ultrasound suggesting possible left carotid occlusion. Infarct likely related to the occlusion which may be acute or chronic with underlying history of A. fib and questionable compliance on anticoagulation MRI brain demonstrate left ICA occlusion LDL 88 Echo showing EF proxy 45% with ventricular hypokinesis Recommendation Neuro stable. vitals stable Respiratory failure main issue at present. 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 fib, stroke Follow exam
--- NOTE | 2018-06-07 11:27 | P.CONPAL ---
Consult Service: Palliative Care Requesting Physician: Sarkis Mchugh Reason for Consult: a. To assist with evaluation and management of symptoms including: Shortness of breath, altered mental status, debility b. To assist medical decision maker(s) with: better understanding of current medical conditions; weighing benefits/burdens of medical treatment options; making medical treatment decisions. Primary Care Provider: UNKNOWN History of Present Illness History of Present Illness: Mrs Kay is an 87-year-old female with a medical history significant for coronary artery disease S/P CABG, congestive heart failure, atrial fibrillation on chronic anticoagulation, myocardial infarction, diverticulosis, hypertension and hyperlipidemia. Patient was brought to the emergency room on 06/03/2018 for further evaluation of altered mental status. Patient was last seen normal in the morning by her spouse before he left for work and was found 9 hours later on the floor with altered mentation. Patient was reported to have a left- sided gaze in the emergency room. ER course: * Vital signs: Temperature 95.5F, pulse 80, respiration 30, BP 91/67. * EKG showed atrial fibrillation with rapid ventricular response low QRS voltage in extremity leads anteroseptal myocardial infarction. * Patient endotracheally intubated in the emergency room for shallow respirations. OG tube placed. Central line placed. * Chest x-ray revealed small right apical pneumothorax. * Pig tail chest tube placed * Head CT showed no acute intracranial abnormality. * Cervical spine CT revealed no acute fracture. Stable 3 mm anterolisthesis of C2 on C3 and 2 mm anterolisthesis of C7 on T1 is would be secondary to degenerative facet arthrosis. Small right apical pneumothorax. Multilevel degenerative spondylosis of the cervical spine. * Patient was not a candidate for TPA due to unknown time of onset. * Aztreonam and Levaquin administered in the emergency room. * Urinalysis negative for leukocyte esterase and nitrates. Culture not indicated. * Blood cultures collected-currently showing no growth in 4 days. * Patient admitted for further evaluation and treatment under critical care physicians. Carotid ultrasound on 06/04/18 showed moderate arteriosclerotic plaque in the right carotid and atherosclerotic plaquing at the carotid bifurcation and occlusion of left carotid artery. Echocardiogram on 06/04/18 showed moderately reduced left ventricular systolic function with an estimated ejection fraction in the range of 40-45%; moderate to severe tricuspid valve regurgitation and an estimated meld pulmonary hypertension (41 mmHg). Head MRI on 06/04/18 revealed acute nonhemorrhagic infarction in the lateral left thalamus and moderate severity central and cortical ischemic atrophy. Neurology Dr. Potter consulted on 06/05/18 to evaluate and manage patient with altered mental status, acute ischemic stroke, recommended follow-up MRA brain carotid, echocardiogram, permissive hypertension and starting patient on anticoagulation. MRA brain on showing suspected left internal carotid occlusion. Clinical course complicated with hypotension requiring pressor support, shortness of breath, altered mental status. Palliative care consulted to assist with symptom management and establishment of goals of medical treatment. Patient seen and examined on [facility], in the presence of her spouse Jeremy Kay. Patient is intubated, with no sedation on mechanical ventilation. Patient remains lethargic, minimally responsive to noxious stimulation. She has here eyes open and appears not to be tracking. Patient is not following any simple commands. Bedside RN reports withdrawal to noxious stimulation with left upper and lower extremities and minimal response with right upper and lower extremities. Discussion with patient spouse at bedside. Introduced palliative care and his role in symptom management and clarification of goals of medical treatment. Obtained psychosocial, past medical history and events leading to this hospitalization. Discussed patient's baseline functionality prior to this hospitalization. Patient has had significant decline in his memory in the past 3 months, has lost significant amount of weight (unable to quantify) and has required assistance with all her ADLs. According to patient`s spouse, patient has never completed advanced directives. Updated patient spouse on patient's current medical status. Discussed ongoing multiple medical comorbidities. Readdressed CODE STATUS, discussed CPR benefits, complications and limitations. Patient spouse states that at this time he wants patient to remain alternative code. He desires patient to be re-intubated if need be with no CPR , Shock and ACLS drugs. Expressed concern regarding patient's current neuro status and most likely inability to protect airway if she is ever medically extubated. Patient spouse verbalizes that at this point he is encouraged since patient is on CPAP trials. If by any chance she is medically extubated and goes into respiratory distress, he would want patient to be reintubated BUT would not proceed with tracheostomy and/or PEG tube placement if she cannot be medically extubated. Discussed at length progression of dementia and how it will significantly impact patient's functionality. Expressed concern that patient may not be able to return to her baseline functionality prior to this hospitalization given her recent left thalamic CVA. Discussed possible need for long-term care facility since patient may require possibly total assistance with his ADLs. Introduced hospice philosophy and benefits. Patient spouse is not ready for hospice at this time. Patient spouse appreciated for palliative care visit. Palliative care contact information provided. Case discussed with Dr. Mchugh and bedside RN. . Function/Cognitive Trajectory: Patient resides at home with her spouse. Patient uses a Rollator walker at home but usually uses dyer and furniture for support when ambulating in the house. Patient uses a wheelchair for long distances. Patient spouse assists with ADLs. Patient spouse reports decline in patient's memory in the past year but showed a significant decline in the past 3 months. He also reports poor appetite and significant weight loss in the past 2 months. . Review of Systems Constitutional: Reports lack of energy, Reports weakness, Denies increased appetite Eyes: Denies blurry vision, Denies loss of vision Ears, Nose, Mouth, and Throat: Reports abnormal hearing (Hard of hearing), Denies nasal discharge Cardiovascular: Reports generalized swelling, Reports shortness of breath, Denies foot swelling Respiratory: Reports shortness of breath, Denies cough Gastrointestinal: Denies black, tarry stools Genitourinary: Reports urinary incontinence Musculoskeletal: Reports decreased muscle mass, Reports limited joint movement ( Decreased range of motion with bilateral upper extremities.) Skin/Breast: Reports lesions, Reports other (Skin cancer) Neurologic: Reports abnormal hearing, Reports frequent falls, Reports memory loss Psychiatric: Reports change in appetite (Decreased appetite), Reports confusion , Reports difficulty concentrating, Reports memory loss Endocrine: Denies increased urination Hematologic/Lymphatic: Reports easy bruising ROS obtained from patient spouse, EMR and clinical observation. . [facility] - History History Provided By: Family Member, Medical Record - Medical History Medical History: Medical History (Last Updated 06/07/18 @ 10:41 by Melvin Bob) Atrial fibrillation Bypass graft stenosis CAD (coronary artery disease) Congestive heart failure Diverticulosis Hyperlipidemia Hypertension Iron deficiency anemia Leg fracture, left Myocardial infarction Osteoporosis Skin cancer Tobacco abuse - Surgical History Surgical History: Surgical History (Last Updated 06/07/18 @ 10:48 by Melvin Bob) History of colonoscopy History of esophagogastroduodenoscopy (EGD) Hx of appendectomy Hx of cholecystectomy H/O: hysterectomy (Resolved) History of (Resolved) History of open reduction and internal fixation (ORIF) procedure (Resolved) Hx of CABG - Family History Family History: Family History (Last Updated 06/07/18 @ 10:39 by Melvin Bob) Other No significant family history Parents - Social History I have reviewed the patient's Social History: Yes - Tobacco History Second Hand Smoke Exposure: No Smoking Status: Former smoker Tobacco Type: Cigarettes Smoking End Date: 30 years ago - Alcohol History How Often Do You Have a Drink Containing Alcohol: Never - Substance Use History Substance History: No History of Abuse - Immunization History Tetanus Immunization: Unable to Assess Hx Influenza Vaccine This Season: Yes Medications and Allergies Active Medications: Active Medications Acetaminophen (Tylenol) 650 mg PO Q6H PRN PRN Reason: pain 1-2 or temp >100.4 Hydrocodone Bitart/Acetaminophen ([place] 5/325) 1 tab PO Q4H PRN PRN Reason: PAIN SCALE 3-7 Al Hydroxide/Mg Hydroxide (Milk Of [place] Liq) 30 ml PO Q12H PRN PRN Reason: Mild Constipation Albuterol (Albuterol Neb (Prn)) 2.5 mg NEB Q2HR NEB PRN PRN Reason: SHORTNESS OF BREATH/WHEEZING Aspirin (Aspirin) 325 mg PO DAILY [facility] Last Admin: 06/07/18 08:12 Dose: 325 mg Atorvastatin Calcium (Lipitor) 40 mg PO DAILY [facility] Last Admin: 06/07/18 08:13 Dose: 40 mg Bisacodyl (Dulcolax Supp) 10 mg RECTAL DAILY PRN PRN Reason: SEVERE CONSITIPATION Chlorhexidine Gluconate (Chlorhexidine 2% Cloth) 3 pack TOPICAL DAILY@0400 [facility] Stop: 06/09/18 03:59 Last Admin: 06/07/18 04:51 Dose: 3 pack Chlorhexidine Gluconate (Chlorhexidine 2% Cloth) 3 pack TOPICAL DAILY@0400 PRN PRN Reason: Extra cloth needed Stop: 06/09/18 03:59 Chlorhexidine Gluconate (Peridex 0.12% Oral Kit) 15 ml OROPHARYNG BID@0800, 2000 [facility] Last Admin: 06/07/18 08:12 Dose: 15 ml Donepezil HCl (Aricept) 10 mg PO HS [facility] Last Admin: 06/06/18 20:58 Dose: 10 mg Famotidine (Pepcid Pf Inj) 20 mg IV.PUSH Q12HR [facility] Last Admin: 06/07/18 08:13 Dose: 20 mg Ferrous Sulfate (Ferosul) 325 mg PO DAILY [facility] Last Admin: 06/07/18 08:13 Dose: 325 mg Propofol (Diprivan 1000 Mg/100 Ml Inj) 1,000 mg in 100 mls @ 1.293 mls/hr IV.CONT TITRATE PRN; Protocol PRN Reason: Per Protocol Last Titration: 06/04/18 17:00 Dose: Infused Sodium Chloride (Ns Inj) 1,000 mls @ 100 mls/hr IV.CONT .Q10H [facility] Last Admin: 06/07/18 05:53 Dose: 100 mls/hr Magnesium Sulfate 4 gm/ Sodium (Chloride) 100 mls @ 50 mls/hr IV.SIG UNSCH PRN PRN Reason: For Magnesium 0.9 - 1.1 mg/dL Magnesium Sulfate 2 gm/ Sodium (Chloride) 100 mls @ 50 mls/hr IV.SIG UNSCH PRN PRN Reason: For Magnesium 1.2 - 1.6 mg/dL Potassium Chloride (Kcl 40 Meq Premix Inj) 40 meq in 100 mls @ 25 mls/hr IV.SIG Q2H PRN PRN Reason: For Potassium 2.8 - 3.2 mEq/L Last Infusion: 06/04/18 10:00 Dose: Infused Potassium Chloride (Kcl 20 Meq Premix Inj) 20 meq in 100 mls @ 50 mls/hr IV.SIG Q2H PRN PRN Reason: For Potassium 3.3 - 3.5 mEq/L Potassium Chloride (Kcl 40 Meq Premix Inj) 40 meq in 100 mls @ 25 mls/hr IV.SIG UNSCH PRN PRN Reason: For Potassium 3.3 - 3.5 mEq/L Potassium Chloride (Kcl 20 Meq Premix Inj) 20 meq in 100 mls @ 50 mls/hr IV.SIG Q2H PRN PRN Reason: For Potassium 2.8 - 3.2 mEq/L Potassium Phosphate 30 mmol/ (Sodium Chloride) 260 mls @ 42 mls/hr IV.SIG UNSCH PRN PRN Reason: SEE LABEL COMMENTS Last Infusion: 06/04/18 22:34 Dose: Infused Sodium Phosphate 30 mmol/ (Sodium Chloride) 260 mls @ 42 mls/hr IV.SIG UNSCH PRN PRN Reason: For Phosphorus < 2.5 mg/dL Fentanyl (Fentanyl 10 Mcg/Ml Premix Drip) 2,500 mcg in 250 mls @ 5 mls/hr IV.SIG TITRATE PRN; Protocol PRN Reason: Per Protocol Norepinephrine Bitartrate 4 mg (/ Sodium Chloride) 250 mls @ 7.5 mls/hr IV.SIG TITRATE PRN; Protocol PRN Reason: Per Protocol Last Titration: 06/05/18 08:45 Dose: Infused Aztreonam 2 gm/ Sodium (Chloride) 100 mls @ 200 mls/hr IV.SIG Q8H [facility] Last Infusion: 06/07/18 06:28 Dose: Infused Phenylephrine HCl 40 mg/ (Sodium Chloride) 500 mls @ 30 mls/hr IV.CONT TITRATE PRN; Protocol PRN Reason: Per Protocol Last Titration: 06/06/18 21:53 Dose: Infused Vancomycin HCl 750 mg/ Sodium (Chloride) 257.5 mls @ 250 mls/hr IV.SIG Q24H [facility] Last Infusion: 06/06/18 19:00 Dose: Infused Lactulose (Lactulose Liq) 30 ml PO DAILY PRN PRN Reason: SEVERE CONSITIPATION Magnesium Oxide (Mag-Ox) 800 mg PO UNSCH PRN PRN Reason: For Magnesium 1.2 - 1.6 mg/dL Miscellaneous (Pill Splitter) 1 each OTHER UNSCH [facility] Miscellaneous Information ([facility] Ordered Lab Info) 0 each OTHER ONCE ONE Stop: 06/07/18 13:46 Miscellaneous Medication () 1 each OROPHARYNG 0000,0400,1200,1600 [facility] Last Admin: 06/07/18 04:54 Dose: 1 each Modafinil (Provigil) 100 mg PO DAILY [facility] Last Admin: 06/07/18 08:13 Dose: 100 mg Morphine Sulfate (Morphine Inj) 2 mg IV.PUSH Q2H PRN PRN Reason: pain 8-10 Last Admin: 06/06/18 00:42 Dose: 2 mg Ondansetron HCl (Zofran Inj) 4 mg IV.PUSH Q6H PRN PRN Reason: NAUSEA OR VOMITING Pharmacy Profile Note (Vancomycin Consult Pharmacy) 1 each OTHER UNSCH PRN PRN Reason: Pharmacy to dose Potassium Chloride (Kcl Liq) 40 meq PO UNSCH PRN PRN Reason: Potassium level 3.3-3.5 mEq/L Potassium Chloride (Kcl Liq) 40 meq PO UNSCH PRN PRN Reason: POTASSIUM LESS THAN 3.5 Potassium Phosphate (K-Phos Original) 2,000 mg PO Q4H PRN PRN Reason: Phosphorus Less Than 2.5 mg/dL Potassium Phosphate (K-Phos Original) 2,000 mg PO UNSCH PRN PRN Reason: SEE LABEL COMMENTS Senna/Docusate Sodium (Katarzyna-Colace) 1 tab PO BID [facility] Last Admin: 06/07/18 08:13 Dose: 1 tab Sennosides (Senokot) 17.2 mg PO Q12H PRN PRN Reason: Moderate Constipation Sodium Chloride (Ns Flush) 2 ml IV.FLUSH BID [facility] Last Admin: 06/07/18 08:21 Dose: 2 ml Sodium Chloride (Ns Flush) 2 ml IV.FLUSH PRN PRN PRN Reason: FLUSH AFTER USING IV ACCESS Terbutaline Sulfate (Brethine Inj) 1 mg SQ UNSCH PRN PRN Reason: For Extravasation Allergies Allergy/AdvReac Type Severity Reaction Status Date / Time Penicillins Allergy Unknown Verified 01/14/17 15:37 Sulfa (Sulfonamide Allergy Unknown Verified 01/14/17 15:37 Antibiotics) Home Medications Medication Instructions Recorded Confirmed Type albuterol sulfate [Ventolin HFA] 1 puff INHALATION Q4-6H PRN 06/03/18 06/03/18 History alendronate 70 mg PO QWEEK 06/03/18 06/03/18 History amlodipine 2.5 mg PO DAILY 06/03/18 06/03/18 History apixaban [Eliquis] 2.5 mg PO BID 06/03/18 06/03/18 History atorvastatin 40 mg PO DAILY 06/03/18 06/03/18 History atorvastatin 40 mg PO DAILY 06/03/18 06/03/18 History donepezil 10 mg PO HS 06/03/18 06/03/18 History ferrous sulfate 325 mg PO DAILY 06/03/18 06/03/18 History mirtazapine 15 mg PO HS 06/03/18 06/03/18 History potassium chloride 10 meq PO DAILY 06/03/18 06/03/18 History Advance Directives Living Will: No Healthcare Surrogate: No Health Care Surrogate Name and Number: HCP: Ruslan Kay [phone] (home) ; [phone] (cell) Power of Cargo Trimmer: No Documented care wishes: Never completed advanced directives. . Today's verbally stated goals: Patient intubated on mechanical ventilation. . Family/friends goals: Patient spouse hopeful that the patient will be medically extubated. . Ethical and Legal Issues: None identified at this time. . Physical Exam Vital Signs: Vital Signs - 24 hr 06/06/18 10:32 06/06/18 11:00 06/06/18 11:02 Temperature Pulse Rate 73 71 74 Respiratory Rate 11 L 11 L 11 L Blood Pressure 103/59 L 101/58 L Pulse Oximetry 96 96 96 06/06/18 11:32 06/06/18 12:00 06/06/18 12:02 Temperature 97.4 F L Pulse Rate 72 99 H 75 Respiratory Rate 11 L 14 13 Blood Pressure 105/69 103/60 Pulse Oximetry 96 97 96 06/06/18 12:32 06/06/18 12:50 06/06/18 13:00 Temperature Pulse Rate 72 75 Respiratory Rate 11 L 12 11 L Blood Pressure 106/60 Pulse Oximetry 96 97 96 06/06/18 13:02 06/06/18 13:32 06/06/18 14:00 Temperature Pulse Rate 81 82 77 Respiratory Rate 12 13 12 Blood Pressure 102/54 L 101/59 L Pulse Oximetry 96 97 97 06/06/18 14:02 06/06/18 14:32 06/06/18 15:00 Temperature Pulse Rate 75 75 94 H Respiratory Rate 13 12 14 Blood Pressure 92/57 L 91/50 L Pulse Oximetry 97 97 97 06/06/18 15:02 06/06/18 15:32 06/06/18 16:00 Temperature 98.1 F Pulse Rate 101 H 81 86 Respiratory Rate 14 13 14 Blood Pressure 98/54 L 100/59 L Pulse Oximetry 97 96 96 06/06/18 16:02 06/06/18 16:32 06/06/18 17:00 Temperature Pulse Rate 86 107 H 85 Respiratory Rate 14 28 H 15 Blood Pressure 101/64 108/69 Pulse Oximetry 96 97 96 06/06/18 17:02 06/06/18 17:31 06/06/18 17:32 Temperature Pulse Rate 84 80 Respiratory Rate 16 13 12 Blood Pressure 110/59 L 111/62 Pulse Oximetry 97 96 96 06/06/18 18:00 06/06/18 18:02 06/06/18 18:32 Temperature Pulse Rate 105 H 93 H 80 Respiratory Rate 13 12 12 Blood Pressure 110/58 L 102/65 Pulse Oximetry 96 96 96 06/06/18 19:00 06/06/18 19:02 06/06/18 19:32 Temperature Pulse Rate 107 H 101 H 85 Respiratory Rate 8 L 12 12 Blood Pressure 105/61 102/68 Pulse Oximetry 97 97 97 06/06/18 19:58 06/06/18 20:00 06/06/18 20:02 Temperature 98.4 F Pulse Rate 109 H 100 H Respiratory Rate 18 Blood Pressure 115/74 Pulse Oximetry 96 97 95 06/06/18 20:32 06/06/18 21:00 06/06/18 21:02 Temperature Pulse Rate 93 H 100 H 112 H Respiratory Rate 12 22 22 Blood Pressure 109/60 112/66 Pulse Oximetry 96 95 97 06/06/18 21:32 06/06/18 22:00 06/06/18 22:02 Temperature Pulse Rate 109 H 98 H 105 H Respiratory Rate 15 13 15 Blood Pressure 118/67 113/68 Pulse Oximetry 99 99 99 06/06/18 22:32 06/06/18 23:00 06/06/18 23:02 Temperature 97.9 F Pulse Rate 105 H 92 H 89 Respiratory Rate 23 12 12 Blood Pressure 120/67 110/59 L Pulse Oximetry 97 99 99 06/06/18 23:32 06/07/18 00:00 06/07/18 00:02 Temperature Pulse Rate 90 85 83 Respiratory Rate 12 12 12 Blood Pressure 99/60 L 106/62 Pulse Oximetry 99 99 99 06/07/18 00:15 06/07/18 00:32 06/07/18 01:00 Temperature Pulse Rate 78 93 H Respiratory Rate 13 12 17 Blood Pressure 101/65 Pulse Oximetry 99 99 99 06/07/18 01:02 06/07/18 01:32 06/07/18 02:00 Temperature Pulse Rate 94 H 87 81 Respiratory Rate 17 14 13 Blood Pressure 110/64 112/61 Pulse Oximetry 99 99 98 06/07/18 02:02 06/07/18 02:32 06/07/18 03:00 Temperature Pulse Rate 88 73 80 Respiratory Rate 14 12 13 Blood Pressure 107/67 107/56 L Pulse Oximetry 99 98 99 06/07/18 03:02 06/07/18 03:32 06/07/18 04:00 Temperature 98.5 F Pulse Rate 79 89 90 Respiratory Rate 13 13 16 Blood Pressure 111/63 120/58 L Pulse Oximetry 98 98 98 06/07/18 04:07 06/07/18 04:10 06/07/18 04:19 Temperature Pulse Rate 87 76 Respiratory Rate 15 12 12 Blood Pressure 119/60 114/56 L Pulse Oximetry 97 98 98 06/07/18 04:39 06/07/18 05:00 06/07/18 05:09 Temperature Pulse Rate 70 82 76 Respiratory Rate 12 12 12 Blood Pressure 115/57 L 118/68 Pulse Oximetry 98 98 98 06/07/18 05:39 06/07/18 06:00 06/07/18 06:09 Temperature Pulse Rate 75 89 76 Respiratory Rate 12 12 12 Blood Pressure 109/65 114/64 Pulse Oximetry 98 98 98 06/07/18 07:00 06/07/18 07:09 06/07/18 07:39 Temperature 98.7 F Pulse Rate 90 83 97 H Respiratory Rate 12 12 18 Blood Pressure 115/72 118/70 Pulse Oximetry 98 98 97 06/07/18 08:00 06/07/18 09:00 06/07/18 09:09 Temperature 98.1 F Pulse Rate 95 H 103 H 84 Respiratory Rate 15 20 17 Blood Pressure 120/59 L 120/59 L Pulse Oximetry 97 97 97 I&O: Intake & Output 06/05/18 06/06/18 06/07/18 06/08/18 06:59 06:59 06:59 06:59 Intake Total 3130 / 3130 3952.5 / 3952.5 4593.5 / 4593.5 Output Total 405 / 405 585 / 585 275 / 275 Balance 2725 / 2725 3367.5 / 3367.5 4318.5 / 4318.5 Weight 41.8 kg 46.7 kg 49.2 kg Physical Exam: CONSTITUTIONAL/GENERAL: This is an elderly, cachectic, frail, intubated patient in no acute distress TUBES/LINES/DRAINS: ETT, OT tube, PIV, Mehta catheter SKIN: Pale, fragile skin with lesions. Ecchymoses on upper extremities. Skin temperature appropriate. Not diaphoretic. HEAD: Atraumatic. Normocephalic. EYES: Pupils equal and round and reactive. Extraocular motions intact. No scleral icterus. No injection or drainage. Fundi not examined. ENT: Hearing grossly normal. Nose without bleeding or purulent drainage. Endotracheally intubated NECK: Trachea midline. Supple, nontender. CARDIOVASCULAR: Regular rate and rhythm without murmurs, gallops, or rubs. No JVD. Peripheral pulses symmetric. RESPIRATORY/CHEST: Symmetric, unlabored respirations. Diminished breath sounds. GASTROINTESTINAL: Abdomen soft, non-tender, nondistended. No guarding. Bowel sounds present. GENITOURINARY: Without palpable bladder distension. Mehta catheter in place. MUSCULOSKELETAL: Extremities without clubbing, cyanosis, or edema. No joint tenderness or effusion noted. No calf tenderness. No mottling or clubbing. LYMPHATICS: Did not assess NEUROLOGICAL: Intubated with no sedation. Not following commands. Spontaneously moving left side, slight withdrawal to noxious stimulation with right side. PSYCHIATRIC: Unable to assess at this time. . Diagnostic Tests Laboratory: Laboratory Results - last 72 hr 06/05/18 06/05/18 06/05/18 04:30 04:30 04:30 WBC 13.5 H RBC 3.50 L Hgb 10.9 L Hct 31.4 L MCV 89.5 MCH 31.0 MCHC 34.6 RDW 16.2 Plt Count 393 MPV 7.4 Sodium 147 H Potassium 4.6 D Chloride 113 H D Carbon Dioxide 23.4 Anion Gap 11 BUN 10 Creatinine 1.10 H Estimated GFR 47 L Random Glucose 89 Calcium 7.3 L* Calcium Adj for Albumin 9.0 Phosphorus 5.1 H D Magnesium 2.6 H D Albumin 1.9 L Result Diagrams: 06/07/18 15:10 06/07/18 12:54 Microbiology: Microbiology 06/03/18 17:20 Aerobic Blood Culture - Preliminary Blood - Peripheral No growth in 3 days Anaerobic Blood Culture - Preliminary No growth in 3 days 06/03/18 17:25 Aerobic Blood Culture - Preliminary Blood - Peripheral No growth in 3 days Anaerobic Blood Culture - Preliminary No growth in 3 days Imaging: Head CT 06/03/18 16:34 CONCLUSION: 1. No acute intracranial abnormality. . Cervical Spine CT 06/03/18 16:41 CONCLUSION: 1. No acute fracture. 2. Stable 3 mm anterolisthesis of C2 on C3 and 2 mm anterolisthesis of C7 on T1 , as would be secondary to degenerative facet arthrosis. 3. Small right apical pneumothorax. Physician is aware from prior chest radiograph. 4. Multilevel degenerative spondylosis of the cervical spine. Carotid Doppler Study 06/04/18 00:00 CONCLUSION: 1. There appears to be occlusion of the left internal carotid artery. If clinically indicated, a CTA of the carotids could be performed for further evaluation. 2. Moderate atherosclerotic plaquing at the right carotid bifurcation. No focal high-grade or hemodynamically significant stenosis. Head MRI 06/05/18 00:00 CONCLUSION: 1. Infarcts in the left basal ganglia and left parietal lobe, not significantly changed. 2. Chronic ischemic small vessel vasculopathy. Head MRA 06/05/18 11:40 CONCLUSION: 1. Motion artifact limiting evaluation. 2. Diffuse atherosclerotic changes throughout the visualized intracranial vasculature. 3. Suspect occluded left internal carotid artery. Correlation with CTA of the neck/CTA of the brain may be warranted. Chest X-Ray 06/07/18 05:00 CONCLUSION: 1. Stable bilateral interstitial prominence. 2. Interval removal of the right cope loop thoracostomy tube with development of a small, 1.5 cm right apical pneumothorax. 3. Endotracheal and nasogastric tubes remain appropriately positioned. 4. Findings of prior CABG. The most inferior median sternotomy wire is fractured. 5. Chronic fracture deformity of the proximal left humerus. Procedures: 06/03/18-endotracheally intubated 06/03/18-right subclavian central line placement 06/03/18-right chest tube placement 06/06/18-chest tube discontinued . Patient/Family Conference Family Conference Location: Bedside Issues Discussed: * Palliative care role, purpose, approach * Additional medical, psychosocial, and spiritual history * Patients general health, functional status, and cognitive changes in the months leading up to the current hospitalization * Patient/family understanding of the current medical problems * Patient/family understanding of prognosis * Patients goals of care as best understood from advance directives and/or conversations and/or values * Current medical treatment options and benefits/burdens of those options * Likely scenarios comparing ongoing aggressive care with a transition to comfort measures only * Questions answered to the best of my ability * Introduced hospice philosophy and benefits * Palliative care contact information provided Assessment and Plan - Disease Oriented Problem List (1) Acute ischemic stroke (2) Respiratory failure requiring intubation (3) Atrial fibrillation with RVR (4) Hypokalemia - Symptom Scale (1) Shortness of breath 0-10 Scale: Unable to quantify (2) Altered mental status 0-10 Scale: Unable to quantify (3) Debility 0-10 Scale: Unable to quantify Pertinent Non-Medical Issues: Psychosocial: Patient is originally from [place]. She moved to [place] 30 years ago. Patient has been 3 times. She has been to her current for 40 years. Patient had all sons, 3 are and one son Miley Kraus is still living. Patient is the only child. Both her parents are . Patient resides with her . Spiritual: Patient is [employer] Legal: Patient has never completed advanced directives. Ethical issues impacting care: None identified at this time . Important Contacts: Spouse- Jeremy Kay [phone] . Prognosis: Mrs Kay is an 87-year-old female with a medical history significant for coronary artery disease S/P CABG, congestive heart failure, atrial fibrillation on chronic anticoagulation, myocardial infarction, diverticulosis, hypertension and hyperlipidemia. Patient was brought to the emergency room on 06/03/2018 for further evaluation of altered mental status. MRI brain showed a thalamic stroke. Clinical course complicated with hypotension requiring pressor support, shortness of breath, altered mental status. Given multiple ongoing comorbidities, advanced age and debility, patient remains at high risk for further complications, deterioration and decline. . Code Status: Alternative Code Plan: PLAN: Legal decision maker: Patient is currently intubated on mechanical ventilation. It is not known whether patient will regain capacity to participate in medical decision making. Patient is . According to [place] statute, her spouse Rona aKy will serve as her healthcare decision maker proxy. Goals: Aggressive. Lengthy discussion with patient spouse, who states he is encouraged that patient is currently on spontaneous breathing trials. He is hopeful that patient will be medically extubated. In the event that patient goes into respiratory distress after medical extubation, patient spouse would like patient to be reintubated BUT we will not proceed with tracheostomy placement and/or PEG tube placement if patient fails to be medically extubated. Discussed patient's baseline poor functionality status prior to this hospitalization as well is progression of dementia/Alzheimer's. Discussed most likely need for long-term care for patient after this hospitalization. Introduced hospice philosophy and benefits. Patient spouse appreciative to palliative care visit and was open to further discussion during patient's hospitalization course. CODE STATUS: Alternative code-intubation only. SYMPTOMS: * Shortness of breath: Patient had an acute ischemic stroke, required endotracheal intubation for airway protection. Iatrogenic right pneumothorax requiring placement of a pigtail chest tube, now discontinued. Chest x-ray still showing small right apical pneumothorax. Patient currently undergoing spontaneous breathing trials. No recommendations at this time. * Altered mental status: Patient's baseline of memory loss. Admitted for acute ischemic stroke. Currently intubated and not following simple commands. Continue with neuro checks. * Debility: Progressive. Patient has multiple ongoing comorbidities. Requires assistance with all ADLs. Patient is supposed to ambulate with a Rollator walker at home but normally utilizes dyer and furniture for support. If goals are aggressive, recommending PT though patient will most likely not participate due to memory issues. Palliative care will continue to follow the patient during hospital course as condition evolves, to assist patient/decision-maker with understanding of their medical conditions, weighing benefits/burdens of treatment options, for clarification of goals of treatment. Additionally will assist with any symptoms of palliative concern Appreciation Thank you for the opportunity to participate in the care of Rona Kay. Attestation Attestation: To help prompt me to consider important information that might be impacting today's encounter and assessment, information from prior notes written by myself or my colleagues may have been "brought forward" into today's note. My signature on this note, however, is an attestation that I personally performed the exam, history, and/or decision-making noted today, and, unless otherwise indicated, the interactions with patient, family, and staff as well as the review of records all occurred today. I also attest that the listed assessment and stated plan reflect my best clinical judgment today based on the combination of historical information, prior notes, and today's exam/ interactions. When time spent is documented, it refers only to time spent today by the signer, or if indicated, combined time spent today by collaborating physician/nurse practitioner.
--- NOTE | 2018-06-07 12:14 | P.PNCC ---
Subjective Subjective Remarks/Hospital Course: Hospital Course: 87-year-old right-handed female with past medical history of coronary artery disease, prior myocardial infarction, 2 vessel CABG, atrial fibrillation on chronic anticoagulation with Eliquis, prior tobacco abuse. Her states that he went to work around 0600 on 06/03 and when he returned at 15: 30 he found her on the floor supine in the bathroom with altered mental status. She was able to state her name but could not recall the name of her . Apparently when she arrived she was tachycardic with BP 91/67 and therefore R subclavian CVL was placed in the ED. She was then intubated, reportedly due to shallow respirations. She did have iatrogenic R pneumothorax, initially 1.5 cm apical. However she later became hypotensive with elevated peak pressures and I placed pigtail chest tube due to concern for development of tension physiology. She does have L gaze preference and will followup commands on the right. Withdraws on the right side but appears hemiparetic. CT brain negative. Not candidate for TPA due to unknown time of onset. He states she was in her usual state of health prior to this aside from the fact that she has had poor appetite and weight loss over the last couple of months. At her baseline she does have some difficulty with memory and she ambulates very slowly. She does not drive and has not been cooking for the last year. She does manage her finances. Subjective: 06/04: clinically worse exam- not following commands, gaze deviation. MRI pending. on norepinephrine at 8 mcg/min. 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 ? weakly following commands on the left. very somnolent and off sedation. Cr slightly worse, appears dehydrated, poor uop despite fluid resuscitation. 06/06: no changes to neurologic status. slightly more awake. chest tube to water seal. 06/07: small right apical pneumothorax has developed post-removal of right chest tube. however, this is small and has remained stable x 12 hours. will continue to monitor with serial radiographs. no improvements in mental status. palliative care consulted, as patient's baseline function with dementia may be limited, and her exam is worse than her MRI would suggest. Objective Vital Signs / I&O: Vital Signs 06/06/18 12:32 06/06/18 12:50 06/06/18 13:00 Temperature Pulse Rate 72 75 Respiratory Rate 11 L 12 11 L Blood Pressure 106/60 Pulse Oximetry 96 97 96 06/06/18 13:02 06/06/18 13:32 06/06/18 14:00 Temperature Pulse Rate 81 82 77 Respiratory Rate 12 13 12 Blood Pressure 102/54 L 101/59 L Pulse Oximetry 96 97 97 06/06/18 14:02 06/06/18 14:32 06/06/18 15:00 Temperature Pulse Rate 75 75 94 H Respiratory Rate 13 12 14 Blood Pressure 92/57 L 91/50 L Pulse Oximetry 97 97 97 06/06/18 15:02 06/06/18 15:32 06/06/18 16:00 Temperature 36.7 C Pulse Rate 101 H 81 86 Respiratory Rate 14 13 14 Blood Pressure 98/54 L 100/59 L Pulse Oximetry 97 96 96 06/06/18 16:02 06/06/18 16:32 06/06/18 17:00 Temperature Pulse Rate 86 107 H 85 Respiratory Rate 14 28 H 15 Blood Pressure 101/64 108/69 Pulse Oximetry 96 97 96 06/06/18 17:02 06/06/18 17:31 06/06/18 17:32 Temperature Pulse Rate 84 80 Respiratory Rate 16 13 12 Blood Pressure 110/59 L 111/62 Pulse Oximetry 97 96 96 06/06/18 18:00 06/06/18 18:02 06/06/18 18:32 Temperature Pulse Rate 105 H 93 H 80 Respiratory Rate 13 12 12 Blood Pressure 110/58 L 102/65 Pulse Oximetry 96 96 96 06/06/18 19:00 06/06/18 19:02 06/06/18 19:32 Temperature Pulse Rate 107 H 101 H 85 Respiratory Rate 8 L 12 12 Blood Pressure 105/61 102/68 Pulse Oximetry 97 97 97 06/06/18 19:58 06/06/18 20:00 06/06/18 20:02 Temperature 36.9 C Pulse Rate 109 H 100 H Respiratory Rate 18 Blood Pressure 115/74 Pulse Oximetry 96 97 95 06/06/18 20:32 06/06/18 21:00 06/06/18 21:02 Temperature Pulse Rate 93 H 100 H 112 H Respiratory Rate 12 22 22 Blood Pressure 109/60 112/66 Pulse Oximetry 96 95 97 06/06/18 21:32 06/06/18 22:00 06/06/18 22:02 Temperature Pulse Rate 109 H 98 H 105 H Respiratory Rate 15 13 15 Blood Pressure 118/67 113/68 Pulse Oximetry 99 99 99 06/06/18 22:32 06/06/18 23:00 06/06/18 23:02 Temperature 36.6 C Pulse Rate 105 H 92 H 89 Respiratory Rate 23 12 12 Blood Pressure 120/67 110/59 L Pulse Oximetry 97 99 99 06/06/18 23:32 06/07/18 00:00 06/07/18 00:02 Temperature Pulse Rate 90 85 83 Respiratory Rate 12 12 12 Blood Pressure 99/60 L 106/62 Pulse Oximetry 99 99 99 06/07/18 00:15 06/07/18 00:32 06/07/18 01:00 Temperature Pulse Rate 78 93 H Respiratory Rate 13 12 17 Blood Pressure 101/65 Pulse Oximetry 99 99 99 06/07/18 01:02 06/07/18 01:32 06/07/18 02:00 Temperature Pulse Rate 94 H 87 81 Respiratory Rate 17 14 13 Blood Pressure 110/64 112/61 Pulse Oximetry 99 99 98 06/07/18 02:02 06/07/18 02:32 06/07/18 03:00 Temperature Pulse Rate 88 73 80 Respiratory Rate 14 12 13 Blood Pressure 107/67 107/56 L Pulse Oximetry 99 98 99 06/07/18 03:02 06/07/18 03:32 06/07/18 04:00 Temperature 36.9 C Pulse Rate 79 89 90 Respiratory Rate 13 13 16 Blood Pressure 111/63 120/58 L Pulse Oximetry 98 98 98 06/07/18 04:07 06/07/18 04:10 06/07/18 04:19 Temperature Pulse Rate 87 76 Respiratory Rate 15 12 12 Blood Pressure 119/60 114/56 L Pulse Oximetry 97 98 98 06/07/18 04:39 06/07/18 05:00 06/07/18 05:09 Temperature Pulse Rate 70 82 76 Respiratory Rate 12 12 12 Blood Pressure 115/57 L 118/68 Pulse Oximetry 98 98 98 06/07/18 05:39 06/07/18 06:00 06/07/18 06:09 Temperature Pulse Rate 75 89 76 Respiratory Rate 12 12 12 Blood Pressure 109/65 114/64 Pulse Oximetry 98 98 98 06/07/18 07:00 06/07/18 07:09 02/18/19 07:39 Temperature 37.1 C Pulse Rate 90 83 97 H Respiratory Rate 12 12 18 Blood Pressure 115/72 118/70 Pulse Oximetry 98 98 97 06/07/18 08:00 06/07/18 09:00 06/07/18 09:09 Temperature 36.7 C Pulse Rate 95 H 103 H 84 Respiratory Rate 15 20 17 Blood Pressure 120/59 L 120/59 L Pulse Oximetry 97 97 97 06/07/18 10:00 06/07/18 10:09 06/07/18 11:00 Temperature 36.6 C Pulse Rate 87 95 H 85 Respiratory Rate 23 21 16 Blood Pressure 116/59 L Pulse Oximetry 96 97 97 06/07/18 11:09 06/07/18 11:39 06/07/18 11:53 Temperature Pulse Rate 97 H 85 Respiratory Rate 22 17 19 Blood Pressure 123/56 L 117/61 Pulse Oximetry 95 98 98 06/07/18 12:00 Temperature Pulse Rate 90 Respiratory Rate 10 L Blood Pressure 117/61 Pulse Oximetry 98 Intake & Output 06/06/18 06/07/18 06/07/18 18:59 06:59 18:59 Intake Total 1376 / 1376 3217.5 / 3217.5 Output Total 175 / 175 100 / 100 Balance 1201 / 1201 3117.5 / 3117.5 Weight 49.2 kg Intake: IV 1100 / 1100 2657.5 / 2657.5 Neosynephrine Inj 40 MG In NS 200 / 200 Inj 496 ML @ 40 MCG/MIN 30 mls/ hr IV.CONT TITRATE PRN Rx#: [id number] NS Inj 1,000 ML @ 100 mls/hr IV 1000 / 1000 1999 / 1999 .CONT .Q10H VINAYAK Rx#:[id number] Azactam Inj 2 GM In NS Inj 100 100 / 100 200 / 200 ML @ 200 mls/hr IV.SIG Q8H VINAYAK Rx#:[id number] Vancomycin Inj 750 MG In NS Inj 257.5 / 257.5 250 ML @ 250 mls/hr IV.SIG Q24H VINAYAK Rx#:[id number] Tube Feeding 276 / 276 380 / 380 Tube Irrigant 180 / 180 Output: Urine 100 / 100 Urine Amount (Catheter) 175 / 175 Indwelling Urethral Catheter 175 / 175 Chest Tube Drainage 0 / 0 #1 Right Anterior 0 / 0 Other: Date of Last Bowel Movement 06/07/18 # Bowel Movements 0 Result Diagrams: 06/07/18 15:10 06/07/18 12:54 Objective Remarks: GENERAL: Elderly undernourished female who is orotracheally intubated. She is currently not on any sedatives SKIN: Warm and dry. Keratinized epithelium right hand. HEAD: Atraumatic. Normocephalic. EYES: Pupils equal and round. ENT: No nasal bleeding or discharge. Mucous membranes pink and moist. NECK: Trachea midline. No JVD. CARDIOVASCULAR: irregularly irregular . afib. RESPIRATORY: No accessory muscle use. Clear to auscultation. Breath sounds equal bilaterally. right chest tube to water seal, no air leak. GASTROINTESTINAL: Abdomen soft, non-tender, nondistended. MUSCULOSKELETAL: Extremities without clubbing, cyanosis, or edema. NEUROLOGICAL: Eyes open to voice. L sided gaze preference. Pupils reactive. Unable to appreciate any facial droop. weakly following commands by squeezing left hand. wiggles left toes to command. no movement on the right. Assessment and Plan - Problem List (1) Change in mental status Code(s): R41.82 - Altered mental status, unspecified Status: Acute (2) Atrial fibrillation, new onset Code(s): I48.91 - Unspecified atrial fibrillation Status: Chronic (3) Respiratory failure requiring intubation Code(s): J96.90 - Respiratory failure, unspecified, unspecified whether with hypoxia or hypercapnia Status: Acute (4) Pneumothorax on right Code(s): J93.9 - Pneumothorax, unspecified Status: Acute (5) Chest tube in place Code(s): Z96.89 - Presence of other specified functional implants Status: Acute - Assessment and Plan Plan: Assessment: 87yF with left thalamic CVA and respiratory failure. NEURO: Acute encephalopathy Secondary to Stroke (LT thalamic) vs. Sepsis Dementia Alzheimer Type vs. Vascular CT brain is negative. She is not a candidate for TPA. Consider obtaining repeat non con CT and CTA of head/neck. MRI: left thalamic CVA Check lipids. ciontinue provigil. Continue donepezil 10 mg p.o. RESP: Acute hypoxic and hypercarbic respiratory failure Iatrogenic right pneumothorax history of tobacco abuse new right ptx- 06/07 Ventilator bundle. nebs continue daily SBTs. high risk for reintubation, but will need trial of extubation prior to consideration for tracheostomy. wean fio2 for goal spo2 > 90% R apical pigtail chest tube 06/03 - 06/06 AM CXR right apical ptx has developed. manage conservatively. serial radiographs. repeat chest tube if clinically decompensates or enlarging ptx. CV: Atrial fibrillation with rapid ventricular response, now rate controlled. Myocardial Ischemia Demand ischemia vs. A fib PVC's Trend troponin and CK. Hold Eliquis until clearly no evidence of hemorrhage. Continue statin 40 mg p.o. daily uop improving. GI: Jevity 1.5 at 35 mL per hour through OGT per nutrition recommendation. Consider PPI prophylaxis due to risks of hypoperfusion. FEN/RENAL: Hypokalemia Hypocalcemia 40 mEq IV KCl received in the emergency department. Follow-up with ICU electrolyte protocol. Monitor chemistries. Trend Cr. ID: Hypotension Hypothermia Leukocytosis with Left Shift Blood cultures taken. Received aztreonam and Levaquin in the emergency department. Urinalysis negative for evidence of bacterial infection. CXR negative. HEME: Monitor CBC. ENDO: Euglycemic. Monitor sugars. PROPH: SCDs for DVT prophylaxis. Initiate DVT prophylaxis if MRI unrevealing for hemorrhage. famotidine for stress ulcer prophylaxis ACCESS: R subclavian CV line placed on 06/03- removed 06/06 OVERALL IMPRESSION: minimal improvements. overall quite guarded prognosis. will need to involve palliative care, as we are struggling to separate from mechanical ventilation. (1) Change in mental status Qualifiers: Altered mental status type: unspecified Qualified Code(s): R41.82 - Altered mental status, unspecified
--- NOTE | 2018-06-07 12:37 | XR ---
EXAM DATE: 06/07/2018 12:33 PM EST AGE/SEX: 87 years / Female INDICATIONS: Shortness of breath. CLINICAL DATA: This is the patient's subsequent encounter. Patient reports that signs and symptoms h ave been present for 1 week and indicates a pain score of Nonresponsive. MEDICAL/SURGICAL HISTORY: Hypertension. Myocardial infarction. Carcinoma, skin cancer. Append ectomy. CABG. Cholecystectomy. COMPARISON: [facility], CHEST 1V SINGLE AP, 06/07/2018. . FINDINGS: Patient remains intubated. Endotracheal tube tip is approximately 3 cm above the destiny. There is a n asogastric tube with tip in the stomach. Small right pleural effusion and small right apical pneumothorax again noted and not significantly ch anged. Heart size stable, upper limits of normal. Median sternotomy and coronary artery bypass graft changes are again noted. CONCLUSION: 1. No significant change small pneumothorax and small pleural effusion on the right. 2. Appropriately positioned endotracheal tube and nasogastric tubes. 3. Previous median sternotomy and CABG. Electronically signed by: Faisal Mckeon MD Board Certified Radiologist 06/07/2018 12:35 PM EST
[2018-06-07] MEDS ORDERED: Pharmacy Ordered Lab Info OTHER ONE (13:45)
[2018-06-07 14:05] LABS: Calcium 6.5 mg/dL (8.5-10.1); Magnesium 1.9 mg/dL (1.5-2.5); Potassium 3.5 meq/L (3.5-5.1)
[2018-06-07 14:15] LABS: Albumin 1.5 g/dL (3.4-5.0); Calcium-Albumin Corrected 8.5 mg/dL (8.5-10.1)
[2018-06-07] MEDS: Vancomycin Inj 750 MG in Sodium Chlor 0.9% Inj 250 ML IV.SIG SCH (14:59)
[2018-06-07 15:26] LABS: Hematocrit 28.2 % (35.0-46.0); Hemoglobin 9.3 gm/dL (11.6-15.3); Mean Corpuscular HGB Conc 33.1 % (32.0-36.0); Mean Corpuscular Hemoglobin 29.6 pg (27.0-34.0); Mean Corpuscular Volume 89.5 fL (80.0-100.0); Mean Platelet Volume 7.6 fL (7.0-11.0); Platelet Count 293 th/mm3 (150-450); Red Blood Count 3.15 mil/mm3 (4.00-5.30); Red Cell Distribution Width 16.8 % (11.6-17.2)
[2018-06-07] MEDS: Potassium Phosphate 500 MG Soluble Tablet PO PRN (20:35)
[2018-06-07] MEDS: Morphine Sulfate Inj 2 MG/ML Vial IV.PUSH PRN (22:18)
[2018-06-08] MEDS: Sod Chloride 0.9% Inj 1,000 ML IV.CONT SCH ×2 (02:39→13:04)
[2018-06-08] MEDS: Potassium Phosphate 500 MG Soluble Tablet PO PRN (02:39)
--- NOTE | 2018-06-08 04:03 | XR ---
EXAM DATE: 06/08/2018 3:47 AM EST AGE/SEX: 87 years / Female INDICATIONS: Short of breath. CLINICAL DATA: This is the patient's subsequent encounter. Patient reports that signs and symptoms h ave been present for 1 week and indicates a pain score of 0/10. MEDICAL/SURGICAL HISTORY: . Hypertension. Myocardial infarction. Carcinoma, skin cancer. . Art endectomy. CABG. Cholecystectomy. COMPARISON: [facility] [place], CHEST 1V SINGLE AP, 06/07/2018. . FINDINGS: A single AP view of the chest demonstrates the lungs to be symmetrically aerated with persistent righ t apical pneumothorax and right pleural effusion. Mild interstitial prominence in both hemithoraces, unchanged. Left lung is otherwise clear. Life-support tubes are all stable in position. Findings of p rior CABG with a fractured inferior median sternotomy wire. Fracture deformity of the proximal right humerus. Dextroscoliosis of the dorsal spine. Osseous structures are otherwise intact. CONCLUSION: 1. Stable appearance of the chest with small right apical pneumothorax and right pleural effusion. 2. Stable position of life-support tubes. 3. Mild interstitial prominence in both hemithoraces appears chronic. 4. Stable fracture deformity of the proximal left humerus. Electronically signed by: Orlando Kohli MD Board Certified Radiologist 06/08/2018 4:02 AM EST
[2018-06-08] MEDS: Aztreonam Inj 2 GM in Sodium Chloride 0.9% Inj 100 ML IV.SIG SCH ×3 (04:48→20:16)
[2018-06-08] MEDS: Chlorhexidine Gluconate 2% 1 Pack (2 Cloths) TOPICAL SCH (04:49)
[2018-06-08] MEDS: Oral Hygiene Kit OROPHARYNG SCH ×4 (04:49→17:11)
[2018-06-08 05:17] LABS: Hematocrit 27.6 % (35.0-46.0); Hemoglobin 9.3 gm/dL (11.6-15.3); Mean Corpuscular HGB Conc 33.7 % (32.0-36.0); Mean Corpuscular Hemoglobin 30.5 pg (27.0-34.0); Mean Corpuscular Volume 90.4 fL (80.0-100.0); Mean Platelet Volume 7.9 fL (7.0-11.0); Platelet Count 253 th/mm3 (150-450); Red Blood Count 3.06 mil/mm3 (4.00-5.30); Red Cell Distribution Width 17.3 % (11.6-17.2); White Blood Count 8.9 th/mm3 (4.0-11.0)
[2018-06-08 05:44] LABS: Calcium 6.4 mg/dL (8.5-10.1); Carbon Dioxide 17.3 meq/L (21.0-32.0); Magnesium 1.6 mg/dL (1.5-2.5); Phosphorus 0.8 mg/dL (2.5-4.9); Potassium 3.5 meq/L (3.5-5.1)
[2018-06-08 06:12] LABS: Albumin 1.5 g/dL (3.4-5.0); Calcium-Albumin Corrected 8.4 mg/dL (8.5-10.1)
[2018-06-08] MEDS: Senna/Docusate Sodium 8.6/50 MG Tablet PO SCH ×2 (08:08→20:16)
[2018-06-08] MEDS: Chlorhexidine 0.12% Oral Kit 15 ML UDC OROPHARYNG SCH ×2 (08:31→20:17)
[2018-06-08] MEDS: Modafinil 200 MG Tablet PO SCH (08:31)
[2018-06-08] MEDS: Aspirin 325 MG Tablet PO SCH (08:32)
[2018-06-08] MEDS: Famotidine PF Inj 20 MG/2 ML Vial IV.PUSH SCH ×2 (08:32→20:15)
[2018-06-08] MEDS: Ferrous Sulfate 325 MG Tablet PO SCH (08:33)
--- NOTE | 2018-06-08 10:09 | P.PNCC ---
Subjective Subjective Remarks/Hospital Course: Hospital Course: 87-year-old right-handed female with past medical history of coronary artery disease, prior myocardial infarction, 2 vessel CABG, atrial fibrillation on chronic anticoagulation with Eliquis, prior tobacco abuse. Her states that he went to work around 0600 on 06/03 and when he returned at 15: 30 he found her on the floor supine in the bathroom with altered mental status. She was able to state her name but could not recall the name of her . Apparently when she arrived she was tachycardic with BP 91/67 and therefore R subclavian CVL was placed in the ED. She was then intubated, reportedly due to shallow respirations. She did have iatrogenic R pneumothorax, initially 1.5 cm apical. However she later became hypotensive with elevated peak pressures and I placed pigtail chest tube due to concern for development of tension physiology. She does have L gaze preference and will followup commands on the right. Withdraws on the right side but appears hemiparetic. CT brain negative. Not candidate for TPA due to unknown time of onset. He states she was in her usual state of health prior to this aside from the fact that she has had poor appetite and weight loss over the last couple of months. At her baseline she does have some difficulty with memory and she ambulates very slowly. She does not drive and has not been cooking for the last year. She does manage her finances. Subjective: 06/04: clinically worse exam- not following commands, gaze deviation. MRI pending. on norepinephrine at 8 mcg/min. 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 ? weakly following commands on the left. very somnolent and off sedation. Cr slightly worse, appears dehydrated, poor uop despite fluid resuscitation. 06/06: no changes to neurologic status. slightly more awake. chest tube to water seal. 06/07: small right apical pneumothorax has developed post-removal of right chest tube. however, this is small and has remained stable x 12 hours. will continue to monitor with serial radiographs. no improvements in mental status. palliative care consulted, as patient's baseline function with dementia may be limited, and her exam is worse than her MRI would suggest. 06/08: Patient remains intubated off all sedation. Remains lethargic low tidal volume on CPAP. Weakly follows commands on the left lower extremity. Chest x- ray today shows persistent right pneumothorax which is small Objective Vital Signs / I&O: Vital Signs 06/07/18 10:09 06/07/18 11:00 06/07/18 11:09 Temperature 97.8 F Pulse Rate 95 H 85 97 H Respiratory Rate 21 16 22 Blood Pressure 116/59 L 123/56 L Pulse Oximetry 97 97 95 06/07/18 11:39 06/07/18 11:53 06/07/18 12:00 Temperature Pulse Rate 85 90 Respiratory Rate 17 19 10 L Blood Pressure 117/61 117/61 Pulse Oximetry 98 98 98 06/07/18 13:00 06/07/18 13:09 06/07/18 13:10 Temperature Pulse Rate 90 96 H 107 H Respiratory Rate 11 L 16 22 Blood Pressure 122/69 130/63 Pulse Oximetry 97 98 97 06/07/18 13:40 06/07/18 14:00 06/07/18 14:10 Temperature Pulse Rate 104 H 94 H 90 Respiratory Rate 25 H 24 23 Blood Pressure 111/62 111/55 L Pulse Oximetry 98 98 98 06/07/18 14:49 06/07/18 15:00 06/07/18 15:10 Temperature Pulse Rate 112 H 102 H 100 H Respiratory Rate 7 L 12 Blood Pressure 109/60 105/60 Pulse Oximetry 100 100 100 06/07/18 15:13 06/07/18 15:40 06/07/18 16:00 Temperature Pulse Rate 100 H 102 H Respiratory Rate 22 20 15 Blood Pressure 107/67 Pulse Oximetry 99 99 99 06/07/18 16:10 06/07/18 16:40 06/07/18 17:00 Temperature Pulse Rate 105 H 100 H 103 H Respiratory Rate 18 20 19 Blood Pressure 118/61 122/61 Pulse Oximetry 99 99 99 06/07/18 17:10 06/07/18 17:40 06/07/18 18:00 Temperature Pulse Rate 104 H 109 H 97 H Respiratory Rate 15 10 L Blood Pressure 130/73 129/62 Pulse Oximetry 99 99 06/07/18 18:12 06/07/18 18:22 06/07/18 19:00 Temperature Pulse Rate 106 H 105 H Respiratory Rate 15 15 Blood Pressure 111/55 L Pulse Oximetry 98 98 99 06/07/18 19:35 06/07/18 20:00 02/18/19 20:24 Temperature 97.6 F Pulse Rate 103 H 108 H Respiratory Rate 19 17 19 Blood Pressure 120/73 Pulse Oximetry 99 99 99 06/07/18 21:00 06/07/18 22:00 06/07/18 23:00 Temperature Pulse Rate 106 H 106 H 90 Respiratory Rate 20 17 13 Blood Pressure 125/68 115/62 99/56 L Pulse Oximetry 99 99 100 06/07/18 23:41 06/08/18 00:00 06/08/18 01:00 Temperature 98.1 F Pulse Rate 84 76 Respiratory Rate 14 13 13 Blood Pressure 96/56 L 93/52 L Pulse Oximetry 99 99 100 06/08/18 02:00 06/08/18 03:00 06/08/18 03:34 Temperature Pulse Rate 74 74 Respiratory Rate 13 13 13 Blood Pressure 96/53 L 98/53 L Pulse Oximetry 100 99 100 06/08/18 04:00 06/08/18 05:00 06/08/18 06:00 Temperature 97.6 F Pulse Rate 74 91 H 98 H Respiratory Rate 12 13 18 Blood Pressure 97/52 L 102/59 L 104/58 L Pulse Oximetry 100 99 99 06/08/18 08:00 Temperature Pulse Rate Respiratory Rate 19 Blood Pressure Pulse Oximetry 99 Intake & Output 06/07/18 06/08/18 06/08/18 18:59 06:59 18:59 Intake Total 2027.5 / 2027.5 1648 / 1648 Output Total 200 / 200 Balance 1827.5 / 1827.5 1648 / 1648 Weight 51.4 kg Intake: IV 1357.5 / 1357.5 1200 / 1200 NS Inj 1,000 ML @ 100 mls/hr IV 1000 / 1000 1000 / 1000 .CONT .Q10H VINAYAK Rx#:[id number] Azactam Inj 2 GM In NS Inj 100 100 / 100 200 / 200 ML @ 200 mls/hr IV.SIG Q8H VINAYAK Rx#:[id number] Vancomycin Inj 750 MG In NS Inj 257.5 / 257.5 250 ML @ 250 mls/hr IV.SIG Q24H VINAYAK Rx#:[id number] Tube Feeding 570 / 570 328 / 328 Tube Irrigant 100 / 100 120 / 120 Output: Urine 200 / 200 Other: # Voids 3 # Urine Diapers 3 Date of Last Bowel Movement 06/07/18 06/08/18 # Bowel Movements 5 3 Result Diagrams: 06/08/18 04:55 06/08/18 04:55 Objective Remarks: GENERAL: Elderly undernourished female who is orotracheally intubated. She is off all sedatives SKIN: Warm and dry. Keratinized epithelium right hand. HEAD: Atraumatic. Normocephalic. EYES: Pupils equal and round. ENT: No nasal bleeding or discharge. Orotracheally intubated NECK: Trachea midline. No JVD. CARDIOVASCULAR: irregularly irregular . afib. RESPIRATORY: No accessory muscle use. Clear to auscultation. Breath sounds equal bilaterally. GASTROINTESTINAL: Abdomen soft, non-tender, nondistended. MUSCULOSKELETAL: Extremities without clubbing, cyanosis, or edema. NEUROLOGICAL: Eyes open to voice. L sided gaze preference. Pupils reactive. weakly following commands by wiggling left toes to command. no movement on the right. Assessment and Plan - Problem List (1) Change in mental status Code(s): R41.82 - Altered mental status, unspecified Status: Acute (2) Atrial fibrillation, new onset Code(s): I48.91 - Unspecified atrial fibrillation Status: Chronic (3) Respiratory failure requiring intubation Code(s): J96.90 - Respiratory failure, unspecified, unspecified whether with hypoxia or hypercapnia Status: Acute (4) Pneumothorax on right Code(s): J93.9 - Pneumothorax, unspecified Status: Acute (5) Chest tube in place Code(s): Z96.89 - Presence of other specified functional implants Status: Acute - Assessment and Plan Plan: Assessment: 87yF with left thalamic CVA and respiratory failure. NEURO: Acute encephalopathy Secondary to Stroke (LT thalamic) vs. Sepsis Dementia Alzheimer Type vs. Vascular CT brain is negative. She was not a candidate for TPA. MRI: left thalamic CVA Continue provigil. Continue donepezil 10 mg p.o. RESP: Acute hypoxic and hypercarbic respiratory failure Iatrogenic right pneumothorax (from central line placement in ED) history of tobacco abuse new right ptx- 06/07 Ventilator bundle. nebs continue daily SBTs. high risk for reintubation, Attempt trial of extubation prior to consideration for tracheostomy if possible As of today mental status will not permit extubation wean fio2 for goal spo2 > 90% R apical pigtail chest tube 06/03 - 06/06 AM CXR right apical ptx has developed. manage conservatively. serial radiographs. repeat chest tube if clinically decompensates or enlarging ptx. CV: Atrial fibrillation with rapid ventricular response, now rate controlled. Myocardial Ischemia Demand ischemia vs. A fib PVC's Trend troponin and CK. Hold Eliquis until clearly no evidence of hemorrhage. Also in anticipation of possible tracheostomy Continue statin 40 mg p.o. daily uop improving. GI: Jevity 1.5 at 35 mL per hour through OGT per nutrition recommendation. Consider PPI prophylaxis due to risks of hypoperfusion. FEN/RENAL: Hypokalemia Hypocalcemia 40 mEq IV KCl received in the emergency department. Follow-up with ICU electrolyte protocol. Monitor chemistries. Trend Cr. ID: Hypotension Hypothermia Leukocytosis with Left Shift Blood cultures negative to date from 06/03/2018 Received aztreonam and Levaquin in the emergency department. Urinalysis negative for evidence of bacterial infection. CXR negative. HEME: Monitor CBC. ENDO: Euglycemic. Monitor sugars. PROPH: SCDs for DVT prophylaxis. Lovenox for DVT prophylaxis. famotidine for stress ulcer prophylaxis ACCESS: R subclavian CV line placed on 06/03- removed 06/06 OVERALL IMPRESSION: minimal improvements. overall quite guarded prognosis. Palliative care consult, as we are struggling to separate from mechanical ventilation. (1) Change in mental status Qualifiers: Altered mental status type: unspecified Qualified Code(s): R41.82 - Altered mental status, unspecified
[2018-06-08 11:04] LABS: ABG Base Excess -7.5 mmol/L (-2-2); ABG PCO2 27 mmHg (38-42); ABG PO2 163 mmHg (61-120)
[2018-06-08] MEDS ORDERED: Sodium Bicarbonate 8.4% Inj 50 MEQ/50 ML Syringe IV.PUSH ONE (12:00)
[2018-06-08] MEDS: Enoxaparin Inj 40 MG/0.4 ML Syringe SQ SCH (12:30)
[2018-06-08] MEDS: Vancomycin Inj 750 MG in Sodium Chlor 0.9% Inj 250 ML IV.SIG SCH ×2 (14:57→14:58)
--- NOTE | 2018-06-08 17:17 | P.PNNEU ---
Subjective Subjective Comments: No acute events Active Medications: Active Medications Acetaminophen (Tylenol) 650 mg PO Q6H PRN PRN Reason: pain 1-2 or temp >100.4 Hydrocodone Bitart/Acetaminophen ([place] 5/325) 1 tab PO Q4H PRN PRN Reason: PAIN SCALE 3-7 Last Admin: 06/07/18 13:12 Dose: 1 tab Al Hydroxide/Mg Hydroxide (Milk Of Magnesia Liq) 30 ml PO Q12H PRN PRN Reason: Mild Constipation Albuterol (Albuterol Neb (Prn)) 2.5 mg NEB Q2HR NEB PRN PRN Reason: SHORTNESS OF BREATH/WHEEZING Aspirin (Aspirin) 325 mg PO DAILY [facility] Last Admin: 06/08/18 08:32 Dose: 325 mg Atorvastatin Calcium (Lipitor) 40 mg PO DAILY [facility] Last Admin: 06/08/18 08:32 Dose: 40 mg Bisacodyl (Dulcolax Supp) 10 mg RECTAL DAILY PRN PRN Reason: SEVERE CONSITIPATION Chlorhexidine Gluconate (Chlorhexidine 2% Cloth) 3 pack TOPICAL DAILY@0400 [facility] Stop: 06/09/18 03:59 Last Admin: 06/08/18 04:49 Dose: 3 pack Chlorhexidine Gluconate (Chlorhexidine 2% Cloth) 3 pack TOPICAL DAILY@0400 PRN PRN Reason: Extra cloth needed Stop: 06/09/18 03:59 Chlorhexidine Gluconate (Peridex 0.12% Oral Kit) 15 ml OROPHARYNG BID@0800, 2000 [facility] Last Admin: 06/08/18 08:31 Dose: 15 ml Donepezil HCl (Aricept) 10 mg PO HS [facility] Last Admin: 06/07/18 20:26 Dose: 10 mg Enoxaparin Sodium (Lovenox Inj) 40 mg SQ DAILY [facility] Last Admin: 06/08/18 12:30 Dose: 40 mg Famotidine (Pepcid Pf Inj) 20 mg IV.PUSH Q12HR [facility] Last Admin: 06/08/18 08:32 Dose: 20 mg Ferrous Sulfate (Ferosul) 325 mg PO DAILY [facility] Last Admin: 06/08/18 08:33 Dose: Not Given Propofol (Diprivan 1000 Mg/100 Ml Inj) 1,000 mg in 100 mls @ 1.293 mls/hr IV.CONT TITRATE PRN; Protocol PRN Reason: Per Protocol Last Titration: 06/04/18 17:00 Dose: Infused Sodium Chloride (Ns Inj) 1,000 mls @ 100 mls/hr IV.CONT .Q10H [facility]AYAK Last Admin: 06/08/18 13:04 Dose: Not Given Magnesium Sulfate 4 gm/ Sodium (Chloride) 100 mls @ 50 mls/hr IV.SIG UNSCH PRN PRN Reason: For Magnesium 0.9 - 1.1 mg/dL Magnesium Sulfate 2 gm/ Sodium (Chloride) 100 mls @ 50 mls/hr IV.SIG UNSCH PRN PRN Reason: For Magnesium 1.2 - 1.6 mg/dL Potassium Chloride (Kcl 40 Meq Premix Inj) 40 meq in 100 mls @ 25 mls/hr IV.SIG Q2H PRN PRN Reason: For Potassium 2.8 - 3.2 mEq/L Last Infusion: 06/04/18 10:00 Dose: Infused Potassium Chloride (Kcl 20 Meq Premix Inj) 20 meq in 100 mls @ 50 mls/hr IV.SIG Q2H PRN PRN Reason: For Potassium 3.3 - 3.5 mEq/L Potassium Chloride (Kcl 40 Meq Premix Inj) 40 meq in 100 mls @ 25 mls/hr IV.SIG UNSCH PRN PRN Reason: For Potassium 3.3 - 3.5 mEq/L Potassium Chloride (Kcl 20 Meq Premix Inj) 20 meq in 100 mls @ 50 mls/hr IV.SIG Q2H PRN PRN Reason: For Potassium 2.8 - 3.2 mEq/L Potassium Phosphate 30 mmol/ (Sodium Chloride) 260 mls @ 42 mls/hr IV.SIG UNSCH PRN PRN Reason: SEE LABEL COMMENTS Last Infusion: 06/04/18 22:34 Dose: Infused Sodium Phosphate 30 mmol/ (Sodium Chloride) 260 mls @ 42 mls/hr IV.SIG UNSCH PRN PRN Reason: For Phosphorus < 2.5 mg/dL Fentanyl (Fentanyl 10 Mcg/Ml Premix Drip) 2,500 mcg in 250 mls @ 5 mls/hr IV.SIG TITRATE PRN; Protocol PRN Reason: Per Protocol Norepinephrine Bitartrate 4 mg (/ Sodium Chloride) 250 mls @ 7.5 mls/hr IV.SIG TITRATE PRN; Protocol PRN Reason: Per Protocol Last Titration: 06/05/18 08:45 Dose: Infused Aztreonam 2 gm/ Sodium (Chloride) 100 mls @ 200 mls/hr IV.SIG Q8H [facility] Last Admin: 06/08/18 12:32 Dose: 200 mls/hr Phenylephrine HCl 40 mg/ (Sodium Chloride) 500 mls @ 30 mls/hr IV.CONT TITRATE PRN; Protocol PRN Reason: Per Protocol Last Titration: 06/06/18 21:53 Dose: Infused Vancomycin HCl 750 mg/ Sodium (Chloride) 257.5 mls @ 250 mls/hr IV.SIG Q24H [facility] Last Admin: 06/08/18 14:57 Dose: 250 mls/hr Lactulose (Lactulose Liq) 30 ml PO DAILY PRN PRN Reason: SEVERE CONSITIPATION Magnesium Oxide (Mag-Ox) 800 mg PO UNSCH PRN PRN Reason: For Magnesium 1.2 - 1.6 mg/dL Miscellaneous (Pill Splitter) 1 each OTHER [facility] Miscellaneous Medication () 1 each OROPHARYNG 0000,0400,1200,1600 [facility] Last Admin: 06/08/18 17:11 Dose: 1 each Modafinil (Provigil) 100 mg PO DAILY [facility] Last Admin: 06/08/18 08:31 Dose: 100 mg Morphine Sulfate (Morphine Inj) 2 mg IV.PUSH Q2H PRN PRN Reason: pain 8-10 Last Admin: 06/07/18 22:18 Dose: 2 mg Ondansetron HCl (Zofran Inj) 4 mg IV.PUSH Q6H PRN PRN Reason: NAUSEA OR VOMITING Pharmacy Profile Note (Vancomycin Consult Pharmacy) 1 each OTHER UNSCH PRN PRN Reason: Pharmacy to dose Potassium Chloride (Kcl Liq) 40 meq PO UNSCH PRN PRN Reason: Potassium level 3.3-3.5 mEq/L Potassium Chloride (Kcl Liq) 40 meq PO UNSCH PRN PRN Reason: POTASSIUM LESS THAN 3.5 Potassium Phosphate (K-Phos Original) 2,000 mg PO Q4H PRN PRN Reason: Phosphorus Less Than 2.5 mg/dL Last Admin: 06/08/18 02:39 Dose: 2,000 mg Potassium Phosphate (K-Phos Original) 2,000 mg PO UNSCH PRN PRN Reason: SEE LABEL COMMENTS Senna/Docusate Sodium (Katarzyna-Colace) 1 tab PO BID [facility] Last Admin: 06/08/18 08:08 Dose: Not Given Sennosides (Senokot) 17.2 mg PO Q12H PRN PRN Reason: Moderate Constipation Sodium Chloride (Ns Flush) 2 ml IV.FLUSH BID [facility] Last Admin: 06/08/18 08:33 Dose: 2 ml Sodium Chloride (Ns Flush) 2 ml IV.FLUSH PRN PRN PRN Reason: FLUSH AFTER USING IV ACCESS Terbutaline Sulfate (Brethine Inj) 1 mg SQ UNSCH PRN PRN Reason: For Extravasation Allergies/Adverse Reactions: Allergies Allergy/AdvReac Type Severity Reaction Status Date / Time Penicillins Allergy Unknown Verified 01/14/17 15:37 Sulfa (Sulfonamide Allergy Unknown Verified 01/14/17 15:37 Antibiotics) Review of Systems unobtainable due to endotracheal tube, unobtainable due to mental status Physical Exam Vital signs: Vital Signs 06/07/18 17:40 06/07/18 18:00 06/07/18 18:12 Temperature Pulse Rate 109 H 97 H Respiratory Rate 10 L Blood Pressure 129/62 Pulse Oximetry 99 98 06/07/18 18:22 06/07/18 19:00 06/07/18 19:35 Temperature Pulse Rate 106 H 105 H Respiratory Rate 15 15 19 Blood Pressure 111/55 L Pulse Oximetry 98 99 99 06/07/18 20:00 06/07/18 20:24 06/07/18 21:00 Temperature 97.6 F Pulse Rate 103 H 108 H 106 H Respiratory Rate 17 19 20 Blood Pressure 120/73 125/68 Pulse Oximetry 99 99 99 06/07/18 22:00 06/07/18 23:00 06/07/18 23:41 Temperature Pulse Rate 106 H 90 Respiratory Rate 17 13 14 Blood Pressure 115/62 99/56 L Pulse Oximetry 99 100 99 06/08/18 00:00 06/08/18 01:00 06/08/18 02:00 Temperature 98.1 F Pulse Rate 84 76 74 Respiratory Rate 13 13 13 Blood Pressure 96/56 L 93/52 L 96/53 L Pulse Oximetry 99 100 100 06/08/18 03:00 06/08/18 03:34 06/08/18 04:00 Temperature 97.6 F Pulse Rate 74 74 Respiratory Rate 13 13 12 Blood Pressure 98/53 L 97/52 L Pulse Oximetry 99 100 100 06/08/18 05:00 06/08/18 06:00 06/08/18 07:00 Temperature Pulse Rate 91 H 98 H 71 Respiratory Rate 13 18 12 Blood Pressure 102/59 L 104/58 L 94/65 L Pulse Oximetry 99 99 100 06/08/18 08:00 06/08/18 09:00 06/08/18 10:00 Temperature 98.2 F Pulse Rate 87 89 92 H Respiratory Rate 15 20 18 Blood Pressure 103/62 108/65 101/55 L Pulse Oximetry 99 99 99 06/08/18 11:00 06/08/18 11:54 06/08/18 12:00 Temperature Pulse Rate 115 H 76 Respiratory Rate 23 16 6 L Blood Pressure 119/76 94/55 L Pulse Oximetry 100 100 100 06/08/18 13:00 06/08/18 16:12 Temperature Pulse Rate 133 H Respiratory Rate 47 H 13 Blood Pressure 155/88 H Pulse Oximetry 97 99 Intake & Output 06/07/18 06/08/18 06/08/18 18:59 06:59 18:59 Intake Total 2027.5 / 2027.5 1648 / 1648 Output Total 200 / 200 Balance 1827.5 / 1827.5 1648 / 1648 Weight 51.4 kg Intake: IV 1357.5 / 1357.5 1200 / 1200 NS Inj 1,000 ML @ 100 mls/hr IV 1000 / 1000 1000 / 1000 .CONT .Q10H [facility] Rx#:[id number] Azactam Inj 2 GM In NS Inj 100 100 / 100 200 / 200 ML @ 200 mls/hr IV.SIG Q8H [facility]AK Rx#:[id number] Vancomycin Inj 750 MG In NS Inj 257.5 / 257.5 250 ML @ 250 mls/hr IV.SIG Q24H [facility]AK Rx#:[id number] Tube Feeding 570 / 570 328 / 328 Tube Irrigant 100 / 100 120 / 120 Output: Urine 200 / 200 Other: # Voids 3 # Urine Diapers 3 Date of Last Bowel Movement 06/07/18 06/08/18 # Bowel Movements 5 3 Narrative: GENERAL: in NAD, SKIN: Warm and dry. HEAD: Atraumatic. Normocephalic. EYES: Pupils equal and round. ENT: No nasal bleeding or discharge. NECK: Trachea midline. CARDIOVASCULAR: Irregularly irregular RESPIRATORY: Intubated GASTROINTESTINAL: Abdomen soft, non-tender, nondistended. MUSCULOSKELETAL: Extremities without clubbing, cyanosis, or edema. NEUROLOGICAL: intubated, Mildly somnolent, awakens to tactile. global aphasia, rt facial weakness, no gaze preference, OU tiny, sluggish, localizes to the left upper lower extremity right hemiplegia right extensor plantar PSYCHIATRIC: Calm - Constitutional no acute distress - Routine HEENT Exam Head: Present: normocephalic - Urinary Catheter Management Indwelling Urethral Catheter Cath placed during this visit: yes, but has since been removed by the nurse Reason for continuing: Terminally ill/Comfort care Insertion date: 06/03/18 Insertion time: 18:30 Removal date: 06/06/18 Removal time: 17:00 Objective Laboratory Results - last 24 hr 06/08/18 06/08/18 06/08/18 04:55 04:55 10:52 WBC 8.9 RBC 3.06 L Hgb 9.3 L Hct 27.6 L MCV 90.4 MCH 30.5 MCHC 33.7 RDW 17.3 H Plt Count 253 MPV 7.9 Puncture Site Left radial Patient Temperature 98.6 O2 Saturation 97 ABG pH 7.40 ABG pCO2 27 L ABG pO2 163 H ABG HCO3 16 L* ABG O2 Content 11.6 L ABG Base Excess -7.5 L ABG Methemoglobin 1.3 Som Test Present Hemoglobin 8.2 L Carboxyhemoglobin 0.7 O2 Delivery Device Ventilator Vent Setting [id number] Inspired O2 30 Critical Value Yes Sodium 151 H Potassium 3.5 Chloride 125 H Carbon Dioxide 17.3 L Anion Gap 9 BUN 11 Creatinine 0.67 Estimated GFR 84 L Random Glucose 109 H Calcium 6.4 L* Calcium Adj for Albumin 8.4 L Phosphorus 0.8 L Magnesium 1.6 Albumin 1.5 L Microbiology 06/03/18 17:20 Aerobic Blood Culture - Final Blood - Peripheral No growth in 5 days Anaerobic Blood Culture - Final No growth in 5 days 06/03/18 17:25 Aerobic Blood Culture - Final Blood - Peripheral No growth in 5 days Anaerobic Blood Culture - Final No growth in 5 days Review/Management - Diagnosis (1) Acute ischemic stroke Code(s): I63.9 - Cerebral infarction, unspecified Status: Acute Current Visit: Yes (2) Atrial fibrillation, new onset Code(s): I48.91 - Unspecified atrial fibrillation Status: Chronic Current Visit: Yes (3) Respiratory failure requiring intubation Code(s): J96.90 - Respiratory failure, unspecified, unspecified whether with hypoxia or hypercapnia Status: Acute Current Visit: Yes (4) Left carotid artery occlusion Code(s): I65.22 - Occlusion and stenosis of left carotid artery Status: Acute Current Visit: Yes - Review/Management Plan: Left subcortical ischemic infarct MRI brain images reviewed. Carotid ultrasound suggesting possible left carotid occlusion. Infarct likely related to the occlusion which may be acute or chronic with underlying history of A. fib and questionable compliance on anticoagulation MRI brain demonstrate left ICA occlusion LDL 88 Echo showing EF proxy 45% with ventricular hypokinesis 06/05/18 MRI brain stable left hemispheric stroke, left ICA occlusion Recommendation Neuro stable. vitals stable Tolerating CPAP. Consideration for extubation Permissive hypertension Aspirin rectally versus Eliquis via NG tube- on aspirin at present Overall prognosis guarded with advanced age, underlying dementia probable Alzheimer's type, A. fib, stroke Follow exam
[2018-06-09] MEDS: Sod Chloride 0.9% Inj 1,000 ML IV.CONT SCH (02:49)
[2018-06-09] MEDS: Oral Hygiene Kit OROPHARYNG SCH ×4 (02:50→18:48)
[2018-06-09] MEDS: Aztreonam Inj 2 GM in Sodium Chloride 0.9% Inj 100 ML IV.SIG SCH ×3 (04:46→21:22)
[2018-06-09 05:41] LABS: Hematocrit 26.1 % (35.0-46.0); Hemoglobin 8.8 gm/dL (11.6-15.3); Mean Corpuscular HGB Conc 33.6 % (32.0-36.0); Mean Corpuscular Hemoglobin 29.5 pg (27.0-34.0); Mean Corpuscular Volume 87.8 fL (80.0-100.0); Mean Platelet Volume 7.9 fL (7.0-11.0); Platelet Count 186 th/mm3 (150-450); Red Blood Count 2.98 mil/mm3 (4.00-5.30); Red Cell Distribution Width 17.1 % (11.6-17.2)
[2018-06-09 06:19] LABS: Carbon Dioxide 21.3 meq/L (21.0-32.0); Magnesium 1.5 mg/dL (1.5-2.5); Phosphorus 2.1 mg/dL (2.5-4.9); Potassium 3.4 meq/L (3.5-5.1)
[2018-06-09 06:36] LABS: Albumin 1.4 g/dL (3.4-5.0); Calcium-Albumin Corrected 9.1 mg/dL (8.5-10.1)
--- NOTE | 2018-06-09 08:18 | P.PNNEU ---
Subjective Subjective Comments: No acute events Active Medications: Active Medications Acetaminophen (Tylenol) 650 mg PO Q6H PRN PRN Reason: pain 1-2 or temp >100.4 Hydrocodone Bitart/Acetaminophen ([place] 5/325) 1 tab PO Q4H PRN PRN Reason: PAIN SCALE 3-7 Last Admin: 06/08/18 14:59 Dose: 1 tab Al Hydroxide/Mg Hydroxide (Milk Of Magnesia Liq) 30 ml PO Q12H PRN PRN Reason: Mild Constipation Albuterol (Albuterol Neb (Prn)) 2.5 mg NEB Q2HR NEB PRN PRN Reason: SHORTNESS OF BREATH/WHEEZING Aspirin (Aspirin) 325 mg PO DAILY [facility] Last Admin: 06/08/18 08:32 Dose: 325 mg Atorvastatin Calcium (Lipitor) 40 mg PO DAILY [facility] Last Admin: 06/08/18 08:32 Dose: 40 mg Bisacodyl (Dulcolax Supp) 10 mg RECTAL DAILY PRN PRN Reason: SEVERE CONSITIPATION Chlorhexidine Gluconate (Peridex 0.12% Oral Kit) 15 ml OROPHARYNG BID@0800, 2000 [facility] Last Admin: 06/08/18 20:17 Dose: 15 ml Donepezil HCl (Aricept) 10 mg PO HS [facility] Last Admin: 06/08/18 20:16 Dose: 10 mg Enoxaparin Sodium (Lovenox Inj) 40 mg SQ DAILY [facility] Last Admin: 06/08/18 12:30 Dose: 40 mg Famotidine (Pepcid Pf Inj) 20 mg IV.PUSH Q12HR [facility] Last Admin: 06/08/18 20:15 Dose: 20 mg Ferrous Sulfate (Ferosul) 325 mg PO DAILY [facility] Last Admin: 06/08/18 08:33 Dose: Not Given Propofol (Diprivan 1000 Mg/100 Ml Inj) 1,000 mg in 100 mls @ 1.293 mls/hr IV.CONT TITRATE PRN; Protocol PRN Reason: Per Protocol Last Titration: 06/04/18 17:00 Dose: Infused Sodium Chloride (Ns Inj) 1,000 mls @ 100 mls/hr IV.CONT .Q10H [facility] Last Admin: 06/09/18 02:49 Dose: 100 mls/hr Magnesium Sulfate 4 gm/ Sodium (Chloride) 100 mls @ 50 mls/hr IV.SIG UNSCH PRN PRN Reason: For Magnesium 0.9 - 1.1 mg/dL Magnesium Sulfate 2 gm/ Sodium (Chloride) 100 mls @ 50 mls/hr IV.SIG UNSCH PRN PRN Reason: For Magnesium 1.2 - 1.6 mg/dL Potassium Chloride (Kcl 40 Meq Premix Inj) 40 meq in 100 mls @ 25 mls/hr IV.SIG Q2H PRN PRN Reason: For Potassium 2.8 - 3.2 mEq/L Last Infusion: 06/04/18 10:00 Dose: Infused Potassium Chloride (Kcl 20 Meq Premix Inj) 20 meq in 100 mls @ 50 mls/hr IV.SIG Q2H PRN PRN Reason: For Potassium 3.3 - 3.5 mEq/L Potassium Chloride (Kcl 40 Meq Premix Inj) 40 meq in 100 mls @ 25 mls/hr IV.SIG UNSCH PRN PRN Reason: For Potassium 3.3 - 3.5 mEq/L Potassium Chloride (Kcl 20 Meq Premix Inj) 20 meq in 100 mls @ 50 mls/hr IV.SIG Q2H PRN PRN Reason: For Potassium 2.8 - 3.2 mEq/L Potassium Phosphate 30 mmol/ (Sodium Chloride) 260 mls @ 42 mls/hr IV.SIG UNSCH PRN PRN Reason: SEE LABEL COMMENTS Last Infusion: 06/04/18 22:34 Dose: Infused Sodium Phosphate 30 mmol/ (Sodium Chloride) 260 mls @ 42 mls/hr IV.SIG UNSCH PRN PRN Reason: For Phosphorus < 2.5 mg/dL Fentanyl (Fentanyl 10 Mcg/Ml Premix Drip) 2,500 mcg in 250 mls @ 5 mls/hr IV.SIG TITRATE PRN; Protocol PRN Reason: Per Protocol Norepinephrine Bitartrate 4 mg (/ Sodium Chloride) 250 mls @ 7.5 mls/hr IV.SIG TITRATE PRN; Protocol PRN Reason: Per Protocol Last Titration: 06/05/18 08:45 Dose: Infused Aztreonam 2 gm/ Sodium (Chloride) 100 mls @ 200 mls/hr IV.SIG Q8H [facility] Last Infusion: 06/09/18 05:20 Dose: Infused Phenylephrine HCl 40 mg/ (Sodium Chloride) 500 mls @ 30 mls/hr IV.CONT TITRATE PRN; Protocol PRN Reason: Per Protocol Last Titration: 06/06/18 21:53 Dose: Infused Vancomycin HCl 750 mg/ Sodium (Chloride) 257.5 mls @ 250 mls/hr IV.SIG Q24H [facility] Last Infusion: 06/08/18 16:00 Dose: Infused Lactulose (Lactulose Liq) 30 ml PO DAILY PRN PRN Reason: SEVERE CONSITIPATION Magnesium Oxide (Mag-Ox) 800 mg PO UNSCH PRN PRN Reason: For Magnesium 1.2 - 1.6 mg/dL Miscellaneous (Pill Splitter) 1 each OTHER UNSCH [facility] Miscellaneous Medication () 1 each OROPHARYNG 0000,0400,1200,1600 [facility] Last Admin: 06/09/18 04:47 Dose: 1 each Modafinil (Provigil) 100 mg PO DAILY [facility] Last Admin: 06/08/18 08:31 Dose: 100 mg Morphine Sulfate (Morphine Inj) 2 mg IV.PUSH Q2H PRN PRN Reason: pain 8-10 Last Admin: 06/07/18 22:18 Dose: 2 mg Ondansetron HCl (Zofran Inj) 4 mg IV.PUSH Q6H PRN PRN Reason: NAUSEA OR VOMITING Pharmacy Profile Note (Vancomycin Consult Pharmacy) 1 each OTHER UNSCH PRN PRN Reason: Pharmacy to dose Potassium Chloride (Kcl Liq) 40 meq PO UNSCH PRN PRN Reason: Potassium level 3.3-3.5 mEq/L Potassium Chloride (Kcl Liq) 40 meq PO UNSCH PRN PRN Reason: POTASSIUM LESS THAN 3.5 Potassium Phosphate (K-Phos Original) 2,000 mg PO Q4H PRN PRN Reason: Phosphorus Less Than 2.5 mg/dL Last Admin: 06/08/18 02:39 Dose: 2,000 mg Potassium Phosphate (K-Phos Original) 2,000 mg PO UNSCH PRN PRN Reason: SEE LABEL COMMENTS Senna/Docusate Sodium (Katarzyna-Colace) 1 tab PO BID [facility] Last Admin: 06/08/18 20:16 Dose: Not Given Sennosides (Senokot) 17.2 mg PO Q12H PRN PRN Reason: Moderate Constipation Sodium Chloride (Ns Flush) 2 ml IV.FLUSH BID [facility] Last Admin: 06/08/18 20:17 Dose: Not Given Sodium Chloride (Ns Flush) 2 ml IV.FLUSH PRN PRN PRN Reason: FLUSH AFTER USING IV ACCESS Terbutaline Sulfate (Brethine Inj) 1 mg SQ UNSCH PRN PRN Reason: For Extravasation Allergies/Adverse Reactions: Allergies Allergy/AdvReac Type Severity Reaction Status Date / Time Penicillins Allergy Unknown Verified 01/14/17 15:37 Sulfa (Sulfonamide Allergy Unknown Verified 01/14/17 15:37 Antibiotics) Review of Systems unobtainable due to endotracheal tube, unobtainable due to mental status Physical Exam Vital signs: Vital Signs 06/08/18 09:00 06/08/18 10:00 06/08/18 11:00 Temperature Pulse Rate 89 92 H 115 H Respiratory Rate 20 18 23 Blood Pressure 108/65 101/55 L 119/76 Pulse Oximetry 99 99 100 06/08/18 11:54 06/08/18 12:00 06/08/18 13:00 Temperature Pulse Rate 76 133 H Respiratory Rate 16 6 L 47 H Blood Pressure 94/55 L 155/88 H Pulse Oximetry 100 100 97 06/08/18 14:00 06/08/18 15:00 06/08/18 16:00 Temperature 97.6 F Pulse Rate 118 H 118 H 82 Respiratory Rate 25 H 21 14 Blood Pressure 125/60 130/63 90/50 L Pulse Oximetry 98 98 99 06/08/18 16:02 06/08/18 16:12 06/08/18 17:00 Temperature Pulse Rate 89 96 H Respiratory Rate 15 13 15 Blood Pressure 126/62 121/59 L Pulse Oximetry 99 99 99 06/08/18 18:00 06/08/18 19:00 06/08/18 20:00 Temperature 98.7 F Pulse Rate 80 85 85 Respiratory Rate 13 14 12 Blood Pressure 92/54 L 97/53 L 96/52 L Pulse Oximetry 99 98 98 06/08/18 20:05 06/08/18 21:00 06/08/18 22:00 Temperature 98.9 F Pulse Rate 77 85 Respiratory Rate 16 7 L 12 Blood Pressure 93/58 L 95/55 L Pulse Oximetry 98 99 98 06/08/18 23:00 06/08/18 23:35 06/09/18 00:00 Temperature 99.0 F Pulse Rate 114 H 86 Respiratory Rate 22 17 13 Blood Pressure 136/60 100/54 L Pulse Oximetry 98 98 98 06/09/18 01:00 06/09/18 02:00 06/09/18 03:00 Temperature Pulse Rate 97 H 73 89 Respiratory Rate 14 12 6 L Blood Pressure 99/55 L 92/50 L 100/66 Pulse Oximetry 100 100 06/09/18 03:42 06/09/18 04:00 06/09/18 05:00 Temperature 98.7 F Pulse Rate 87 90 Respiratory Rate 15 16 16 Blood Pressure 98/55 L 118/58 L Pulse Oximetry 100 100 100 06/09/18 05:36 06/09/18 06:00 06/09/18 07:00 Temperature 98.8 F Pulse Rate 90 97 H 95 H Respiratory Rate 13 12 Blood Pressure 110/61 117/62 Pulse Oximetry 100 100 Intake & Output 06/08/18 06/09/18 06/09/18 18:59 06:59 18:59 Intake Total 666.5 / 666.5 1059 / 1059 Output Total 1525 / 1525 500 / 500 Balance -858.5 / -858.5 559 / 559 Weight 50 kg Intake: IV 357.5 / 357.5 700 / 700 NS Inj 1,000 ML @ 100 mls/hr IV 500 / 500 .CONT .Q10H [facility] Rx#:[id number] Azactam Inj 2 GM In NS Inj 100 100 / 100 200 / 200 ML @ 200 mls/hr IV.SIG Q8H [facility] Rx#:[id number] Vancomycin Inj 750 MG In NS Inj 257.5 / 257.5 250 ML @ 250 mls/hr IV.SIG Q24H [facility] Rx#:[id number] Oral 0 / 0 Tube Feeding 249 / 249 299 / 299 Tube Irrigant 60 / 60 60 / 60 Output: Urine 1525 / 1525 500 / 500 Other: # Incontinent Voids 2 Date of Last Bowel Movement 06/08/18 06/09/18 # Bowel Movements 3 2 # Incontinent Bowel Movements 2 Narrative: GENERAL: in NAD, SKIN: Warm and dry. HEAD: Atraumatic. Normocephalic. EYES: Pupils equal and round. ENT: No nasal bleeding or discharge. NECK: Trachea midline. CARDIOVASCULAR: Irregularly irregular RESPIRATORY: Intubated GASTROINTESTINAL: Abdomen soft, non-tender, nondistended. MUSCULOSKELETAL: Extremities without clubbing, cyanosis, or edema. NEUROLOGICAL: intubated, Mildly somnolent, awakens to tactile. global aphasia, rt facial weakness, no gaze preference, OU tiny, sluggish, localizes to the left upper lower extremity right hemiplegia right extensor plantar PSYCHIATRIC: Calm - Constitutional no acute distress - Routine HEENT Exam Head: Present: normocephalic - Urinary Catheter Management Indwelling Urethral Catheter Cath placed during this visit: yes, but has since been removed by the nurse Reason for continuing: Terminally ill/Comfort care Insertion date: 06/03/18 Insertion time: 18:30 Removal date: 06/06/18 Removal time: 17:00 Objective Laboratory Results - last 24 hr 06/08/18 06/09/18 06/09/18 10:52 05:07 05:07 WBC 7.0 RBC 2.98 L Hgb 8.8 L Hct 26.1 L MCV 87.8 MCH 29.5 MCHC 33.6 RDW 17.1 Plt Count 186 MPV 7.9 Puncture Site Left radial Patient Temperature 98.6 O2 Saturation 97 ABG pH 7.40 ABG pCO2 27 L ABG pO2 163 H ABG HCO3 16 L* ABG O2 Content 11.6 L ABG Base Excess -7.5 L ABG Methemoglobin 1.3 Som Test Present Hemoglobin 8.2 L Carboxyhemoglobin 0.7 O2 Delivery Device Ventilator Vent Setting [id number] Inspired O2 30 Critical Value Yes Sodium 150 H Potassium 3.4 L Chloride 120 H Carbon Dioxide 21.3 Anion Gap 9 BUN 16 Creatinine 0.68 Estimated GFR 82 L Random Glucose 81 Calcium 7.0 L* Calcium Adj for Albumin 9.1 Phosphorus 2.1 L D Magnesium 1.5 Albumin 1.4 L Microbiology 06/03/18 17:20 Aerobic Blood Culture - Final Blood - Peripheral No growth in 5 days Anaerobic Blood Culture - Final No growth in 5 days 06/03/18 17:25 Aerobic Blood Culture - Final Blood - Peripheral No growth in 5 days Anaerobic Blood Culture - Final No growth in 5 days Review/Management - Diagnosis (1) Acute ischemic stroke Code(s): I63.9 - Cerebral infarction, unspecified Status: Acute Current Visit: Yes (2) Atrial fibrillation, new onset Code(s): I48.91 - Unspecified atrial fibrillation Status: Chronic Current Visit: Yes (3) Respiratory failure requiring intubation Code(s): J96.90 - Respiratory failure, unspecified, unspecified whether with hypoxia or hypercapnia Status: Acute Current Visit: Yes (4) Left carotid artery occlusion Code(s): I65.22 - Occlusion and stenosis of left carotid artery Status: Acute Current Visit: Yes - Review/Management Plan: Left subcortical ischemic infarct MRI brain images reviewed. Carotid ultrasound suggesting possible left carotid occlusion. Infarct likely related to the occlusion which may be acute or chronic with underlying history of A. fib and questionable compliance on anticoagulation MRI brain demonstrate left ICA occlusion LDL 88 Echo showing EF proxy 45% with ventricular hypokinesis 06/05/18 MRI brain stable left hemispheric stroke, left ICA occlusion Recommendation Neuro stable. vitals stable. 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 fib, stroke Follow exam
--- NOTE | 2018-06-09 08:35 | P.PNCC ---
Subjective Subjective Remarks/Hospital Course: Hospital Course: 87-year-old right-handed female with past medical history of coronary artery disease, prior myocardial infarction, 2 vessel CABG, atrial fibrillation on chronic anticoagulation with Eliquis, prior tobacco abuse. Her states that he went to work around 0600 on 06/03 and when he returned at 15: 30 he found her on the floor supine in the bathroom with altered mental status. She was able to state her name but could not recall the name of her . Apparently when she arrived she was tachycardic with BP 91/67 and therefore R subclavian CVL was placed in the ED. She was then intubated, reportedly due to shallow respirations. She did have iatrogenic R pneumothorax, initially 1.5 cm apical. However she later became hypotensive with elevated peak pressures and I placed pigtail chest tube due to concern for development of tension physiology. She does have L gaze preference and will followup commands on the right. Withdraws on the right side but appears hemiparetic. CT brain negative. Not candidate for TPA due to unknown time of onset. He states she was in her usual state of health prior to this aside from the fact that she has had poor appetite and weight loss over the last couple of months. At her baseline she does have some difficulty with memory and she ambulates very slowly. She does not drive and has not been cooking for the last year. She does manage her finances. Subjective: 06/04: clinically worse exam- not following commands, gaze deviation. MRI pending. on norepinephrine at 8 mcg/min. 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 ? weakly following commands on the left. very somnolent and off sedation. Cr slightly worse, appears dehydrated, poor uop despite fluid resuscitation. 06/06: no changes to neurologic status. slightly more awake. chest tube to water seal. 06/07: small right apical pneumothorax has developed post-removal of right chest tube. however, this is small and has remained stable x 12 hours. will continue to monitor with serial radiographs. no improvements in mental status. palliative care consulted, as patient's baseline function with dementia may be limited, and her exam is worse than her MRI would suggest. 06/08: Patient remains intubated off all sedation. Remains lethargic low tidal volume on CPAP. Weakly follows commands on the left lower extremity. Chest x- ray today shows persistent right pneumothorax which is small 06/09: Patient remains off all sedation. Opens eyes to command tolerating CPAP however not consistently following commands. Spontaneously moving lower extremity and left upper extremity. Give additional 20 mg IV Lasix x1 Objective Vital Signs / I&O: Vital Signs 06/08/18 09:00 06/08/18 10:00 06/08/18 11:00 Temperature Pulse Rate 89 92 H 115 H Respiratory Rate 20 18 23 Blood Pressure 108/65 101/55 L 119/76 Pulse Oximetry 99 99 100 06/08/18 11:54 06/08/18 12:00 06/08/18 13:00 Temperature Pulse Rate 76 133 H Respiratory Rate 16 6 L 47 H Blood Pressure 94/55 L 155/88 H Pulse Oximetry 100 100 97 06/08/18 14:00 06/08/18 15:00 06/08/18 16:00 Temperature 97.6 F Pulse Rate 118 H 118 H 82 Respiratory Rate 25 H 21 14 Blood Pressure 125/60 130/63 90/50 L Pulse Oximetry 98 98 99 06/08/18 16:02 06/08/18 16:12 06/08/18 17:00 Temperature Pulse Rate 89 96 H Respiratory Rate 15 13 15 Blood Pressure 126/62 121/59 L Pulse Oximetry 99 99 99 06/08/18 18:00 06/08/18 19:00 06/08/18 20:00 Temperature 98.7 F Pulse Rate 80 85 85 Respiratory Rate 13 14 12 Blood Pressure 92/54 L 97/53 L 96/52 L Pulse Oximetry 99 98 98 06/08/18 20:05 06/08/18 21:00 06/08/18 22:00 Temperature 98.9 F Pulse Rate 77 85 Respiratory Rate 16 7 L 12 Blood Pressure 93/58 L 95/55 L Pulse Oximetry 98 99 98 06/08/18 23:00 06/08/18 23:35 06/09/18 00:00 Temperature 99.0 F Pulse Rate 114 H 86 Respiratory Rate 22 17 13 Blood Pressure 136/60 100/54 L Pulse Oximetry 98 98 98 06/09/18 01:00 06/09/18 02:00 06/09/18 03:00 Temperature Pulse Rate 97 H 73 89 Respiratory Rate 14 12 6 L Blood Pressure 99/55 L 92/50 L 100/66 Pulse Oximetry 100 100 06/09/18 03:42 06/09/18 04:00 06/09/18 05:00 Temperature 98.7 F Pulse Rate 87 90 Respiratory Rate 15 16 16 Blood Pressure 98/55 L 118/58 L Pulse Oximetry 100 100 100 06/09/18 05:36 06/09/18 06:00 06/09/18 07:00 Temperature 98.8 F Pulse Rate 90 97 H 95 H Respiratory Rate 13 12 Blood Pressure 110/61 117/62 Pulse Oximetry 100 100 06/09/18 08:14 Temperature Pulse Rate Respiratory Rate 20 Blood Pressure Pulse Oximetry 99 Intake & Output 06/08/18 06/09/18 06/09/18 18:59 06:59 18:59 Intake Total 666.5 / 666.5 1059 / 1059 Output Total 1525 / 1525 500 / 500 Balance -858.5 / -858.5 559 / 559 Weight 50 kg Intake: IV 357.5 / 357.5 700 / 700 NS Inj 1,000 ML @ 100 mls/hr IV 500 / 500 .CONT .Q10H [facility] Rx#:[id number] Azactam Inj 2 GM In NS Inj 100 100 / 100 200 / 200 ML @ 200 mls/hr IV.SIG Q8H [facility] Rx#:[id number] Vancomycin Inj 750 MG In NS Inj 257.5 / 257.5 250 ML @ 250 mls/hr IV.SIG Q24H [facility] Rx#:[id number] Oral 0 / 0 Tube Feeding 249 / 249 299 / 299 Tube Irrigant 60 / 60 60 / 60 Output: Urine 1525 / 1525 500 / 500 Other: # Incontinent Voids 2 Date of Last Bowel Movement 06/08/18 06/09/18 # Bowel Movements 3 2 # Incontinent Bowel Movements 2 Result Diagrams: 06/09/18 05:07 06/09/18 05:07 Objective Remarks: GENERAL: Elderly undernourished female who is orotracheally intubated. She is off all sedatives SKIN: Warm and dry. Keratinized epithelium right hand. HEAD: Atraumatic. Normocephalic. EYES: Pupils equal and round. ENT: No nasal bleeding or discharge. Orotracheally intubated NECK: Trachea midline. No JVD. CARDIOVASCULAR: irregularly irregular . afib. RESPIRATORY: No accessory muscle use. Clear to auscultation. Breath sounds equal bilaterally. GASTROINTESTINAL: Abdomen soft, non-tender, nondistended. MUSCULOSKELETAL: Extremities without clubbing, cyanosis, or edema. NEUROLOGICAL: Eyes open to voice. L sided gaze preference. Pupils reactive. Not following commands today however moving lower extremity and left upper extremity spontaneously. No movement on the right. Assessment and Plan - Problem List (1) Change in mental status Code(s): R41.82 - Altered mental status, unspecified Status: Acute (2) Atrial fibrillation, new onset Code(s): I48.91 - Unspecified atrial fibrillation Status: Chronic (3) Respiratory failure requiring intubation Code(s): J96.90 - Respiratory failure, unspecified, unspecified whether with hypoxia or hypercapnia Status: Acute (4) Pneumothorax on right Code(s): J93.9 - Pneumothorax, unspecified Status: Acute (5) Chest tube in place Code(s): Z96.89 - Presence of other specified functional implants Status: Acute - Assessment and Plan Plan: Assessment: 87yF with left thalamic CVA and respiratory failure. NEURO: Acute encephalopathy Left thalamic stroke Dementia Alzheimer Type vs. Vascular CT brain is negative. She was not a candidate for TPA. MRI: left thalamic CVA Continue provigil. Continue donepezil 10 mg p.o. Continue aspirin RESP: Acute hypoxic and hypercarbic respiratory failure Iatrogenic right pneumothorax (from central line placement in ED) history of tobacco abuse Ventilator bundle. nebs continue daily SBTs. high risk for reintubation, Attempt trial of extubation today wean fio2 for goal spo2 > 90% R apical pigtail chest tube 06/03 - 06/06 AM CXR right apical ptx has developed. manage conservatively. serial radiographs. repeat chest tube if clinically decompensates or enlarging ptx. CV: Atrial fibrillation with rapid ventricular response, now rate controlled. Myocardial Ischemia Demand ischemia vs. A fib PVC's Trend troponin and CK. Hold Eliquis until clearly no evidence of hemorrhage. Continue statin 40 mg p.o. daily continue aspirin uop improving. IV Lasix 20 mg x1 discontinue IV fluids GI: Jevity 1.5 at 35 mL per hour through OGT per nutrition recommendation. Hold for extubation Consider PPI prophylaxis due to risks of hypoperfusion. FEN/RENAL: Hypokalemia Hypocalcemia ICU electrolyte protocol. Monitor chemistries. Trend Cr. ID: Hypotension-resolved Hypothermia-resolved Leukocytosis with Left Shift Blood cultures negative to date from 06/03/2018 Received aztreonam and Levaquin in the emergency department. Urinalysis negative for evidence of bacterial infection. CXR negative. HEME: Monitor CBC. ENDO: Euglycemic. Monitor sugars. PROPH: SCDs for DVT prophylaxis. Lovenox for DVT prophylaxis. famotidine for stress ulcer prophylaxis ACCESS: R subclavian CV line placed on 06/03- removed 06/06 OVERALL IMPRESSION: minimal improvements. overall quite guarded prognosis. Palliative care consult, as we are struggling to separate from mechanical ventilation. Attempt trial extubation today Level 3 (1) Change in mental status Qualifiers: Altered mental status type: unspecified Qualified Code(s): R41.82 - Altered mental status, unspecified
[2018-06-09] MEDS: Enoxaparin Inj 40 MG/0.4 ML Syringe SQ SCH (10:46)
[2018-06-09] MEDS: Famotidine PF Inj 20 MG/2 ML Vial IV.PUSH SCH ×2 (10:47→21:22)
[2018-06-09] MEDS: Ferrous Sulfate 325 MG Tablet PO SCH (11:49)
[2018-06-09] MEDS: Aspirin 325 MG Tablet PO SCH (11:49)
[2018-06-09] MEDS: Senna/Docusate Sodium 8.6/50 MG Tablet PO SCH ×2 (11:49→21:24)
[2018-06-09] MEDS: Modafinil 200 MG Tablet PO SCH (11:50)
--- NOTE | 2018-06-09 12:53 | P.PNPAL ---
Reason for Visit Reason for visit: a. To assist with evaluation and management of symptoms including: Shortness of breath, altered mental status, debility b. To assist medical decision maker(s) with: better understanding of current medical conditions; weighing benefits/burdens of medical treatment options; making medical treatment decisions. Subjective Subjective/Interval History: Follow-up medically necessary for symptom management and family support. Patient seen and examined on [facility] in the presence of her . Patient was medically extubated this morning. Patient is lethargic, weak and not verbalizing. Patient is not following commands but spontaneously moving left upper and left lower extremity, slight withdrawal to noxious stimulation with right lower extremity and no response noted to right upper extremity. Expressed concern regarding patient's lethargy, weakness, ability to protect airway and most likely right hemiplegia. Readdressed CODE STATUS with patient` s spouse Ruslan Kay (HEALTH CARE PROXY). Patient spouse states that if patient is in respiratory distress he would want to give her "another chance" by allowing medical team to reintubate her "one more time". Goals remain aggressive. Case discussed with bedside RN. . Family/Friend Interactions: See interval note. . Advance Directives Living Will: Never completed Health Care Surrogate: Never completed Durable Power of Ground Wood Supervisor: Never completed Health Care Surrogate Name and Number: HCP: Ruslan Kay [phone] (home) ; [phone] (cell) Documented care wishes:: Never completed advanced directives. . Objective Vital Signs: Vital Signs 06/08/18 13:00 06/08/18 14:00 06/08/18 15:00 Temperature Pulse Rate 133 H 118 H 118 H Respiratory Rate 47 H 25 H 21 Blood Pressure 155/88 H 125/60 130/63 Pulse Oximetry 97 98 98 06/08/18 16:00 06/08/18 16:02 06/08/18 16:12 Temperature 97.6 F Pulse Rate 82 89 Respiratory Rate 14 15 13 Blood Pressure 90/50 L 126/62 Pulse Oximetry 99 99 99 06/08/18 17:00 06/08/18 18:00 06/08/18 19:00 Temperature Pulse Rate 96 H 80 85 Respiratory Rate 15 13 14 Blood Pressure 121/59 L 92/54 L 97/53 L Pulse Oximetry 99 99 98 06/08/18 20:00 06/08/18 20:05 06/08/18 21:00 Temperature 98.7 F Pulse Rate 85 77 Respiratory Rate 12 16 7 L Blood Pressure 96/52 L 93/58 L Pulse Oximetry 98 98 99 06/08/18 22:00 06/08/18 23:00 06/08/18 23:35 Temperature 98.9 F Pulse Rate 85 114 H Respiratory Rate 12 22 17 Blood Pressure 95/55 L 136/60 Pulse Oximetry 98 98 98 06/09/18 00:00 06/09/18 01:00 06/09/18 02:00 Temperature 99.0 F Pulse Rate 86 97 H 73 Respiratory Rate 13 14 12 Blood Pressure 100/54 L 99/55 L 92/50 L Pulse Oximetry 98 100 06/09/18 03:00 06/09/18 03:42 06/09/18 04:00 Temperature 98.7 F Pulse Rate 89 87 Respiratory Rate 6 L 15 16 Blood Pressure 100/66 98/55 L Pulse Oximetry 100 100 100 06/09/18 05:00 06/09/18 05:36 06/09/18 06:00 Temperature Pulse Rate 90 90 97 H Respiratory Rate 16 13 Blood Pressure 118/58 L 110/61 Pulse Oximetry 100 100 06/09/18 07:00 06/09/18 08:00 06/09/18 08:14 Temperature 98.8 F 97.8 F Pulse Rate 95 H 97 H Respiratory Rate 12 16 20 Blood Pressure 117/62 116/63 Pulse Oximetry 100 99 99 06/09/18 09:00 06/09/18 10:00 Temperature Pulse Rate 95 H 101 H Respiratory Rate 15 23 Blood Pressure 113/62 114/76 Pulse Oximetry 100 100 Intake & Output 06/08/18 06/09/18 06/09/18 18:59 06:59 18:59 Intake Total 666.5 / 666.5 1059 / 1059 Output Total 1525 / 1525 500 / 500 Balance -858.5 / -858.5 559 / 559 Weight 50 kg Intake: IV 357.5 / 357.5 700 / 700 NS Inj 1,000 ML @ 100 mls/hr IV 500 / 500 .CONT .Q10H VINAYAK Rx#:[id number] Azactam Inj 2 GM In NS Inj 100 100 / 100 200 / 200 ML @ 200 mls/hr IV.SIG Q8H VINAYAK Rx#:[id number] Vancomycin Inj 750 MG In NS Inj 257.5 / 257.5 250 ML @ 250 mls/hr IV.SIG Q24H VINAYAK Rx#:[id number] Oral 0 / 0 Tube Feeding 249 / 249 299 / 299 Tube Irrigant 60 / 60 60 / 60 Output: Urine 1525 / 1525 500 / 500 Other: # Incontinent Voids 2 Date of Last Bowel Movement 06/08/18 06/09/18 # Bowel Movements 3 2 # Incontinent Bowel Movements 2 Physical Exam: CONSTITUTIONAL/GENERAL: This is an elderly, cachectic, frail, nonverbal patient in no acute distress TUBES/LINES/DRAINS: PIV, Mehta catheter SKIN: Pale, fragile skin with lesions. Ecchymoses on upper extremities. HEAD: Atraumatic. Normocephalic. EYES: Pupils reactive to light. Spontaneously opens eyes and tracks. Fundi not examined. ENT: Hard of hearing. Nose without bleeding or purulent drainage. NECK: Trachea midline. Supple, nontender. CARDIOVASCULAR: Irregular rate and rhythm. No JVD. Peripheral pulses symmetric. RESPIRATORY/CHEST: Symmetric, unlabored respirations. Rhonchi in all elizabeth. Weak cough. Nasal cannula GASTROINTESTINAL: Abdomen soft, non-tender, nondistended. No guarding. Bowel sounds present. GENITOURINARY: Without palpable bladder distension. Mehta catheter in place. MUSCULOSKELETAL: Extremities without clubbing, cyanosis, or edema. No mottling or clubbing. LYMPHATICS: Did not assess NEUROLOGICAL: Awake. Not verbalizing. Not following simple commands. Spontaneously moving left side, slight withdrawal to right lower extremity and flaccid to right upper extremity. PSYCHIATRIC: No obvious anxiety/depression. Currently calm. . Diagnostic Tests Laboratory: Laboratory Results - last 72 hr 06/07/18 06/07/18 06/07/18 12:54 13:55 15:10 WBC 10.0 RBC 3.15 L Hgb 9.3 L Hct 28.2 L MCV 89.5 MCH 29.6 MCHC 33.1 RDW 16.8 Plt Count 293 MPV 7.6 Puncture Site Patient Temperature O2 Saturation ABG pH ABG pCO2 ABG pO2 ABG HCO3 ABG O2 Content ABG Base Excess ABG Methemoglobin Som Test Hemoglobin Carboxyhemoglobin O2 Delivery Device Vent Setting Inspired O2 Critical Value Sodium 150 H Potassium 3.5 Chloride 122 H Carbon Dioxide 17.0 L Anion Gap 11 BUN 13 Creatinine 0.81 Estimated GFR 67 L Random Glucose 94 Calcium 6.5 L* Calcium Adj for Albumin 8.5 Phosphorus 1.0 L Magnesium 1.9 Albumin 1.5 L Vancomycin Trough 12.9 H 06/08/18 06/08/18 06/08/18 04:55 04:55 10:52 WBC 8.9 RBC 3.06 L Hgb 9.3 L Hct 27.6 L MCV 90.4 MCH 30.5 MCHC 33.7 RDW 17.3 H Plt Count 253 MPV 7.9 Puncture Site Left radial Patient Temperature 98.6 O2 Saturation 97 ABG pH 7.40 ABG pCO2 27 L ABG pO2 163 H ABG HCO3 16 L* ABG O2 Content 11.6 L ABG Base Excess -7.5 L ABG Methemoglobin 1.3 Som Test Present Hemoglobin 8.2 L Carboxyhemoglobin 0.7 O2 Delivery Device Ventilator Vent Setting [id number] Inspired O2 30 Critical Value Yes Sodium 151 H Potassium 3.5 Chloride 125 H Carbon Dioxide 17.3 L Anion Gap 9 BUN 11 Creatinine 0.67 Estimated GFR 84 L Random Glucose 109 H Calcium 6.4 L* Calcium Adj for Albumin 8.4 L Phosphorus 0.8 L Magnesium 1.6 Albumin 1.5 L Vancomycin Trough 06/09/18 06/09/18 05:07 05:07 WBC 7.0 RBC 2.98 L Hgb 8.8 L Hct 26.1 L MCV 87.8 MCH 29.5 MCHC 33.6 RDW 17.1 Plt Count 186 MPV 7.9 Puncture Site Patient Temperature O2 Saturation ABG pH ABG pCO2 ABG pO2 ABG HCO3 ABG O2 Content ABG Base Excess ABG Methemoglobin Som Test Hemoglobin Carboxyhemoglobin O2 Delivery Device Vent Setting Inspired O2 Critical Value Sodium 150 H Potassium 3.4 L Chloride 120 H Carbon Dioxide 21.3 Anion Gap 9 BUN 16 Creatinine 0.68 Estimated GFR 82 L Random Glucose 81 Calcium 7.0 L* Calcium Adj for Albumin 9.1 Phosphorus 2.1 L D Magnesium 1.5 Albumin 1.4 L Vancomycin Trough Result Diagrams: 06/10/18 11:31 06/10/18 11:31 Microbiology: Microbiology 06/03/18 17:20 Aerobic Blood Culture - Final Blood - Peripheral No growth in 5 days Anaerobic Blood Culture - Final No growth in 5 days 06/03/18 17:25 Aerobic Blood Culture - Final Blood - Peripheral No growth in 5 days Anaerobic Blood Culture - Final No growth in 5 days Imaging: Head CT 06/03/18 16:34 CONCLUSION: 1. No acute intracranial abnormality. . Cervical Spine CT 06/03/18 16:41 CONCLUSION: 1. No acute fracture. 2. Stable 3 mm anterolisthesis of C2 on C3 and 2 mm anterolisthesis of C7 on T1 , as would be secondary to degenerative facet arthrosis. 3. Small right apical pneumothorax. Physician is aware from prior chest radiograph. 4. Multilevel degenerative spondylosis of the cervical spine. Carotid Doppler Study 06/04/18 00:00 CONCLUSION: 1. There appears to be occlusion of the left internal carotid artery. If clinically indicated, a CTA of the carotids could be performed for further evaluation. 2. Moderate atherosclerotic plaquing at the right carotid bifurcation. No focal high-grade or hemodynamically significant stenosis. Head MRI 06/05/18 00:00 CONCLUSION: 1. Infarcts in the left basal ganglia and left parietal lobe, not significantly changed. 2. Chronic ischemic small vessel vasculopathy. Head MRA 06/05/18 11:40 CONCLUSION: 1. Motion artifact limiting evaluation. 2. Diffuse atherosclerotic changes throughout the visualized intracranial vasculature. 3. Suspect occluded left internal carotid artery. Correlation with CTA of the neck/CTA of the brain may be warranted. Chest X-Ray 06/08/18 05:00 CONCLUSION: 1. Stable appearance of the chest with small right apical pneumothorax and right pleural effusion. 2. Stable position of life-support tubes. 3. Mild interstitial prominence in both hemithoraces appears chronic. 4. Stable fracture deformity of the proximal left humerus. Procedures: 06/03/18-endotracheally intubated 06/03/18-right subclavian central line placement 06/03/18-right chest tube placement 06/06/18-chest tube discontinued 06/09/18-medically extubated . Assessment and Plan - Disease Oriented Problem List (1) Acute ischemic stroke (2) Respiratory failure requiring intubation (3) Atrial fibrillation with RVR (4) Hypokalemia - Symptom Scale (1) Shortness of breath 0-10 Scale: Unable to quantify (2) Altered mental status 0-10 Scale: Unable to quantify (3) Debility 0-10 Scale: Unable to quantify Pertinent Non-Medical Issues: Psychosocial: Patient is originally from [place]. She moved to [place] 30 years ago. Patient has been 3 times. She has been to her current for 40 years. Patient had all sons, 3 are and one son Miley Kraus is still living. Patient is the only child. Both her parents are . Patient resides with her . Spiritual: Patient is Faith Legal: Patient has never completed advanced directives. Ethical issues impacting care: None identified at this time . Important Contacts: Healthcare proxy -spouse- Jeremy Kay [phone] . Prognosis: Mrs Kay is an 87-year-old female with a medical history significant for coronary artery disease S/P CABG, congestive heart failure, atrial fibrillation on chronic anticoagulation, myocardial infarction, diverticulosis, hypertension and hyperlipidemia. Patient was brought to the emergency room on 06/03/2018 for further evaluation of altered mental status. MRI brain showed a thalamic stroke. Clinical course complicated with hypotension requiring pressor support, shortness of breath, altered mental status. Given multiple ongoing comorbidities, advanced age and debility, patient remains at high risk for further complications, deterioration and decline. Prognosis is guarded. . Code Status: Alternative Code Plan: PLAN: Legal decision maker: Patient medically extubated 06/09/18. Not verbalizing, ? Aphasia. It is not known whether patient will regain capacity to participate in medical decision making. Patient is . According to [place] statute, her spouse Rona Kay will serve as her healthcare decision maker proxy. Goals: Remain aggressive. Patient medically extubated on 06/09/18. Readdressed CODE STATUS with patient spouse states that he would want patient to be reintubated if she is in respiratory distress at least "one more time". CODE STATUS: Alternative code-intubation only. SYMPTOMS: * Shortness of breath: Patient had an acute ischemic stroke, required endotracheal intubation for airway protection. Iatrogenic right pneumothorax requiring placement of a pigtail chest tube, now discontinued. Chest x-ray still showing stable small right apical pneumothorax and right pleural effusion. Medically extubated on 06/09/18. * Altered mental status: Patient's baseline of memory loss. Admitted for acute ischemic stroke. Patient medically extubated 06/09/18. Currently not verbalizing, questionable global aphasia. Recommending consulting speech therapy for cognition and swallow eval. Continue with neuro checks. * Debility: Progressive. Patient has multiple ongoing comorbidities. Requires assistance with all ADLs. Patient has a stable fracture deformity of proximal left humerus. Spouse states that she has decreased range of motion with her arms. Patient is supposed to ambulate with a Rollator walker at home but normally utilizes dyer and furniture for support. If goals are aggressive, recommending PT though patient will most likely not participate due to memory issues. Palliative care will continue to follow the patient during hospital course as condition evolves, to assist patient/decision-maker with understanding of their medical conditions, weighing benefits/burdens of treatment options, for clarification of goals of treatment. Additionally will assist with any symptoms of palliative concern Attestation Attestation: To help prompt me to consider important information that might be impacting today's encounter and assessment, information from prior notes written by myself or my colleagues may have been "brought forward" into today's note. My signature on this note, however, is an attestation that I personally performed the exam, history, and/or decision-making noted today, and, unless otherwise indicated, the interactions with patient, family, and staff as well as the review of records all occurred today. I also attest that the listed assessment and stated plan reflect my best clinical judgment today based on the combination of historical information, prior notes, and today's exam/ interactions. When time spent is documented, it refers only to time spent today by the signer, or if indicated, combined time spent today by collaborating physician/nurse practitioner.
[2018-06-09] MEDS: Chlorhexidine 0.12% Oral Kit 15 ML UDC OROPHARYNG SCH ×2 (14:57→21:23)
[2018-06-09] MEDS: Vancomycin Inj 750 MG in Sodium Chlor 0.9% Inj 250 ML IV.SIG SCH (15:39)
[2018-06-09] MEDS ORDERED: Albumin Human 25% Inj 100 ML IV.SIG ONE (18:00)
[2018-06-09] MEDS ORDERED: Metoprolol Inj 5 MG/5 ML Vial IV.PUSH ONE (18:15)
[2018-06-10] MEDS: Aztreonam Inj 2 GM in Sodium Chloride 0.9% Inj 100 ML IV.SIG SCH ×3 (05:15→20:38)
[2018-06-10] MEDS: Sod Chloride 0.9% Inj 1,000 ML IV.CONT SCH ×2 (05:18→08:21)
--- NOTE | 2018-06-10 05:32 | XR ---
EXAM DATE: 06/10/2018 4:24 AM EST AGE/SEX: 87 years / Female INDICATIONS: Short of breath. CLINICAL DATA: This is the patient's subsequent encounter. Patient reports that signs and symptoms h ave been present for 1 week and indicates a pain score of 0/10. MEDICAL/SURGICAL HISTORY: . Hypertension. Myocardial infarction. Carcinoma, skin cancer. . Ap pendectomy. CABG. Cholecystectomy. COMPARISON: [facility] [place] 1V SINGLE AP, 06/08/2018. . FINDINGS: A single AP view of the chest demonstrates the lungs to be symmetrically aerated with persistent righ t apical pneumothorax. Some developing atelectatic changes in the right upper lung with stable inters titial prominence bilaterally which is probably chronic. Persistent right basilar consolidation with associated effusion. Heart size is normal. Findings of prior CABG. Endotracheal and nasogastric tubes have been removed. Stable fracture deformity of the proximal left humerus. CONCLUSION: 1. Stable right apical pneumothorax. Persistent right basilar consolidation/effusion. Some developin g atelectatic changes in the right upper lobe. 2. Baseline interstitial prominence is probably chronic. 3. Interval removal of life-support tubes. 4. Stable fracture deformity of the proximal left humerus. Electronically signed by: Orlando Kohli MD Board Certified Radiologist 06/10/2018 5:31 AM EST
--- NOTE | 2018-06-10 08:53 | P.PNNEU ---
Subjective Subjective Comments: extubated Active Medications: Active Medications Acetaminophen (Tylenol) 650 mg PO Q6H PRN PRN Reason: pain 1-2 or temp >100.4 Hydrocodone Bitart/Acetaminophen (Willow 5/325) 1 tab PO Q4H PRN PRN Reason: PAIN SCALE 3-7 Last Admin: 06/08/18 14:59 Dose: 1 tab Al Hydroxide/Mg Hydroxide (Milk Of Magnesia Liq) 30 ml PO Q12H PRN PRN Reason: Mild Constipation Albuterol (Albuterol Neb (Prn)) 2.5 mg NEB Q2HR NEB PRN PRN Reason: SHORTNESS OF BREATH/WHEEZING Aspirin (Aspirin) 325 mg PO DAILY [facility] Last Admin: 06/09/18 11:49 Dose: Not Given Atorvastatin Calcium (Lipitor) 40 mg PO DAILY [facility] Last Admin: 06/09/18 11:49 Dose: Not Given Bisacodyl (Dulcolax Supp) 10 mg RECTAL DAILY PRN PRN Reason: SEVERE CONSITIPATION Chlorhexidine Gluconate (Peridex 0.12% Oral Kit) 15 ml OROPHARYNG BID@0800, 2000 [facility] Last Admin: 06/09/18 21:23 Dose: Not Given Donepezil HCl (Aricept) 10 mg PO HS [facility] Last Admin: 06/09/18 21:23 Dose: Not Given Enoxaparin Sodium (Lovenox Inj) 40 mg SQ DAILY [facility] Last Admin: 06/09/18 10:46 Dose: 40 mg Famotidine (Pepcid Pf Inj) 20 mg IV.PUSH Q12HR [facility] Last Admin: 06/09/18 21:22 Dose: 20 mg Ferrous Sulfate (Ferosul) 325 mg PO DAILY [facility] Last Admin: 06/09/18 11:49 Dose: Not Given Propofol (Diprivan 1000 Mg/100 Ml Inj) 1,000 mg in 100 mls @ 1.293 mls/hr IV.CONT TITRATE PRN; Protocol PRN Reason: Per Protocol Last Titration: 06/04/18 17:00 Dose: Infused Sodium Chloride (Ns Inj) 1,000 mls @ 100 mls/hr IV.CONT .Q10H [facility] Last Admin: 06/10/18 08:21 Dose: Not Given Magnesium Sulfate 4 gm/ Sodium (Chloride) 100 mls @ 50 mls/hr IV.SIG UNSCH PRN PRN Reason: For Magnesium 0.9 - 1.1 mg/dL Magnesium Sulfate 2 gm/ Sodium (Chloride) 100 mls @ 50 mls/hr IV.SIG UNSCH PRN PRN Reason: For Magnesium 1.2 - 1.6 mg/dL Potassium Chloride (Kcl 40 Meq Premix Inj) 40 meq in 100 mls @ 25 mls/hr IV.SIG Q2H PRN PRN Reason: For Potassium 2.8 - 3.2 mEq/L Last Infusion: 06/04/18 10:00 Dose: Infused Potassium Chloride (Kcl 20 Meq Premix Inj) 20 meq in 100 mls @ 50 mls/hr IV.SIG Q2H PRN PRN Reason: For Potassium 3.3 - 3.5 mEq/L Potassium Chloride (Kcl 40 Meq Premix Inj) 40 meq in 100 mls @ 25 mls/hr IV.SIG UNSCH PRN PRN Reason: For Potassium 3.3 - 3.5 mEq/L Potassium Chloride (Kcl 20 Meq Premix Inj) 20 meq in 100 mls @ 50 mls/hr IV.SIG Q2H PRN PRN Reason: For Potassium 2.8 - 3.2 mEq/L Potassium Phosphate 30 mmol/ (Sodium Chloride) 260 mls @ 42 mls/hr IV.SIG UNSCH PRN PRN Reason: SEE LABEL COMMENTS Last Infusion: 06/04/18 22:34 Dose: Infused Sodium Phosphate 30 mmol/ (Sodium Chloride) 260 mls @ 42 mls/hr IV.SIG UNSCH PRN PRN Reason: For Phosphorus < 2.5 mg/dL Fentanyl (Fentanyl 10 Mcg/Ml Premix Drip) 2,500 mcg in 250 mls @ 5 mls/hr IV.SIG TITRATE PRN; Protocol PRN Reason: Per Protocol Norepinephrine Bitartrate 4 mg (/ Sodium Chloride) 250 mls @ 7.5 mls/hr IV.SIG TITRATE PRN; Protocol PRN Reason: Per Protocol Last Titration: 06/05/18 08:45 Dose: Infused Aztreonam 2 gm/ Sodium (Chloride) 100 mls @ 200 mls/hr IV.SIG Q8H [facility] Last Infusion: 06/10/18 05:45 Dose: Infused Phenylephrine HCl 40 mg/ (Sodium Chloride) 500 mls @ 30 mls/hr IV.CONT TITRATE PRN; Protocol PRN Reason: Per Protocol Last Titration: 06/06/18 21:53 Dose: Infused Vancomycin HCl 750 mg/ Sodium (Chloride) 257.5 mls @ 250 mls/hr IV.SIG Q24H [facility] Last Infusion: 06/09/18 16:41 Dose: Infused Lactulose (Lactulose Liq) 30 ml PO DAILY PRN PRN Reason: SEVERE CONSITIPATION Magnesium Oxide (Mag-Ox) 800 mg PO UNSCH PRN PRN Reason: For Magnesium 1.2 - 1.6 mg/dL Metoprolol Tartrate (Lopressor) 25 mg PO Q8H [facility] Miscellaneous (Pill Splitter) 1 each OTHER UNSCH [facility] Miscellaneous Medication () 1 each OROPHARYNG 0000,0400,1200,1600 [facility] Last Admin: 06/09/18 18:48 Dose: 1 each Modafinil (Provigil) 100 mg PO DAILY [facility] Last Admin: 06/09/18 11:50 Dose: Not Given Morphine Sulfate (Morphine Inj) 2 mg IV.PUSH Q2H PRN PRN Reason: pain 8-10 Last Admin: 06/07/18 22:18 Dose: 2 mg Ondansetron HCl (Zofran Inj) 4 mg IV.PUSH Q6H PRN PRN Reason: NAUSEA OR VOMITING Pharmacy Profile Note (Vancomycin Consult Pharmacy) 1 each OTHER UNSCH PRN PRN Reason: Pharmacy to dose Potassium Chloride (Kcl Liq) 40 meq PO UNSCH PRN PRN Reason: Potassium level 3.3-3.5 mEq/L Potassium Chloride (Kcl Liq) 40 meq PO UNSCH PRN PRN Reason: POTASSIUM LESS THAN 3.5 Potassium Phosphate (K-Phos Original) 2,000 mg PO Q4H PRN PRN Reason: Phosphorus Less Than 2.5 mg/dL Last Admin: 06/08/18 02:39 Dose: 2,000 mg Potassium Phosphate (K-Phos Original) 2,000 mg PO UNSCH PRN PRN Reason: SEE LABEL COMMENTS Senna/Docusate Sodium (Katarzyna-Colace) 1 tab PO BID [facility] Last Admin: 06/09/18 21:24 Dose: Not Given Sennosides (Senokot) 17.2 mg PO Q12H PRN PRN Reason: Moderate Constipation Sodium Chloride (Ns Flush) 2 ml IV.FLUSH BID [facility] Last Admin: 06/09/18 21:24 Dose: Not Given Sodium Chloride (Ns Flush) 2 ml IV.FLUSH PRN PRN PRN Reason: FLUSH AFTER USING IV ACCESS Terbutaline Sulfate (Brethine Inj) 1 mg SQ UNSCH PRN PRN Reason: For Extravasation Allergies/Adverse Reactions: Allergies Allergy/AdvReac Type Severity Reaction Status Date / Time Penicillins Allergy Unknown Verified 01/14/17 15:37 Sulfa (Sulfonamide Allergy Unknown Verified 01/14/17 15:37 Antibiotics) Review of Systems unobtainable due to mental status Physical Exam Vital signs: Vital Signs 06/09/18 09:00 06/09/18 10:00 06/09/18 12:00 Temperature Pulse Rate 95 H 101 H 100 H Respiratory Rate 15 23 21 Blood Pressure 113/62 114/76 119/73 Pulse Oximetry 100 100 100 06/09/18 13:00 06/09/18 14:00 06/09/18 15:00 Temperature Pulse Rate 107 H 105 H 105 H Respiratory Rate 23 21 20 Blood Pressure 139/62 128/58 L 123/81 Pulse Oximetry 100 100 100 06/09/18 16:00 06/09/18 17:00 06/09/18 18:00 Temperature Pulse Rate 132 H 120 H 122 H Respiratory Rate 25 H 24 23 Blood Pressure 146/96 H 97/60 L 145/78 H Pulse Oximetry 100 97 98 06/09/18 19:00 06/09/18 19:49 06/09/18 20:00 Temperature 98.2 F Pulse Rate 114 H 109 H Respiratory Rate 42 H 38 H Blood Pressure 119/64 117/63 Pulse Oximetry 98 98 99 06/09/18 21:00 06/09/18 22:00 06/09/18 23:00 Temperature Pulse Rate 110 H 114 H 90 Respiratory Rate 29 H 32 H 37 H Blood Pressure 104/57 L 99/67 L 110/59 L Pulse Oximetry 99 99 99 06/10/18 00:00 06/10/18 01:00 06/10/18 02:00 Temperature Pulse Rate 90 100 H 95 H Respiratory Rate 29 H 29 H 32 H Blood Pressure 108/63 104/65 104/63 Pulse Oximetry 99 98 99 06/10/18 03:00 06/10/18 04:00 06/10/18 05:00 Temperature 98.0 F Pulse Rate 94 H 96 H 102 H Respiratory Rate 31 H 34 H 35 H Blood Pressure 104/58 L 108/55 L 119/58 L Pulse Oximetry 99 99 99 06/10/18 06:00 Temperature Pulse Rate 97 H Respiratory Rate 31 H Blood Pressure 116/61 Pulse Oximetry 98 Intake & Output 06/09/18 06/10/18 06/10/18 18:59 06:59 18:59 Intake Total 357.5 / 357.5 200 / 200 Output Total 600 / 600 500 / 500 Balance -242.5 / -242.5 -300 / -300 Weight 49 kg Intake: IV 357.5 / 357.5 200 / 200 Azactam Inj 2 GM In NS Inj 100 100 / 100 200 / 200 ML @ 200 mls/hr IV.SIG Q8H [facility] Rx#:[id number] Vancomycin Inj 750 MG In NS Inj 257.5 / 257.5 250 ML @ 250 mls/hr IV.SIG Q24H [facility] Rx#:[id number] Output: Urine 600 / 600 500 / 500 Other: Date of Last Bowel Movement 06/09/18 Narrative: GENERAL: in NAD, SKIN: Warm and dry. HEAD: Atraumatic. Normocephalic. EYES: Pupils equal and round. ENT: No nasal bleeding or discharge. NECK: Trachea midline. CARDIOVASCULAR: Irregularly irregular RESPIRATORY: Intubated GASTROINTESTINAL: Abdomen soft, non-tender, nondistended. MUSCULOSKELETAL: Extremities without clubbing, cyanosis, or edema. NEUROLOGICAL: Mildly somnolent, awakens to tactile. global aphasia, rt facial weakness, no gaze preference, OU tiny, sluggish, localizes to the left upper lower extremity right hemiplegia right extensor plantar PSYCHIATRIC: Calm - Constitutional no acute distress - Routine HEENT Exam Head: Present: normocephalic - Urinary Catheter Management Indwelling Urethral Catheter Cath placed during this visit: yes, but has since been removed by the nurse Reason for continuing: Terminally ill/Comfort care Insertion date: 06/03/18 Insertion time: 18:30 Removal date: 06/06/18 Removal time: 17:00 Review/Management - Diagnosis (1) Acute ischemic stroke Code(s): I63.9 - Cerebral infarction, unspecified Status: Acute Current Visit: Yes (2) Atrial fibrillation, new onset Code(s): I48.91 - Unspecified atrial fibrillation Status: Chronic Current Visit: Yes (3) Respiratory failure requiring intubation Code(s): J96.90 - Respiratory failure, unspecified, unspecified whether with hypoxia or hypercapnia Status: Acute Current Visit: Yes (4) Left carotid artery occlusion Code(s): I65.22 - Occlusion and stenosis of left carotid artery Status: Acute Current Visit: Yes - Review/Management Plan: Left subcortical ischemic infarct MRI brain images reviewed. Carotid ultrasound suggesting possible left carotid occlusion. Infarct likely related to the occlusion which may be acute or chronic with underlying history of A. fib and questionable compliance on anticoagulation MRI brain demonstrate left ICA occlusion LDL 88 Echo showing EF proxy 45% with ventricular hypokinesis 06/05/18 MRI brain stable left hemispheric stroke, left ICA occlusion Recommendation Neuro stable. vitals stable. 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 fib, stroke Follow exam
[2018-06-10] MEDS: Senna/Docusate Sodium 8.6/50 MG Tablet PO SCH ×2 (09:54→20:40)
[2018-06-10] MEDS: Modafinil 200 MG Tablet PO SCH (09:54)
[2018-06-10] MEDS: Metoprolol Tartrate 25 MG Tablet PO SCH ×2 (09:54→18:07)
[2018-06-10] MEDS: Famotidine PF Inj 20 MG/2 ML Vial IV.PUSH SCH ×2 (09:55→20:39)
[2018-06-10] MEDS: Chlorhexidine 0.12% Oral Kit 15 ML UDC OROPHARYNG SCH ×2 (09:55→20:37)
[2018-06-10] MEDS: Oral Hygiene Kit OROPHARYNG SCH ×4 (09:55→18:06)
[2018-06-10] MEDS: Ferrous Sulfate 325 MG Tablet PO SCH (09:55)
--- NOTE | 2018-06-10 10:56 | P.PNCC ---
Subjective Subjective Remarks/Hospital Course: Hospital Course: 87-year-old right-handed female with past medical history of coronary artery disease, prior myocardial infarction, 2 vessel CABG, atrial fibrillation on chronic anticoagulation with Eliquis, prior tobacco abuse. Her states that he went to work around 0600 on 06/03 and when he returned at 15: 30 he found her on the floor supine in the bathroom with altered mental status. She was able to state her name but could not recall the name of her . Apparently when she arrived she was tachycardic with BP 91/67 and therefore R subclavian CVL was placed in the ED. She was then intubated, reportedly due to shallow respirations. She did have iatrogenic R pneumothorax, initially 1.5 cm apical. However she later became hypotensive with elevated peak pressures and I placed pigtail chest tube due to concern for development of tension physiology. She does have L gaze preference and will followup commands on the right. Withdraws on the right side but appears hemiparetic. CT brain negative. Not candidate for TPA due to unknown time of onset. He states she was in her usual state of health prior to this aside from the fact that she has had poor appetite and weight loss over the last couple of months. At her baseline she does have some difficulty with memory and she ambulates very slowly. She does not drive and has not been cooking for the last year. She does manage her finances. Subjective: 06/04: clinically worse exam- not following commands, gaze deviation. MRI pending. on norepinephrine at 8 mcg/min. 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 ? weakly following commands on the left. very somnolent and off sedation. Cr slightly worse, appears dehydrated, poor uop despite fluid resuscitation. 06/06: no changes to neurologic status. slightly more awake. chest tube to water seal. 06/07: small right apical pneumothorax has developed post-removal of right chest tube. however, this is small and has remained stable x 12 hours. will continue to monitor with serial radiographs. no improvements in mental status. palliative care consulted, as patient's baseline function with dementia may be limited, and her exam is worse than her MRI would suggest. 06/08: Patient remains intubated off all sedation. Remains lethargic low tidal volume on CPAP. Weakly follows commands on the left lower extremity. Chest x- ray today shows persistent right pneumothorax which is small 06/09: Patient remains off all sedation. Opens eyes to command tolerating CPAP however not consistently following commands. Spontaneously moving lower extremity and left upper extremity. Give additional 20 mg IV Lasix x1 06/10: Extubated tolerating well. Protecting airway. Heart rate in 120s atrial fibrillation. Place NG tube start metoprolol start low-dose Eliquis. Discussed with neurology. Also chest x-ray shows stable pneumothorax Objective Vital Signs / I&O: Vital Signs 06/09/18 12:00 06/09/18 13:00 06/09/18 14:00 Temperature Pulse Rate 100 H 107 H 105 H Respiratory Rate 21 23 21 Blood Pressure 119/73 139/62 128/58 L Pulse Oximetry 100 100 100 06/09/18 15:00 06/09/18 16:00 06/09/18 17:00 Temperature Pulse Rate 105 H 132 H 120 H Respiratory Rate 20 25 H 24 Blood Pressure 123/81 146/96 H 97/60 L Pulse Oximetry 100 100 97 06/09/18 18:00 06/09/18 19:00 06/09/18 19:49 Temperature Pulse Rate 122 H 114 H Respiratory Rate 23 42 H Blood Pressure 145/78 H 119/64 Pulse Oximetry 98 98 98 06/09/18 20:00 06/09/18 21:00 06/09/18 22:00 Temperature 98.2 F Pulse Rate 109 H 110 H 114 H Respiratory Rate 38 H 29 H 32 H Blood Pressure 117/63 104/57 L 99/67 L Pulse Oximetry 99 99 99 06/09/18 23:00 06/10/18 00:00 06/10/18 01:00 Temperature Pulse Rate 90 90 100 H Respiratory Rate 37 H 29 H 29 H Blood Pressure 110/59 L 108/63 104/65 Pulse Oximetry 99 99 98 06/10/18 02:00 06/10/18 03:00 06/10/18 04:00 Temperature 98.0 F Pulse Rate 95 H 94 H 96 H Respiratory Rate 32 H 31 H 34 H Blood Pressure 104/63 104/58 L 108/55 L Pulse Oximetry 99 99 99 06/10/18 05:00 06/10/18 06:00 06/10/18 09:12 Temperature Pulse Rate 102 H 97 H Respiratory Rate 35 H 31 H Blood Pressure 119/58 L 116/61 Pulse Oximetry 99 98 98 Intake & Output 06/09/18 06/10/18 06/10/18 18:59 06:59 18:59 Intake Total 357.5 / 357.5 200 / 200 Output Total 600 / 600 500 / 500 Balance -242.5 / -242.5 -300 / -300 Weight 49 kg Intake: IV 357.5 / 357.5 200 / 200 Azactam Inj 2 GM In NS Inj 100 100 / 100 200 / 200 ML @ 200 mls/hr IV.SIG Q8H [facility] Rx#:[id number] Vancomycin Inj 750 MG In NS Inj 257.5 / 257.5 250 ML @ 250 mls/hr IV.SIG Q24H [facility] Rx#:[id number] Output: Urine 600 / 600 500 / 500 Other: Date of Last Bowel Movement 06/09/18 Result Diagrams: 06/09/18 05:07 06/09/18 05:07 Objective Remarks: GENERAL: Elderly undernourished female who is on NC SKIN: Warm and dry. HEAD: Atraumatic. Normocephalic. EYES: Pupils equal and round. ENT: No nasal bleeding or discharge. NECK: Trachea midline. No JVD. CARDIOVASCULAR: irregularly irregular . afib with RVR RESPIRATORY: No accessory muscle use. Clear to auscultation. Breath sounds equal bilaterally. GASTROINTESTINAL: Abdomen soft, non-tender, nondistended. MUSCULOSKELETAL: Extremities without clubbing, cyanosis, or edema. NEUROLOGICAL: Eyes open to voice. L sided gaze preference. Pupils reactive. Moving lower extremity and left upper extremity spontaneously. No movement on the right. Assessment and Plan - Problem List (1) Change in mental status Code(s): R41.82 - Altered mental status, unspecified Status: Acute (2) Atrial fibrillation, new onset Code(s): I48.91 - Unspecified atrial fibrillation Status: Chronic (3) Respiratory failure requiring intubation Code(s): J96.90 - Respiratory failure, unspecified, unspecified whether with hypoxia or hypercapnia Status: Acute (4) Pneumothorax on right Code(s): J93.9 - Pneumothorax, unspecified Status: Acute (5) Chest tube in place Code(s): Z96.89 - Presence of other specified functional implants Status: Acute - Assessment and Plan Plan: Assessment: 87yF with left thalamic CVA and respiratory failure. NEURO: Acute encephalopathy Left thalamic stroke Dementia Alzheimer Type vs. Vascular CT brain is negative. She was not a candidate for TPA. MRI: left thalamic CVA Continue Provigil. Continue donepezil 10 mg p.o. Continue aspirin Restart Eliquis today as below RESP: Acute hypoxic and hypercarbic respiratory failure-resolved Iatrogenic right pneumothorax (from central line placement in ED) history of tobacco abuse PRN nebs Extubated 06/09 wean fio2 for goal spo2 > 90% R apical pigtail chest tube 06/03 - 06/06 AM CXR-showed persistent but stable pneumothorax Manage conservatively. serial radiographs. repeat chest tube if clinically decompensates or enlarging ptx. CV: Atrial fibrillation with rapid ventricular response Myocardial Ischemia Demand ischemia vs. A fib PVC's Trend troponin and CK. Resume Eliquis 2.5 mg twice daily continue aspirin Continue statin 40 mg p.o. daily uop improving. IV Lasix 20 mg x1 repeat dose today DC maintenance IV fluid GI: Jevity 1.5 at 35 mL per hour through OGT per nutrition recommendation. Held for extubation Place NG tube and restart tube feeds Free water 300 mL every 6 hours FEN/RENAL: Hypokalemia Hypocalcemia ICU electrolyte protocol. Monitor chemistries. Trend Cr. ID: Hypotension-resolved Hypothermia-resolved Leukocytosis with Left Shift Blood cultures negative to date from 06/03/2018 Received aztreonam and Levaquin in the emergency department, which were continued Will DC vancomycin DC Levaquin Urinalysis negative for evidence of bacterial infection. CXR negative. HEME: Monitor CBC. ENDO: Euglycemic. Monitor sugars. PROPH: SCDs for DVT prophylaxis. Eliquis will provide DVT prophylaxis. famotidine for stress ulcer prophylaxis ACCESS: R subclavian CV line placed on 06/03- removed 06/06 OVERALL IMPRESSION: minimal improvements. overall guarded prognosis. Palliative care following. Recommend full DNR Level 3 (1) Change in mental status Qualifiers: Altered mental status type: unspecified Qualified Code(s): R41.82 - Altered mental status, unspecified
[2018-06-10 12:12] LABS: Hematocrit 31.4 % (35.0-46.0); Hemoglobin 10.3 gm/dL (11.6-15.3); Mean Corpuscular HGB Conc 32.9 % (32.0-36.0); Mean Corpuscular Volume 88.1 fL (80.0-100.0); Mean Platelet Volume 7.9 fL (7.0-11.0); Platelet Count 246 th/mm3 (150-450); Red Blood Count 3.56 mil/mm3 (4.00-5.30); Red Cell Distribution Width 17.2 % (11.6-17.2); White Blood Count 9.1 th/mm3 (4.0-11.0)
[2018-06-10 12:27] LABS: Alanine Aminotransferase 20 U/L (10-53); Albumin 1.4 g/dL (3.4-5.0); Alkaline Phosphatase 111 U/L (45-117); Anion Gap 10 meq/L (5-15); Aspartate Aminotransferase 70 U/L (15-37); Blood Urea Nitrogen 23 mg/dL (7-18); Calcium 7.7 mg/dL (8.5-10.1); Carbon Dioxide 23.2 meq/L (21.0-32.0); Chloride 120 meq/L (98-107); Glomerular Filtration Rate 68 mL/min (>89); Magnesium 1.6 mg/dL (1.5-2.5); Phosphorus 3.1 mg/dL (2.5-4.9); Potassium 3.8 meq/L (3.5-5.1); Sodium 153 meq/L (136-145); Total Protein 5.2 g/dL (6.4-8.2)
[2018-06-10 12:29] LABS: Glucose,Random 42 mg/dL (74-106)
--- NOTE | 2018-06-10 15:52 | P.PNPAL ---
Reason for Visit Reason for visit: a. To assist with evaluation and management of symptoms including: Shortness of breath, altered mental status, dysphasia, debility b. To assist medical decision maker(s) with: better understanding of current medical conditions; weighing benefits/burdens of medical treatment options; making medical treatment decisions. Subjective Subjective/Interval History: Follow-up medically necessary for symptom management and family support. Patient remains in ISC. She remains extubated. Patient is minimally responsive , briefly opens eyes to stimulation with preference gaze to the left side. Appears to have right-sided neglect. Withdraws to noxious stimulation with the left side and flaccid to right upper extremity with some reflex response with right great toe. Global aphasia. Bedside RN reports that even during care patient has not uttered even a single word. She remains on O2 3 L via nasal cannula with O2 sats in the low to mid 90s. Chest x-ray 06/10 still showing stable right apical pneumothorax with persistent right basilar consolidation/ effusion and some developing atelectatic changes in the right upper lobe. Patient seen by speech therapy for evaluation but was not able to participate due to lethargy. She remains nothing by mouth, was hypoglycemic this morning requiring administration of D50 and placement of an NG tube for medication and tube feeds administration. Patient spouse at bedside. Discussed patient's neuro deficits. Provided anticipatory guidance regarding care if patient spouse chooses to proceed with aggressive treatment or transitioning to comfort care. Discussed probable need for a PEG tube for long-term care. Patient`s spouse seems to be hesitant regarding proceeding with placement of PEG tube. Discussed need for long-term care if patient is ever stable to be medically discharged. Introduced hospice philosophy and benefits. Patient spouse is looking forward to arriving of patient's son in the next few days. Case discussed with bedside RN, case resource manager Jaye and Dr. Malone. . Family/Friend Interactions: See interval note. . Advance Directives Living Will: Never completed Health Care Surrogate: Never completed Durable Power of [employer]ins [place]: Never completed Health Care Surrogate Name and Number: HCP: Ruslan Kay [phone] (home) ; [phone] (cell) Documented care wishes:: Never completed advanced directives. . Objective Vital Signs: Vital Signs 06/09/18 16:00 06/09/18 17:00 06/09/18 18:00 Temperature Pulse Rate 132 H 120 H 122 H Respiratory Rate 25 H 24 23 Blood Pressure 146/96 H 97/60 L 145/78 H Pulse Oximetry 100 97 98 06/09/18 19:00 06/09/18 19:49 06/09/18 20:00 Temperature 98.2 F Pulse Rate 114 H 109 H Respiratory Rate 42 H 38 H Blood Pressure 119/64 117/63 Pulse Oximetry 98 98 99 06/09/18 21:00 06/09/18 22:00 06/09/18 23:00 Temperature Pulse Rate 110 H 114 H 90 Respiratory Rate 29 H 32 H 37 H Blood Pressure 104/57 L 99/67 L 110/59 L Pulse Oximetry 99 99 99 06/10/18 00:00 06/10/18 01:00 06/10/18 02:00 Temperature Pulse Rate 90 100 H 95 H Respiratory Rate 29 H 29 H 32 H Blood Pressure 108/63 104/65 104/63 Pulse Oximetry 99 98 99 06/10/18 03:00 06/10/18 04:00 06/10/18 05:00 Temperature 98.0 F Pulse Rate 94 H 96 H 102 H Respiratory Rate 31 H 34 H 35 H Blood Pressure 104/58 L 108/55 L 119/58 L Pulse Oximetry 99 99 99 06/10/18 06:00 06/10/18 07:00 06/10/18 08:00 Temperature 97.7 F Pulse Rate 97 H 112 H 119 H Respiratory Rate 31 H 32 H 22 Blood Pressure 116/61 115/63 113/66 Pulse Oximetry 98 99 99 06/10/18 09:00 06/10/18 09:10 06/10/18 09:12 Temperature Pulse Rate 127 H 124 H Respiratory Rate 28 H Blood Pressure 109/78 Pulse Oximetry 98 98 06/10/18 09:36 06/10/18 10:00 06/10/18 10:41 Temperature Pulse Rate 117 H 107 H 85 Respiratory Rate 22 19 Blood Pressure 106/59 L 114/55 L Pulse Oximetry 98 100 06/10/18 11:00 06/10/18 12:00 06/10/18 13:00 Temperature 98.2 F Pulse Rate 88 80 82 Respiratory Rate 19 19 21 Blood Pressure 116/61 111/58 L 118/55 L Pulse Oximetry 100 96 96 06/10/18 13:50 06/10/18 13:52 Temperature Pulse Rate 124 H Respiratory Rate Blood Pressure Pulse Oximetry 98 Intake & Output 06/09/18 06/10/18 06/10/18 18:59 06:59 18:59 Intake Total 357.5 / 357.5 200 / 200 400 / 400 Output Total 600 / 600 500 / 500 Balance -242.5 / -242.5 -300 / -300 400 / 400 Weight 49 kg Intake: IV 357.5 / 357.5 200 / 200 100 / 100 Azactam Inj 2 GM In NS Inj 100 100 / 100 200 / 200 ML @ 200 mls/hr IV.SIG Q8H VINAYAK Rx#:[id number] Vancomycin Inj 750 MG In NS Inj 257.5 / 257.5 250 ML @ 250 mls/hr IV.SIG Q24H VINAYAK Rx#:[id number] Free Water Amount 300 / 300 Output: Urine 600 / 600 500 / 500 Other: Date of Last Bowel Movement 06/09/18 06/09/18 Physical Exam: CONSTITUTIONAL/GENERAL: This is an elderly, cachectic, frail, aphasic, in no acute distress TUBES/LINES/DRAINS: PIV, Mehta catheter SKIN: Pale, fragile skin with lesions. Ecchymoses on upper extremities. HEAD: Atraumatic. Normocephalic. EYES: Pupils reactive to light. Spontaneously opens eyes and tracks. Fundi not examined. ENT: Hard of hearing. Nose without bleeding or purulent drainage. NECK: Trachea midline. Supple, nontender. CARDIOVASCULAR: Irregular rate and rhythm. No JVD. Peripheral pulses symmetric. RESPIRATORY/CHEST: Symmetric, unlabored respirations. Rhonchi in all elizabeth. O2 via nasal cannula GASTROINTESTINAL: Abdomen soft, non-tender, nondistended. No guarding. Bowel sounds present. GENITOURINARY: Without palpable bladder distension. Mehta catheter in place. MUSCULOSKELETAL: Extremities without clubbing, cyanosis, or edema. No mottling or clubbing. LYMPHATICS: Did not assess NEUROLOGICAL: Briefly opens eyes. Right-sided neglect. Head turned towards the left side. Spontaneously moving left side, flaccid to right upper extremity. PSYCHIATRIC: No obvious anxiety/depression. Currently calm. . Diagnostic Tests Laboratory: Laboratory Results - last 72 hr 06/08/18 06/08/18 06/08/18 04:55 04:55 10:52 WBC 8.9 RBC 3.06 L Hgb 9.3 L Hct 27.6 L MCV 90.4 MCH 30.5 MCHC 33.7 RDW 17.3 H Plt Count 253 MPV 7.9 Hematology Comments Puncture Site Left radial Patient Temperature 98.6 O2 Saturation 97 ABG pH 7.40 ABG pCO2 27 L ABG pO2 163 H ABG HCO3 16 L* ABG O2 Content 11.6 L ABG Base Excess -7.5 L ABG Methemoglobin 1.3 Som Test Present Hemoglobin 8.2 L Carboxyhemoglobin 0.7 O2 Delivery Device Ventilator Vent Setting [id number] Inspired O2 30 Critical Value Yes Sodium 151 H Potassium 3.5 Chloride 125 H Carbon Dioxide 17.3 L Anion Gap 9 BUN 11 Creatinine 0.67 Estimated GFR 84 L POC Glucose Random Glucose 109 H Calcium 6.4 L* Calcium Adj for Albumin 8.4 L Phosphorus 0.8 L Magnesium 1.6 Total Bilirubin AST ALT Alkaline Phosphatase Total Protein Albumin 1.5 L 06/09/18 06/09/18 06/10/18 05:07 05:07 11:31 WBC 7.0 9.1 RBC 2.98 L 3.56 L Hgb 8.8 L 10.3 L Hct 26.1 L 31.4 L MCV 87.8 88.1 MCH 29.5 29.0 MCHC 33.6 32.9 RDW 17.1 17.2 Plt Count 186 246 D MPV 7.9 7.9 Hematology Comments Puncture Site Patient Temperature O2 Saturation ABG pH ABG pCO2 ABG pO2 ABG HCO3 ABG O2 Content ABG Base Excess ABG Methemoglobin Som Test Hemoglobin Carboxyhemoglobin O2 Delivery Device Vent Setting Inspired O2 Critical Value Sodium 150 H Potassium 3.4 L Chloride 120 H Carbon Dioxide 21.3 Anion Gap 9 BUN 16 Creatinine 0.68 Estimated GFR 82 L POC Glucose Random Glucose 81 Calcium 7.0 L* Calcium Adj for Albumin 9.1 Phosphorus 2.1 L D Magnesium 1.5 Total Bilirubin AST ALT Alkaline Phosphatase Total Protein Albumin 1.4 L 06/10/18 06/10/18 06/10/18 11:31 12:32 14:09 WBC RBC Hgb Hct MCV MCH MCHC RDW Plt Count MPV Hematology Comments Puncture Site Patient Temperature O2 Saturation ABG pH ABG pCO2 ABG pO2 ABG HCO3 ABG O2 Content ABG Base Excess ABG Methemoglobin Som Test Hemoglobin Carboxyhemoglobin O2 Delivery Device Vent Setting Inspired O2 Critical Value Sodium 153 H Potassium 3.8 Chloride 120 H Carbon Dioxide 23.2 Anion Gap 10 BUN 23 H Creatinine 0.80 Estimated GFR 68 L POC Glucose 58 L 127 H Random Glucose 42 L* Calcium 7.7 L Calcium Adj for Albumin Phosphorus 3.1 D Magnesium 1.6 Total Bilirubin 0.8 AST 70 H ALT 20 Alkaline Phosphatase 111 Total Protein 5.2 L D Albumin 1.4 L Result Diagrams: 06/10/18 11:31 06/10/18 11:31 Microbiology: Microbiology 06/03/18 17:20 Aerobic Blood Culture - Final Blood - Peripheral No growth in 5 days Anaerobic Blood Culture - Final No growth in 5 days 06/03/18 17:25 Aerobic Blood Culture - Final Blood - Peripheral No growth in 5 days Anaerobic Blood Culture - Final No growth in 5 days Imaging: Head CT 06/03/18 16:34 CONCLUSION: 1. No acute intracranial abnormality. . Cervical Spine CT 06/03/18 16:41 CONCLUSION: 1. No acute fracture. 2. Stable 3 mm anterolisthesis of C2 on C3 and 2 mm anterolisthesis of C7 on T1 , as would be secondary to degenerative facet arthrosis. 3. Small right apical pneumothorax. Physician is aware from prior chest radiograph. 4. Multilevel degenerative spondylosis of the cervical spine. Carotid Doppler Study 06/04/18 00:00 CONCLUSION: 1. There appears to be occlusion of the left internal carotid artery. If clinically indicated, a CTA of the carotids could be performed for further evaluation. 2. Moderate atherosclerotic plaquing at the right carotid bifurcation. No focal high-grade or hemodynamically significant stenosis. Head MRI 06/05/18 00:00 CONCLUSION: 1. Infarcts in the left basal ganglia and left parietal lobe, not significantly changed. 2. Chronic ischemic small vessel vasculopathy. Head MRA 06/05/18 11:40 CONCLUSION: 1. Motion artifact limiting evaluation. 2. Diffuse atherosclerotic changes throughout the visualized intracranial vasculature. 3. Suspect occluded left internal carotid artery. Correlation with CTA of the neck/CTA of the brain may be warranted. Chest X-Ray 06/10/18 06:00 CONCLUSION: 1. Stable right apical pneumothorax. Persistent right basilar consolidation/ effusion. Some developing atelectatic changes in the right upper lobe. 2. Baseline interstitial prominence is probably chronic. 3. Interval removal of life-support tubes. 4. Stable fracture deformity of the proximal left humerus. Procedures: 06/03/18-endotracheally intubated 06/03/18-right subclavian central line placement 06/03/18-right chest tube placement 06/06/18-chest tube discontinued 06/09/18-medically extubated . Assessment and Plan - Disease Oriented Problem List (1) Acute ischemic stroke (2) Respiratory failure requiring intubation (3) Atrial fibrillation with RVR (4) Hypokalemia - Symptom Scale (1) Shortness of breath 0-10 Scale: Unable to quantify (2) Altered mental status 0-10 Scale: Unable to quantify (3) Dysphagia Comment: Most likely from recent ischemic stroke. Speech therapy consulted. (4) Debility 0-10 Scale: Unable to quantify Pertinent Non-Medical Issues: Psychosocial: Patient is originally from [place]. She moved to [place] 30 years ago. Patient has been 3 times. She has been to her current for 40 years. Patient had all sons, 3 are and one son Miley Kraus is still living. Patient is the only child. Both her parents are . Patient resides with her . Spiritual: Patient is [employer] Legal: Patient has never completed advanced directives. Ethical issues impacting care: None identified at this time . Important Contacts: Healthcare proxy -spouse- Jeremy Kay [phone] . Prognosis: Mrs Kay is an 87-year-old female with a medical history significant for coronary artery disease S/P CABG, congestive heart failure, atrial fibrillation on chronic anticoagulation, myocardial infarction, diverticulosis, hypertension and hyperlipidemia. Patient was brought to the emergency room on 06/03/2018 for further evaluation of altered mental status. MRI brain showed a thalamic stroke. Clinical course complicated with hypotension requiring pressor support, shortness of breath, altered mental status. Given multiple ongoing comorbidities, advanced age and debility, patient remains at high risk for further complications, deterioration and decline. Prognosis is guarded. . Code Status: Alternative Code Plan: PLAN: Legal decision maker: Patient medically extubated 06/09/18. Not verbalizing. Aphasic. It is not known whether patient will regain capacity to participate in medical decision making. Patient is . According to [place] statute, her spouse Rona Kay will serve as her healthcare decision maker proxy. Goals: Remain aggressive. Patient medically extubated on 06/09/18. Patient is aphasic. Discussed patient's neuro deficits with patient`s spouse. Provided anticipatory guidance regarding care if patient spouse chooses to proceed with aggressive treatment or transitioning to comfort care. Discussed probable need for a PEG tube for long-term care. Patient`s spouse seems to be hesitant regarding proceeding with placement of PEG tube. Discussed need for long-term care if patient is ever stable to be medically discharged. Introduced hospice philosophy and benefits. CODE STATUS: Alternative code-intubation only. SYMPTOMS: * Shortness of breath: Patient had an acute ischemic stroke, required endotracheal intubation for airway protection. Iatrogenic right pneumothorax requiring placement of a pigtail chest tube, now discontinued. Chest x-ray still showing stable small right apical pneumothorax and right pleural effusion. Medically extubated on 06/09/18. * Altered mental status: Patient's baseline of memory loss. Admitted for acute ischemic stroke. Patient medically extubated 06/09/18. Patient has global aphasia, left gaze preference with right-sided neglect and flaccid to the right side. Speech therapy saw patient on 06/10/18. Unfortunately patient was too lethargic to participate in any therapy. Continue with neuro checks. * Dysphagia: Patient recently had an ischemic stroke. Currently has global aphasia and right-sided hemiplegia. Speech therapy consulted, unable to assess patient 06/10/18 due to lethargy. NG tube inserted today. Patient`s spouse hesitant to proceed with PEG tube if patient fails swallow evaluation. No further recommendations. * Debility: Progressive. Patient has multiple ongoing comorbidities. Requires assistance with all ADLs. Patient has a stable fracture deformity of proximal left humerus. Spouse states that she has decreased range of motion with her arms. Patient is supposed to ambulate with a Rollator walker at home but normally utilizes dyer and furniture for support. If goals are aggressive, recommending PT though patient will most likely not participate due to memory issues. Palliative care will continue to follow the patient during hospital course as condition evolves, to assist patient/decision-maker with understanding of their medical conditions, weighing benefits/burdens of treatment options, for clarification of goals of treatment. Additionally will assist with any symptoms of palliative concern Attestation Attestation: To help prompt me to consider important information that might be impacting today's encounter and assessment, information from prior notes written by myself or my colleagues may have been "brought forward" into today's note. My signature on this note, however, is an attestation that I personally performed the exam, history, and/or decision-making noted today, and, unless otherwise indicated, the interactions with patient, family, and staff as well as the review of records all occurred today. I also attest that the listed assessment and stated plan reflect my best clinical judgment today based on the combination of historical information, prior notes, and today's exam/ interactions. When time spent is documented, it refers only to time spent today by the signer, or if indicated, combined time spent today by collaborating physician/nurse practitioner. .
[2018-06-10] MEDS: Enoxaparin Inj 40 MG/0.4 ML Syringe SQ SCH (18:53)
[2018-06-10] MEDS: Aspirin 325 MG Tablet PO SCH (18:53)
[2018-06-11] MEDS: Oral Hygiene Kit OROPHARYNG SCH ×5 (00:51→23:25)
[2018-06-11] MEDS: Metoprolol Tartrate 25 MG Tablet PO SCH ×4 (03:41→19:40)
[2018-06-11 05:33] LABS: Hematocrit 27.3 % (35.0-46.0); Hemoglobin 9.1 gm/dL (11.6-15.3); Mean Corpuscular HGB Conc 33.4 % (32.0-36.0); Mean Corpuscular Hemoglobin 29.1 pg (27.0-34.0); Mean Corpuscular Volume 87.1 fL (80.0-100.0); Mean Platelet Volume 7.8 fL (7.0-11.0); Platelet Count 245 th/mm3 (150-450); Red Blood Count 3.14 mil/mm3 (4.00-5.30); Red Cell Distribution Width 16.9 % (11.6-17.2); White Blood Count 8.4 th/mm3 (4.0-11.0)
[2018-06-11] MEDS: Aztreonam Inj 2 GM in Sodium Chloride 0.9% Inj 100 ML IV.SIG SCH ×3 (05:47→21:14)
[2018-06-11 06:01] LABS: Anion Gap 7 meq/L (5-15)
[2018-06-11 06:10] LABS: Alanine Aminotransferase 23 U/L (10-53); Albumin 1.4 g/dL (3.4-5.0); Alkaline Phosphatase 145 U/L (45-117); Aspartate Aminotransferase 61 U/L (15-37); Blood Urea Nitrogen 24 mg/dL (7-18); Calcium 7.7 mg/dL (8.5-10.1); Carbon Dioxide 26.2 meq/L (21.0-32.0); Chloride 119 meq/L (98-107); Glomerular Filtration Rate 68 mL/min (>89); Glucose,Random 120 mg/dL (74-106); Magnesium 1.6 mg/dL (1.5-2.5); Phosphorus 2.2 mg/dL (2.5-4.9); Sodium 152 meq/L (136-145); Total Protein 4.9 g/dL (6.4-8.2)
[2018-06-11 06:15] LABS: Potassium 2.8 meq/L (3.5-5.1)
--- NOTE | 2018-06-11 07:00 | P.PNCC ---
Subjective Subjective Remarks/Hospital Course: Hospital Course: 87-year-old right-handed female with past medical history of coronary artery disease, prior myocardial infarction, 2 vessel CABG, atrial fibrillation on chronic anticoagulation with Eliquis, prior tobacco abuse. Her states that he went to work around 0600 on 06/03 and when he returned at 15: 30 he found her on the floor supine in the bathroom with altered mental status. She was able to state her name but could not recall the name of her . Apparently when she arrived she was tachycardic with BP 91/67 and therefore R subclavian CVL was placed in the ED. She was then intubated, reportedly due to shallow respirations. She did have iatrogenic R pneumothorax, initially 1.5 cm apical. However she later became hypotensive with elevated peak pressures and I placed pigtail chest tube due to concern for development of tension physiology. She does have L gaze preference and will followup commands on the right. Withdraws on the right side but appears hemiparetic. CT brain negative. Not candidate for TPA due to unknown time of onset. He states she was in her usual state of health prior to this aside from the fact that she has had poor appetite and weight loss over the last couple of months. At her baseline she does have some difficulty with memory and she ambulates very slowly. She does not drive and has not been cooking for the last year. She does manage her finances. Subjective: 06/04: clinically worse exam- not following commands, gaze deviation. MRI pending. on norepinephrine at 8 mcg/min. 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 ? weakly following commands on the left. very somnolent and off sedation. Cr slightly worse, appears dehydrated, poor uop despite fluid resuscitation. 06/06: no changes to neurologic status. slightly more awake. chest tube to water seal. 06/07: small right apical pneumothorax has developed post-removal of right chest tube. however, this is small and has remained stable x 12 hours. will continue to monitor with serial radiographs. no improvements in mental status. palliative care consulted, as patient's baseline function with dementia may be limited, and her exam is worse than her MRI would suggest. 06/08: Patient remains intubated off all sedation. Remains lethargic low tidal volume on CPAP. Weakly follows commands on the left lower extremity. Chest x- ray today shows persistent right pneumothorax which is small 06/09: Patient remains off all sedation. Opens eyes to command tolerating CPAP however not consistently following commands. Spontaneously moving lower extremity and left upper extremity. Give additional 20 mg IV Lasix x1 06/10: Extubated tolerating well. Protecting airway. Heart rate in 120s atrial fibrillation. Place NG tube start metoprolol start low-dose Eliquis. Discussed with neurology. Also chest x-ray shows stable pneumothorax 06/11: Extubated 2 days ago, tolerating well. Protecting airways. Heart rate improved since metoprolol initiated. Objective Vital Signs / I&O: Vital Signs 06/10/18 07:00 06/10/18 08:00 06/10/18 09:00 Temperature 97.7 F Pulse Rate 112 H 119 H 127 H Respiratory Rate 32 H 22 28 H Blood Pressure 115/63 113/66 109/78 Pulse Oximetry 99 99 98 06/10/18 09:10 06/10/18 09:12 06/10/18 09:36 Temperature Pulse Rate 124 H 117 H Respiratory Rate 22 Blood Pressure 106/59 L Pulse Oximetry 98 98 06/10/18 10:00 06/10/18 10:41 06/10/18 11:00 Temperature Pulse Rate 107 H 85 88 Respiratory Rate 19 19 Blood Pressure 114/55 L 116/61 Pulse Oximetry 100 100 06/10/18 12:00 06/10/18 13:00 06/10/18 13:50 Temperature 98.2 F Pulse Rate 80 82 124 H Respiratory Rate 19 21 Blood Pressure 111/58 L 118/55 L Pulse Oximetry 96 96 06/10/18 13:52 06/10/18 14:00 06/10/18 15:00 Temperature Pulse Rate 84 85 Respiratory Rate 25 H 19 Blood Pressure 113/57 L 105/58 L Pulse Oximetry 98 100 100 06/10/18 15:15 06/10/18 16:00 06/10/18 17:00 Temperature 99 F Pulse Rate 98 H 85 82 Respiratory Rate 20 20 Blood Pressure 104/58 L 105/56 L Pulse Oximetry 100 100 06/10/18 18:00 06/10/18 18:21 06/10/18 19:00 Temperature Pulse Rate 88 95 H 75 Respiratory Rate 22 16 Blood Pressure 112/61 107/68 Pulse Oximetry 100 97 06/10/18 20:00 06/10/18 21:00 06/10/18 22:00 Temperature 97.5 F L Pulse Rate 74 70 68 Respiratory Rate 18 20 21 Blood Pressure 101/59 L 96/55 L 99/60 L Pulse Oximetry 97 98 94 L 06/10/18 23:00 06/11/18 00:00 06/11/18 01:00 Temperature 97.0 F L Pulse Rate 70 78 70 Respiratory Rate 18 21 24 Blood Pressure 98/57 L 103/59 L 109/59 L Pulse Oximetry 97 95 96 06/11/18 02:00 06/11/18 03:00 06/11/18 04:00 Temperature 97.4 F L Pulse Rate 69 72 70 Respiratory Rate 17 15 19 Blood Pressure 105/53 L 104/56 L 108/54 L Pulse Oximetry 98 98 98 06/11/18 05:00 06/11/18 06:00 Temperature Pulse Rate 63 71 Respiratory Rate 9 L 20 Blood Pressure 103/54 L 104/57 L Pulse Oximetry 99 98 Intake & Output 06/10/18 06/10/18 06/11/18 06:59 18:59 06:59 Intake Total 200 / 200 2748 / 2748 1153 / 1153 Output Total 500 / 500 1250 / 1250 Balance -300 / -300 1498 / 1498 1153 / 1153 Weight 49 kg 50.4 kg Intake: IV 200 / 200 1200 / 1200 200 / 200 NS Inj 1,000 ML @ 100 mls/hr IV 1000 / 1000 .CONT .Q10H VINAYAK Rx#:[id number] Azactam Inj 2 GM In NS Inj 100 200 / 200 100 / 100 200 / 200 ML @ 200 mls/hr IV.SIG Q8H VINAYAK Rx#:[id number] Tube Feeding 348 / 348 353 / 353 Water Bolus Amount 600 / 600 Free Water Amount 600 / 600 600 / 600 Output: Urine 500 / 500 1250 / 1250 Other: # Incontinent Voids 500 Date of Last Bowel Movement 06/09/18 06/09/18 06/09/18 Result Diagrams: 06/11/18 04:49 06/11/18 04:49 Objective Remarks: GENERAL: Elderly undernourished female who is on NC SKIN: Warm and dry. HEAD: Atraumatic. Normocephalic. EYES: Pupils equal and round. ENT: No nasal bleeding or discharge. NECK: Trachea midline. No JVD. CARDIOVASCULAR: irregularly irregular . afib, rate controlled RESPIRATORY: No accessory muscle use. Clear to auscultation. Breath sounds equal bilaterally. GASTROINTESTINAL: Abdomen soft, non-tender, nondistended. MUSCULOSKELETAL: Extremities without clubbing, cyanosis, or edema. NEUROLOGICAL: Eyes open to voice. L sided gaze preference. Pupils reactive. Moving lower extremity and left upper extremity spontaneously. No movement on the right. Assessment and Plan - Problem List (1) Change in mental status Code(s): R41.82 - Altered mental status, unspecified Status: Acute (2) Atrial fibrillation, new onset Code(s): I48.91 - Unspecified atrial fibrillation Status: Chronic (3) Respiratory failure requiring intubation Code(s): J96.90 - Respiratory failure, unspecified, unspecified whether with hypoxia or hypercapnia Status: Acute (4) Pneumothorax on right Code(s): J93.9 - Pneumothorax, unspecified Status: Acute (5) Chest tube in place Code(s): Z96.89 - Presence of other specified functional implants Status: Acute - Assessment and Plan Plan: Assessment: 87yF with left thalamic CVA and respiratory failure. NEURO: Acute encephalopathy Left thalamic stroke Dementia Alzheimer Type vs. Vascular MRI: left thalamic CVA Continue Provigil. Continue donepezil 10 mg p.o. Continue aspirin Continue Eliquis PT and OT as tolerated RESP: Acute hypoxic and hypercarbic respiratory failure-resolved Iatrogenic right pneumothorax (from central line placement in ED) History of tobacco abuse PRN nebs Extubated 06/09 wean fio2 for goal spo2 > 92% R apical pigtail chest tube 06/03 - 06/06 AM CXR-showed persistent but stable pneumothorax Manage conservatively. serial radiographs. repeat chest tube if clinically decompensates or enlarging ptx. CV: Atrial fibrillation with rapid ventricular response Myocardial Ischemia Demand ischemia vs. A fib PVC's Trend troponin and CK. Eliquis 2.5 mg twice daily continue aspirin Continue statin 40 mg p.o. daily uop improving. IV Lasix 20 mg x1 repeat dose today DC maintenance IV fluid Metoprolol 25 mg every 8 hours GI: Jevity 1.5 at 35 mL per hour through OGT per nutrition recommendation. NG tube and continue tube feeds Free water 300 mL every 6 hours FEN/RENAL: Hypokalemia Hypocalcemia ICU electrolyte protocol. Monitor chemistries. Trend Cr. ID: Hypotension-resolved Hypothermia-resolved Leukocytosis with Left Shift Blood cultures negative to date from 06/03/2018 Received aztreonam and Levaquin in the emergency department, which were continued Will DC vancomycin DC Levaquin Urinalysis negative for evidence of bacterial infection. CXR negative. HEME: Monitor CBC. ENDO: Euglycemic. Monitor sugars. PROPH: SCDs for DVT prophylaxis. Eliquis will provide DVT prophylaxis. famotidine for stress ulcer prophylaxis ACCESS: R subclavian CV line placed on 06/03- removed 06/06 OVERALL IMPRESSION: minimal improvements. overall guarded prognosis. Palliative care following. Recommend full DNR Level 2 (1) Change in mental status Qualifiers: Altered mental status type: unspecified Qualified Code(s): R41.82 - Altered mental status, unspecified
--- NOTE | 2018-06-11 07:33 | P.PNNEU ---
Subjective Subjective Comments: no acute events Active Medications: Active Medications Acetaminophen (Tylenol) 650 mg PO Q6H PRN PRN Reason: pain 1-2 or temp >100.4 Hydrocodone Bitart/Acetaminophen ([place] 5/325) 1 tab PO Q4H PRN PRN Reason: PAIN SCALE 3-7 Last Admin: 06/08/18 14:59 Dose: 1 tab Al Hydroxide/Mg Hydroxide (Milk Of Magnesia Liq) 30 ml PO Q12H PRN PRN Reason: Mild Constipation Albuterol (Albuterol Neb (Prn)) 2.5 mg NEB Q2HR NEB PRN PRN Reason: SHORTNESS OF BREATH/WHEEZING Apixaban (Eliquis) 2.5 mg PO BID [facility] Atorvastatin Calcium (Lipitor) 40 mg PO DAILY [facility] Last Admin: 06/10/18 09:54 Dose: 40 mg Bisacodyl (Dulcolax Supp) 10 mg RECTAL DAILY PRN PRN Reason: SEVERE CONSITIPATION Chlorhexidine Gluconate (Peridex 0.12% Oral Kit) 15 ml OROPHARYNG BID@0800, 2000 [facility] Last Admin: 06/10/18 20:37 Dose: Not Given Donepezil HCl (Aricept) 10 mg PO HS [facility] Last Admin: 06/10/18 20:38 Dose: 10 mg Famotidine (Pepcid Pf Inj) 20 mg IV.PUSH Q12HR [facility] Last Admin: 06/10/18 20:39 Dose: 20 mg Ferrous Sulfate (Ferosul) 325 mg PO DAILY [facility] Last Admin: 06/10/18 09:55 Dose: Not Given Magnesium Sulfate 4 gm/ Sodium (Chloride) 100 mls @ 50 mls/hr IV.SIG UNSCH PRN PRN Reason: For Magnesium 0.9 - 1.1 mg/dL Magnesium Sulfate 2 gm/ Sodium (Chloride) 100 mls @ 50 mls/hr IV.SIG UNSCH PRN PRN Reason: For Magnesium 1.2 - 1.6 mg/dL Potassium Chloride (Kcl 40 Meq Premix Inj) 40 meq in 100 mls @ 25 mls/hr IV.SIG Q2H PRN PRN Reason: For Potassium 2.8 - 3.2 mEq/L Last Infusion: 06/04/18 10:00 Dose: Infused Potassium Chloride (Kcl 20 Meq Premix Inj) 20 meq in 100 mls @ 50 mls/hr IV.SIG Q2H PRN PRN Reason: For Potassium 3.3 - 3.5 mEq/L Potassium Chloride (Kcl 40 Meq Premix Inj) 40 meq in 100 mls @ 25 mls/hr IV.SIG UNSCH PRN PRN Reason: For Potassium 3.3 - 3.5 mEq/L Potassium Chloride (Kcl 20 Meq Premix Inj) 20 meq in 100 mls @ 50 mls/hr IV.SIG Q2H PRN PRN Reason: For Potassium 2.8 - 3.2 mEq/L Potassium Phosphate 30 mmol/ (Sodium Chloride) 260 mls @ 42 mls/hr IV.SIG UNSCH PRN PRN Reason: SEE LABEL COMMENTS Last Infusion: 06/04/18 22:34 Dose: Infused Sodium Phosphate 30 mmol/ (Sodium Chloride) 260 mls @ 42 mls/hr IV.SIG UNSCH PRN PRN Reason: For Phosphorus < 2.5 mg/dL Aztreonam 2 gm/ Sodium (Chloride) 100 mls @ 200 mls/hr IV.SIG Q8H [facility] Last Infusion: 06/11/18 06:56 Dose: Infused Lactulose (Lactulose Liq) 30 ml PO DAILY PRN PRN Reason: SEVERE CONSITIPATION Magnesium Oxide (Mag-Ox) 800 mg PO UNSCH PRN PRN Reason: For Magnesium 1.2 - 1.6 mg/dL Metoprolol Tartrate (Lopressor) 25 mg PO Q8H [facility] Last Admin: 06/11/18 03:41 Dose: 25 mg Miscellaneous (Pill Splitter) 1 each OTHER UNSCH [facility] Miscellaneous Medication () 1 each OROPHARYNG 0000,0400,1200,1600 [facility] Last Admin: 06/11/18 05:44 Dose: Not Given Modafinil (Provigil) 100 mg PO DAILY [facility] Last Admin: 06/10/18 09:54 Dose: 100 mg Ondansetron HCl (Zofran Inj) 4 mg IV.PUSH Q6H PRN PRN Reason: NAUSEA OR VOMITING Potassium Chloride (Kcl Liq) 40 meq PO UNSCH PRN PRN Reason: Potassium level 3.3-3.5 mEq/L Potassium Chloride (Kcl Liq) 40 meq PO UNSCH PRN PRN Reason: POTASSIUM LESS THAN 3.5 Potassium Phosphate (K-Phos Original) 2,000 mg PO Q4H PRN PRN Reason: Phosphorus Less Than 2.5 mg/dL Last Admin: 06/08/18 02:39 Dose: 2,000 mg Potassium Phosphate (K-Phos Original) 2,000 mg PO UNSCH PRN PRN Reason: SEE LABEL COMMENTS Senna/Docusate Sodium (Katarzyna-Colace) 1 tab PO BID [facility] Last Admin: 06/10/18 20:40 Dose: 1 tab Sennosides (Senokot) 17.2 mg PO Q12H PRN PRN Reason: Moderate Constipation Sodium Chloride (Ns Flush) 2 ml IV.FLUSH BID [facility] Last Admin: 06/10/18 20:39 Dose: 2 ml Sodium Chloride (Ns Flush) 2 ml IV.FLUSH PRN PRN PRN Reason: FLUSH AFTER USING IV ACCESS Sterile Water (Free Water) 300 ml NG/OG Q6H [facility] Last Admin: 06/11/18 05:49 Dose: 300 ml Allergies/Adverse Reactions: Allergies Allergy/AdvReac Type Severity Reaction Status Date / Time Penicillins Allergy Unknown Verified 01/14/17 15:37 Sulfa (Sulfonamide Allergy Unknown Verified 01/14/17 15:37 Antibiotics) Review of Systems unobtainable due to mental status Physical Exam Vital signs: Vital Signs 06/10/18 08:00 06/10/18 09:00 06/10/18 09:10 Temperature 97.7 F Pulse Rate 119 H 127 H 124 H Respiratory Rate 22 28 H Blood Pressure 113/66 109/78 Pulse Oximetry 99 98 06/10/18 09:12 06/10/18 09:36 06/10/18 10:00 Temperature Pulse Rate 117 H 107 H Respiratory Rate 22 19 Blood Pressure 106/59 L 114/55 L Pulse Oximetry 98 98 100 06/10/18 10:41 06/10/18 11:00 06/10/18 12:00 Temperature 98.2 F Pulse Rate 85 88 80 Respiratory Rate 19 19 Blood Pressure 116/61 111/58 L Pulse Oximetry 100 96 06/10/18 13:00 06/10/18 13:50 06/10/18 13:52 Temperature Pulse Rate 82 124 H Respiratory Rate 21 Blood Pressure 118/55 L Pulse Oximetry 96 98 06/10/18 14:00 06/10/18 15:00 06/10/18 15:15 Temperature Pulse Rate 84 85 98 H Respiratory Rate 25 H 19 Blood Pressure 113/57 L 105/58 L Pulse Oximetry 100 100 06/10/18 16:00 06/10/18 17:00 06/10/18 18:00 Temperature 99 F Pulse Rate 85 82 88 Respiratory Rate 20 20 22 Blood Pressure 104/58 L 105/56 L 112/61 Pulse Oximetry 100 100 100 06/10/18 18:21 06/10/18 19:00 06/10/18 20:00 Temperature 97.5 F L Pulse Rate 95 H 75 74 Respiratory Rate 16 18 Blood Pressure 107/68 101/59 L Pulse Oximetry 97 97 06/10/18 21:00 06/10/18 22:00 06/10/18 23:00 Temperature Pulse Rate 70 68 70 Respiratory Rate 20 21 18 Blood Pressure 96/55 L 99/60 L 98/57 L Pulse Oximetry 98 94 L 97 06/11/18 00:00 06/11/18 01:00 06/11/18 02:00 Temperature 97.0 F L Pulse Rate 78 70 69 Respiratory Rate 21 24 17 Blood Pressure 103/59 L 109/59 L 105/53 L Pulse Oximetry 95 96 98 06/11/18 03:00 06/11/18 04:00 06/11/18 05:00 Temperature 97.4 F L Pulse Rate 72 70 63 Respiratory Rate 15 19 9 L Blood Pressure 104/56 L 108/54 L 103/54 L Pulse Oximetry 98 98 99 06/11/18 06:00 Temperature Pulse Rate 71 Respiratory Rate 20 Blood Pressure 104/57 L Pulse Oximetry 98 Intake & Output 06/10/18 06/11/18 06/11/18 18:59 06:59 18:59 Intake Total 2748 / 2748 1153 / 1153 Output Total 1250 / 1250 Balance 1498 / 1498 1153 / 1153 Weight 50.4 kg Intake: IV 1200 / 1200 200 / 200 NS Inj 1,000 ML @ 100 mls/hr IV 1000 / 1000 .CONT .Q10H VINAYAK Rx#:[id number] Azactam Inj 2 GM In NS Inj 100 100 / 100 200 / 200 ML @ 200 mls/hr IV.SIG Q8H VINAYAK Rx#:[id number] Tube Feeding 348 / 348 353 / 353 Water Bolus Amount 600 / 600 Free Water Amount 600 / 600 600 / 600 Output: Urine 1250 / 1250 Other: # Incontinent Voids 500 Date of Last Bowel Movement 06/09/18 06/09/18 Narrative: GENERAL: in NAD, SKIN: Warm and dry. HEAD: Atraumatic. Normocephalic. EYES: Pupils equal and round. ENT: No nasal bleeding or discharge. NECK: Trachea midline. CARDIOVASCULAR: Irregularly irregular RESPIRATORY: Intubated GASTROINTESTINAL: Abdomen soft, non-tender, nondistended. ng tube in place MUSCULOSKELETAL: Extremities without clubbing, cyanosis, or edema. NEUROLOGICAL: Mildly somnolent, awakens to tactile. global aphasia, rt facial weakness, no gaze preference, OU tiny, sluggish, localizes to the left upper lower extremity right hemiplegia right extensor plantar PSYCHIATRIC: Calm - Constitutional no acute distress - Routine HEENT Exam Head: Present: normocephalic - Urinary Catheter Management Indwelling Urethral Catheter Cath placed during this visit: yes, but has since been removed by the nurse Reason for continuing: Terminally ill/Comfort care Insertion date: 06/03/18 Insertion time: 18:30 Removal date: 06/06/18 Removal time: 17:00 Objective Laboratory Results - last 24 hr 06/10/18 06/10/18 06/10/18 11:31 11:31 12:32 WBC 9.1 RBC 3.56 L Hgb 10.3 L Hct 31.4 L MCV 88.1 MCH 29.0 MCHC 32.9 RDW 17.2 Plt Count 246 D MPV 7.9 Hematology Comments Sodium 153 H Potassium 3.8 Chloride 120 H Carbon Dioxide 23.2 Anion Gap 10 BUN 23 H Creatinine 0.80 Estimated GFR 68 L POC Glucose 58 L Random Glucose 42 L* Calcium 7.7 L Phosphorus 3.1 D Magnesium 1.6 Total Bilirubin 0.8 AST 70 H ALT 20 Alkaline Phosphatase 111 Total Protein 5.2 L D Albumin 1.4 L 06/10/18 06/11/18 06/11/18 14:09 04:49 04:49 WBC 8.4 RBC 3.14 L Hgb 9.1 L Hct 27.3 L MCV 87.1 MCH 29.1 MCHC 33.4 RDW 16.9 Plt Count 245 MPV 7.8 Hematology Comments Sodium 152 H Potassium 2.8 L* D Chloride 119 H Carbon Dioxide 26.2 Anion Gap 7 BUN 24 H Creatinine 0.80 Estimated GFR 68 L POC Glucose 127 H Random Glucose 120 H Calcium 7.7 L Phosphorus 2.2 L Magnesium 1.6 Total Bilirubin 0.4 AST 61 H ALT 23 Alkaline Phosphatase 145 H Total Protein 4.9 L Albumin 1.4 L Review/Management - Diagnosis (1) Acute ischemic stroke Code(s): I63.9 - Cerebral infarction, unspecified Status: Acute Current Visit: Yes (2) Atrial fibrillation, new onset Code(s): I48.91 - Unspecified atrial fibrillation Status: Chronic Current Visit: Yes (3) Respiratory failure requiring intubation Code(s): J96.90 - Respiratory failure, unspecified, unspecified whether with hypoxia or hypercapnia Status: Acute Current Visit: Yes (4) Left carotid artery occlusion Code(s): I65.22 - Occlusion and stenosis of left carotid artery Status: Acute Current Visit: Yes - Review/Management Plan: Left subcortical ischemic infarct MRI brain images reviewed. Carotid ultrasound suggesting possible left carotid occlusion. Infarct likely related to the occlusion which may be acute or chronic with underlying history of A. fib and questionable compliance on anticoagulation MRI brain demonstrate left ICA occlusion LDL 88 Echo showing EF proxy 45% with ventricular hypokinesis 06/05/18 MRI brain stable left hemispheric stroke, left ICA occlusion 06/10 eliquis started Recommendation will likely need peg if pt/family desire aggressive tx palliative care seeing pt Overall prognosis guarded with advanced age, underlying dementia probable Alzheimer's type, A. fib, stroke Follow exam
[2018-06-11] MEDS: Chlorhexidine 0.12% Oral Kit 15 ML UDC OROPHARYNG SCH ×2 (10:28→21:08)
[2018-06-11] MEDS: Modafinil 200 MG Tablet PO SCH (10:29)
[2018-06-11] MEDS: Famotidine PF Inj 20 MG/2 ML Vial IV.PUSH SCH ×2 (10:29→21:15)
[2018-06-11] MEDS: Ferrous Sulfate 325 MG Tablet PO SCH (10:30)
[2018-06-11] MEDS: Senna/Docusate Sodium 8.6/50 MG Tablet PO SCH ×2 (10:33→21:15)
[2018-06-11] MEDS: Potassium Chlor 20 mEq Premix 20 MEQ/100 ML PIGGYBACK IV.SIG PRN ×4 (10:56→18:10)
--- NOTE | 2018-06-11 16:26 | P.PNPAL ---
Reason for Visit Reason for visit: a. To assist with evaluation and management of symptoms including: Shortness of breath, altered mental status, dysphasia, debility b. To assist medical decision maker(s) with: better understanding of current medical conditions; weighing benefits/burdens of medical treatment options; making medical treatment decisions. Subjective Subjective/Interval History: Follow-up medically necessary for symptom management and family support. Patient seen and examined in her room. Patient spouse has just left per nursing. Patient spontaneously opening eyes briefly, has left-sided gaze preference. Patient has global aphasia, not responding to simple commands. Spontaneously moves left upper and lower extremities and slightly withdrawing from noxious stimulation with right upper and right lower extremity. Patient is not showing any signs of pain or discomfort. O2 via nasal cannula with O2 sats in the low to mid 90s. Speech therapy has been following and patient has been too lethargic on minimally responsive to be evaluated for swallow. Tube feeding infusing at goal rate via NG tube. Patient will most likely require a PEG tube if goals remain aggressive, though spouse had mentioned that he probably will not proceed with PEG tube placement. Case discussed with covering bedside COLT Montelongo. . Family/Friend Interactions: No family at bedside. . Advance Directives Living Will: Never completed Health Care Surrogate: Never completed Durable Power of [place] Sorter: Never completed Health Care Surrogate Name and Number: HCP: Ruslan Kay [phone] (home) ; [phone] (cell) Documented care wishes:: Never completed advanced directives. . Objective Vital Signs: Vital Signs 06/10/18 17:00 06/10/18 18:00 06/10/18 18:21 Temperature Pulse Rate 82 88 95 H Respiratory Rate 20 22 Blood Pressure 105/56 L 112/61 Pulse Oximetry 100 100 06/10/18 19:00 06/10/18 20:00 06/10/18 21:00 Temperature 97.5 F L Pulse Rate 75 74 70 Respiratory Rate 16 18 20 Blood Pressure 107/68 101/59 L 96/55 L Pulse Oximetry 97 97 98 06/10/18 22:00 06/10/18 23:00 06/11/18 00:00 Temperature 97.0 F L Pulse Rate 68 70 78 Respiratory Rate 21 18 21 Blood Pressure 99/60 L 98/57 L 103/59 L Pulse Oximetry 94 L 97 95 06/11/18 01:00 06/11/18 02:00 06/11/18 03:00 Temperature Pulse Rate 70 69 72 Respiratory Rate 24 17 15 Blood Pressure 109/59 L 105/53 L 104/56 L Pulse Oximetry 96 98 98 06/11/18 04:00 06/11/18 05:00 06/11/18 06:00 Temperature 97.4 F L Pulse Rate 70 63 71 Respiratory Rate 19 9 L 20 Blood Pressure 108/54 L 103/54 L 104/57 L Pulse Oximetry 98 99 98 06/11/18 07:00 06/11/18 07:15 06/11/18 08:00 Temperature 97.6 F Pulse Rate 68 71 Respiratory Rate 20 21 Blood Pressure 107/55 L 102/55 L Pulse Oximetry 99 96 98 06/11/18 09:00 06/11/18 10:00 06/11/18 11:00 Temperature Pulse Rate 71 76 78 Respiratory Rate 16 16 20 Blood Pressure 103/59 L 107/57 L 110/59 L Pulse Oximetry 97 97 97 06/11/18 12:00 06/11/18 13:00 06/11/18 14:00 Temperature 98.1 F Pulse Rate 91 H 104 H 92 H Respiratory Rate 22 36 H 22 Blood Pressure 109/58 L 118/57 L 114/59 L Pulse Oximetry 96 91 L 99 06/11/18 15:00 Temperature Pulse Rate 99 H Respiratory Rate 24 Blood Pressure 102/67 Pulse Oximetry 97 Intake & Output 06/10/18 06/11/18 06/11/18 18:59 06:59 18:59 Intake Total 2748 / 2748 1153 / 1153 500 / 500 Output Total 1250 / 1250 Balance 1498 / 1498 1153 / 1153 500 / 500 Weight 50.4 kg Intake: IV 1200 / 1200 200 / 200 200 / 200 NS Inj 1,000 ML @ 100 mls/hr IV 1000 / 1000 .CONT .Q10H VINAYAK Rx#:[id number] Azactam Inj 2 GM In NS Inj 100 100 / 100 200 / 200 ML @ 200 mls/hr IV.SIG Q8H VINAYAK Rx#:[id number] KCl 20 mEq Premix Inj 20 meq In 200 / 200 100 ml @ 50 mls/hr IV.SIG Q2H PRN Rx#:[id number] Tube Feeding 348 / 348 353 / 353 Water Bolus Amount 600 / 600 Free Water Amount 600 / 600 600 / 600 300 / 300 Output: Urine 1250 / 1250 Other: # Incontinent Voids 500 Date of Last Bowel Movement 06/09/18 06/09/18 Physical Exam: CONSTITUTIONAL/GENERAL: This is an elderly, cachectic, frail, aphasic patient, in no acute distress TUBES/LINES/DRAINS: PIV, Mehta catheter, nasogastric tube SKIN: Pale, fragile skin with lesions. Ecchymoses on upper extremities. HEAD: Atraumatic. Normocephalic. EYES: Pupils slightly reactive to light, spontaneously opens eyes with a left- sided preference gaze. Fundi not examined. ENT: Hard of hearing. Nose without bleeding or purulent drainage. NECK: Trachea midline. Supple, nontender. CARDIOVASCULAR: Irregular rate and rhythm. No JVD. Peripheral pulses symmetric. RESPIRATORY/CHEST: Symmetric, unlabored respirations. Rhonchi in all elizabeth. O2 via nasal cannula GASTROINTESTINAL: Abdomen soft, non-tender, nondistended. No guarding. Active bowel sounds. GENITOURINARY: Without palpable bladder distension. Mehta catheter in place. MUSCULOSKELETAL: Extremities without clubbing, cyanosis, or edema. No mottling or clubbing. LYMPHATICS: Did not assess NEUROLOGICAL: Briefly opens eyes. Right-sided neglect. Head turned towards the left side. Spontaneously moving left side, withdraws to noxious stimulation with the right side. Does not follow commands. PSYCHIATRIC: No obvious anxiety/depression. Currently calm. . Diagnostic Tests Laboratory: Laboratory Results - last 72 hr 06/09/18 06/09/18 06/10/18 05:07 05:07 11:31 WBC 7.0 9.1 RBC 2.98 L 3.56 L Hgb 8.8 L 10.3 L Hct 26.1 L 31.4 L MCV 87.8 88.1 MCH 29.5 29.0 MCHC 33.6 32.9 RDW 17.1 17.2 Plt Count 186 246 D MPV 7.9 7.9 Hematology Comments Sodium 150 H Potassium 3.4 L Chloride 120 H Carbon Dioxide 21.3 Anion Gap 9 BUN 16 Creatinine 0.68 Estimated GFR 82 L POC Glucose Random Glucose 81 Calcium 7.0 L* Calcium Adj for Albumin 9.1 Phosphorus 2.1 L D Magnesium 1.5 Total Bilirubin AST ALT Alkaline Phosphatase Total Protein Albumin 1.4 L 06/10/18 06/10/18 06/10/18 11:31 12:32 14:09 WBC RBC Hgb Hct MCV MCH MCHC RDW Plt Count MPV Hematology Comments Sodium 153 H Potassium 3.8 Chloride 120 H Carbon Dioxide 23.2 Anion Gap 10 BUN 23 H Creatinine 0.80 Estimated GFR 68 L POC Glucose 58 L 127 H Random Glucose 42 L* Calcium 7.7 L Calcium Adj for Albumin Phosphorus 3.1 D Magnesium 1.6 Total Bilirubin 0.8 AST 70 H ALT 20 Alkaline Phosphatase 111 Total Protein 5.2 L D Albumin 1.4 L 06/11/18 06/11/18 04:49 04:49 WBC 8.4 RBC 3.14 L Hgb 9.1 L Hct 27.3 L MCV 87.1 MCH 29.1 MCHC 33.4 RDW 16.9 Plt Count 245 MPV 7.8 Hematology Comments Sodium 152 H Potassium 2.8 L* D Chloride 119 H Carbon Dioxide 26.2 Anion Gap 7 BUN 24 H Creatinine 0.80 Estimated GFR 68 L POC Glucose Random Glucose 120 H Calcium 7.7 L Calcium Adj for Albumin Phosphorus 2.2 L Magnesium 1.6 Total Bilirubin 0.4 AST 61 H ALT 23 Alkaline Phosphatase 145 H Total Protein 4.9 L Albumin 1.4 L Result Diagrams: 06/11/18 04:49 06/11/18 04:49 Imaging: Head CT 06/03/18 16:34 CONCLUSION: 1. No acute intracranial abnormality. . Cervical Spine CT 06/03/18 16:41 CONCLUSION: 1. No acute fracture. 2. Stable 3 mm anterolisthesis of C2 on C3 and 2 mm anterolisthesis of C7 on T1 , as would be secondary to degenerative facet arthrosis. 3. Small right apical pneumothorax. Physician is aware from prior chest radiograph. 4. Multilevel degenerative spondylosis of the cervical spine. Carotid Doppler Study 06/04/18 00:00 CONCLUSION: 1. There appears to be occlusion of the left internal carotid artery. If clinically indicated, a CTA of the carotids could be performed for further evaluation. 2. Moderate atherosclerotic plaquing at the right carotid bifurcation. No focal high-grade or hemodynamically significant stenosis. Head MRI 06/05/18 00:00 CONCLUSION: 1. Infarcts in the left basal ganglia and left parietal lobe, not significantly changed. 2. Chronic ischemic small vessel vasculopathy. Head MRA 06/05/18 11:40 CONCLUSION: 1. Motion artifact limiting evaluation. 2. Diffuse atherosclerotic changes throughout the visualized intracranial vasculature. 3. Suspect occluded left internal carotid artery. Correlation with CTA of the neck/CTA of the brain may be warranted. Chest X-Ray 06/10/18 06:00 CONCLUSION: 1. Stable right apical pneumothorax. Persistent right basilar consolidation/ effusion. Some developing atelectatic changes in the right upper lobe. 2. Baseline interstitial prominence is probably chronic. 3. Interval removal of life-support tubes. 4. Stable fracture deformity of the proximal left humerus. Procedures: 06/03/18-endotracheally intubated 06/03/18-right subclavian central line placement 06/03/18-right chest tube placement 06/06/18-chest tube discontinued 06/09/18-medically extubated . Assessment and Plan - Disease Oriented Problem List (1) Acute ischemic stroke (2) Respiratory failure requiring intubation (3) Atrial fibrillation with RVR (4) Hypokalemia - Symptom Scale (1) Shortness of breath 0-10 Scale: Unable to quantify (2) Altered mental status 0-10 Scale: Unable to quantify (3) Dysphagia 0-10 Scale: Unable to quantify Comment: Most likely from recent ischemic stroke. Speech therapy consulted. (4) Debility 0-10 Scale: Unable to quantify Pertinent Non-Medical Issues: Psychosocial: Patient is originally from [place]. She moved to [place] 30 years ago. Patient has been 3 times. She has been to her current for 40 years. Patient had all sons, 3 are and one son Miley Kraus is still living. Patient is the only child. Both her parents are . Patient resides with her . Spiritual: Patient is Baptism Legal: Patient has never completed advanced directives. Ethical issues impacting care: None identified at this time . Important Contacts: Healthcare proxy -spouse- Jeremy Kay [phone] . Prognosis: Mrs Kay is an 87-year-old female with a medical history significant for coronary artery disease S/P CABG, congestive heart failure, atrial fibrillation on chronic anticoagulation, myocardial infarction, diverticulosis, hypertension and hyperlipidemia. Patient was brought to the emergency room on 06/03/2018 for further evaluation of altered mental status. MRI brain showed a thalamic stroke. Clinical course complicated with hypotension requiring pressor support, shortness of breath, altered mental status. Given multiple ongoing comorbidities, advanced age and debility, patient remains at high risk for further complications, deterioration and decline. Prognosis is guarded. . Code Status: Alternative Code Plan: PLAN: Legal decision maker: Patient medically extubated 06/09/18. Patient has global aphasia. Not following simple commands. It is not known whether patient will regain capacity to participate in medical decision making. Patient is . According to [place] statute, her spouse Rona Kay will serve as her healthcare decision maker proxy. Goals: Discussion with patient spouse on 06/10/18 goals remain aggressive. Discussed patient's neuro deficits with patient`s spouse. Anticipatory guidance regarding care if patient spouse chooses to proceed with aggressive treatment or transition to comfort care provided. Discussed probable need for a PEG tube for long-term care. Patient`s spouse seems to be hesitant regarding proceeding with placement of PEG tube. Discussed need for long-term care if patient is ever stable to be medically discharged. Introduced hospice philosophy and benefits. CODE STATUS: Alternative code-intubation only. SYMPTOMS: * Shortness of breath: Patient had an acute ischemic stroke, required endotracheal intubation for airway protection. Iatrogenic right pneumothorax requiring placement of a pigtail chest tube, now discontinued. Chest x-ray still showing stable small right apical pneumothorax and right pleural effusion. Medically extubated on 06/09/18. * Altered mental status: Patient's baseline of memory loss. Admitted for acute ischemic stroke. Patient medically extubated 06/09/18. Patient has global aphasia, left gaze preference with right-sided neglect and flaccid to the right side. Speech therapy following, he has not been able to evaluate patient due to lethargy. Continue with neuro checks. * Dysphagia: Patient recently had an ischemic stroke. Currently has global aphasia and right-sided hemiplegia. Speech therapy following, he has not been able to evaluate patient due to lethargy. Patient currently receiving tube feeds via NG tube. Patient`s spouse hesitant to proceed with PEG tube if patient fails swallow evaluation. No further recommendations. * Debility: Progressive. Patient has multiple ongoing comorbidities. Requires assistance with all ADLs. Patient has a stable fracture deformity of proximal left humerus. Spouse states that she has decreased range of motion with her arms. Patient is supposed to ambulate with a Rollator walker at home but normally utilizes dyer and furniture for support. If goals are aggressive, recommending PT though patient will most likely not participate due to memory issues. Palliative care will continue to follow the patient during hospital course as condition evolves, to assist patient/decision-maker with understanding of their medical conditions, weighing benefits/burdens of treatment options, for clarification of goals of treatment. Additionally will assist with any symptoms of palliative concern Attestation Attestation: To help prompt me to consider important information that might be impacting today's encounter and assessment, information from prior notes written by myself or my colleagues may have been "brought forward" into today's note. My signature on this note, however, is an attestation that I personally performed the exam, history, and/or decision-making noted today, and, unless otherwise indicated, the interactions with patient, family, and staff as well as the review of records all occurred today. I also attest that the listed assessment and stated plan reflect my best clinical judgment today based on the combination of historical information, prior notes, and today's exam/ interactions. When time spent is documented, it refers only to time spent today by the signer, or if indicated, combined time spent today by collaborating physician/nurse practitioner.
--- NOTE | 2018-06-11 16:44 | P.DIET ---
Nutritional Evaluation Type of nutrition evaluation: follow-up Nutrition consult regarding: Tube Feeding Objective - Diagnosis Sepsis - Objective % IBW: 98 (IBW = 97#) Body Weight Used for Calculations: Actual (43.2 kg) Energy Needs - Lower Range (kCal/kg): 25 Energy Needs - Upper Range (kCal/kg): 30 Lower Limit kCal/kg (kCals): 1,210 Upper Limit kCal/kg (kCals): 1,382 Lower Limit Protein Factor (Grams per Kg): 1.0 Upper Limit Protein Factor (Grams per Kg): 1.5 Lower Protein Needs (Protein): 43 Upper Protein Needs (Protein): 65 Dietitian Reviewed in Medical Record: Curent medications, Intake & Output, Labs , Medical history, Tube feeding Diet Order: NPO Assessment Assessment: Extubated and ng-t placed for feedings. Pt remains at high nutrition risk 2' to her need for TFing. Agree with current TF order for Jevity 1.5 @ 35 mls/hr. This will provide 1260 kcals, 54 gms protein and 638 mls of free water. Labs, wts and clinical course reviewed. CBW = 50.4 kg. Recommendations: Jevity 1.5 @ 35 mls/hr goal Dietitian to Monitor: Lab values, Intake & Output, Tube feeding tolerance, Weight change, Medical course
[2018-06-12] MEDS: Metoprolol Tartrate 25 MG Tablet PO SCH ×3 (01:26→16:20)
[2018-06-12] MEDS: Aztreonam Inj 2 GM in Sodium Chloride 0.9% Inj 100 ML IV.SIG SCH ×3 (04:30→21:50)
[2018-06-12] MEDS: Oral Hygiene Kit OROPHARYNG SCH ×3 (04:30→15:08)
[2018-06-12 06:20] LABS: Baso # (Auto) 0.1 th/mm3 (0.0-0.2); Baso % (Auto) 0.8 % (0.0-2.0); Eos # (Auto) 0.3 th/mm3 (0.0-0.4); Eos % (Auto) 3.6 % (0.0-4.0); Hematocrit 26.5 % (35.0-46.0); Hemoglobin 8.7 gm/dL (11.6-15.3); Lymph # (Auto) 0.9 th/mm3 (1.0-4.8); Lymph % (Auto) 10.4 % (9.0-44.0); Mean Corpuscular HGB Conc 32.9 % (32.0-36.0); Mean Corpuscular Volume 88.3 fL (80.0-100.0); Mean Platelet Volume 8.1 fL (7.0-11.0); Mono # (Auto) 0.8 th/mm3 (0.0-0.9); Mono % (Auto) 9.5 % (0.0-8.0); Neut # (Auto) 6.5 th/mm3 (1.8-7.7); Neut % (Auto) 75.7 % (16.0-70.0); Platelet Count 241 th/mm3 (150-450); Red Cell Distribution Width 17.7 % (11.6-17.2); White Blood Count 8.6 th/mm3 (4.0-11.0)
[2018-06-12 06:46] LABS: Alanine Aminotransferase 26 U/L (10-53); Albumin 1.4 g/dL (3.4-5.0); Alkaline Phosphatase 157 U/L (45-117); Anion Gap 7 meq/L (5-15); Aspartate Aminotransferase 65 U/L (15-37); Blood Urea Nitrogen 24 mg/dL (7-18); Calcium 7.6 mg/dL (8.5-10.1); Carbon Dioxide 25.7 meq/L (21.0-32.0); Chloride 117 meq/L (98-107); Glomerular Filtration Rate 75 mL/min (>89); Glucose,Random 96 mg/dL (74-106); Magnesium 1.6 mg/dL (1.5-2.5); Phosphorus 1.5 mg/dL (2.5-4.9); Potassium 4.1 meq/L (3.5-5.1); Sodium 150 meq/L (136-145); Total Protein 4.9 g/dL (6.4-8.2)
--- NOTE | 2018-06-12 09:19 | P.PNIM ---
Subjective Interval history: Patient seen and examined this morning aphasic still and gazes to the LEFT mostly doesnt follow commands stil in fib + tube feeding currently RN present during eval this morning palliative following Physical Exam Vital signs: Vital Signs 06/11/18 10:00 06/11/18 11:00 06/11/18 12:00 Temperature 98.1 F Pulse Rate 76 78 91 H Respiratory Rate 16 20 22 Blood Pressure 107/57 L 110/59 L 109/58 L Pulse Oximetry 97 97 96 06/11/18 13:00 06/11/18 14:00 06/11/18 15:00 Temperature Pulse Rate 104 H 92 H 99 H Respiratory Rate 36 H 22 24 Blood Pressure 118/57 L 114/59 L 102/67 Pulse Oximetry 91 L 99 97 06/11/18 16:00 06/11/18 17:00 06/11/18 18:00 Temperature 97.8 F Pulse Rate 91 H 103 H 109 H Respiratory Rate 22 25 H 26 H Blood Pressure 102/56 L 103/68 105/59 L Pulse Oximetry 87 L 96 96 06/11/18 19:00 06/11/18 20:00 06/11/18 21:00 Temperature 97.0 F L Pulse Rate 124 H 126 H 105 H Respiratory Rate 24 20 27 H Blood Pressure 118/64 108/71 109/58 L Pulse Oximetry 97 97 98 06/11/18 21:25 06/11/18 22:00 06/11/18 23:00 Temperature 98.1 F Pulse Rate 104 H 104 H Respiratory Rate 21 20 Blood Pressure 108/61 99/59 L Pulse Oximetry 97 97 97 06/12/18 00:00 06/12/18 00:29 06/12/18 01:00 Temperature Pulse Rate 92 H 85 89 Respiratory Rate 21 23 Blood Pressure 101/54 L 101/63 Pulse Oximetry 96 96 06/12/18 02:00 06/12/18 03:00 06/12/18 04:00 Temperature Pulse Rate 90 89 90 Respiratory Rate 22 23 23 Blood Pressure 106/55 L 107/60 Pulse Oximetry 95 96 95 06/12/18 04:09 06/12/18 04:46 06/12/18 05:00 Temperature Pulse Rate 90 88 85 Respiratory Rate 22 24 Blood Pressure 96/55 L 103/60 Pulse Oximetry 95 95 06/12/18 05:31 06/12/18 05:56 06/12/18 06:00 Temperature Pulse Rate 97 H 87 87 Respiratory Rate 20 24 Blood Pressure 103/62 Pulse Oximetry 95 94 L 06/12/18 06:31 06/12/18 07:00 06/12/18 07:31 Temperature Pulse Rate 95 H 91 H 92 H Respiratory Rate 27 H 24 24 Blood Pressure 113/73 110/62 Pulse Oximetry 94 L 93 L 93 L Intake & Output 06/11/18 06/12/18 06/12/18 18:59 06:59 18:59 Intake Total 1942 / 1942 1202 / 1202 Output Total 650 / 650 300 / 300 Balance 1292 / 1292 902 / 902 Weight 50 kg Intake: IV 400 / 400 300 / 300 Azactam Inj 2 GM In NS Inj 100 100 / 100 200 / 200 ML @ 200 mls/hr IV.SIG Q8H VINAYAK Rx#:[id number] KCl 20 mEq Premix Inj 20 meq In 300 / 300 100 / 100 100 ml @ 50 mls/hr IV.SIG Q2H PRN Rx#:[id number] Tube Feeding 342 / 342 302 / 302 Water Bolus Amount 600 / 600 Free Water Amount 600 / 600 600 / 600 Output: Urine 650 / 650 300 / 300 Other: # Incontinent Voids 2 Date of Last Bowel Movement 06/09/18 06/12/18 # Bowel Movements 1 2 gen: nad, aphasic heent: perrla cvs: irreguarly irregular resp: hard to appreciate but clear anteriorly gi: soft, non tender, + bowel sounds ext: no edema neuro: left gaze preference, doesnt follow commands, mild facial droop, unable to access sensation, unable to access power. Urinary Catheter Management Indwelling Urethral Catheter: Cath placed during this visit: yes, but has since been removed by the nurse Reason for continuing: Terminally ill/Comfort care Insertion date: 06/03/18 Insertion time: 18:30 Removal date: 06/06/18 Removal time: 17:00 Results Labs CBC & Chem 7: 06/12/18 05:33 06/12/18 05:33 Assessment and Plan (1) Change in mental status: Code(s): R41.82 - Altered mental status, unspecified Status: Acute (2) Atrial fibrillation, new onset: Code(s): I48.91 - Unspecified atrial fibrillation Status: Chronic (3) Respiratory failure requiring intubation: Code(s): J96.90 - Respiratory failure, unspecified, unspecified whether with hypoxia or hypercapnia Status: Acute (4) Pneumothorax on right: Code(s): J93.9 - Pneumothorax, unspecified Status: Acute (5) Chest tube in place: Code(s): Z96.89 - Presence of other specified functional implants Status: Acute (6) Hypernatremia: Code(s): E87.0 - Hyperosmolality and hypernatremia Status: Acute (7) Encounter for nasogastric (NG) tube placement: Code(s): Z46.59 - Encounter for fitting and adjustment of other gastrointestinal appliance and device Status: Acute Plan Patient is a 87F with multiple medical problems including atrial fibrillation, alzheimers, HTN, Hx [place], Hx of CAD s/p CABG and skin ca presenting with AMS in setting of LEFT thalamic CVA with hospital course complicated by pneumothorax s /p pigtail chest tube placement currently in ISC in critical condition. Neurology:Left subcortical ischemic infarct - neurology consulted and recommendation appreciated - palliative care following - continue NGT as patient unable to have RESISTOR TESTER eval - will discuss with mr waters re: plans for PEG? seems like he is leaning against but will discuss further and make a plan. Patient is sick and may benefit from hospice. - Echo showing EF proxy 45% with ventricular hypokinesis - 06/05/18 MRI brain stable left hemispheric stroke, left ICA occlusion - 06/10 eliquis started Nephrology: HYPERnatremia - increase free water fluid to 400mL q6 - start D5W and repeat BMP level Pulm: Pneumothorax -s/p pigtail cath with improvement in pneumo psych: Alzheimer disease - donepezil code: ok for intubation dispo: [facility] diet: tube feeds Progress Note: Quality VTE Deep Vein Thrombosis/Pulmonary Embolism Present on Admission: No _ (1) Change in mental status Qualifiers: Altered mental status type: unspecified Coma depth: Coma timing: Qualified Code(s): R41.82 - Altered mental status, unspecified
[2018-06-12] MEDS: Famotidine PF Inj 20 MG/2 ML Vial IV.PUSH SCH ×2 (09:45→21:28)
[2018-06-12] MEDS: Dextrose 5%/NaCl 0.45% Inj 1,000 ML IV.CONT SCH ×2 (09:48→23:30)
[2018-06-12] MEDS: Modafinil 200 MG Tablet PO SCH (09:48)
[2018-06-12] MEDS: Senna/Docusate Sodium 8.6/50 MG Tablet PO SCH ×2 (09:48→21:06)
[2018-06-12] MEDS: Chlorhexidine 0.12% Oral Kit 15 ML UDC OROPHARYNG SCH ×2 (09:49→21:28)
[2018-06-12] MEDS: Ferrous Sulfate 325 MG Tablet PO SCH (09:49)
[2018-06-12 18:22] LABS: Carbon Dioxide 26.5 meq/L (21.0-32.0); Potassium 3.9 meq/L (3.5-5.1)
[2018-06-12 18:49] LABS: Albumin 1.4 g/dL (3.4-5.0); Calcium-Albumin Corrected 9.1 mg/dL (8.5-10.1)
[2018-06-13] MEDS: Oral Hygiene Kit OROPHARYNG SCH ×4 (01:09→17:02)
[2018-06-13] MEDS: Metoprolol Tartrate 25 MG Tablet PO SCH ×3 (01:10→16:36)
[2018-06-13 05:37] LABS: Hematocrit 31.9 % (35.0-46.0); Hemoglobin 10.6 gm/dL (11.6-15.3); Mean Corpuscular HGB Conc 33.2 % (32.0-36.0); Mean Corpuscular Hemoglobin 29.7 pg (27.0-34.0); Mean Corpuscular Volume 89.3 fL (80.0-100.0); Mean Platelet Volume 8.2 fL (7.0-11.0); Platelet Count 255 th/mm3 (150-450); Red Blood Count 3.57 mil/mm3 (4.00-5.30); Red Cell Distribution Width 17.4 % (11.6-17.2); White Blood Count 10.7 th/mm3 (4.0-11.0)
[2018-06-13] MEDS: Aztreonam Inj 2 GM in Sodium Chloride 0.9% Inj 100 ML IV.SIG SCH ×3 (05:39→22:06)
[2018-06-13 05:58] LABS: Calcium 7.5 mg/dL (8.5-10.1); Carbon Dioxide 25.7 meq/L (21.0-32.0); Magnesium 1.6 mg/dL (1.5-2.5); Potassium 3.8 meq/L (3.5-5.1)
[2018-06-13] MEDS: Ferrous Sulfate 325 MG Tablet PO SCH (08:27)
[2018-06-13] MEDS: Modafinil 200 MG Tablet PO SCH (08:28)
[2018-06-13] MEDS: Famotidine PF Inj 20 MG/2 ML Vial IV.PUSH SCH ×2 (08:30→22:06)
[2018-06-13] MEDS: Senna/Docusate Sodium 8.6/50 MG Tablet PO SCH ×2 (08:30→22:06)
[2018-06-13] MEDS: Chlorhexidine 0.12% Oral Kit 15 ML UDC OROPHARYNG SCH ×2 (08:31→22:07)
--- NOTE | 2018-06-13 10:51 | P.PNIM ---
Subjective Interval history: blood pressure running soft, metoprolol held this morning but HR was controlled on monitor today patient non verbal to me but RN reports she opend her eye with some tracking today NG running at 35/hr afebrile Physical Exam Vital signs: Vital Signs 06/12/18 11:00 06/12/18 11:31 06/12/18 11:34 Temperature Pulse Rate 82 82 85 Respiratory Rate 24 23 31 H Blood Pressure 206/84 H 135/61 Pulse Oximetry 95 95 93 L 06/12/18 11:50 06/12/18 12:00 06/12/18 12:31 Temperature Pulse Rate 76 83 81 Respiratory Rate 25 H 24 Blood Pressure 105/62 Pulse Oximetry 95 95 06/12/18 13:00 06/12/18 13:31 06/12/18 13:33 Temperature 97.7 F Pulse Rate 89 92 H 91 H Respiratory Rate 25 H 26 H Blood Pressure 114/57 L Pulse Oximetry 94 L 94 L 06/12/18 14:00 06/12/18 14:31 06/12/18 15:00 Temperature Pulse Rate 94 H 93 H 92 H Respiratory Rate 25 H 24 24 Blood Pressure 110/56 L Pulse Oximetry 94 L 94 L 94 L 06/12/18 15:31 06/12/18 16:00 06/12/18 16:31 Temperature Pulse Rate 92 H 94 H 92 H Respiratory Rate 25 H 24 25 H Blood Pressure 105/60 104/64 Pulse Oximetry 94 L 94 L 96 06/12/18 17:00 06/12/18 17:10 06/12/18 17:31 Temperature Pulse Rate 86 87 93 H Respiratory Rate 28 H 41 H Blood Pressure 103/58 L Pulse Oximetry 93 L 97 06/12/18 18:00 06/12/18 18:31 06/12/18 19:00 Temperature Pulse Rate 95 H 96 H 102 H Respiratory Rate 39 H 34 H 29 H Blood Pressure 103/65 Pulse Oximetry 98 99 99 06/12/18 19:31 06/12/18 20:00 06/12/18 20:25 Temperature 97.7 F Pulse Rate 101 H 102 H Respiratory Rate 34 H 30 H Blood Pressure 110/70 Pulse Oximetry 98 98 98 06/12/18 20:31 06/12/18 21:00 06/12/18 21:31 Temperature Pulse Rate 103 H 104 H 98 H Respiratory Rate 29 H 27 H 29 H Blood Pressure 107/56 L 104/59 L Pulse Oximetry 99 99 97 06/12/18 22:00 06/12/18 22:31 06/12/18 23:00 Temperature Pulse Rate 100 H 97 H 96 H Respiratory Rate 30 H 27 H 28 H Blood Pressure 95/54 L Pulse Oximetry 97 97 97 06/12/18 23:31 06/13/18 00:00 06/13/18 00:31 Temperature 97.5 F L Pulse Rate 97 H 94 H 98 H Respiratory Rate 28 H 26 H 28 H Blood Pressure 91/53 L 94/59 L Pulse Oximetry 97 98 98 06/13/18 01:00 06/13/18 01:31 06/13/18 02:00 Temperature Pulse Rate 93 H 87 92 H Respiratory Rate 27 H 20 23 Blood Pressure 103/63 Pulse Oximetry 98 98 98 06/13/18 02:31 06/13/18 03:00 06/13/18 03:09 Temperature Pulse Rate 84 93 H 85 Respiratory Rate 23 22 21 Blood Pressure 89/50 L 89/53 L 89/53 L Pulse Oximetry 98 97 98 06/13/18 03:31 06/13/18 03:56 06/13/18 04:00 Temperature Pulse Rate 86 83 84 Respiratory Rate 20 20 21 Blood Pressure 86/55 L 90/55 L Pulse Oximetry 97 95 95 06/13/18 04:31 06/13/18 05:00 06/13/18 05:44 Temperature Pulse Rate 87 100 H 86 Respiratory Rate 24 23 22 Blood Pressure 97/59 L 104/72 Pulse Oximetry 94 L 97 98 06/13/18 06:00 06/13/18 06:31 06/13/18 07:00 Temperature Pulse Rate 82 81 87 Respiratory Rate 22 21 24 Blood Pressure 105/51 L Pulse Oximetry 98 98 98 06/13/18 07:31 06/13/18 08:00 06/13/18 08:31 Temperature 97 F L Pulse Rate 86 79 81 Respiratory Rate 22 20 21 Blood Pressure 108/55 L 104/58 L Pulse Oximetry 97 97 97 06/13/18 09:00 06/13/18 09:31 Temperature Pulse Rate 87 77 Respiratory Rate 25 H 20 Blood Pressure 95/62 L Pulse Oximetry 97 97 Intake & Output 06/12/18 06/13/18 06/13/18 18:59 06:59 18:59 Intake Total 900 / 900 1500 / 1500 Output Total 600 / 600 Balance 300 / 300 1500 / 1500 Weight 51.1 kg Intake: IV 100 / 100 1100 / 1100 D5W/1/2 NS Inj 1,000 ML @ 75 1000 / 1000 mls/hr IV.CONT .[id number] VINAYAK Rx# :[id number] Azactam Inj 2 GM In NS Inj 100 100 / 100 100 / 100 ML @ 200 mls/hr IV.SIG Q8H VINAYAK Rx#:[id number] Free Water Amount 800 / 800 400 / 400 Output: Urine 600 / 600 Other: # Voids 5 # Incontinent Voids 4 Date of Last Bowel Movement 06/12/18 06/12/18 06/12/18 # Bowel Movements 3 gen: nad, non verbal, cachetic heent: perrla cvs: irregularly irregular, systolic murmur resp: reduced base lung sound gi: soft, + bs neuro: non verbal, + facial droop, unable to access power ext: 1+ pedal edema in legs b/l Urinary Catheter Management Indwelling Urethral Catheter: Cath placed during this visit: yes, but has since been removed by the nurse Reason for continuing: Terminally ill/Comfort care Insertion date: 06/03/18 Insertion time: 18:30 Removal date: 06/06/18 Removal time: 17:00 Results Labs CBC & Chem 7: 06/13/18 05:10 06/13/18 05:10 Assessment and Plan (1) Change in mental status: Code(s): R41.82 - Altered mental status, unspecified Status: Acute (2) Atrial fibrillation, new onset: Code(s): I48.91 - Unspecified atrial fibrillation Status: Chronic (3) Respiratory failure requiring intubation: Code(s): J96.90 - Respiratory failure, unspecified, unspecified whether with hypoxia or hypercapnia Status: Acute (4) Pneumothorax on right: Code(s): J93.9 - Pneumothorax, unspecified Status: Acute (5) Chest tube in place: Code(s): Z96.89 - Presence of other specified functional implants Status: Acute (6) Hypernatremia: Code(s): E87.0 - Hyperosmolality and hypernatremia Status: Acute (7) Encounter for nasogastric (NG) tube placement: Code(s): Z46.59 - Encounter for fitting and adjustment of other gastrointestinal appliance and device Status: Acute Plan Patient is a 87F with multiple medical problems including atrial fibrillation, alzheimers, HTN, Hx NV, Hx of CAD s/p CABG and skin ca presenting with AMS in setting of LEFT thalamic CVA with hospital course complicated by pneumothorax s /p pigtail chest tube placement currently in [facility] in critical condition. Neurology:Left subcortical ischemic infarct - neurology consulted and recommendation appreciated - palliative care following - continue NGT as patient unable to have [employer] eval - Echo showing EF proxy 45% with ventricular hypokinesis - 06/05/18 MRI brain stable left hemispheric stroke, left ICA occlusion - 06/10 elileopoldo started - case discussed with on 06/12. for now ok with peg. ok for intubation but not cpr. explained peg may not ultimately change patients outcome from stroke. family to discuss goals and i will provide medical and emotional support. Nephrology: HYPERnatremia ( currently normalized) - increased free water fluid to 400mL q6 - stop D5 fluids, signs of some fluid accumulation Pulm: Pneumothorax -s/p pigtail cath with improvement in pneumo psych: Alzheimer disease - donepezil code: ok for intubation dispo: stable to send to the floor. diet: tube feeds Progress Note: Quality VTE Deep Vein Thrombosis/Pulmonary Embolism Present on Admission: No _ (1) Change in mental status Qualifiers: Altered mental status type: unspecified Coma depth: Coma timing: Qualified Code(s): R41.82 - Altered mental status, unspecified
[2018-06-13] MEDS: Dextrose 5%/NaCl 0.45% Inj 1,000 ML IV.CONT SCH (18:14)
[2018-06-13] MEDS ORDERED: Sod Chloride 0.9% Inj 1,000 ML IV.CONT SCH (18:30)
[2018-06-14] MEDS: Oral Hygiene Kit OROPHARYNG SCH ×4 (00:12→16:55)
[2018-06-14] MEDS: Metoprolol Tartrate 25 MG Tablet PO SCH ×3 (00:13→17:50)
[2018-06-14] MEDS: Aztreonam Inj 2 GM in Sodium Chloride 0.9% Inj 100 ML IV.SIG SCH (05:52)
[2018-06-14 06:01] LABS: Hematocrit 25.5 % (35.0-46.0); Hemoglobin 8.6 gm/dL (11.6-15.3); Mean Corpuscular HGB Conc 33.6 % (32.0-36.0); Mean Corpuscular Hemoglobin 29.2 pg (27.0-34.0); Mean Corpuscular Volume 86.9 fL (80.0-100.0); Mean Platelet Volume 8.5 fL (7.0-11.0); Platelet Count 228 th/mm3 (150-450); Red Blood Count 2.94 mil/mm3 (4.00-5.30); Red Cell Distribution Width 17.2 % (11.6-17.2); White Blood Count 10.9 th/mm3 (4.0-11.0)
[2018-06-14 06:17] LABS: Calcium 7.5 mg/dL (8.5-10.1); Magnesium 1.7 mg/dL (1.5-2.5); Potassium 3.5 meq/L (3.5-5.1)
[2018-06-14] MEDS: Famotidine PF Inj 20 MG/2 ML Vial IV.PUSH SCH ×2 (08:45→20:37)
[2018-06-14] MEDS: Modafinil 200 MG Tablet PO SCH (08:46)
[2018-06-14] MEDS: Ferrous Sulfate 325 MG Tablet PO SCH (08:46)
[2018-06-14] MEDS: Senna/Docusate Sodium 8.6/50 MG Tablet PO SCH ×2 (08:46→20:37)
[2018-06-14] MEDS: Chlorhexidine 0.12% Oral Kit 15 ML UDC OROPHARYNG SCH ×2 (08:52→20:37)
--- NOTE | 2018-06-14 11:12 | P.PNIM ---
Subjective Interval history: Follow-up for respiratory failure, left thalamic stroke: Patient seen and examined, nonverbal, left gaze prefer, opens right eye only, not following commands, tolerating NG tube feedings well. Noted with edema to lower extremitiesreceived Lasix yesterday. Slightly tachypneic, on oxygen at 2 L. Son and grandson at bedside. Physical Exam Vital signs: Vital Signs 06/13/18 11:31 06/13/18 12:00 06/13/18 12:31 Temperature 97 F L Pulse Rate 84 81 91 H Respiratory Rate 21 9 L 33 H Blood Pressure 89/52 L 93/63 L Pulse Oximetry 98 98 97 06/13/18 13:00 06/13/18 13:31 06/13/18 14:00 Temperature Pulse Rate 90 93 H 95 H Respiratory Rate 23 23 25 H Blood Pressure 110/52 L Pulse Oximetry 96 96 96 06/13/18 14:31 06/13/18 15:00 06/13/18 15:31 Temperature Pulse Rate 100 H 97 H 100 H Respiratory Rate 25 H 19 24 Blood Pressure 95/58 L 105/58 L Pulse Oximetry 96 97 97 06/13/18 16:00 06/13/18 16:31 06/13/18 17:00 Temperature Pulse Rate 101 H 97 H 93 H Respiratory Rate 24 25 H 25 H Blood Pressure 99/55 L Pulse Oximetry 97 97 95 06/13/18 18:00 06/13/18 18:07 06/13/18 20:00 Temperature 97.2 F L 97.5 F L Pulse Rate 104 H 98 H 112 H Respiratory Rate 15 16 24 Blood Pressure 113/64 104/56 L Pulse Oximetry 95 97 06/13/18 21:40 06/14/18 00:00 06/14/18 08:00 Temperature 97.3 F L 97.0 F L Pulse Rate 107 H 97 H Respiratory Rate 26 H 20 Blood Pressure 108/58 L 123/58 L Pulse Oximetry 95 98 96 Intake & Output 06/13/18 06/14/18 06/14/18 18:59 06:59 18:59 Intake Total 1900 / 1900 2220 / 2220 0 / 0 Output Total 1200 / 1200 301 / 301 Balance 1900 / 1900 1020 / 1020 -301 / -301 Weight 46.5 kg Intake: IV 1100 / 1100 200 / 200 D5W/1/2 NS Inj 1,000 ML @ 75 1000 / 1000 mls/hr IV.CONT .[id number] VINAYAK Rx# :[id number] Azactam Inj 2 GM In NS Inj 100 100 / 100 200 / 200 ML @ 200 mls/hr IV.SIG Q8H VINAYAK Rx#:[id number] Oral 0 / 0 Tube Feeding 420 / 420 Tube Irrigant 800 / 800 Free Water Amount 800 / 800 800 / 800 Output: Urine 1200 / 1200 300 / 300 Stool / Other: # Incontinent Voids 1 Date of Last Bowel Movement 06/12/18 06/12/18 06/14/18 Narrative: GENERAL: Frail, malnourished 87-year-old female. SKIN: Dry, warm. Dark discolored and raised lesio area noted to right cheek. HEAD: Atraumatic. Normocephalic. EYES: Pupils equal and round. No scleral icterus. No injection or drainage. ENT: No nasal bleeding or discharge. Mucous membranes pink and moist. NECK: Trachea midline. No JVD. CARDIOVASCULAR: Regular rate and rhythm. Sinus tachycardia RESPIRATORY: No accessory muscle use. Tachypneic, diminished, minimal expiratory wheezing. GASTROINTESTINAL: Abdomen soft, non-tender, nondistended. Hepatic and splenic margins not palpable. NGT with TF MUSCULOSKELETAL: Extremities without clubbing, cyanosis, or edema. No obvious deformities. NEUROLOGICAL: Patient aphasic, not following commands, positive facial droop. PSYCHIATRIC: Unable to assess Urinary Catheter Management Indwelling Urethral Catheter: Cath placed during this visit: yes, but has since been removed by the nurse Reason for continuing: Terminally ill/Comfort care Insertion date: 06/03/18 Insertion time: 18:30 Removal date: 06/06/18 Removal time: 17:00 Results Labs CBC & Chem 7: 06/14/18 05:37 06/14/18 05:37 Assessment and Plan (1) Change in mental status: Code(s): R41.82 - Altered mental status, unspecified Status: Acute (2) Atrial fibrillation, new onset: Code(s): I48.91 - Unspecified atrial fibrillation Status: Chronic (3) Respiratory failure requiring intubation: Code(s): J96.90 - Respiratory failure, unspecified, unspecified whether with hypoxia or hypercapnia Status: Acute (4) Pneumothorax on right: Code(s): J93.9 - Pneumothorax, unspecified Status: Acute (5) Chest tube in place: Code(s): Z96.89 - Presence of other specified functional implants Status: Acute (6) Hypernatremia: Code(s): E87.0 - Hyperosmolality and hypernatremia Status: Acute (7) Encounter for nasogastric (NG) tube placement: Code(s): Z46.59 - Encounter for fitting and adjustment of other gastrointestinal appliance and device Status: Acute Plan Patient is a 87F with multiple medical problems including atrial fibrillation, alzheimers, HTN, Hx OR, Hx of CAD s/p CABG and skin ca presenting with AMS in setting of LEFT thalamic CVA with hospital course complicated by pneumothorax s /p pigtail chest tube placement currently in [facility] in critical condition. Left subcortical ischemic infarct Left carotid artery occlusion - neurology consulted and recommendation appreciated - palliative care following - continue NGT as patient unable to have [employer] eval - Echo showing EF approximately 45% with ventricular hypokinesis - 06/05/18 MRI brain stable left hemispheric stroke, left ICA occlusion - 06/10 eliquis started -Attending discussed with on 06/12. for now ok with peg. ok for intubation but not cpr. explained peg may not ultimately change patients outcome from stroke. Father to think things over A. fib, heart rate well controlled Continue with Eliquis HYPERnatremia Improving, sodium 140 -Continue with free water fluid to 400mL q6 - D5 fluids was stopped, signs of some fluid accumulation -BMP in am Edema Fluid overloaded Was given Lasix Pneumothorax resolved -s/p pigtail cath with improvement in pneumo Recent respiratory failure, was intubated -Continue with oxygen at 2 L to keep his sats greater than 90 Continue with duo nebs as needed Alzheimer disease - continue donepezil Hypotension-resolved Hypothermia-resolved Leukocytosis with Left Shift -Blood cultures negative to date from 06/03/2018-negative -Off Vanco and Levaquin -On aztreonam since 06/04 -Urinalysis negative for evidence of bacterial infection. CXR negative. -No fevers, no leukocytosis, will discontinue aztreonam and monitor off antibiotic DVT prophylaxis-Eliquis GI prophylaxiscontinue Pepcid Palliative care following patient Continue with supportive care, discussed with patient's son at bedside, he has spoken to his dad and believes DNR status is more appropriate for patient but will let his father make decision. We will try to talk to patient's later today Code Status: alternative code, no cpr, ok intubation Discussed Condition With: RN, pt's son/grandson, SHANNAN Gracia Discharge Planning: Unclear at this time, pt. is hospice appropriate Progress Note: Quality VTE Deep Vein Thrombosis/Pulmonary Embolism Present on Admission: No _ (1) Change in mental status Qualifiers: Altered mental status type: unspecified Coma depth: Coma timing: Qualified Code(s): R41.82 - Altered mental status, unspecified
--- NOTE | 2018-06-14 14:28 | P.DIET ---
Nutritional Evaluation Type of nutrition evaluation: follow-up Nutrition consult regarding: Tube Feeding Objective - Diagnosis Sepsis - Objective % IBW: 98 (IBW = 97#) Body Weight Used for Calculations: Actual (43.2 kg) Energy Needs - Lower Range (kCal/kg): 25 Energy Needs - Upper Range (kCal/kg): 30 Lower Limit kCal/kg (kCals): 1,210 Upper Limit kCal/kg (kCals): 1,382 Lower Limit Protein Factor (Grams per Kg): 1.0 Upper Limit Protein Factor (Grams per Kg): 1.5 Lower Protein Needs (Protein): 43 Upper Protein Needs (Protein): 65 Dietitian Reviewed in Medical Record: Curent medications, Intake & Output, Labs , Medical history, Tube feeding Diet Order: NPO Assessment Assessment: Pt remains at high nutrition risk 2' to her need for TFing. MDC for TF'ing received and acknowledged. Continue current TF order for Jevity 1.5 @ 35 mls/ hr. This will provide 1260 kcals, 54 gms protein and 638 mls of free water. Labs , wts and clinical course reviewed. CBW = 46.5 kg. Recommendations: Jevity 1.5 @ 35 mls/hr goal Dietitian to Monitor: Lab values, Intake & Output, Tube feeding tolerance, Weight change, Medical course
--- NOTE | 2018-06-14 16:09 | P.PNPAL ---
Reason for Visit Reason for visit: a. To assist with evaluation and management of symptoms including: Shortness of breath, altered mental status, dysphagia, debility b. To assist medical decision maker(s) with: better understanding of current medical conditions; weighing benefits/burdens of medical treatment options; making medical treatment decisions. Subjective Subjective/Interval History: Follow-up medically necessary for symptom management and family support. Patient was transferred to the medical floor from [facility]. Seen and examined in the room. No family at bedside during visit. Patient remains aphasic with flaccid right side. Patient not following simple commands. She weakly moves her left upper extremity and left lower extremity. Remains on O2 2 L via nasal cannula. Patient is in mild respiratory distress, tachypneic with auditory wheezing. Bedside RN notified. Tube feeds infusing via NG tube at 35 mL's per hour. Speech therapy has signed off the case, patient has not been able to be evaluated due to lethargy and cognition problems. As previously discussed with patient`s spouse, patient will most likely need a PEG tube if goals are aggressive. Case discussed with bedside RN and Ney Verdugo THERMAL CUTTING TRACER MACHINE OPERATOR. 1642hrs: Telephone conversation with patient`s spouse. Discussed patient`s insignificant neuro changes if any. Discussed patient`s insignificant neuro changes if any and upcoming decisions if goals remain aggressive. Patient`s spouse has decided to forgo any further aggressive treatment and mentioned that he now wants comfort measures only through hospice services. Readdressed code status and patient`s spouse elected DNR/DNI. Bedside RN notified via telephone of patient`s change of code status. . Family/Friend Interactions: No family at bedside. . Advance Directives Living Will: Never completed Health Care Surrogate: Never completed Durable Power of Bottling Equipment Sales Representative: Never completed Health Care Surrogate Name and Number: HCP: Ruslan Kay [phone] (home) ; [phone] (cell) Documented care wishes:: Never completed advanced directives. . Objective Vital Signs: Vital Signs 06/13/18 16:00 06/13/18 16:31 06/13/18 17:00 Temperature Pulse Rate 101 H 97 H 93 H Respiratory Rate 24 25 H 25 H Blood Pressure 99/55 L Pulse Oximetry 97 97 95 06/13/18 18:00 06/13/18 18:07 06/13/18 20:00 Temperature 97.2 F L 97.5 F L Pulse Rate 104 H 98 H 112 H Respiratory Rate 15 16 24 Blood Pressure 113/64 104/56 L Pulse Oximetry 95 97 06/13/18 21:40 06/14/18 00:00 06/14/18 08:00 Temperature 97.3 F L 97.0 F L Pulse Rate 107 H 97 H Respiratory Rate 26 H 20 Blood Pressure 108/58 L 123/58 L Pulse Oximetry 95 98 96 06/14/18 12:00 Temperature 97.2 F L Pulse Rate 90 Respiratory Rate 21 Blood Pressure 113/58 L Pulse Oximetry 95 Intake & Output 06/13/18 06/14/18 06/14/18 18:59 06:59 18:59 Intake Total 1900 / 1900 2220 / 2220 400 / 400 Output Total 1200 / 1200 401 / 401 Balance 1900 / 1900 1020 / 1020 -1 / -1 Weight 46.5 kg Intake: IV 1100 / 1100 200 / 200 D5W/1/2 NS Inj 1,000 ML @ 75 1000 / 1000 mls/hr IV.CONT .[id number] VINAYAK Rx# :[id number] Azactam Inj 2 GM In NS Inj 100 100 / 100 200 / 200 ML @ 200 mls/hr IV.SIG Q8H VINAYAK Rx#:[id number] Oral 0 / 0 Tube Feeding 420 / 420 Tube Irrigant 800 / 800 Free Water Amount 800 / 800 800 / 800 400 / 400 Output: Urine 1200 / 1200 400 / 400 Stool Other: # Incontinent Voids 1 Date of Last Bowel Movement 06/12/18 06/12/18 06/14/18 Physical Exam: CONSTITUTIONAL/GENERAL: This is an elderly, cachectic, frail, aphasic patient, in no acute distress TUBES/LINES/DRAINS: PIV, Mehta catheter, nasogastric tube SKIN: Pale, fragile skin. Multiple keratotic lesions to right arm, face. ecchymoses on upper extremities. HEAD: Atraumatic. Normocephalic. EYES: Pupils slightly reactive to light, spontaneously opens eyes with a left- sided preference gaze. Fundi not examined. ENT: Hard of hearing. Nose without bleeding or purulent drainage. NECK: Trachea midline. Supple, nontender. CARDIOVASCULAR: Irregular rate and rhythm. No JVD. Peripheral pulses symmetric. 3+ generalized edema worse on right upper extremity RESPIRATORY/CHEST: Tachypneic. Wheezing. O2 via nasal cannula GASTROINTESTINAL: Abdomen soft. No guarding. Active bowel sounds. NG tube with tube feeds infusing. GENITOURINARY: Without palpable bladder distension. Mehta catheter in place. MUSCULOSKELETAL: Extremities without clubbing, cyanosis, or edema. No mottling or clubbing. LYMPHATICS: Did not assess NEUROLOGICAL: Briefly opens eyes. Right-sided neglect. Not following simple commands. Spontaneously moves left upper extremity. Right side flaccid. PSYCHIATRIC: No obvious anxiety/depression. Currently calm. . Diagnostic Tests Laboratory: Laboratory Results - last 72 hr 06/12/18 06/12/18 06/12/18 05:33 05:33 17:22 WBC 8.6 RBC 3.00 L Hgb 8.7 L Hct 26.5 L MCV 88.3 MCH 29.0 MCHC 32.9 RDW 17.7 H Plt Count 241 MPV 8.1 Neut % (Auto) 75.7 H Lymph % (Auto) 10.4 [place] % (Auto) 9.5 H Eos % (Auto) 3.6 Baso % (Auto) 0.8 Neut # (Auto) 6.5 Lymph # (Auto) 0.9 L [place] # (Auto) 0.8 Eos # (Auto) 0.3 Baso # (Auto) 0.1 WBC Differential . Differential Comment Auto diff final Hematology Comments Sodium 150 H 150 H Potassium 4.1 D 3.9 Chloride 117 H 115 H Carbon Dioxide 25.7 26.5 Anion Gap 7 9 BUN 24 H 24 H Creatinine 0.74 0.73 Estimated GFR 75 L 76 L Random Glucose 96 111 H Calcium 7.6 L 7.0 L* Calcium Adj for Albumin 9.1 Phosphorus 1.5 L Magnesium 1.6 Total Bilirubin 0.4 AST 65 H ALT 26 Alkaline Phosphatase 157 H Total Protein 4.9 L Albumin 1.4 L 1.4 L 06/13/18 06/13/18 06/14/18 05:10 05:10 05:37 WBC 10.7 RBC 3.57 L Hgb 10.6 L Hct 31.9 L MCV 89.3 MCH 29.7 MCHC 33.2 RDW 17.4 H Plt Count 255 MPV 8.2 Neut % (Auto) Lymph % (Auto) [place] % (Auto) Eos % (Auto) Baso % (Auto) Neut # (Auto) Lymph # (Auto) [place] # (Auto) Eos # (Auto) Baso # (Auto) WBC Differential Differential Comment Hematology Comments Sodium 145 148 H Potassium 3.8 3.5 Chloride 113 H 114 H Carbon Dioxide 25.7 28.0 Anion Gap 6 6 BUN 23 H 26 H Creatinine 0.70 0.64 Estimated GFR 80 L 88 L Random Glucose 109 H 108 H Calcium 7.5 L 7.5 L Calcium Adj for Albumin Phosphorus 2.0 L Magnesium 1.6 1.7 Total Bilirubin AST ALT Alkaline Phosphatase Total Protein Albumin 06/14/18 05:37 WBC 10.9 RBC 2.94 L Hgb 8.6 L D Hct 25.5 L MCV 86.9 MCH 29.2 MCHC 33.6 RDW 17.2 Plt Count 228 MPV 8.5 Neut % (Auto) Lymph % (Auto) [place] % (Auto) Eos % (Auto) Baso % (Auto) Neut # (Auto) Lymph # (Auto) [place] # (Auto) Eos # (Auto) Baso # (Auto) WBC Differential Differential Comment Hematology Comments Sodium Potassium Chloride Carbon Dioxide Anion Gap BUN Creatinine Estimated GFR Random Glucose Calcium Calcium Adj for Albumin Phosphorus Magnesium Total Bilirubin AST ALT Alkaline Phosphatase Total Protein Albumin Result Diagrams: 06/14/18 05:37 06/14/18 05:37 Imaging: Head CT 06/03/18 16:34 CONCLUSION: 1. No acute intracranial abnormality. . Cervical Spine CT 06/03/18 16:41 CONCLUSION: 1. No acute fracture. 2. Stable 3 mm anterolisthesis of C2 on C3 and 2 mm anterolisthesis of C7 on T1 , as would be secondary to degenerative facet arthrosis. 3. Small right apical pneumothorax. Physician is aware from prior chest radiograph. 4. Multilevel degenerative spondylosis of the cervical spine. Carotid Doppler Study 06/04/18 00:00 CONCLUSION: 1. There appears to be occlusion of the left internal carotid artery. If clinically indicated, a CTA of the carotids could be performed for further evaluation. 2. Moderate atherosclerotic plaquing at the right carotid bifurcation. No focal high-grade or hemodynamically significant stenosis. Head MRI 06/05/18 00:00 CONCLUSION: 1. Infarcts in the left basal ganglia and left parietal lobe, not significantly changed. 2. Chronic ischemic small vessel vasculopathy. Head MRA 06/05/18 11:40 CONCLUSION: 1. Motion artifact limiting evaluation. 2. Diffuse atherosclerotic changes throughout the visualized intracranial vasculature. 3. Suspect occluded left internal carotid artery. Correlation with CTA of the neck/CTA of the brain may be warranted. Chest X-Ray 06/10/18 06:00 CONCLUSION: 1. Stable right apical pneumothorax. Persistent right basilar consolidation/ effusion. Some developing atelectatic changes in the right upper lobe. 2. Baseline interstitial prominence is probably chronic. 3. Interval removal of life-support tubes. 4. Stable fracture deformity of the proximal left humerus. Procedures: 06/03/18-endotracheally intubated 06/03/18-right subclavian central line placement 06/03/18-right chest tube placement 06/06/18-chest tube discontinued 06/09/18-medically extubated . Assessment and Plan - Disease Oriented Problem List (1) Acute ischemic stroke (2) Respiratory failure requiring intubation (3) Atrial fibrillation with RVR (4) Hypokalemia - Symptom Scale (1) Shortness of breath 0-10 Scale: Unable to quantify (2) Altered mental status 0-10 Scale: Unable to quantify (3) Dysphagia 0-10 Scale: Unable to quantify Comment: Most likely from recent ischemic stroke. Speech therapy consulted. (4) Debility 0-10 Scale: Unable to quantify Pertinent Non-Medical Issues: Psychosocial: Patient is originally from [place]. She moved to [place] 30 years ago. Patient has been 3 times. She has been to her current for 40 years. Patient had all sons, 3 are and one son Miley Kraus is still living. Patient is the only child. Both her parents are . Patient resides with her . Spiritual: Patient is [employer] Legal: Patient has never completed advanced directives. Ethical issues impacting care: None identified at this time . Important Contacts: Healthcare proxy -spouse- Jeremy Kay [phone] . Prognosis: Mrs Kay is an 87-year-old female with a medical history significant for coronary artery disease S/P CABG, congestive heart failure, atrial fibrillation on chronic anticoagulation, myocardial infarction, diverticulosis, hypertension and hyperlipidemia. Patient was brought to the emergency room on 06/03/2018 for further evaluation of altered mental status. MRI brain showed a thalamic stroke. Clinical course complicated with hypotension requiring pressor support, shortness of breath, altered mental status. Given multiple ongoing comorbidities, advanced age and debility, patient remains at high risk for further complications, deterioration and decline. Prognosis is guarded. . Code Status: No Code DNR Plan: PLAN: Legal decision maker: Patient medically extubated 06/09/18. Patient has global aphasia. Not following simple commands. It is not known whether patient will regain capacity to participate in medical decision making. Patient is . According to [place] statute, her spouse Rona Kay will serve as her healthcare decision maker proxy. Goals: Telephone conversation with patient`s spouse. Discussed patient`s insignificant neuro changes if any and upcoming decisions if goals remain aggressive. Patient`s spouse has decided to forgo any further aggressive treatment and mentioned that he now wants comfort measures only through hospice services. Readdressed code status and patient`s spouse elected DNR/DNI. Hospice consult placed- patient`s spouse will be available to meet with hospice on around 1600hrs. CODE STATUS: Alternative code-intubation only. SYMPTOMS: * Shortness of breath: Patient had an acute ischemic stroke, required endotracheal intubation for airway protection. Iatrogenic right pneumothorax requiring placement of a pigtail chest tube, now discontinued. Chest x-ray still showing stable small right apical pneumothorax and right pleural effusion. Medically extubated on 06/09/18. Remains on O2 2 L nasal cannula. Patient tachypneic with wheezing. Duo nebs prn available, discussed having duonebs scheduled ATC with attending. * Altered mental status: Patient's baseline of memory loss. Admitted for acute ischemic stroke. Patient medically extubated 06/09/18. Patient has global aphasia, left gaze preference with right-sided neglect and flaccid to the right side. Speech therapy following, he has not been able to evaluate patient due to lethargy. Continue with neuro checks. * Dysphagia: Patient recently had an ischemic stroke. Currently has global aphasia and right-sided hemiplegia. Speech therapy following, he has not been able to evaluate patient due to lethargy. Patient currently receiving tube feeds via NG tube. Patient`s spouse wants to forgo any further aggressive treatment ans transition patient to comfort oriented care only. * Debility: Progressive. Patient has multiple ongoing comorbidities. Requires assistance with all ADLs. Patient has a stable fracture deformity of proximal left humerus. Spouse states that she has decreased range of motion with her arms. Patient is supposed to ambulate with a Rollator walker at home but normally utilizes dyer and furniture for support. If goals are aggressive, recommending PT though patient will most likely not participate due to memory issues. Palliative care will continue to follow the patient during hospital course as condition evolves, to assist patient/decision-maker with understanding of their medical conditions, weighing benefits/burdens of treatment options, for clarification of goals of treatment. Additionally will assist with any symptoms of palliative concern Attestation Attestation: To help prompt me to consider important information that might be impacting today's encounter and assessment, information from prior notes written by myself or my colleagues may have been "brought forward" into today's note. My signature on this note, however, is an attestation that I personally performed the exam, history, and/or decision-making noted today, and, unless otherwise indicated, the interactions with patient, family, and staff as well as the review of records all occurred today. I also attest that the listed assessment and stated plan reflect my best clinical judgment today based on the combination of historical information, prior notes, and today's exam/ interactions. When time spent is documented, it refers only to time spent today by the signer, or if indicated, combined time spent today by collaborating physician/nurse practitioner.
[2018-06-15] MEDS: Oral Hygiene Kit OROPHARYNG SCH ×4 (00:04→17:10)
[2018-06-15] MEDS: Metoprolol Tartrate 25 MG Tablet PO SCH ×2 (00:51→10:33)
[2018-06-15 07:22] LABS: Calcium 7.3 mg/dL (8.5-10.1); Carbon Dioxide 27.8 meq/L (21.0-32.0); Potassium 3.8 meq/L (3.5-5.1)
[2018-06-15 07:35] LABS: Albumin 1.1 g/dL (3.4-5.0); Calcium-Albumin Corrected 9.6 mg/dL (8.5-10.1)
[2018-06-15] MEDS: Famotidine PF Inj 20 MG/2 ML Vial IV.PUSH SCH ×2 (10:33→21:31)
[2018-06-15] MEDS: Modafinil 200 MG Tablet PO SCH (10:36)
[2018-06-15] MEDS: Senna/Docusate Sodium 8.6/50 MG Tablet PO SCH ×2 (10:36→21:31)
[2018-06-15] MEDS: Ferrous Sulfate 325 MG Tablet PO SCH ×2 (10:36→11:31)
[2018-06-15] MEDS: Chlorhexidine 0.12% Oral Kit 15 ML UDC OROPHARYNG SCH ×2 (10:51→21:31)
--- NOTE | 2018-06-15 11:24 | P.PNIM ---
Subjective Interval history: Follow-up for respiratory failure, left thalamic stroke: Patient seen and examined, remains aphasic, no significant neuro changes. Remains on 4 L, sats 97%, less tachypneic. Blood pressure trending low, 99/54. Son at bedside. He spoke to his father yesterday and CODE STATUS was changed to DO NOT RESUSCITATE. They have meeting to speak to hospice today and possible transfer to a care center. Tolerating tube feeding well. No other changes overnight. Unable to obtain ROS Physical Exam Vital signs: Vital Signs 06/14/18 12:00 06/14/18 16:00 06/14/18 16:21 Temperature 97.2 F L 99.0 F Pulse Rate 90 90 81 Respiratory Rate 21 22 16 Blood Pressure 113/58 L 112/58 L Pulse Oximetry 95 95 96 06/14/18 19:46 06/14/18 20:00 06/15/18 00:00 Temperature 97.4 F L 97.2 F L Pulse Rate 100 H 115 H 145 H Respiratory Rate 20 22 22 Blood Pressure 99/72 L 90/51 L Pulse Oximetry 98 98 99 06/15/18 04:00 06/15/18 04:35 06/15/18 09:27 Temperature 98.6 F Pulse Rate 97 H 95 H 97 H Respiratory Rate 22 18 20 Blood Pressure 107/53 L 99/54 L Pulse Oximetry 98 98 06/15/18 10:44 Temperature Pulse Rate 105 H Respiratory Rate 20 Blood Pressure Pulse Oximetry 97 Intake & Output 06/14/18 06/15/18 06/15/18 18:59 06:59 18:59 Intake Total 800 / 800 800 / 800 Output Total 551 / 551 Balance 249 / 249 800 / 800 Weight 49.7 kg Intake: Oral 0 / 0 Free Water Amount 800 / 800 800 / 800 Output: Urine 550 / 550 Stool 1 / Other: # Voids 3 Date of Last Bowel Movement 06/14/18 06/14/18 # Incontinent Bowel Movements 1 Narrative: GENERAL: Frail, malnourished 87-year-old female. SKIN: Dry, warm. Dark discolored and raised lesio area noted to right cheek. HEAD: Atraumatic. Normocephalic. EYES: Pupils equal and round. No scleral icterus. No injection or drainage. ENT: No nasal bleeding or discharge. Mucous membranes pink and moist. NECK: Trachea midline. No JVD. CARDIOVASCULAR: Regular rate and rhythm. Sinus tachycardia RESPIRATORY: Expiratory wheezing and bibasilar [place]. GASTROINTESTINAL: Abdomen soft, non-tender, nondistended. Hepatic and splenic margins not palpable. NGT with TF MUSCULOSKELETAL: Extremities without clubbing, cyanosis. No obvious deformities. Dependent edema noted to upper and lower extremity NEUROLOGICAL: Patient aphasic, not following commands, positive facial droop. PSYCHIATRIC: Unable to assess Urinary Catheter Management Indwelling Urethral Catheter: Cath placed during this visit: yes, but has since been removed by the nurse Reason for continuing: Terminally ill/Comfort care Insertion date: 06/03/18 Insertion time: 18:30 Removal date: 06/06/18 Removal time: 17:00 Results Labs CBC & Chem 7: 06/14/18 05:37 06/15/18 06:18 Assessment and Plan Plan Patient is a 87F with multiple medical problems including atrial fibrillation, alzheimers, HTN, Hx MS, Hx of CAD s/p CABG and skin ca presenting with AMS in setting of LEFT thalamic CVA with hospital course complicated by pneumothorax s /p pigtail chest tube placement currently in [facility] in critical condition. Left subcortical ischemic infarct Left carotid artery occlusion - neurology consulted and recommendation appreciated - palliative care following - continue NGT as patient unable to have WOOD TECHNOLOGIST eval - Echo showing EF approximately 45% with ventricular hypokinesis - 06/05/18 MRI brain stable left hemispheric stroke, left ICA occlusion - 06/10 eliquis started -Attending discussed with on 06/12. for now ok with peg. ok for intubation but not cpr. explained peg may not ultimately change patients outcome from stroke. Father to think things over -pt. now DNR, poss. transfer to hospice services today -meds reviewed, and adjusted. Stopped metoprolol tartrate, ferrous sulfate A. fib, heart rate well controlled Continue with Eliquis HYPERnatremia Improving, sodium 140 -Continue with free water fluid to 400mL q6 - D5 fluids was stopped, signs of some fluid accumulation -Na improving, 147 Edema Fluid overloaded Was given Lasix Pneumothorax resolved -s/p pigtail cath with improvement in pneumo Recent respiratory failure, was intubated -Continue with oxygen at 2 L to keep his sats greater than 90 duonebs scheduled -less SOB today Alzheimer disease - continue donepezil Hypotension-resolved Hypothermia-resolved Leukocytosis with Left Shift -Blood cultures negative to date from 06/03/2018-negative -Off Vanco and Levaquin -On aztreonam since 06/04 -Urinalysis negative for evidence of bacterial infection. CXR negative. -No fevers, no leukocytosis, discontinued aztreonam and monitor off antibiotic DVT prophylaxis-Eliquis GI prophylaxiscontinue Pepcid Palliative care following patient Hospice consult in place D/W Melvin, pt's family meeting with hospice today after 4pm. Likely transfer to care center today. Discussed with patient's son, questions answered in detail. Will wait for hospice to to meet with patient's Possible discharge to hospice care center later today Code Status: DNR Discussed Condition With: RN, pt, CM Dr. Basil Charles [employer] Palliative care Discharge Planning: Poss going to hospice today after pt's meet with hospice Progress Note: Quality VTE Deep Vein Thrombosis/Pulmonary Embolism Present on Admission: No
--- NOTE | 2018-06-15 11:57 | P.PNPAL ---
Reason for Visit Reason for visit: a. To assist with evaluation and management of symptoms including: Shortness of breath, altered mental status, dysphagia, debility b. To assist medical decision maker(s) with: better understanding of current medical conditions; weighing benefits/burdens of medical treatment options; making medical treatment decisions. Subjective Subjective/Interval History: Follow-up medically necessary for symptom management and family support. Patient seen and examined in the presence of his son Sushil Trent and grandson. Patient remains lethargic, aphasic and obtunded. Not following commands but withdraws from noxious stimulation with the left side. Her breathing has significantly improved, not labored. Patient receiving duo nebs [id number] prn also available. Currently on O2 4 L via nasal cannula with O2 sats in the high 90s. Patient is still rhonchi to auscultation in all elizabeth. Tube feeding infusing at goal rate via NG tube. Patient has a frown on her forehead. Provided medical update to patient's son and grandson. Discussed challenges that patient has faced during this hospitalization. Plan is for patient's spouse to meet with hospice after 1600 hrs. on 06/15/2018. Patient's son feels that his mother would not want to continue with aggressive treatment but would rather be kept comfortable receiving end-of-life care through hospice. Case discussed with Ney Verdugo APRN, child welfare manager and [employer]. . Family/Friend Interactions: See interval note. . Advance Directives Living Will: Never completed Health Care Surrogate: Never completed Durable Power of Conveyor Console Operator: Never completed Health Care Surrogate Name and Number: HCP: Ruslan Kay [phone] (home) ; [phone] (cell) Documented care wishes:: Never completed advanced directives. . Significant change in goals:: Patient spouse has decided to forego further aggressive treatment and transition to comfort care only through hospice services. . Objective Vital Signs: Vital Signs 06/14/18 12:00 06/14/18 16:00 06/14/18 16:21 Temperature 97.2 F L 99.0 F Pulse Rate 90 90 81 Respiratory Rate 21 22 16 Blood Pressure 113/58 L 112/58 L Pulse Oximetry 95 95 96 06/14/18 19:46 06/14/18 20:00 06/15/18 00:00 Temperature 97.4 F L 97.2 F L Pulse Rate 100 H 115 H 145 H Respiratory Rate 20 22 22 Blood Pressure 99/72 L 90/51 L Pulse Oximetry 98 98 99 06/15/18 04:00 06/15/18 04:35 06/15/18 09:27 Temperature 98.6 F Pulse Rate 97 H 95 H 97 H Respiratory Rate 22 18 20 Blood Pressure 107/53 L 99/54 L Pulse Oximetry 98 98 06/15/18 10:44 Temperature Pulse Rate 105 H Respiratory Rate 20 Blood Pressure Pulse Oximetry 97 Intake & Output 06/14/18 06/15/18 06/15/18 18:59 06:59 18:59 Intake Total 800 / 800 800 / 800 400 / 400 Output Total 551 / 551 Balance 249 / 249 800 / 800 400 / 400 Weight 49.7 kg Intake: Oral 0 / 0 Free Water Amount 800 / 800 800 / 800 400 / 400 Output: Urine 550 / 550 Stool Other: # Voids 3 Date of Last Bowel Movement 06/14/18 06/14/18 # Incontinent Bowel Movements 1 Physical Exam: CONSTITUTIONAL/GENERAL: This is an elderly, cachectic, frail, aphasic patient, in no acute distress TUBES/LINES/DRAINS: PIV, Mehta catheter, nasogastric tube SKIN: Pale, fragile skin. Multiple keratotic lesions to right arm, face. ecchymoses on upper extremities. HEAD: Atraumatic. Normocephalic. EYES: Pupils slightly reactive to light, spontaneously opens eyes with a left- sided preference gaze. Fundi not examined. ENT: Hard of hearing. Nose without bleeding or purulent drainage. NECK: Trachea midline. Supple, nontender. CARDIOVASCULAR: Irregular rate and rhythm. 2+ generalized edema worse on right upper extremity, slightly improved. RESPIRATORY/CHEST: Symmetric, unlabored. No wheezing. Rhonchi to auscultation. O2 via nasal cannula GASTROINTESTINAL: Abdomen soft. No guarding. Active bowel sounds. NG tube with tube feeds infusing. GENITOURINARY: Without palpable bladder distension. Mehta catheter in place. MUSCULOSKELETAL: Extremities without clubbing, cyanosis, or edema. No mottling or clubbing. LYMPHATICS: Did not assess NEUROLOGICAL: Eyes slightly open. Appears to be sleeping. Not following simple commands. Withdrawing with left side. Right side flaccid. PSYCHIATRIC: No obvious anxiety/depression. Currently calm. . Diagnostic Tests Laboratory: Laboratory Results - last 72 hr 06/12/18 06/13/18 06/13/18 17:22 05:10 05:10 WBC 10.7 RBC 3.57 L Hgb 10.6 L Hct 31.9 L MCV 89.3 MCH 29.7 MCHC 33.2 RDW 17.4 H Plt Count 255 MPV 8.2 Hematology Comments Sodium 150 H 145 Potassium 3.9 3.8 Chloride 115 H 113 H Carbon Dioxide 26.5 25.7 Anion Gap 9 6 BUN 24 H 23 H Creatinine 0.73 0.70 Estimated GFR 76 L 80 L Random Glucose 111 H 109 H Calcium 7.0 L* 7.5 L Calcium Adj for Albumin 9.1 Phosphorus 2.0 L Magnesium 1.6 Albumin 1.4 L 06/14/18 06/14/18 06/15/18 05:37 05:37 06:18 WBC 10.9 RBC 2.94 L Hgb 8.6 L D Hct 25.5 L MCV 86.9 MCH 29.2 MCHC 33.6 RDW 17.2 Plt Count 228 MPV 8.5 Hematology Comments Sodium 148 H 147 H Potassium 3.5 3.8 Chloride 114 H 113 H Carbon Dioxide 28.0 27.8 Anion Gap 6 6 BUN 26 H 26 H Creatinine 0.64 0.64 Estimated GFR 88 L 88 L Random Glucose 108 H 100 Calcium 7.5 L 7.3 L* Calcium Adj for Albumin 9.6 Phosphorus Magnesium 1.7 Albumin 1.1 L Result Diagrams: 06/14/18 05:37 06/15/18 06:18 Imaging: Head CT 06/03/18 16:34 CONCLUSION: 1. No acute intracranial abnormality. . Cervical Spine CT 06/03/18 16:41 CONCLUSION: 1. No acute fracture. 2. Stable 3 mm anterolisthesis of C2 on C3 and 2 mm anterolisthesis of C7 on T1 , as would be secondary to degenerative facet arthrosis. 3. Small right apical pneumothorax. Physician is aware from prior chest radiograph. 4. Multilevel degenerative spondylosis of the cervical spine. Carotid Doppler Study 06/04/18 00:00 CONCLUSION: 1. There appears to be occlusion of the left internal carotid artery. If clinically indicated, a CTA of the carotids could be performed for further evaluation. 2. Moderate atherosclerotic plaquing at the right carotid bifurcation. No focal high-grade or hemodynamically significant stenosis. Head MRI 06/05/18 00:00 CONCLUSION: 1. Infarcts in the left basal ganglia and left parietal lobe, not significantly changed. 2. Chronic ischemic small vessel vasculopathy. Head MRA 06/05/18 11:40 CONCLUSION: 1. Motion artifact limiting evaluation. 2. Diffuse atherosclerotic changes throughout the visualized intracranial vasculature. 3. Suspect occluded left internal carotid artery. Correlation with CTA of the neck/CTA of the brain may be warranted. Chest X-Ray 06/10/18 06:00 CONCLUSION: 1. Stable right apical pneumothorax. Persistent right basilar consolidation/ effusion. Some developing atelectatic changes in the right upper lobe. 2. Baseline interstitial prominence is probably chronic. 3. Interval removal of life-support tubes. 4. Stable fracture deformity of the proximal left humerus. Procedures: 06/03/18-endotracheally intubated 06/03/18-right subclavian central line placement 06/03/18-right chest tube placement 06/06/18-chest tube discontinued 06/09/18-medically extubated . Assessment and Plan - Disease Oriented Problem List (1) Acute ischemic stroke (2) Respiratory failure requiring intubation (3) Atrial fibrillation with RVR (4) Hypokalemia - Symptom Scale (1) Shortness of breath 0-10 Scale: Unable to quantify (2) Altered mental status 0-10 Scale: Unable to quantify (3) Dysphagia 0-10 Scale: Unable to quantify Comment: Most likely from recent ischemic stroke. Speech therapy consulted. (4) Debility 0-10 Scale: Unable to quantify Pertinent Non-Medical Issues: Psychosocial: Patient is originally from [place]. She moved to [place] 30 years ago. Patient has been 3 times. She has been to her current for 40 years. Patient had all sons, 3 are and one son Miley Kraus is still living. Patient is the only child. Both her parents are . Patient resides with her . Spiritual: Patient is Yarsani Legal: Patient has never completed advanced directives. Ethical issues impacting care: None identified at this time . Important Contacts: Healthcare proxy -spouse- Jeremy Kay [phone] Patient`s son- Miley Ling-[phone] . Prognosis: Mrs Kay is an 87-year-old female with a medical history significant for coronary artery disease S/P CABG, congestive heart failure, atrial fibrillation on chronic anticoagulation, myocardial infarction, diverticulosis, hypertension and hyperlipidemia. Patient was brought to the emergency room on 06/03/2018 for further evaluation of altered mental status. MRI brain showed a thalamic stroke. Clinical course complicated with hypotension requiring pressor support, shortness of breath, altered mental status. Given multiple ongoing comorbidities, advanced age and debility, patient remains at high risk for further complications, deterioration and decline. Patient is global aphasia, is dysphagic with right-sided hemiplegia. Her prognosis is poor. Spouse is decided to forego any further aggressive treatment and transition to comfort oriented care through hospice, which is more appropriate for patient. . Code Status: No Code DNR Plan: PLAN: Legal decision maker: Patient medically extubated 06/09/18. Patient has global aphasia. Not following simple commands. It is not known whether patient will regain capacity to participate in medical decision making. Patient is . According to [place] statute, her spouse Rona Kay will serve as her healthcare decision maker proxy. Goals: Plan is for patient spouse to meet with child welfare manager today 06/15/18 after 1600 hrs. Patient's son Sushil Trent who is visiting with patient from [place] feels that his mother would not want to continue with aggressive treatment but would rather be kept comfortable receiving end-of-life care through hospice. He is supportive of patient`s spouse decision. CODE STATUS: Alternative code-intubation only. SYMPTOMS: * Shortness of breath: Patient had an acute ischemic stroke, required endotracheal intubation for airway protection. Iatrogenic right pneumothorax requiring placement of a pigtail chest tube, now discontinued. Chest x-ray still showing stable small right apical pneumothorax and right pleural effusion. Medically extubated on 06/09/18. Remains on O2 2 L nasal cannula. Duo nebs ATC and prn available. Breathing significantly improved. * Altered mental status: Patient's baseline of memory loss. Admitted for acute ischemic stroke. Patient medically extubated 06/09/18. Patient has global aphasia, left gaze preference with right-sided neglect and flaccid to the right side. Speech therapy following, he has not been able to evaluate patient due to lethargy. Continue with neuro checks. * Dysphagia: Patient recently had an ischemic stroke. Currently has global aphasia and right-sided hemiplegia. Speech therapy following, he has not been able to evaluate patient due to lethargy. Patient currently receiving tube feeds via NG tube. Patient`s spouse wants to forgo any further aggressive treatment ans transition patient to comfort oriented care only. * Debility: Progressive. Patient has multiple ongoing comorbidities. Requires assistance with all ADLs. Patient has a stable fracture deformity of proximal left humerus. Spouse states that she has decreased range of motion with her arms. Patient is supposed to ambulate with a Rollator walker at home but normally utilizes dyer and furniture for support. If goals are aggressive, recommending PT though patient will most likely not participate due to memory issues. Palliative care will continue to follow the patient during hospital course as condition evolves, to assist patient/decision-maker with understanding of their medical conditions, weighing benefits/burdens of treatment options, for clarification of goals of treatment. Additionally will assist with any symptoms of palliative concern Attestation Attestation: To help prompt me to consider important information that might be impacting today's encounter and assessment, information from prior notes written by myself or my colleagues may have been "brought forward" into today's note. My signature on this note, however, is an attestation that I personally performed the exam, history, and/or decision-making noted today, and, unless otherwise indicated, the interactions with patient, family, and staff as well as the review of records all occurred today. I also attest that the listed assessment and stated plan reflect my best clinical judgment today based on the combination of historical information, prior notes, and today's exam/ interactions. When time spent is documented, it refers only to time spent today by the signer, or if indicated, combined time spent today by collaborating physician/nurse practitioner.
--- NOTE | 2018-06-15 15:23 | P.PNNEU ---
Subjective Subjective Comments: No acute events Active Medications: Active Medications Acetaminophen (Tylenol) 650 mg PO Q6H PRN PRN Reason: pain 1-2 or temp >100.4 Hydrocodone Bitart/Acetaminophen ([place] 5/325) 1 tab PO Q4H PRN PRN Reason: PAIN SCALE 3-7 Last Admin: 06/08/18 14:59 Dose: 1 tab Al Hydroxide/Mg Hydroxide (Milk Of Magnesia Liq) 30 ml PO Q12H PRN PRN Reason: Mild Constipation Albuterol (Albuterol Neb (Prn)) 2.5 mg NEB Q2HR NEB PRN PRN Reason: SHORTNESS OF BREATH/WHEEZING Last Admin: 06/13/18 18:06 Dose: 2.5 mg Albuterol (Duoneb Neb ([facility])) 1 ampul NEB Q6HR NEB [facility] Last Admin: 06/15/18 15:14 Dose: 1 ampul Apixaban (Eliquis) 2.5 mg PO BID [facility] Last Admin: 06/15/18 10:36 Dose: 2.5 mg Atorvastatin Calcium (Lipitor) 40 mg PO DAILY [facility] Last Admin: 06/15/18 10:36 Dose: 40 mg Bisacodyl (Dulcolax Supp) 10 mg RECTAL DAILY PRN PRN Reason: SEVERE CONSITIPATION Chlorhexidine Gluconate (Peridex 0.12% Oral Kit) 15 ml OROPHARYNG BID@0800, 2000 [facility] Last Admin: 06/15/18 10:51 Dose: Not Given Donepezil HCl (Aricept) 10 mg PO HS [facility] Last Admin: 06/14/18 20:37 Dose: 10 mg Famotidine (Pepcid Pf Inj) 20 mg IV.PUSH Q12HR [facility] Last Admin: 06/15/18 10:33 Dose: 20 mg Sodium Chloride (Ns Inj) 1,000 mls @ 0 mls/hr IV.CONT .Q0M [facility] Lactulose (Lactulose Liq) 30 ml PO DAILY PRN PRN Reason: SEVERE CONSITIPATION Miscellaneous (Pill Splitter) 1 each OTHER UNSCH [facility] Miscellaneous Medication () 1 each OROPHARYNG 0000,0400,1200,1600 [facility] Last Admin: 06/15/18 14:39 Dose: 1 each Modafinil (Provigil) 100 mg PO DAILY [facility] Last Admin: 06/15/18 10:36 Dose: 100 mg Ondansetron HCl (Zofran Inj) 4 mg IV.PUSH Q6H PRN PRN Reason: NAUSEA OR VOMITING Senna/Docusate Sodium (Katarzyna-Colace) 1 tab PO BID [facility] Last Admin: 06/15/18 10:36 Dose: 1 tab Sennosides (Senokot) 17.2 mg PO Q12H PRN PRN Reason: Moderate Constipation Sodium Chloride (Ns Flush) 2 ml IV.FLUSH BID [facility] Last Admin: 06/15/18 10:51 Dose: Not Given Sodium Chloride (Ns Flush) 2 ml IV.FLUSH PRN PRN PRN Reason: FLUSH AFTER USING IV ACCESS Sterile Water (Free Water) 400 ml NG/OG Q6H [facility] Last Admin: 06/15/18 11:24 Dose: 400 ml Allergies/Adverse Reactions: Allergies Allergy/AdvReac Type Severity Reaction Status Date / Time Penicillins Allergy Unknown Verified 01/14/17 15:37 Sulfa (Sulfonamide Allergy Unknown Verified 01/14/17 15:37 Antibiotics) Review of Systems unobtainable due to mental status Physical Exam Vital signs: Vital Signs 06/14/18 16:00 06/14/18 16:21 06/14/18 19:46 Temperature 99.0 F Pulse Rate 90 81 100 H Respiratory Rate 22 16 20 Blood Pressure 112/58 L Pulse Oximetry 95 96 98 06/14/18 20:00 06/15/18 00:00 06/15/18 04:00 Temperature 97.4 F L 97.2 F L 98.6 F Pulse Rate 115 H 145 H 97 H Respiratory Rate 22 22 22 Blood Pressure 99/72 L 90/51 L 107/53 L Pulse Oximetry 98 99 98 06/15/18 04:35 06/15/18 09:27 06/15/18 10:44 Temperature Pulse Rate 95 H 97 H 105 H Respiratory Rate 18 20 20 Blood Pressure 99/54 L Pulse Oximetry 98 97 06/15/18 12:53 06/15/18 15:15 Temperature 97.3 F L Pulse Rate 118 H 100 H Respiratory Rate 19 22 Blood Pressure 83/47 L Pulse Oximetry 99 Intake & Output 06/14/18 06/15/18 06/15/18 18:59 06:59 18:59 Intake Total 800 / 800 800 / 800 400 / 400 Output Total 551 / 551 Balance 249 / 249 800 / 800 400 / 400 Weight 49.7 kg Intake: Oral 0 / 0 Free Water Amount 800 / 800 800 / 800 400 / 400 Output: Urine 550 / 550 Stool Other: # Voids 3 Date of Last Bowel Movement 06/14/18 06/14/18 # Incontinent Bowel Movements 1 Narrative: GENERAL: in NAD, SKIN: Warm and dry. HEAD: Atraumatic. Normocephalic. EYES: Pupils equal and round. ENT: No nasal bleeding or discharge. NG tube in place NECK: Trachea midline. CARDIOVASCULAR: Irregularly irregular RESPIRATORY: Intubated GASTROINTESTINAL: Abdomen soft, non-tender, nondistended. ng tube in place MUSCULOSKELETAL: Extremities without clubbing, cyanosis, or edema. NEUROLOGICAL: Mildly somnolent, awakens to tactile. global aphasia, rt facial weakness, no gaze preference, OU tiny, sluggish, localizes to the left upper lower extremity right hemiplegia right extensor plantar PSYCHIATRIC: Calm - Constitutional no acute distress - Routine HEENT Exam Head: Present: normocephalic Eye: Present: EOMI - Urinary Catheter Management Indwelling Urethral Catheter Cath placed during this visit: yes, but has since been removed by the nurse Reason for continuing: Terminally ill/Comfort care Insertion date: 06/03/18 Insertion time: 18:30 Removal date: 06/06/18 Removal time: 17:00 Objective Laboratory Results - last 24 hr 06/15/18 06:18 Sodium 147 H Potassium 3.8 Chloride 113 H Carbon Dioxide 27.8 Anion Gap 6 BUN 26 H Creatinine 0.64 Estimated GFR 88 L Random Glucose 100 Calcium 7.3 L* Calcium Adj for Albumin 9.6 Albumin 1.1 L Review/Management - Diagnosis (1) Acute ischemic stroke Code(s): I63.9 - Cerebral infarction, unspecified Status: Acute Current Visit: Yes (2) Atrial fibrillation, new onset Code(s): I48.91 - Unspecified atrial fibrillation Status: Chronic Current Visit: Yes (3) Respiratory failure requiring intubation Code(s): J96.90 - Respiratory failure, unspecified, unspecified whether with hypoxia or hypercapnia Status: Acute Current Visit: Yes (4) Left carotid artery occlusion Code(s): I65.22 - Occlusion and stenosis of left carotid artery Status: Acute Current Visit: Yes - Review/Management Plan: Left subcortical ischemic infarct MRI brain images reviewed. Carotid ultrasound suggesting possible left carotid occlusion. Infarct likely related to the occlusion which may be acute or chronic with underlying history of A. fib and questionable compliance on anticoagulation MRI brain demonstrate left ICA occlusion LDL 88 Echo showing EF proxy 45% with ventricular hypokinesis 06/05/18 MRI brain stable left hemispheric stroke, left ICA occlusion 06/10 eliquis started Recommendation Neuro unchanged. 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 fib, stroke Follow exam
[2018-06-16] MEDS: Oral Hygiene Kit OROPHARYNG SCH ×3 (00:18→11:29)
--- NOTE | 2018-06-16 08:17 | P.PNNEU ---
Subjective Subjective Comments: No acute events family bedside. Active Medications: Active Medications Acetaminophen (Tylenol) 650 mg PO Q6H PRN PRN Reason: pain 1-2 or temp >100.4 Hydrocodone Bitart/Acetaminophen ([place] 5/325) 1 tab PO Q4H PRN PRN Reason: PAIN SCALE 3-7 Last Admin: 06/08/18 14:59 Dose: 1 tab Al Hydroxide/Mg Hydroxide (Milk Of Magnesia Liq) 30 ml PO Q12H PRN PRN Reason: Mild Constipation Albuterol (Albuterol Neb (Prn)) 2.5 mg NEB Q2HR NEB PRN PRN Reason: SHORTNESS OF BREATH/WHEEZING Last Admin: 06/13/18 18:06 Dose: 2.5 mg Albuterol (Duoneb Neb ([facility])) 1 ampul NEB Q6HR NEB [facility] Last Admin: 06/16/18 04:14 Dose: 1 ampul Apixaban (Eliquis) 2.5 mg PO BID [facility] Last Admin: 06/15/18 21:31 Dose: 2.5 mg Atorvastatin Calcium (Lipitor) 40 mg PO DAILY [facility] Last Admin: 06/15/18 10:36 Dose: 40 mg Bisacodyl (Dulcolax Supp) 10 mg RECTAL DAILY PRN PRN Reason: SEVERE CONSITIPATION Chlorhexidine Gluconate (Peridex 0.12% Oral Kit) 15 ml OROPHARYNG BID@0800, 2000 [facility] Last Admin: 06/15/18 21:31 Dose: 15 ml Donepezil HCl (Aricept) 10 mg PO HS [facility] Last Admin: 06/15/18 21:31 Dose: 10 mg Famotidine (Pepcid Pf Inj) 20 mg IV.PUSH Q12HR [facility] Last Admin: 06/15/18 21:31 Dose: 20 mg Sodium Chloride (Ns Inj) 1,000 mls @ 0 mls/hr IV.CONT .Q0M [facility] Lactulose (Lactulose Liq) 30 ml PO DAILY PRN PRN Reason: SEVERE CONSITIPATION Miscellaneous (Pill Splitter) 1 each OTHER UNSCH [facility] Miscellaneous Medication () 1 each OROPHARYNG 0000,0400,1200,1600 [facility] Last Admin: 06/16/18 00:18 Dose: 1 each Modafinil (Provigil) 100 mg PO DAILY [facility] Last Admin: 06/15/18 10:36 Dose: 100 mg Ondansetron HCl (Zofran Inj) 4 mg IV.PUSH Q6H PRN PRN Reason: NAUSEA OR VOMITING Senna/Docusate Sodium (Katarzyna-Colace) 1 tab PO BID [facility] Last Admin: 06/15/18 21:31 Dose: 1 tab Sennosides (Senokot) 17.2 mg PO Q12H PRN PRN Reason: Moderate Constipation Sodium Chloride (Ns Flush) 2 ml IV.FLUSH BID [facility] Last Admin: 06/15/18 21:31 Dose: 2 ml Sodium Chloride (Ns Flush) 2 ml IV.FLUSH PRN PRN PRN Reason: FLUSH AFTER USING IV ACCESS Sterile Water (Free Water) 400 ml NG/OG Q6H [facility] Last Admin: 06/16/18 00:18 Dose: 400 ml Allergies/Adverse Reactions: Allergies Allergy/AdvReac Type Severity Reaction Status Date / Time Penicillins Allergy Unknown Verified 01/14/17 15:37 Sulfa (Sulfonamide Allergy Unknown Verified 01/14/17 15:37 Antibiotics) Review of Systems unobtainable due to mental status Physical Exam Vital signs: Vital Signs 06/15/18 09:27 06/15/18 10:44 06/15/18 12:53 Temperature 97.3 F L Pulse Rate 97 H 105 H 118 H Respiratory Rate 20 20 19 Blood Pressure 99/54 L 83/47 L Pulse Oximetry 98 97 99 06/15/18 15:15 06/15/18 17:13 06/15/18 20:00 Temperature 97.8 F 98.1 F Pulse Rate 100 H 116 H 106 H Respiratory Rate 22 20 20 Blood Pressure 93/56 L 117/56 L Pulse Oximetry 99 100 06/15/18 21:18 06/16/18 00:00 06/16/18 04:00 Temperature 97.2 F L 98.0 F Pulse Rate 112 H 108 H 95 H Respiratory Rate 20 20 20 Blood Pressure 113/69 120/58 L Pulse Oximetry 99 99 100 06/16/18 04:16 Temperature Pulse Rate 101 H Respiratory Rate 16 Blood Pressure Pulse Oximetry Intake & Output 06/15/18 06/16/18 06/16/18 18:59 06:59 18:59 Intake Total 800 / 800 400 / 400 Balance 800 / 800 400 / 400 Weight 50.5 kg Intake: Free Water Amount 800 / 800 400 / 400 Other: # Voids 3 2 Date of Last Bowel Movement 06/14/18 Narrative: GENERAL: in NAD, SKIN: Warm and dry. HEAD: Atraumatic. Normocephalic. EYES: Pupils equal and round. ENT: No nasal bleeding or discharge. NG tube in place NECK: Trachea midline. CARDIOVASCULAR: Irregularly irregular RESPIRATORY: Intubated GASTROINTESTINAL: Abdomen soft, non-tender, nondistended. ng tube in place MUSCULOSKELETAL: Extremities without clubbing, cyanosis, or edema. NEUROLOGICAL: Mildly somnolent, awakens to tactile. global aphasia, rt facial weakness, no gaze preference, OU tiny, sluggish, localizes to the left upper lower extremity right hemiplegia right extensor plantar PSYCHIATRIC: Calm - Constitutional no acute distress - Urinary Catheter Management Indwelling Urethral Catheter Cath placed during this visit: yes, but has since been removed by the nurse Reason for continuing: Terminally ill/Comfort care Insertion date: 06/03/18 Insertion time: 18:30 Removal date: 06/06/18 Removal time: 17:00 Review/Management - Diagnosis (1) Acute ischemic stroke Code(s): I63.9 - Cerebral infarction, unspecified Status: Acute Current Visit: Yes (2) Atrial fibrillation, new onset Code(s): I48.91 - Unspecified atrial fibrillation Status: Chronic Current Visit: Yes (3) Respiratory failure requiring intubation Code(s): J96.90 - Respiratory failure, unspecified, unspecified whether with hypoxia or hypercapnia Status: Acute Current Visit: Yes (4) Left carotid artery occlusion Code(s): I65.22 - Occlusion and stenosis of left carotid artery Status: Acute Current Visit: Yes - Review/Management Plan: Left subcortical ischemic infarct MRI brain images reviewed. Carotid ultrasound suggesting possible left carotid occlusion. Infarct likely related to the occlusion which may be acute or chronic with underlying history of A. fib and questionable compliance on anticoagulation MRI brain demonstrate left ICA occlusion LDL 88 Echo showing EF proxy 45% with ventricular hypokinesis 06/05/18 MRI brain stable left hemispheric stroke, left ICA occlusion 06/10 eliquis started Recommendation Neuro unchanged. Global aphasia right hemiplegia Discussed with son at bedside. They are considering comfort care palliative care seeing pt Overall prognosis guarded with advanced age, underlying dementia probable Alzheimer's type, A. fib, stroke Follow exam
[2018-06-16] MEDS ORDERED: MethylPREDNISolone Sod Succinate Inj 125 MG/2 ML Vial IV.PUSH ONE (08:36)
[2018-06-16] MEDS: Famotidine PF Inj 20 MG/2 ML Vial IV.PUSH SCH (08:52)
[2018-06-16] MEDS: Chlorhexidine 0.12% Oral Kit 15 ML UDC OROPHARYNG SCH (08:53)
[2018-06-16] MEDS: Modafinil 200 MG Tablet PO SCH (08:54)
[2018-06-16] MEDS: Senna/Docusate Sodium 8.6/50 MG Tablet PO SCH (08:54)
--- NOTE | 2018-06-16 11:42 | P.DS ---
DS: Providers Date of admission: 06/03/18 18:56 Primary care physician: UNKNOWN Attending physician on admission: Jossy Barnes Consults: 06/03/18 19:07 HUB Only Consult Order Routine Consulting Provider: Trev Karimi 06/04/18 16:08 Consult to Neurology Routine Consulting Provider: Jarrell Potter Reason for Consultation: stroke Notified:: Service Spoke with:: EDER Date Notified:: 06/04/18 Time Notified:: 16:27 Ordering Provider: TIM 06/06/18 16:54 Consult to Palliative Care Routine Consulting Provider: Ney Loredo Reason for Consultation: CVA Notified:: Service Spoke with:: MEÑO Date Notified:: 06/06/18 Time Notified:: 16:56 Ordering Provider: TIM 06/11/18 21:07 Consult to Hospitalist Routine Consulting Provider: Lon Cisse Reason for Consultation: AMS Notified:: Service Spoke with:: Rakesh Date Notified:: 06/11/18 Time Notified:: 07:06 Comments:: waiting on assignment - ML Ordering Provider: JAY 06/15/18 16:35 HUB Only Consult Order Routine Consulting Provider: Brigette Ochoa Attending physician on discharge: Sammi Gracia Discharging clinician: Lucina Brewster Anticipated date of discharge: 06/16/18 Brief History from admission: Ms. Kay is an 87-year-old female with a past medical history of CAD, HTN, left leg fracture, prior myocardial infarction, atrial fibrillation on chronic anticoagulation with Eliquis, who presented to the ED around 1630 with altered mental status. Her states upon returning from work around 1530 he found her with altered mental ststus on the floor supine in the bathroom. He states she has had months of anorexia and weight loss, otherwise she was in her usual state of health prior to this incident. She normally has mild memory difficulty and ambulates slowly. She does not drive or cook for at least one year. Per EMR she was able to state her name but could not recall the name of her . Due to tachycardic and BP 91/67 mmHg a Right subclavian central venous line was placed in the ED, from which she suffered an iatrogenic right-sided apical pneumothorax that was 1.5 cm. In the ED she was also intubated because of shallow respirations. Later during admission in the [facility] she became hypotensive with elevated peak pressures and a pigtail chest tube was placed due to concern for development of tension pneumothorax. Patient update on day of discharge: Follow-up for respiratory failure, left thalamic stroke: Patient seen and examined, remains aphasic, no significant neuro changes. Remains on 4 L, sats 97%, tachypneic, audible wheezing. Patient 's son and at bedside. indicates that he spoke to hospice yesterday and was told that she could only go to hospice care center for 3 days and will likely need to go to a long-term care facility after. He will like her to go to a long-term care facility. Explained that patient cannot go with NG tube, he does not want a PEG tube. Informed that we will reach out to case management to clarify hospice conversation. At this time they want to continue with comfort care measures and DO NOT RESUSCITATE. No acute changes overnight. DS: Summary Patient is a 87F with multiple medical problems including atrial fibrillation, alzheimers, HTN, Hx CO, Hx of CAD s/p CABG and skin ca presented with AMS in the setting of LEFT thalamic CVA. Patient was initially found on down by her . Patient was admitted to critical care initially. During her stay in critical care, patient require intubation and was on pressor support. She also developed a small right apical pneumo after insertion of central line. She had a pigtail chest tube placed. Neurology evaluated, echo and neuro work up done. Echo showing EF approximately 45% with ventricular hypokinesis. 06/05/18 MRI brain stable left hemispheric stroke, left ICA occlusion. On 06/10 eliquis started. Patient remained poorly responsive, palliative care was consulted. Sedation was stopped and patient was extubated on June 10. Patient was stabilized and transferred to hospitalist services. Patient remained aphasic, did not pass swallow evaluations. NG tube was continued for tube feedings. Was found hyponatremic and was treated with D5 water and increase of water flushes. She was noted fluid overloaded and was treated with Lasix. Patient was noted with hypothermia, leukocytosis with left shift, cultures were obtained , patient was started on empiric antibiotics for possible pneumonia. UA did show evidence of infection, chest x-ray was negative. Antibiotics were stopped. Pigtail was removed, resolved. Patient remained poorly responsive, she continued to decline. Palliative care continued to follow patient and discussed with family goals of care. Patient was made DNR and family was agreeable with transfer to hospice care center. Patient was discharged to a care center Time Spent with Patient Total time spent providing and/or coordinating discharge services: 45 Greater than 30 minutes Status at Discharge Functional status at discharge: uses cane/walker Overall status at discharge: patient is not back to baseline Quality: VTE Deep Vein Thrombosis/Pulmonary Embolism Present on Admission: No Exam Narrative Exam Narrative: GENERAL: Frail, malnourished 87-year-old female. SKIN: Dry, warm. Dark discolored and raised lesio area noted to right cheek. HEAD: Atraumatic. Normocephalic. EYES: Pupils equal and round. No scleral icterus. No injection or drainage. ENT: No nasal bleeding or discharge. Mucous membranes pink and moist. NECK: Trachea midline. No JVD. CARDIOVASCULAR: Regular rate and rhythm. Sinus tachycardia RESPIRATORY: Expiratory wheezing and bibasilar Rales. GASTROINTESTINAL: Abdomen soft, non-tender, nondistended. Hepatic and splenic margins not palpable. NGT with TF MUSCULOSKELETAL: Extremities without clubbing, cyanosis. No obvious deformities. Dependent edema noted to upper and lower extremity NEUROLOGICAL: Patient aphasic, not following commands, positive facial droop. PSYCHIATRIC: Unable to assess Results Procedures completed during hospitalization: Insertion of central line and pig tail catheter Impressions ITS Impressions Head CT 06/03/18 16:34 CONCLUSION: 1. No acute intracranial abnormality. . Cervical Spine CT 06/03/18 16:41 CONCLUSION: 1. No acute fracture. 2. Stable 3 mm anterolisthesis of C2 on C3 and 2 mm anterolisthesis of C7 on T1 , as would be secondary to degenerative facet arthrosis. 3. Small right apical pneumothorax. Physician is aware from prior chest radiograph. 4. Multilevel degenerative spondylosis of the cervical spine. Carotid Doppler Study 06/04/18 00:00 CONCLUSION: 1. There appears to be occlusion of the left internal carotid artery. If clinically indicated, a CTA of the carotids could be performed for further evaluation. 2. Moderate atherosclerotic plaquing at the right carotid bifurcation. No focal high-grade or hemodynamically significant stenosis. Head MRI 06/05/18 00:00 CONCLUSION: 1. Infarcts in the left basal ganglia and left parietal lobe, not significantly changed. 2. Chronic ischemic small vessel vasculopathy. Head MRA 06/05/18 11:40 CONCLUSION: 1. Motion artifact limiting evaluation. 2. Diffuse atherosclerotic changes throughout the visualized intracranial vasculature. 3. Suspect occluded left internal carotid artery. Correlation with CTA of the neck/CTA of the brain may be warranted. Chest X-Ray 06/10/18 06:00 CONCLUSION: 1. Stable right apical pneumothorax. Persistent right basilar consolidation/ effusion. Some developing atelectatic changes in the right upper lobe. 2. Baseline interstitial prominence is probably chronic. 3. Interval removal of life-support tubes. 4. Stable fracture deformity of the proximal left humerus. Discharge Plan Discharge Disposition Patient Disposition: 51 Hospice/Med Facility Discharge Condition Condition: Serious Discharge Order Discharge Orders: Discharge Order (Routine); Ordered 06/16/18 Ordered By: Lucina Brewster Discharge Details Anticipated Discharge Date: 06/16/18 Physicians Team Primary Care Provider: UNKNOWN, Attending Provider: Sammi Gracia Other Providers: Trev Karimi ; Jarrell Potter ; Ney Loredo ; [facility] Rxs /Orders / Referrals /Forms Prescriptions: New albuterol sulfate 2.5 mg /3 mL (0.083 %) Solution For Nebulization 2.5 mg NEB Q2HR NEB PRN (Reason: Shortness Of Breath/Wheezing) Qty: 1 RF: 0 Discontinued atorvastatin 40 mg Tablet 40 mg PO DAILY RF: 0 atorvastatin 40 mg Tablet 40 mg PO DAILY RF: 0 potassium chloride 10 mEq Capsule, Extended Release 10 meq PO DAILY RF: 0 donepezil 10 mg Tablet 10 mg PO HS RF: 0 alendronate 70 mg Tablet 70 mg PO QWEEK RF: 0 amlodipine 2.5 mg Tablet 2.5 mg PO DAILY RF: 0 ferrous sulfate 325 mg (65 mg iron) Tablet 325 mg PO DAILY RF: 0 mirtazapine 15 mg Tablet 15 mg PO HS RF: 0 albuterol sulfate [Ventolin HFA] 90 mcg/actuation Hfa Aerosol Inhaler 1 puff INHALATION Q4-6H PRN (Reason: Wheezing) RF: 0 apixaban [Eliquis] 2.5 mg Tablet 2.5 mg PO BID RF: 0 Referrals: UNKNOWN, [Primary Care Provider] - See Instructions Discharge Instructions Patient Printed Instructions: Ipratropium/Albuterol (By breathing), Hypoxia ( GEN) Post Discharge Care Plan Care Plan Goals: Your Health Problems: Goals to Promote Your Health: * To prevent worsening of your condition * To maintain your health at the optimal level Directions to Meet Your Goals: * Take your medications as prescribed * Follow your dietary instruction * Follow activity as directed * Keep your appointments as scheduled * Take your immunizations and boosters as scheduled * If your symptoms worsen call your PCP * If no PCP go to Urgent Care or Emergency Room Smoking is dangerous to your health. Avoid second hand smoke. You may reach the 24-hour crisis hotline for domestic abuse at . * * Discharge Care Plan Goals for Coronary Artery Bypass Surgery You have had Coronary Artery Bypass Graft Surgery (also called CABG, malorie avery). This surgery created new pathways around blocked parts of your heart s blood vessels, allowing blood to reach your heart muscle. Directions to Meet your Goals: 1. Pain Relief: You will recover faster after surgery if your pain is kept under control: * Take pain medicine as directed by your doctor. * Dont be surprised if you feel sharp pains as your breastbone heals or if you have soreness in your incision during changes in weather. * Tell your doctor if you have questions about what youre feeling, if your medicines dont reduce your pain, or if you suddenly feel worse. 2. Activity: * Dont drive until your doctor says its OK. And never drive while taking opioid pain medicine. * Ask someone to stand nearby while you shower or do other activities, just in case you need help. * Weigh yourself every day, at the same time of day, and in the same kind of clothes. Quick weight gain can be a sign of a problem that needs your doctor's attention. * Follow your doctor's more specific weight restrictions. Dont lift anything heavier than 5 pounds. * Until approved by doctor, avoid mowing the lawn, vacuuming, driving, and doing other activities that could strain your breastbone. 3. Diet and Exercise: * Maintain a healthy weight. If needed, get help to loose extra pounds. * Avoid fatty and fried foods. Stick to lean meats, such as chicken or fish. * Cut back on salt: - Limit canned, dried, packaged, and fast foods. - Dont add salt to your food at the table. - Season foods with herbs instead of salt when you cook * Ask your healthcare provider when you can start a walking program: - If you havent already started a walking program in the hospital, begin with short walks (about 5 minutes) at home. Go a little longer each day. - Choose a safe place with a level surface, such as a local park or mall. - Wear supportive shoes to prevent injury to your knees and ankles. - Walk with someone. Its more fun and helps you stay with it. 4. Prevent Falls/Injury: * If you are unstable on your feet, remember to ask for help from others. * Avoid using very hot water while showering. It can affect your circulation and make you dizzy. * Free up your hands so that you can use them to keep balance. Use a jose pack , apron, or pockets to carry things. * Arrange your household to keep the items you need handy. Keep everything else out of the way. * Remove items that may cause you to fall, such as throw rugs and electrical cords. * Use nonslip bath mats, grab bars, an elevated toilet seat, and a shower chair in your bathroom * Sit on a shower stool or chair when you shower to keep from falling. 5. Incision Care: Healing takes several weeks. * Check your incision daily for redness, swelling, tenderness, or drainage. * Prevent infection by washing your hands often. If an infection occurs, it will need to be treated right away. * Call your doctor right away if you think you may have an infection. Symptoms include a fever or an incision that leaks white, green, or yellow fluid. * Don't soak your incision in water until your doctor says its OK. This means no hot tubs, bathtubs, or swimming pools. * Follow your doctor's instructions for changing the dressing. * Dont rub the incision, or apply creams or lotions to it. 6. Follow-Up: Do Not miss your follow-up appointment. Keep up with all your appointments and yearly check ups When to call your doctor: Call your doctor right away if you have: Chest pain or a return of the heart symptoms you had before your surgery Fever of 100.4F (38C) or higher, or as directed by your doctor Signs of infection (redness, swelling, drainage, or warmth) at the incision site Shortness of breath Fainting Weight gain of more than 3 pounds in 1 day, more than 5 pounds in 1 week, or whatever weight gain you were told to report by your doctor New or increased swelling in your hands, feet, or ankles Unrelieved pain at the incision site(s) Changes in the location, type, or severity of pain Fast or irregular pulse Persistent abdominal pain Nausea Trouble urinating Any unusual bleeding Call 911: Call 911 right away if you have: Sudden onset of chest pain that is not relieved by medications Shortness of breath Status ED Status: Left Department
== END 2018-06-16 12:55 | disposition hospice, inpatient (51) | DRG 64 ==
LOC: NEPC 16:19 → NEDA 18:56 → N03 22:20 → N07 06-13 17:31
PROVIDERS: ADMIT Hospitalist; ATTEND Hospitalist
DX: Z87.891 Personal history of nicotine dependence; R57.9 Shock, unspecified; Z79.83 Long term (current) use of bisphosphonates; Z90.49 Acquired absence of other specified parts of digestive tract; J96.01 Acute respiratory failure with hypoxia; Z68.22 Body mass index [BMI] 22.0-22.9, adult; R00.0 Tachycardia, unspecified; Z95.1 Presence of aortocoronary bypass graft; Z85.828 Personal history of other malignant neoplasm of skin; Z79.01 Long term (current) use of anticoagulants; R29.810 Facial weakness; H91.90 Unspecified hearing loss, unspecified ear; I63.232 Cerebral infarction due to unspecified occlusion or stenosis of left carotid arteries; R47.01 Aphasia; G93.40 Encephalopathy, unspecified; G30.9 Alzheimer's disease, unspecified; E16.2 Hypoglycemia, unspecified; I49.3 Ventricular premature depolarization; J96.02 Acute respiratory failure with hypercapnia; E46 Unspecified protein-calorie malnutrition; Z79.899 Other long term (current) drug therapy; I25.2 Old myocardial infarction; I10 Essential (primary) hypertension; R13.10 Dysphagia, unspecified; E87.0 Hyperosmolality and hypernatremia; E83.51 Hypocalcemia; G81.91 Hemiplegia, unspecified affecting right dominant side; I25.10 Atherosclerotic heart disease of native coronary artery without angina pectoris; J95.811 Postprocedural pneumothorax; Z66 Do not resuscitate; R41.3 Other amnesia; I48.2 Chronic atrial fibrillation; F02.80 Dementia in other diseases classified elsewhere, unspecified severity, without behavioral disturbance, psychotic disturbance, mood disturbance, and anxiety; E87.70 Fluid overload, unspecified; Y84.8 Other medical procedures as the cause of abnormal reaction of the patient, or of later complication, without mention of misadventure at the time of the procedure; Z88.0 Allergy status to penicillin; Z88.2 Allergy status to sulfonamides; E87.6 Hypokalemia; E86.0 Dehydration; Z51.5 Encounter for palliative care
CPT/HCPCS: 31500; 36556; 36569; 36600; 51702; 70450; 70544; 70551; 71010; 71045; 72125; 76937; 80048; 80053; 80061; 80202; 81001; 82040; 82550; 82552; 82805; 82948; 82962; 83605; 83735; 84100; 84484; 85025; 85027; 85610; 85730; 87040; 87641; 90765; 93005; 93306; 93880; 94002; 94003; 94150; 94640; 94656; 94657; 94664; 94665; 95819; 96365; 97110; 97162; 97167; 97530; 97535; 99291; J0330; J1650; J1940; J1956; J2270; J2370; J2704; J2930; J3010; J3370; J3475; J3480; J7030; J7040; J7050; P9045; P9047